=== PATIENT | female | born 1945 | race Caucasian/White ===

== ENCOUNTER 2020-10-11 08:46 | Outpatient (REF) | payer MEDICARE, SELFPAY ==
[2020-10-11 11:36] LABS: MANUAL DIFF FLAG NO
[2020-10-11 12:03] LABS: Basophils Absolute Auto 0.1 X10*3/uL (0.0-0.2); Basophils Percent Auto 1.2 % (0-2); Eosinophils Absolute Auto 0.5 X10*3/uL (0.0-0.4); Eosinophils Percent Auto 6.8 % (0-4); Hematocrit 40.4 % (37-47); Hemoglobin 13.3 g/dl (12.0-16.0); Imm Gran Abs Auto 0.02 X10*3/uL (0.00-0.03); Imm Gran Pct Auto 0.3 % (0.0-0.4); Lymphocytes Absolute Auto 1.7 X10*3/uL (1.2-4.9); Lymphocytes Percent Auto 25.4 % (20-40); Mean Corpuscular HGB Conc 32.9 g/dl (31.0-35.0); Mean Corpuscular Hemoglobin 29.4 pg (27.0-33.0); Mean Corpuscular Volume 89.2 fL (80-98); Mean Platelet Volume 10.7 fL (9.4-12.3); Monocytes Absolute Auto 0.5 X10*3/uL (0.1-1.2); Monocytes Percent Auto 7.1 % (2-11); Neutrophils Percent Auto 59.2 % (45-73); Platelet Count 256 X10*3/uL (160-400); Red Blood Count 4.53 X10*6/uL (4.20-5.50); Red Cell Distribution Width 12.5 % (11.0-16.0); White Blood Count 6.7 X10*3/uL (4.8-10.8)
[2020-10-11 12:40] LABS: Free T4 (Free Thyroxine) 0.89 ng/dL (0.71-1.85); Thyroid Stimulating Hormone 1.02 uIU/mL (0.32-4.0); Vitamin D 25-OH Total 36.8 ng/mL (>30)
[2020-10-11 12:48] LABS: Vitamin B12 482 pg/mL (200-900)
[2020-10-11 13:11] LABS: Alanine Aminotransferase 22 U/L (0-31); Alkaline Phosphatase 82 U/L (39-117); Anion Gap 11 (12-20); Aspartate Amino Transferase 21 U/L (5-31); Bilirubin Total 0.7 mg/dL (0.0-1.0); Blood Urea Nitrogen 15 mg/dL (9-16); Carbon Dioxide 27 mmol/L (22-29); Chloride 109 mmol/L (96-108); Cholesterol 206 mg/dL; Estimated Glomerular Filt Rate > 60; Glucose Random 79 mg/dL (60-115); HDL Cholesterol 65 mg/dL; LDL Cholesterol Calculated 117 mg/dl; Potassium 4.1 mmol/L (3.3-5.1); Sodium 143 mmol/L (135-145); Total Protein 6.3 g/dL (6.5-8.0); Triglycerides 124 mg/dL
== END 2020-10-11 08:47 | disposition home or self-care (01) ==
LOC: HO.HMGCLDS 08:46
PROVIDERS: PCP Internal Medicine; Visit Provider Internal Medicine
DX: E78.00 Pure hypercholesterolemia, unspecified (principal)
CPT/HCPCS: 36415; 80053; 80061; 82306; 82607; 82746; 84439; 84443; 85025

== ENCOUNTER 2020-11-29 10:47 | Outpatient (REF) | payer MEDICARE, SELFPAY ==
--- NOTE | ~2020-11-29 | MM_ITS ---
EXAMINATION: BONE DENSITOMETRY CLINICAL INDICATION: Osteopenia. COMPARISON: Previous BD dated 06/17/2018 and baseline BD dated 04/20/2008. TECHNIQUE: Using a [employer] DXA System (software version: 13.1) manufactured by [employer], dual-energy x-ray absorptiometry was performed of the lumbar spine and left hip. The images are of good technical quality. Summary results are attached. FINDINGS: AP SPINE L1-L4: Current: BMD 1.217 g/cm2, Z-score 2.3, T-score 0.3, normal, 0.7% decrease from previous, 2.6% decrease from baseline (<5% change is not significant). Prior: BMD 1.225 g/cm2. Baseline: BMD 1.249 g/cm2. LEFT FEMUR, NECK: Current: BMD 0.819 g/cm2, Z-score 0.6, T-score -1.6, osteopenia. Prior: BMD 0.808 g/cm2. Baseline: BMD 0.845 g/cm2. LEFT FEMUR, TOTAL: Current: BMD 0.878 g/cm2, Z-score 0.9, T-score -1.0, normal, 1.5% decrease from previous, 3.8% decrease from baseline (<5% change is not significant). Prior: BMD 0.891 g/cm2. Baseline: BMD 0.913 g/cm2. IDENTIFIED RISK FACTORS: Menopause, glucocorticoids (chronic). HISTORY OF FRACTURE: None listed. MEDICATIONS: Vitamin D. MM/XR DEXA axial skeleton IMPRESSION: 1. DIAGNOSIS: Osteopenia based on the lowest T-score value of -1.6 in the femoral neck applying World Health Organization criteria. 2. 10-YEAR FRACTURE RISK PREDICTION, FRAX: Major osteoporotic fracture (clinical spine, forearm, hip or shoulder) 17.5%. Hip fracture 4.5%. 3. Treatment Recommendations: NOF guidelines recommend consideration for treatment in postmenopausal women and men age 50 and older presenting with the following: -A hip or vertebral (clinical or morphometric) fracture. -T-score less than or equal to -2.5 at the femoral neck or spine after appropriate evaluation to exclude secondary causes. -Low bone mass at the hip or spine and a 10-year fracture probability by FRAX of greater than or equal to 3% for hip fracture or greater than or equal to 20% for major osteoporotic fracture based on the [place] adapted WHO algorithm. 4. Other Recommendations: All treatment decisions require clinical judgment and consideration of individual patient factors, including patient preferences, comorbidities, previous drug use, risk factors not captured in the FRAX model (e.g. frailty, falls, vitamin D deficiency, increased bone turnover, interval significant decline in bone density) and possible under or overestimation of fracture risk by FRAX. Additional medical evaluation for secondary cause of low bone mineral density may be appropriate. FUTURE SCAN RECOMMENDATION: People with diagnosed cases of osteoporosis or at high risk for fracture should have regular bone mineral density tests. For patients eligible for Medicare, routine testing is allowed once every 2 years. The testing frequency can be increased to one year for patients who have rapidly progressing disease, those who are receiving or discontinuing medical therapy to restore bone mass, or have additional risk factors.
== END 2020-11-29 10:48 | disposition home or self-care (01) ==
LOC: HO.MAMMO 10:47
PROVIDERS: PCP Internal Medicine; Visit Provider Internal Medicine
DX: Z13.820 Encounter for screening for osteoporosis (principal); M85.80 Other specified disorders of bone density and structure, unspecified site; E27.49 Other adrenocortical insufficiency; Z78.0 Asymptomatic menopausal state; Z79.899 Other long term (current) drug therapy
CPT/HCPCS: 77080

== ENCOUNTER 2021-03-01 11:18 | Outpatient (REF) | payer MEDICARE, SELFPAY ==
--- NOTE | ~2021-03-01 | MM_ITS ---
EXAMINATION: MM SCREENING DIGITAL BREAST TOMOSYNTHESIS, BILATERAL CLINICAL INFORMATION: Screening. Asymptomatic. The lifetime risk of breast cancer based on the Tyrer-Cuzick Model is 5%. COMPARISON: Mammography: 01/19/2020, 08/11/2018, 07/25/2017, 07/06/2016, 06/09/2015 TECHNIQUE: Digital breast tomosynthesis is performed in both the craniocaudal and mediolateral oblique views along with computer-aided detection (CAD). Synthesized 2D images are generated from the tomosynthesis. FINDINGS: The breasts are heterogeneously dense, which may obscure small masses (ACR BI-RADS breast composition Category c). There is a fibronodular parenchymal pattern similar to prior studies. There are shifting fibroglandular densities from year to year consistent with positioning. There is no interval mass or architectural abnormality or developing density. No abnormal calcifications. The axilla and skin contours are unremarkable. MM/MM tomosynthesis screening BI IMPRESSION: No significant changes from prior exams. ASSESSMENT: BI-RADS 2: Benign RECOMMENDATION: Routine annual mammography screening. This patient's information was entered into a reminder system with a target due date for their next mammogram.
== END 2021-03-01 11:19 | disposition home or self-care (01) ==
LOC: HO.MAMMO 11:18
PROVIDERS: Visit Provider Internal Medicine
DX: Z12.31 Encounter for screening mammogram for malignant neoplasm of breast (principal)
CPT/HCPCS: 77063; 77067

== ENCOUNTER 2021-09-09 07:35 | Outpatient (REF) | payer MEDICARE, SELFPAY ==
[2021-09-09 11:12] LABS: MANUAL DIFF FLAG NO
[2021-09-09 11:24] LABS: Basophils Absolute Auto 0.1 X10*3/uL (0.0-0.2); Eosinophils Absolute Auto 0.7 X10*3/uL (0.0-0.4); Eosinophils Percent Auto 11.3 % (0-4); Hematocrit 42.3 % (37.0-47.0); Hemoglobin 13.9 g/dl (12.0-16.0); Imm Gran Abs Auto 0.02 X10*3/uL (0.00-0.03); Imm Gran Pct Auto 0.3 % (0.0-0.4); Lymphocytes Absolute Auto 1.7 X10*3/uL (1.2-4.9); Mean Corpuscular HGB Conc 32.9 g/dl (31.0-35.0); Mean Corpuscular Hemoglobin 29.4 pg (27.0-33.0); Mean Corpuscular Volume 89.6 fL (80.0-98.0); Mean Platelet Volume 11.1 fL (9.4-12.3); Monocytes Absolute Auto 0.5 X10*3/uL (0.1-1.2); Monocytes Percent Auto 7.7 % (2-11); Neutrophils Absolute Auto 3.2 x10*3/uL (2.0-8.3); Neutrophils Percent Auto 51.7 % (45-73); Platelet Count 243 X10*3/uL (160-400); Red Blood Count 4.72 X10*6/uL (4.20-5.50); Red Cell Distribution Width 12.6 % (11.0-16.0); White Blood Count 6.1 X10*3/uL (4.8-10.8)
[2021-09-09 11:42] LABS: Alanine Aminotransferase 28 U/L (0-31); Alkaline Phosphatase 74 U/L (39-117); Anion Gap 12 (12-20); Aspartate Amino Transferase 26 U/L (5-31); Bilirubin Total 0.6 mg/dL (0.0-1.0); Blood Urea Nitrogen 15 mg/dL (9-16); Calcium 9.2 mg/dL (8.4-10.2); Carbon Dioxide 28 mmol/L (22-29); Chloride 106 mmol/L (96-108); Cholesterol 217 mg/dL; Estimated Glomerular Filt Rate > 60; Glucose Random 81 mg/dL (60-115); HDL Cholesterol 59 mg/dL; LDL Cholesterol Calculated 134 mg/dl; Potassium 3.9 mmol/L (3.3-5.1); Sodium 142 mmol/L (135-145); Total Protein 6.6 g/dL (6.5-8.0); Triglycerides 121 mg/dL
[2021-09-09 12:07] LABS: Thyroid Stimulating Hormone 1.96 uIU/mL (0.32-4.0); Vitamin D 25-OH Total 36.9 ng/mL (>30)
[2021-09-09 12:14] LABS: Folate 15.8 ng/mL (> or = 4.0); Vitamin B12 561 pg/mL (200-900)
== END 2021-09-09 07:36 | disposition home or self-care (01) ==
LOC: HO.HMGCLDS 07:35
PROVIDERS: PCP Internal Medicine; Visit Provider Internal Medicine
DX: E78.00 Pure hypercholesterolemia, unspecified (principal); M85.80 Other specified disorders of bone density and structure, unspecified site
CPT/HCPCS: 36415; 80053; 80061; 82306; 82607; 82746; 84439; 84443; 85025

== ENCOUNTER 2022-03-06 11:28 | Outpatient (REF) | payer MEDICARE, SELFPAY ==
--- NOTE | ~2022-03-06 | MM_ITS ---
EXAMINATION: MM SCREENING DIGITAL BREAST TOMOSYNTHESIS, BILATERAL CLINICAL INFORMATION: Screening. Asymptomatic. The lifetime risk of breast cancer based on the Tyrer-Cuzick Model is 5%. COMPARISON: Mammography: March 01, 2021 and studies dating back to June 09, 2015 TECHNIQUE: Digital breast tomosynthesis is performed in both the craniocaudal and mediolateral oblique views along with computer-aided detection (CAD). Synthesized 2D images are generated from the tomosynthesis. FINDINGS: The breasts are heterogeneously dense, which may obscure small masses (ACR BI-RADS breast composition Category c). There are no significant masses, abnormal calcifications, or other abnormalities. MM/MM tomosynthesis screening BI IMPRESSION: No significant changes ASSESSMENT: BI-RADS 1: Negative RECOMMENDATION: Routine annual mammography screening. This patient's information was entered into a reminder system with a target due date for their next mammogram.
== END 2022-03-06 11:29 | disposition home or self-care (01) ==
LOC: HO.MAMMO 11:28
PROVIDERS: PCP Internal Medicine; Visit Provider Internal Medicine
DX: Z12.31 Encounter for screening mammogram for malignant neoplasm of breast (principal)
CPT/HCPCS: 77063; 77067

== ENCOUNTER 2022-04-18 07:27 | Outpatient (REF) | payer MEDICARE, SELFPAY ==
[2022-04-18 14:56] LABS: Alanine Aminotransferase 20 U/L (0-31); Albumin Level 4.1 g/dL (3.5-5.0); Alkaline Phosphatase 74 U/L (39-117); Anion Gap 11 (12-20); Aspartate Amino Transferase 19 U/L (5-31); Bilirubin Total 0.6 mg/dL (0.0-1.0); Blood Urea Nitrogen 15 mg/dL (9-16); Calcium 9.3 mg/dL (8.4-10.2); Carbon Dioxide 31 mmol/L (22-29); Chloride 105 mmol/L (96-108); Cholesterol 195 mg/dL; Estimated Glomerular Filt Rate > 60; Glucose Random 81 mg/dL (60-115); HDL Cholesterol 67 mg/dL; LDL Cholesterol Calculated 104 mg/dl; Sodium 143 mmol/L (135-145); Total Protein 6.4 g/dL (6.5-8.0); Triglycerides 121 mg/dL
== END 2022-04-18 07:28 | disposition home or self-care (01) ==
LOC: HO.HMGCLDS 07:27
PROVIDERS: PCP Internal Medicine; Visit Provider Internal Medicine
DX: E78.00 Pure hypercholesterolemia, unspecified (principal)
CPT/HCPCS: 36415; 80053; 80061

== ENCOUNTER → 2022-04-20 10:49 | Outpatient (BNVA) | payer MEDICARE, SELFPAY | PROVIDERS: PCP Internal Medicine; Referring Provider Internal Medicine; Visit Provider Surgery | DX: L72.11 Pilar cyst (principal) | CPT/HCPCS: 99202 ==

== ENCOUNTER 2022-06-05 10:46 | Outpatient (REF) | payer MEDICARE, SELFPAY ==
[2022-06-05 10:55] VITALS: BMI 23.0
[2022-06-05 10:57] VITALS: BP 163/70; PULSE 85; RESP 16; TEMP 36.3; O2SAT 98
[2022-06-05 11:58] VITALS: BP 180/76; PULSE 75; RESP 16; O2SAT 97
--- NOTE | 2022-06-05 12:14 | P.OP_ITS ---
Operative Note Operative Note Date of Service: 06/05/22 Narrative: Preoperative diagnosis: Pilar cyst x5 scalp Postoperative diagnosis: Same Procedure: Excision of Pilar cyst x5 scalp Surgeon: Rajendra Arriaga MD Claims Adjudicator: None Anesthesia: Lidocaine 2% with epinephrine Indications for procedure: 76-year-old female with multiple skin lesions located in the posterior and anterior right scalp Operative findings: Pilar cyst x5 of scalp including a 2 cm Pilar cyst in the posterior right scalp, 2 1.5 cm Pilar cysts in the posterior midline, a 1.5 cm Pilar cyst in the mid right scalp and a 1 cm Pilar cyst in the anterior midline scalp. Specimen: Pilar cyst x5 of scalp Estimated blood loss: Less than 2 mL Complications: None Procedure details: Patient was brought to the minor surgery suite and placed in a supine position and then raised to a sitting position. Patient's head was turned to the left. The site of surgery confirmed by the patient with 5 Pilar cysts noted. After assuring informed consent the skin was prepped with Betadine over each cyst and draped in a sterile fashion. Local anesthesia consisting of 2% lidocaine with epinephrine was then infiltrated over each lesion. Beginning in the most posterior lesion incision was made a with scalpel and carried out through subcutaneous tissue up to the cyst wall. Blunt dissection was then used to dissect the lesion out of the subcutaneous tissue. The lesion was excised and sent to pathology for further examination. Skin was then closed using interrupted 3-0 Prolene sutures. Attention was then directed to the 2 midline lesions. Once again local was infiltrated over each lesion. Incision was then made over each lesion in the lesion bluntly dissected from the surrounding subcutaneous tissue. Both lesions were then sent to pathology for further examination. Skin was closed over the 2 incisions using interrupted 3-0 Prolene sutures. Mid scalp lesion was then S ties with the lidocaine. Incision was then made with a scalpel and carried out through subcutaneous tissue. Blunt dissection was then used to excise the lesions. The lesion was then sent to pathology for further examination. Skin was closed using interrupted 3-0 Prolene sutures. Next the most anterior lesion in the midline scalpel anesthetized and incision made with scalpel. The lesion was then bluntly dissected from the surrounding subcutaneous tissue. The lesion was excised and sent to pathology for further examination. Skin was then closed using interrupted 3-0 Prolene sutures. Wounds were checked for hemostasis. Bacitracin was applied to each incision. Patient tolerated the procedure well. She was discharged to home in stable condition.
== END 2022-06-05 10:47 | disposition home or self-care (01) ==
LOC: HO.MS 10:46
PROVIDERS: PCP Internal Medicine; Visit Provider Surgery
PROC: (CPT 11421; principal; 2022-06-05 11:00)
DX: L72.11 Pilar cyst (principal)
CPT/HCPCS: 11421; 11422 ×3; 88304

== ENCOUNTER → 2022-06-12 09:02 | Outpatient (BNVA) | payer MEDICARE, SELFPAY | PROVIDERS: PCP Internal Medicine; Visit Provider Surgery | DX: Z13.89 Encounter for screening for other disorder (principal) | CPT/HCPCS: 99212 ==

== ENCOUNTER 2022-09-11 08:31 | Emergency (ER) | payer MEDICARE, SELFPAY ==
--- NOTE | ~2022-09-11 | XR_ITS ---
EXAMINATION: XR ABDOMEN COMPLETE CLINICAL INDICATION: Diffuse abdominal pain and constipation. COMPARISON: None available. TECHNIQUE: 2 views of the abdomen. FINDINGS: There is stool throughout the colon suggestive of constipation. There are no dilated loops of bowel or air-fluid levels. No free air. No suspicious calcifications. Degenerative changes of the spine. XR/XR abdomen min 2V IMPRESSION: Constipation. No evidence of obstruction.
[2022-09-11 08:32] VITALS: BP 148/79; PULSE 111; RESP 18; TEMP 37.5; O2SAT 98; BMI 23.2
[2022-09-11 08:54] LABS: Basophils Absolute Auto 0.1 X10*3/uL (0.0-0.2); Basophils Percent Auto 0.3 % (0-2); Eosinophils Percent Auto 0.1 % (0-4); Hematocrit 34.2 % (37.0-47.0); Hemoglobin 11.4 g/dl (12.0-16.0); Imm Gran Abs Auto 0.14 X10*3/uL (0.00-0.03); Imm Gran Pct Auto 0.8 % (0.0-0.4); Lymphocytes Absolute Auto 1.2 X10*3/uL (1.2-4.9); Lymphocytes Percent Auto 7.1 % (20-40); MANUAL DIFF FLAG SCAN; Mean Corpuscular HGB Conc 33.3 g/dl (31.0-35.0); Mean Corpuscular Hemoglobin 27.6 pg (27.0-33.0); Mean Corpuscular Volume 82.8 fL (80.0-98.0); Monocytes Absolute Auto 1.6 X10*3/uL (0.1-1.2); Monocytes Percent Auto 9.5 % (2-11); Neutrophils Absolute Auto 13.9 x10*3/uL (2.0-8.3); Neutrophils Percent Auto 82.2 % (45-73); Platelet Count 432 X10*3/uL (160-400); Red Blood Count 4.13 X10*6/uL (4.20-5.50); Red Cell Distribution Width 12.8 % (11.0-16.0); SCAN SMEAR FLAG 1; White Blood Count 16.9 X10*3/uL (4.8-10.8)
--- NOTE | 2022-09-11 09:03 | ED_ITS ---
HPI - Abdominal Pain General Chief Complaint: Abdominal Pain Stated Complaint: Abd pain Time Seen by Provider: 09/11/22 08:49 Source: patient Mode of arrival: ambulatory Limitations: no limitations History of Present Illness HPI narrative: patient with low abdominal pain since yesterday could not sleep all night. Nausea no vomiting, no diarrhea, has been constipated yesterday she had a small hard BM. She feel like she had to force to urinate. No dysuria. MD elicited complaint: abdominal pain Onset (ago): day(s) Pain Consistency: constant Severity: mild Quality: cramping Related Data Previous Rx's Medication Instructions Recorded fexofenadine 180 mg tablet 180 mg PO Q24H #30 tabs 10/12/21 (Arlene Allergy) fluticasone propionate 50 1 spray intranasal DAILY 14 days 04/03/22 mcg/actuation nasal #150 mL spray,suspension (Flonase Allergy Relief) simvastatin 20 mg tablet 20 mg PO DAILY #90 tabs 04/03/22 albuterol sulfate 90 mcg/actuation 2 puff inhalation Q4-6H PRN 07/24/22 aerosol inhaler (ProAir HFA) shortness of breath or wheezing #8.5 grams budesonide 180 mcg/actuation 2 inh inhalation QAM #3 multiple 09/03/22 breath activated powder inhaler units (Pulmicort Flexhaler) cyclobenzaprine 5 mg tablet 10 mg PO TID PRN muscle spasm #60 09/03/22 tabs lactulose 20 gram/30 mL oral 30 g (45 mL) PO TID #1,500 mL 09/11/22 solution psyllium seed (sugar) oral powder 1 tsp PO DAILY #1,254 grams 09/11/22 (Metamucil (sugar) oral powder) Allergies Allergy/AdvReac Type Severity Reaction Status Date / Time egg Allergy Unknown Unknown Verified 07/24/22 15:35 Review of Systems Review of Systems Yes all other systems are reviewed and are negative Gastrointestinal: Reports abdominal pain PMFSH Past Medical History Medical History Asthma Brain aneurysm History of skin cancer Hypercholesterolemia Osteopenia Surgical History History of colonoscopy History of eye surgery History of removal of cyst History of removal of cyst (06/05/22) History of removal of ovarian cyst Pilar cyst Status post surgical removal of malignant neoplasm of skin Family History Family History Father Past heart attack Mother Asthma Sister Diabetes Paternal Aunt Breast cancer Colon cancer Maternal Aunt Breast cancer Social History Social History Housing: House Patient Tobacco Use Status: Former Tobacco user Tobacco use type: Cigarette e-Cigarette/Vaping Use: Never Used Second Hand Smoke Exposure: No Advance Directives: No Advance Directives Information Provided: Yes service: No Current occupational status: retired Cognitive needs: No Hearing needs: No Vision needs: Yes Physical Exam ED Vital Signs: Vital Signs - 24 hr 09/11/22 08:32 Temperature 99.5 F Pulse Rate 111 H Respiratory Rate 18 Blood Pressure 148/79 H Pulse Oximetry 98 Oxygen Delivery Method Room Air BMI result Body Mass Index 23.2 Const General: healthy appearing Nutritional Appearance: average body habitus Orientation/consciousness: oriented to person and patient oriented x3 Limitations: no limitations HENMT Head: Yes normal to inspection Ears: external ears normal General nose exam: Normal external nose present Mouth: Normal oral and palatal mucosa present and oropharynx normal Throat: Yes posterior oropharynx normal Eyes General: appearance normal, both eyes and all related structures Neck Neck: Yes normal visual inspection Chest Chest palpation & inspection: normal inspection of the chest Resp Auscultation: clear to auscultation bilaterally Cardio Jugular venous distension: no JVD Rate: regular rate Rhythm: regular rhythm Heart sounds: S1 normal heart sound present and S2 normal heart sound present GI Other: diffusely tender no guarding, firm Auscultation: normal bowel sounds General: Yes no CVA tenderness Back/Spine/Pelvis Back: no CVA tenderness Skin General skin exam: no rashes or lesions noted Neuro General: oriented to person and patient oriented x3 Cranial nerves: Yes CN's II-XII intact bilaterally Motor exam (neuro): 5/5 motor strength present throughout Extrem General: Yes normal to inspection Psych Appearance: grossly normal Course Reevaluation(s) Reevaluation #1: history, physical and xray all consistent with constipation, will treat with lactulose and dc home. Patient is constipated secondary to the cervical pain meds Time: 11:40 Medical Decision Making Differential Diagnosis Differential Diagnoses: The differential diagnosis associated with the presentation includes (diverticulitis, appendicitis, constipation all considered) Admission/Observation Consideration of admission/observation: Escalation of care including admission/observation considered (In a 76yo female with increasing abdominal pain, admission was considered) Lab Data MDM Lab Attestation statement: I reviewed the patient's lab results. (the WBC is elevated, patient does not have a surgical abdomen at this time) 09/11/22 08:45 09/11/22 08:45 Labs: Lab Results 09/11/22 09/11/22 09/11/22 Range/Units 08:45 08:45 08:59 WBC 16.9 H (4.8-10.8) X10*3/uL RBC 4.13 L (4.20-5.50) X10*6/uL Hgb 11.4 L (12.0-16.0) g/dl Hct 34.2 L (37.0-47.0) % MCV 82.8 (80.0-98.0) fL MCH 27.6 (27.0-33.0) pg MCHC 33.3 (31.0-35.0) g/dl RDW 12.8 (11.0-16.0) % Plt Count 432 H D (160-400) X10*3/uL MPV 9.0 L (9.4-12.3) fL Immature Gran % (Auto) 0.8 H (0.0-0.4) % Neut % (Auto) 82.2 H (45-73) % Lymph % (Auto) 7.1 L (20-40) % [place] % (Auto) 9.5 (2-11) % Eos % (Auto) 0.1 (0-4) % Baso % (Auto) 0.3 (0-2) % Lymph # (Auto) 1.2 (1.2-4.9) X10*3/uL [place] # (Auto) 1.6 H (0.1-1.2) X10*3/uL Eos # (Auto) 0.0 (0.0-0.4) X10*3/uL Baso # (Auto) 0.1 (0.0-0.2) X10*3/uL Abs Immat Gran (auto) 0.14 H (0.00-0.03) X10*3/uL Absolute Neuts (auto) 13.9 H (2.0-8.3) x10*3/uL Absolute Nucleated RBC 0.000 (0.0-0.012) X10*3/uL Nucleated RBC % (auto) 0.0 (0.0-0.2) /100WBC Smear Tech's Comments VERIFIED Sodium 132 L (135-145) mmol/L Potassium 4.3 (3.3-5.1) mmol/L Chloride 96 (96-108) mmol/L Carbon Dioxide 26 (22-29) mmol/L Anion Gap 14 (12-20) BUN 13 (9-16) mg/dL Creatinine 0.68 (0.5-1.4) mg/dL Estim Creat Clear Calc 57.3 Estimated GFR > 60 Random Glucose 136 H (60-115) mg/dL Calcium 9.1 (8.4-10.2) mg/dL Total Bilirubin 0.7 (0.0-1.0) mg/dL Direct Bilirubin 0.3 (0.0-0.5) mg/dL AST 27 (5-31) U/L ALT 62 H (0-31) U/L Total Protein 6.6 (6.5-8.0) g/dL Albumin 3.8 (3.5-5.0) g/dL Lipase 12 (8-78) U/L Urine Color Dark Yellow Urine Appearance Clear Urine pH 5.5 (5.0-9.0) Ur Specific [place] 1.025 (1.005-1.025) Urine Protein 30 (1+) H (Neg-Trace) mg/dL Urine Glucose (UA) 100 H (Negative) mg/dL Urine Ketones 15 (Negative) mg/dL Urine Blood Negative (Negative) Urine Nitrite Negative (Negative) Ur Leukocyte Esterase Trace H (Negative) Urine RBC 3-5 H (0-2) /HPF Urine WBC 0-5 (0-5) /HPF Ur Squamous Epith Cells 3-5 (0-2) /HPF Urine Bacteria None Seen (None Seen) Hyaline Casts 0-2 (0-2) /LPF Independent Interpretation I performed an independent interpretation of an: Plain X-Ray (constipation, no free air) Tests considered The following testing was considered but not selected: I considered an abdominal CT because of elevated WBC. Abdominal exam nonfocal and patient is full of stool so I did not obtain the cT Discharge Plan Discharge Clinical Impression: Constipation Patient Disposition: Home, Self-Care Instructions: Constipation (ED) Prescriptions: New lactulose 20 gram/30 mL solution 30 g PO TID Qty: 1500 0RF Rx Instructions: take until stool becomes liquid Metamucil (sugar) Powder 1 tsp PO DAILY Qty: 1254 0RF No Action simvastatin 20 mg tablet 20 mg PO DAILY Qty: 90 2RF fluticasone propionate [Flonase Allergy Relief] 50 mcg/actuation spray,suspension 1 spray intranasal DAILY 14 Days Qty: 150 0RF Rx Instructions: administer into each nostril Pulmicort Flexhaler 180 mcg/actuation aerosol powdr breath activated 2 inh inhalation QAM Qty: 3 3RF cyclobenzaprine 5 mg tablet 10 mg PO TID PRN (Reason: muscle spasm) Qty: 60 0RF fexofenadine [Arlene Allergy] 180 mg tablet 180 mg PO Q24H Qty: 30 0RF albuterol sulfate [ProAir HFA] 90 mcg/actuation HFA aerosol inhaler 2 puff inhalation Q4-6H PRN (Reason: shortness of breath or wheezing) Qty: 8.5 0RF Referrals: Po,Amos White MD [Primary Care Provider] - 1 week
[2022-09-11 09:11] LABS: Appearance Urine Clear; Color Urine Dark Yellow; Glucose Urine UA 100 mg/dL (Negative); Leukocyte Esterase Urine Trace (Negative); Nitrite Urine Negative (Negative); PH 5.5 (5.0-9.0); Specific Gravity - Urine 1.025 (1.005-1.025); UMIC TRIGGER UACC YES; Urine Blood Negative (Negative); Urine Ketones 15 mg/dL (Negative); Urine Protein 30 (1+) mg/dL (Neg-Trace)
[2022-09-11 09:14] LABS: Bacteria Urine None Seen (None Seen); Hyaline Casts Urine 0-2 /LPF (0-2); WBC Urine 0-5 /HPF (0-5)
[2022-09-11 09:18] LABS: SLIDE REVIEW VERIFIED
[2022-09-11 11:29] LABS: Alanine Aminotransferase 62 U/L (0-31); Albumin Level 3.8 g/dL (3.5-5.0); Anion Gap 14 (12-20); Aspartate Amino Transferase 27 U/L (5-31); Bilirubin Direct 0.3 mg/dL (0.0-0.5); Bilirubin Total 0.7 mg/dL (0.0-1.0); Blood Urea Nitrogen 13 mg/dL (9-16); Calcium 9.1 mg/dL (8.4-10.2); Carbon Dioxide 26 mmol/L (22-29); Chloride 96 mmol/L (96-108); Creatinine Clr Calc Pharmacy 57.3; Estimated Glomerular Filt Rate > 60; Glucose Random 136 mg/dL (60-115); Lipase 12 U/L (8-78); Potassium 4.3 mmol/L (3.3-5.1); Sodium 132 mmol/L (135-145); Total Protein 6.6 g/dL (6.5-8.0)
[2022-09-11 11:51] LABS: Alkaline Phosphatase 519 U/L (39-117)
[2022-09-11 11:58] VITALS: BP 165/70; PULSE 102; RESP 16; TEMP 37; O2SAT 97
[2022-09-11] MEDS: Lactulose 20 GM/30 ML SOLUTION PO (12:00)
== END 2022-09-11 12:10 | disposition home or self-care (01) ==
PROVIDERS: Emergency Provider Emergency Medicine; PCP Internal Medicine
DX: K59.00 Constipation, unspecified (principal); E78.00 Pure hypercholesterolemia, unspecified; Z79.02 Long term (current) use of antithrombotics/antiplatelets; Z79.899 Other long term (current) drug therapy
CPT/HCPCS: 36415; 74019; 80048; 80076; 81001; 83690; 85025; 99283; 99284

== ENCOUNTER 2022-09-12 21:38 | Inpatient (IN) | payer MEDICARE, SELFPAY ==
--- NOTE | ~2022-09-12 | CT_ITS ---
EXAMINATION: CT ABDOMEN AND PELVIS WITH CONTRAST CLINICAL INFORMATION: Exploratory laparotomy. Leukocytosis. Rule out abscess. COMPARISON: Previous CT of the abdomen and pelvis 09/12/2022 and upper GI 09/17/2022 TECHNIQUE: Multidetector volumetric images were obtained from the superior aspect of the liver through the pubic symphysis following administration 85 mL of Omnipaque 350 intravenous contrast. Sagittal and coronal reformatted images were obtained on the technologist's workstation. Oral contrast: No This CT examination was performed using dose optimization techniques as appropriate, variously including the following: *Automated exposure control *Adjustment of mA and/or kV according to patient size (this includes techniques or standardized protocols for targeted exams where dose is matched to indication/reason for exam; i.e. extremities or head) *Use of iterative reconstruction technique DLP: mGy-cm FINDINGS: LUNG BASES: Moderate bilateral pleural effusions and adjacent bilateral lower lobe compressive atelectasis. LIVER, GALLBLADDER, AND BILIARY TREE: The liver is normal in size, shape, and attenuation. No focal hepatic lesion or biliary ductal dilatation is present. The gallbladder is normal in size. No gallstones are appreciated by CT. There is a small amount of fluid surrounding the gallbladder PANCREAS: Unremarkable. SPLEEN: Unremarkable. ADRENAL GLANDS: Unremarkable. KIDNEYS AND URETERS: Bilateral renal peripelvic cysts. 4 cm cortical cyst in the lower pole of the right kidney. No imaging follow-up recommended. BLADDER: There is a small amount of air in the bladder. This may be related to recent catheterization. Clinical correlation recommended. GASTROINTESTINAL TRACT: There are dilated fluid-filled slightly thick-walled loops of proximal small bowel. There is a small bowel suture line seen in the right mid abdomen. There is abnormal extraluminal air seen adjacent to the to the medial side of the bowel/surgical staple line for example axial image 52 series 3. There is a small amount of fluid and extra luminal air seen in the root of the adjacent small bowel mesentery for example axial image 48 series 3. The small bowel distal to the surgical anastomosis is difficult to follow. There are also abnormal loops of more distal small bowel in the left lower quadrant for example axial image 63 and 64 series 3. These loops of bowel are slightly dilated fluid-filled and demonstrate mucosal enhancement. There is an area where the mucosa does not enhance. This abuts what appears to be adjacent fluid in the small bowel mesentery for example image 63 series 3 and the integrity of the wall the small bowel in this region is questionable as well. There is a small amount of fluid in the pelvis anterior and superior to the bladder and dependently in the posterior cul-de-sac. There are numerous additional smaller fluid collections are seen in the small bowel mesentery. There are small air pockets in the fluid anterior and superior to the bladder, for example axial image 68 series 3. There is mild diverticulosis of the colon. There is wall thickening of the colon, greatest involving the proximal colon, the cecum, right colon and transverse colon. There is irregular air seen in the cecum and proximal right colon questionable for pneumatosis. There is a small amount of ascites seen. There is peritoneal enhancement seen dependently in the pelvis posterior cul-de-sac. There is diffuse fat stranding of the small bowel mesentery. ABDOMINAL WALL: Postsurgical changes. No hernia or fluid collection. LYMPH NODES: Normal. VASCULAR: The SMA and SMV are patent. There is evidence of atherosclerotic disease. The celiac axis is patent. There is a mild to moderate stenosis at the origin of the celiac axis. There is plaque at the origin of the SMA. The MARCIAL is patent. The IMV is patent. PELVIC VISCERA: There is endometrial fluid or thickening seen centrally in the uterus. Endometrium by CT measures up to 1 cm. This is abnormally thickened for a postmenopausal patient and follow-up pelvic ultrasound recommended. OSSEOUS STRUCTURES: Unremarkable. CT/CT abdomen pelvis w IV con IMPRESSION: Abnormal appearing small and large bowel. Dilated fluid-filled proximal small bowel. There is question of breakdown of the small bowel anastomosis in the right side of the abdomen and abnormal fluid collection containing small amount of air in the root of the small bowel mesentery. There is an abnormal looking loop of more distal small bowel in the left pelvis with wall thickening mucosal enhancement and question discontinuity of the wall of the bowel. There is abnormal appearance to the colon with irregular wall thickening. There is question of pneumatosis of the cecum and proximal right colon. There are additional fluid collections in the small bowel mesentery. There is ascites greatest in the anterior lower abdomen which contains a small air pockets and in the posterior cul-de-sac dependently in the pelvis. There is diffuse peritoneal enhancement seen in the pelvis. There is evidence of atherosclerotic disease. Major mesenteric vessels appear patent. There is a mild stenosis at the origin of the celiac axis. Abnormally thickened endometrium. Follow-up pelvic ultrasound recommended. Small amount of air in the bladder, question related to recent catheterization. Moderate bilateral pleural effusions and adjacent lateral lower lobe compressive atelectasis. Fleischner guidelines were followed.
--- NOTE | ~2022-09-12 | CT_ITS ---
EXAMINATION: CT ABDOMEN AND PELVIS WITHOUT CONTRAST CLINICAL INFORMATION: Abdominal pain, no bowel movement, leukocytosis, vomiting COMPARISON: None available. TECHNIQUE: Multidetector volumetric imaging was performed from the superior aspect of the liver through the pubic symphysis. Sagittal and coronal reformatted images were obtained on the technologist's workstation. This CT examination was performed using dose optimization techniques as appropriate, variously including the following: *Automated exposure control *Adjustment of mA and/or kV according to patient size (this includes techniques or standardized protocols for targeted exams where dose is matched to indication/reason for exam; i.e. extremities or head) *Use of iterative reconstruction technique DLP: 419 mGy-cm FINDINGS: LUNG BASES: The visualized lung bases are unremarkable. Trace pericardial effusion. LIVER, GALLBLADDER, AND BILIARY TREE: The liver is normal in size, shape, and attenuation. No focal hepatic lesion or biliary ductal dilatation is identified. Gallbladder appears contracted and is not well evaluated. PANCREAS: Unremarkable. SPLEEN: Curvilinear peripheral calcification noted. ADRENAL GLANDS: Unremarkable. KIDNEYS AND URETERS: No hydronephrosis or obstructing calculus bilaterally. Left renal sinus cysts are noted, and there is also a right lower pole cyst; no follow-up recommended. BLADDER: Unremarkable. GASTROINTESTINAL TRACT: Small hiatal hernia. There are multiple dilated gas and fluid-filled loops of small bowel. The distalmost small bowel near the terminal ileum is relatively collapsed. There is also prominent gaseous distention of much of the colon, with gradual decrease in caliber in the sigmoid colon. Moderate stool is present in the sigmoid colon with some additional stool in the distal transverse colon. Appendix is suspected to be nondilated. Trace free fluid is present. No free air is seen. ABDOMINAL WALL: No significant hernia is appreciated. LYMPH NODES: Normal. VASCULAR: There is atherosclerotic calcification along the aorta. PELVIC VISCERA: Unremarkable. OSSEOUS STRUCTURES: There is facet arthropathy of the lower lumbar spine. Slight anterolisthesis of L4 on L5 is favored to be chronic in this setting. CT/CT abdomen pelvis wo IV con IMPRESSION: 1. Multiple dilated loops of small and large bowel. While there is some decrease in caliber of the distal small bowel, the colonic associated dilation would argue against significant small bowel obstruction. There is gradual decrease in caliber of the colon in the sigmoid colon without focal transition point. Ileus would be a consideration with this appearance. 2. Trace free fluid. 3. Small hiatal hernia. 4. Trace pericardial effusion.
--- NOTE | ~2022-09-12 | XR_ITS ---
EXAMINATION: XR CHEST CLINICAL INFORMATION: NG tube placement COMPARISON: 09/13/2022 TECHNIQUE: Frontal view of the chest was obtained. FINDINGS: Enteric tube extends into the proximal stomach with the side-port at the distal esophagus. The lungs are well expanded. There is no focal consolidation, edema, or effusion. No pneumothorax. The cardiomediastinal silhouette is within normal limits. No acute osseous abnormality. XR/XR chest 1V IMPRESSION: 1. No acute pulmonary disease. 2. Enteric tube terminates in the proximal stomach with the side-port at the distal esophagus. Placement is similar to prior. Consider advancement.
--- NOTE | ~2022-09-12 | FL_ITS ---
EXAMINATION: FL UPPER GI SERIES WITH SMALL BOWEL CLINICAL INFORMATION: Small bowel obstruction. COMPARISON: None available. TECHNIQUE: A KUB was obtained. Subsequently, a 50-50 dilution of Gastrografin/water combination, total 320 mL was inserted through the nasogastric tube and images were obtained. FINDINGS: KUB reveals a nasogastric tube with its tip in the fundus. There are multiple dilated small bowel loops. Sequential images obtained up to 3 hours reveal multiple dilated small bowel loops with Gastrografin opacifying the proximal and mid small bowel loops. KUB obtained at 3 hours patient had no progression beyond the small bowel loops. Patient had a single episode of large vomiting at which point the exam was discontinued. FLUOROSCOPY TIME: 1.2 minutes DOSE AREA PRODUCT: 12.672 uGy-m2 (microgray-meter squared) FL/FL upper GI small bowel IMPRESSION: Multiple dilated small bowel loops with Gastrografin opacifying the proximal and mid small bowel loops at 3 hours. Patient had a single episode of vomiting at which point the exam was discontinued. The referring physician/surgeon was notified of the incomplete exam.
--- NOTE | ~2022-09-12 | XR_ITS ---
EXAMINATION: XR ABDOMEN KUB CLINICAL INDICATION: Abdominal distention COMPARISON: Previous CT 09/12/2022 and abdominal x-ray 09/11/2022 TECHNIQUE: AP view of the abdomen. FINDINGS: There is a nasogastric tube in the proximal stomach. There are still dilated loops of small and large bowel. Decreased stool burden. There is no evidence of free air. No calcifications. Bony structures are normal. XR/XR abdomen 1V IMPRESSION: Nasogastric tube in the proximal stomach. Persistent dilated loops of small and large bowel. Decreased stool burden.
--- NOTE | ~2022-09-12 | XR_ITS ---
EXAMINATION: XR CHEST CLINICAL INFORMATION: NG tube placement COMPARISON: 09/13/2022 TECHNIQUE: Frontal view of the chest was obtained. FINDINGS: Enteric tube tip lies in the region of the distal esophagus. Side port lies approximately 11 cm above the gastroesophageal junction. The lungs are clear with no focal consolidation. No evidence of pneumothorax, pulmonary edema, or pleural effusions. The cardiomediastinal contour is unremarkable. No acute osseous findings are seen. Redemonstrated partially visualized dilated bowel loops in the upper abdomen. XR/XR chest 1V IMPRESSION: 1. Enteric tube tip lies in the region of the distal esophagus. Advancement by at least 11 cm is recommended. 2. No acute cardiopulmonary findings.
--- NOTE | ~2022-09-12 | XR_ITS ---
EXAMINATION: XR CHEST CLINICAL INFORMATION: Question pneumonia COMPARISON: 06/14/2010 TECHNIQUE: Frontal view of the chest was obtained. FINDINGS: The lungs are clear with no focal consolidation. No evidence of pneumothorax, pulmonary edema, or pleural effusions. The cardiomediastinal silhouette is unremarkable. No acute osseous findings. XR/XR chest 1V IMPRESSION: No acute cardiopulmonary findings.
[2022-09-12 21:49] VITALS: BP 161/77; PULSE 122; RESP 18; TEMP 36.8; O2SAT 96; BMI 22.7
[2022-09-12 22:22] LABS: Hematocrit 35.5 % (37.0-47.0); Hemoglobin 12.2 g/dl (12.0-16.0); Mean Corpuscular HGB Conc 34.4 g/dl (31.0-35.0); Mean Corpuscular Hemoglobin 27.2 pg (27.0-33.0); Mean Corpuscular Volume 79.2 fL (80.0-98.0); Mean Platelet Volume 9.3 fL (9.4-12.3); Platelet Count 530 X10*3/uL (160-400); Red Blood Count 4.48 X10*6/uL (4.20-5.50); Red Cell Distribution Width 12.8 % (11.0-16.0)
[2022-09-12 22:26] LABS: WBC ABN SCTR FOR CBC 1
[2022-09-12 22:29] LABS: Alanine Aminotransferase 85 U/L (0-31); Albumin Level 3.8 g/dL (3.5-5.0); Alkaline Phosphatase 774 U/L (39-117); Anion Gap 24 (12-20); Aspartate Amino Transferase 66 U/L (5-31); Bilirubin Total 1.6 mg/dL (0.0-1.0); Blood Urea Nitrogen 20 mg/dL (9-16); Calcium 9.7 mg/dL (8.4-10.2); Carbon Dioxide 21 mmol/L (22-29); Chloride 91 mmol/L (96-108); Creatinine Clr Calc Pharmacy 45.3; Estimated Glomerular Filt Rate > 60; Glucose Random 217 mg/dL (60-115); Lipase 14 U/L (8-78); Potassium 4.1 mmol/L (3.3-5.1); Sodium 132 mmol/L (135-145); Total Protein 6.9 g/dL (6.5-8.0)
[2022-09-12 22:46] LABS: Band Neutrophils Percent 4 % (3-5); Eosinophils Percent Manual 1 % (0-4); Lymphocytes Percent Manual 8 % (20-40); Monocytes Percent Manual 3 % (2-11); Neutrophils Percent Manual 84 % (45-73)
[2022-09-12 22:47] LABS: Platelet Estimate INCREASED (NORMAL); Platelet Morphology Comment NORMAL; RBC Morphology NORMAL
[2022-09-12 22:48] LABS: Eosinophils Absolute Manual 0.2 X10*3/uL (0.0-0.4); Large Platelet PRESENT; Lymphocytes Absolute Manual 1.8 X10*3/uL (1.2-4.9); Monocytes Absolute Manual 0.7 X10*3/uL (0.1-1.2); Neutrophils Absolute Manual 19.3 X10*3/uL (2.0-8.3); White Blood Count 21.9 X10*3/uL (4.8-10.8)
[2022-09-12 23:00] VITALS: BP 175/99; PULSE 114; RESP 17; TEMP 36.7; O2SAT 98
--- NOTE | 2022-09-12 23:07 | ED_ITS ---
HPI - Nausea/Vomiting/Diarrhea General Chief complaint: Nausea/Vomiting/Diarrhea Stated complaint: abdominal pain, vomiting Time Seen by Provider: 09/12/22 23:05 Source: patient Mode of arrival: ambulatory Limitations: no limitations History of Present Illness HPI Narrative: A 76-year-old female who is otherwise healthy presented with diffuse abdominal pain and unable to move her bowels for the past 3 days, patient was seen yesterday for similar symptoms was discharged home on lactulose and Metamucil that the patient tried at home with no bowel movement, patient reported increased burping and vomiting after she took the medicine at home. No fever, no chills. Patient declined any previous abdominal surgery in the past, no similar symptoms in the past (patient normally have bowel movement every morning). Related Data Previous Rx's Medication Instructions Recorded fexofenadine 180 mg tablet 180 mg PO Q24H #30 tabs 10/12/21 ([facility]) fluticasone propionate 50 1 spray intranasal DAILY 14 days 04/03/22 mcg/actuation nasal #150 mL spray,suspension (Flonase Allergy Relief) simvastatin 20 mg tablet 20 mg PO DAILY #90 tabs 04/03/22 albuterol sulfate 90 mcg/actuation 2 puff inhalation Q4-6H PRN 07/24/22 aerosol inhaler (ProAir HFA) shortness of breath or wheezing #8.5 grams budesonide 180 mcg/actuation 2 inh inhalation QAM #3 multiple 09/03/22 breath activated powder inhaler units (Pulmicort Flexhaler) cyclobenzaprine 5 mg tablet 10 mg PO TID PRN muscle spasm #60 09/03/22 tabs lactulose 20 gram/30 mL oral 30 g (45 mL) PO TID #1,500 mL 09/11/22 solution psyllium seed (sugar) oral powder 1 tsp PO DAILY #1,254 grams 09/11/22 (Metamucil (sugar) oral powder) Allergies Allergy/AdvReac Type Severity Reaction Status Date / Time egg Allergy Unknown Unknown Verified 09/12/22 21:49 Review of Systems Review of Systems: All other systems are reviewed and are negative Constitutional: Reports as per HPI and Reports no additional constitutional complaints Eyes: Reports as per HPI and Reports no additional eye complaints Reports system reviewed and no additional complaints, except as documented Cardiovascular: Reports as per HPI and Reports no additional cardiovascular complaints Respiratory: Reports as per HPI and Reports no additional respiratory complaints Gastrointestinal: Reports as per HPI and Reports no additional gastrointestinal complaints Genitourinary: Reports no additional female genitourinary complaints Musculoskeletal: Reports no additional musculoskeletal complaints Skin/Breast: Reports system reviewed and no additional complaints, except as docu Psychiatric: Reports no additional psychiatric complaints Endocrine: Reports no additional endocrine complaints Hematologic/Lymphatic: Reports no additional hematologic/lymphatic complaints Allergic/Immunologic: Reports no additional allergic/immunologic complaints Reports system reviewed and no additional complaints, except as documented and Reports Abnormal speech present [facility] Past Medical History Medical History Asthma Brain aneurysm History of skin cancer Hypercholesterolemia Osteopenia Surgical History History of colonoscopy History of eye surgery History of removal of cyst History of removal of cyst (06/05/22) History of removal of ovarian cyst Pilar cyst Status post surgical removal of malignant neoplasm of skin Family History Family History Father Past heart attack Mother Asthma Sister Diabetes Paternal Aunt Breast cancer Colon cancer Maternal Aunt Breast cancer Social History Social History Housing: House Patient Tobacco Use Status: Former Tobacco user Tobacco use type: Cigarette e-Cigarette/Vaping Use: Never Used Second Hand Smoke Exposure: No Advance Directives: No Advance Directives Information Provided: Yes service: No Current occupational status: retired Cognitive needs: No Hearing needs: No Vision needs: Yes Physical Exam Vital Signs: Vital Signs: Last Vital Signs Temp 98.0 F 09/12/22 23:00 Pulse 114 H 09/12/22 23:00 Resp 18 09/12/22 23:23 BP 175/99 H 09/12/22 23:00 Pulse Ox 98 09/12/22 23:00 O2 Del Method Room Air 09/12/22 23:00 BMI result Body Mass Index 22.7 Vital signs have been reviewed as appeared to be correct. Blood pressure normal. Heart rate normal. Respiration rate normal. Temperature normal. Oxygen saturation normal. Appearance: Alert. Oriented X3. No acute distress. Head: Normal external exam. Normocephalic. Atraumatic. No Koo signs noted. No raccoon eyes noted Eyes: PERRLA. EOMI. Conjunctiva and sclera normal. Eyelids normal. ENT: TM's Normal. Pharynx normal. Uvula midline. Moist mucous membranes. No trismus noted. No drooling noted. No muffled voice noted. Neck: Normal inspection. Neck supple. FROM. No adenopathy. Thyroid Normal. No meningeal signs. No neck mass noted. CVS: Normal heart rate and rhythm. Heart sound normal. No murmurs noted. Pulses normal throughout. Respiratory: No respiratory distress. Painless inspiration. Breath sounds nor mal. No wheezes/rales/rhonchi noted. Chest nontender. No accessory muscle usage noted or decreased air movement noted. Abdomen: Soft, diffuse abdominal tenderness, no guarding, no rebound tenderness. Bowel sounds normal in all 4 quadrants. No distention noted. No organomegaly noted. No visible injury noted. Rectal exam: Empty vault no hard stool. Back: No CVA tenderness. Full range of motion noted. Skin: Skin warm and dry. Normal skin color. Normal skin turgor. No rashes/lesions/lacerations noted. Extremities: No lower extremity edema. Extremities exhibit normal range of motion. Extremities nontender. Neuro: Oriented X 3. Cranial nerve exam: II-XII are grossly intact No motor deficit. No sensory deficit. Reflexes normal. Course Course Course Narrative: 76-year-old female came in with complain of constipation for past 2 days with severe abdominal pain and nausea with vomiting, workup in the emergency department revealed leukocytosis, CT is consistent with ileus versus small-bowel obstruction the case was discussed and reviewed by Dr. Arriaga who advised there is no surgical issue with the patient, the case discussed with Dr. Ontiveros who accepted the patient to the hospitalist service for admission. Medications Administered Discontinued Medications Generic Name Dose Route Start Last Admin Trade Name Freq PRN Reason Stop Dose Admin Sodium Chloride 1,000 mls @ 999 mls/hr 09/12/22 23:14 09/12/22 23:21 Ns IV 09/13/22 00:14 999 mls/hr .Q1H1M ONE Administration Morphine Sulfate 1 mg 09/12/22 23:14 09/12/22 23:23 Morphine Sulfate 2 Mg/Ml Cartridge IVPUSH 09/12/22 23:15 1 mg ONCE ONE Administration Protocol Ondansetron HCl 4 mg 09/12/22 23:14 09/12/22 23:22 Ondansetron Hcl 4 Mg/2 Ml Vial IVPUSH 09/12/22 23:15 4 mg ONCE ONE Administration Medical Decision Making Differential Diagnosis Differential Diagnoses: The differential diagnosis associated with the presentation includes (Small/large bowel obstruction, ileus, severe constipation, colitis, diverticulitis, GI MS, electrolyte abnormalities, severe anemia.) Admission/Observation Consideration of admission/observation: Escalation of care including a dmission/observation considered Consult Healthcare Provider Management of the patient was discussed with: Hospitalist (Dr. Ontiveros) Lab Data MDM Lab Attestation statement: I reviewed the patient's lab results. 09/12/22 21:56 09/12/22 21:56 Labs: Lab Results 09/12/22 09/12/22 09/12/22 Range/Units 21:56 21:56 23:50 WBC 21.9 H (4.8-10.8) X10*3/uL RBC 4.48 (4.20-5.50) X10*6/uL Hgb 12.2 (12.0-16.0) g/dl Hct 35.5 L (37.0-47.0) % MCV 79.2 L (80.0-98.0) fL MCH 27.2 (27.0-33.0) pg MCHC 34.4 (31.0-35.0) g/dl RDW 12.8 (11.0-16.0) % Plt Count 530 H (160-400) X10*3/uL MPV 9.3 L (9.4-12.3) fL Immature Gran % (Auto) Cancelled Neut % (Auto) Cancelled Lymph % (Auto) Cancelled Victoria % (Auto) Cancelled Eos % (Auto) Cancelled Baso % (Auto) Cancelled Lymph # (Auto) Cancelled Victoria # (Auto) Cancelled Eos # (Auto) Cancelled Baso # (Auto) Cancelled Abs Immat Gran (auto) Cancelled Absolute Neuts (auto) Cancelled Absolute Nucleated RBC 0.000 (0.0-0.012) X10*3/uL Nucleated RBC % (auto) 0.0 (0.0-0.2) /100WBC Neutrophils % (Manual) 84 H (45-73) % Band Neutrophils % 4 (3-5) % Lymphocytes % (Manual) 8 L (20-40) % Monocytes % (Manual) 3 (2-11) % Eosinophils % (Manual) 1 (0-4) % Abs Neuts (Manual) 19.3 H (2.0-8.3) X10*3/uL Lymphocytes # (Manual) 1.8 (1.2-4.9) X10*3/uL Monocytes # (Manual) 0.7 (0.1-1.2) X10*3/uL Eosinophils # (Manual) 0.2 (0.0-0.4) X10*3/uL Platelet Estimate INCREASED (NORMAL) Large Platelets PRESENT Plt Morphology Comment NORMAL RBC Morphology NORMAL Sodium 132 L (135-145) mmol/L Potassium 4.1 (3.3-5.1) mmol/L Chloride 91 L (96-108) mmol/L Carbon Dioxide 21 L (22-29) mmol/L Anion Gap 24 H (12-20) BUN 20 H (9-16) mg/dL Creatinine 0.86 (0.5-1.4) mg/dL Estim Creat Clear Calc 45.3 Estimated GFR > 60 Random Glucose 217 H (60-115) mg/dL Lactic Acid 2.5 H* (0.5-2.0) mmol/L Calcium 9.7 D (8.4-10.2) mg/dL Total Bilirubin 1.6 H (0.0-1.0) mg/dL AST 66 H (5-31) U/L ALT 85 H (0-31) U/L Alkaline Phosphatase 774 H (39-117) U/L Total Protein 6.9 (6.5-8.0) g/dL Albumin 3.8 (3.5-5.0) g/dL Lipase 14 (8-78) U/L Independent Interpretation I performed an independent interpretation of an: CT Scan (Abdomen and pelvis:1. Multiple dilated loops of small and large bowel. While there is some decrease in caliber of the distal small bowel, the colonic associated dilation would argue against significant small bowel obstruction. There is gradual decrease in caliber of the colon in the sigmoid colon w) Radiology Impression Discussion of test interpretation with radiology: I have reviewed the r adiologist's reading. Discharge Plan Discharge Clinical Impression: Ileus, Constipation, Leukocytosis Patient Disposition: Admitted As Inpatient
[2022-09-12] MEDS: 0.9 % Sodium Chloride 1,000 ML 999 ML IV (23:21)
[2022-09-12] MEDS: ondansetron HCL 4 MG/2 ML VIAL IVPUSH (23:22)
[2022-09-12 23:23] VITALS: RESP 18
[2022-09-12] MEDS: Morphine Sulfate 2 MG/ML CARTRIDGE 1 MG IVPUSH (23:23)
[2022-09-13] VITALS (8 sets, daily range): BP systolic 139–191; BP diastolic 63–98; PULSE 72–130; RESP 15–20; TEMP 36.8–37.5; O2SAT 93–98
--- NOTE | 2022-09-13 | ECG_ITS ---
Test Reason : tachycardia Blood Pressure : / mmHG Vent. Rate : 120 BPM Atrial Rate : 120 BPM P-R Int : 138 ms QRS Dur : 074 ms QT Int : 330 ms P-R-T Axes : 075 022 067 degrees QTc Int : 466 ms Sinus tachycardia Otherwise normal ECG No previous ECGs available Referred By: Crescencio Doe Electronically Signed By:CAMILLE SHIELDS
[2022-09-13 00:09] LABS: Lactic Acid 2.5 mmol/L (0.5-2.0)
--- NOTE | 2022-09-13 00:51 | PM.IMHP ---
History of Present Illness Date of Service: 09/13/22 Chief Complaint: Abdominal Pain This is a 76-year-old female with pertinent history of asthma not on home oxygen, mixed hyperlipidemia who presents to the emergency department for evaluation of abdominal pain, nausea and vomiting. Patient states she has been having ongoing generalized abdominal discomfort, constant, nonradiating and progressive that started 3 days prior to presentation. Last bowel movement was 3 days ago. No similar complaints in the past. No fever, chills. Patient states she is not able to maintain p.o. intake due to nausea and nonbloody emesis. Patient was seen in the ER yesterday and discharged home on lactulose but her symptoms continued and hence she presented to the ER again. She recently started muscle relaxants for her neck pain. No previous abdominal surgery. Patient denies chest discomfort, palpitations, shortness of breath, changes in urinary habits. In the emergency department, imaging with multiple dilated loops of small and large bowel seen. General surgery was consulted who recommended admission to Medicine. Review of Systems Constitutional: Constitutional: Reports no additional constitutional complaints Cardiovascular: Cardiovascular: Reports no additional cardiovascular complaints Respiratory: Respiratory: Reports no additional respiratory complaints Gastrointestinal: Gastrointestinal: Reports abdominal pain, Reports nausea and Reports vomiting Genitourinary: Genitourinary: Reports no additional female genitourinary complaints [facility] Medical History Asthma Brain aneurysm History of skin cancer Hypercholesterolemia Osteopenia Family History Father Past heart attack Mother Asthma Sister Diabetes Paternal Aunt Breast cancer Colon cancer Maternal Aunt Breast cancer Surgical History History of colonoscopy History of eye surgery History of removal of cyst History of removal of cyst (06/05/22) History of removal of ovarian cyst Pilar cyst Status post surgical removal of malignant neoplasm of skin Social History Housing: House Alcohol intake: never Patient Tobacco Use Status: Former Tobacco user Tobacco use type: Cigarette Smoked in Last 30 Days: No e-Cigarette/Vaping Use: Never Used Second Hand Smoke Exposure: No Use of substances other than those prescribed or required for medical reasons: No Advance Directives: No Advance Directives Information Provided: Yes service: No Current occupational status: retired Cognitive needs: No Hearing needs: No Vision needs: Yes Meds Allergies Allergy/AdvReac Type Severity Reaction Status Date / Time egg Allergy Unknown Unknown Verified 09/12/22 21:49 Active Medications: Current Medications Pharmacy Consult (Consult Rx Perform Med Rec) 1 each MISCELLANE ONCE PRN PRN Reason: Consult order Physical Exam Vital Signs and Narrative: Vital Signs: Last Vital Signs Temp 98.0 F 09/12/22 23:00 Pulse 114 H 09/12/22 23:00 Resp 18 09/12/22 23:23 BP 175/99 H 09/12/22 23:00 Pulse Ox 98 09/12/22 23:00 O2 Del Method Room Air 09/12/22 23:00 BMI result Body Mass Index 22.7 Elderly female lying in bed in mild distress Neck supple, no JVD Regular rate and rhythm, S1-S2 heard Regular breath sounds bilaterally, no wheezing or crackles appreciated Abdomen with diffuse tenderness, no guarding, no rigidity, no rebound tenderness, decreased bowel sounds Patient is awake, alert and oriented to self, place, time and person ; no focal motor deficit Psych: Normal mood No pedal edema Results Labs 09/12/22 21:56 09/12/22 21:56 Labs: Laboratory Results - last 24 hr 09/12/22 09/12/22 09/12/22 21:56 21:56 23:50 MCV 79.2 L MCH 27.2 MCHC 34.4 RDW 12.8 Plt Count 530 H MPV 9.3 L Immature Gran % (Auto) Cancelled Neut % (Auto) Cancelled Lymph % (Auto) Cancelled Meagher % (Auto) Cancelled Eos % (Auto) Cancelled Baso % (Auto) Cancelled Lymph # (Auto) Cancelled [place] # (Auto) Cancelled Eos # (Auto) Cancelled Baso # (Auto) Cancelled Abs Immat Gran (auto) Cancelled Absolute Neuts (auto) Cancelled Absolute Nucleated RBC 0.000 Nucleated RBC % (auto) 0.0 Neutrophils % (Manual) 84 H Band Neutrophils % 4 Lymphocytes % (Manual) 8 L Monocytes % (Manual) 3 Eosinophils % (Manual) 1 Abs Neuts (Manual) 19.3 H Lymphocytes # (Manual) 1.8 Monocytes # (Manual) 0.7 Eosinophils # (Manual) 0.2 Platelet Estimate INCREASED Large Platelets PRESENT Plt Morphology Comment NORMAL RBC Morphology NORMAL Anion Gap 24 H Estim Creat Clear Calc 45.3 Estimated GFR > 60 Random Glucose 217 H Lactic Acid 2.5 H* Calcium 9.7 D Total Bilirubin 1.6 H AST 66 H ALT 85 H Alkaline Phosphatase 774 H Total Protein 6.9 Albumin 3.8 Lipase 14 Imaging Radiologist's Impressions: Impressions Abdomen/Pelvis CT 09/12/22 23:41 IMPRESSION: 1. Multiple dilated loops of small and large bowel. While there is some decrease in caliber of the distal small bowel, the colonic associated dilation would argue against significant small bowel obstruction. There is gradual decrease in caliber of the colon in the sigmoid colon without focal transition point. Ileus would be a consideration with this appearance. 2. Trace free fluid. 3. Small hiatal hernia. 4. Trace pericardial effusion. Assessment and Plan (1) Abdominal pain: Status: Acute Plan This is a 76-year-old female with pertinent history of asthma not on home oxygen, mixed hyperlipidemia who presents to the emergency department for evaluation of abdominal pain, nausea and vomiting. #. Abdominal pain/nausea/vomiting, likely due to ileus: Will admit patient and keep her NPO for bowel rest. Initiate NG tube for bowel decompression. Hold muscle relaxants and antihistamines. Potassium okay, checking magnesium. Administering stimulant laxative. General surgery consulted from ER, appreciate assistance. Continue IV crystalloid resuscitation #. Reactive leukocytosis: Defer antibiotics. Trend #. Mixed hyperlipidemia: Resume once no longer npo #. Asthma: no exacerbation on admission. Continue home inhaler #. Hyperglycemia: Obtaining A1c Med rec pending DVT prophylaxis: Lovenox Full code NPO Time Spent With Patient Time: Total time managing care of this patient today ____ minutes. Quality Stroke Does the patient have a stroke diagnosis?: No VTE Prior VTE?: No VTE Risk Level:: Medical - moderate - high VTE Device Contraindication: Treatment Not Indicated VTE Drug Contraindication: N/A - Med Ordered
[2022-09-13] MEDS: Mineral OiL enema 133 ML ENEMA PR (00:58)
[2022-09-13] MEDS: bisacodyL 10 MG SUPP.RECT PR (00:58)
[2022-09-13] MEDS: Milk of Magnesia 30 ML ORAL.SUSP PO (00:58)
[2022-09-13 01:30] LABS: Magnesium 1.9 mg/dL (1.6-2.6)
[2022-09-13 01:54] LABS: Reflex Lactate? Lactic Acid Added
[2022-09-13 02:58] LABS: Appearance Urine Cloudy; Color Urine Dark Yellow; Glucose Urine UA >=1000 mg/dL (Negative); Leukocyte Esterase Urine Trace (Negative); Nitrite Urine Negative (Negative); Specific Gravity - Urine >= 1.030 (1.005-1.025); UMIC TRIGGER UACC YES; Urine Blood Negative (Negative); Urine Ketones 15 mg/dL (Negative); Urine Protein 100 (2+) mg/dL (Neg-Trace)
[2022-09-13 03:14] LABS: ~Lactic Acid-LAB USE ONLY 2.3 mmol/L (0.5-2.0)
--- NOTE | 2022-09-13 03:41 | PC.NURSE ---
Pt arrived from Main ED,denies any complaints. NGT patent on med suction. Dr. Weston argueta text about pt b/p
[2022-09-13 03:42] LABS: Bacteria Urine None Seen (None Seen); Squamous Epithelial Cell Urine 0-2 /HPF (0-2); WBC Urine 0-5 /HPF (0-5)
[2022-09-13 04:17] LABS: Reflex Lactate? 2 Y
[2022-09-13] MEDS: 0.9 % Sodium Chloride 1,000 ML 80 ML IVCONT ×2 (04:17→17:17)
--- NOTE | 2022-09-13 04:21 | PC.NURSE ---
2nd liter of NS infusing
[2022-09-13 05:18] LABS: Estimated Average Glucose 111 mg/dL; Hemoglobin A1c % 5.5 %
[2022-09-13 05:39] LABS: Hematocrit 34.6 % (37.0-47.0); Hemoglobin 11.8 g/dl (12.0-16.0); Mean Corpuscular HGB Conc 34.1 g/dl (31.0-35.0); Mean Corpuscular Hemoglobin 27.5 pg (27.0-33.0); Mean Corpuscular Volume 80.7 fL (80.0-98.0); Mean Platelet Volume 9.3 fL (9.4-12.3); Platelet Count 464 X10*3/uL (160-400); Red Blood Count 4.29 X10*6/uL (4.20-5.50); Red Cell Distribution Width 13.1 % (11.0-16.0)
[2022-09-13 05:40] LABS: WBC ABN SCTR FOR CBC 1; White Blood Count 7.9 X10*3/uL (4.8-10.8)
[2022-09-13 05:48] LABS: ~Lactic Acid-LAB USE ONLY 1.7 mmol/L (0.5-2.0)
[2022-09-13 05:54] LABS: Anion Gap 16 (12-20); Blood Urea Nitrogen 21 mg/dL (9-16); Calcium 8.8 mg/dL (8.4-10.2); Carbon Dioxide 28 mmol/L (22-29); Chloride 93 mmol/L (96-108); Creatinine Clr Calc Pharmacy 55.7; Estimated Glomerular Filt Rate > 60; Glucose Random 199 mg/dL (60-115); Sodium 133 mmol/L (135-145)
[2022-09-13 06:04] LABS: Atypical Lymph Absolute Manual 0.1 x10*3/uL; Atypical Lymphs Percent Manual 1 % (0-6); Band Neutrophils Percent 9 % (3-5); Eosinophils Absolute Manual 0.1 X10*3/uL (0.0-0.4); Eosinophils Percent Manual 1 % (0-4); Large Platelet PRESENT; Lymphocytes Absolute Manual 0.4 X10*3/uL (1.2-4.9); Lymphocytes Percent Manual 5 % (20-40); Monocytes Absolute Manual 0.5 X10*3/uL (0.1-1.2); Monocytes Percent Manual 6 % (2-11); Neutrophils Absolute Manual 6.9 X10*3/uL (2.0-8.3); Neutrophils Percent Manual 78 % (45-73); Platelet Estimate SLIGHTLY INCREASED (NORMAL); Platelet Morphology Comment NORMAL; RBC Morphology NORMAL; Rouleau PRESENT; Smudge Cells PRESENT; Toxic Vacuolation PRESENT
--- NOTE | 2022-09-13 06:38 | PC.NURSE ---
pt NGT advanced 10 cm per surgeon, tolerated well
--- NOTE | 2022-09-13 08:18 | PM.CNGS ---
History of Present Illness Consult details Consult date: 09/13/22 Reason for consult: abdominal pain Narrative: 76-year-old female patient presenting with complaints of diffuse abdominal pain of 3 days duration. The pain is worse in the quadrants and is described as constant 8 to 9/10 in severity. She reports some nausea and vomiting after taking a laxative yesterday. She subsequently presented to the emergency department for further evaluation. She denies a previous history of similar symptoms. She denies a history of previous abdominal surgery. Her last colonoscopy was in [address] Escalante. This was described as normal. Workup in the [place] [address] abdomen pelvis revealed diffuse dilation of small and large bowel with no convincing areas of obstruction. Stool was noted in the colon and rectum. Review of Systems Review of Systems: Yes all other systems are reviewed and are negative Constitutional: Constitutional: Denies chills, Denies fever(s), Denies headache(s), Reports poor appetite and Denies weakness ENT: Denies headache(s) Cardiovascular: Cardiovascular: Denies chest pain, Denies irregular heart rhythm, Denies palpitations and Denies dyspnea Respiratory: Respiratory: Denies cough, Denies excessive phlegm production and Denies dyspnea Gastrointestinal: Gastrointestinal: Reports abdominal pain, Reports bloating, Denies change in bowel habits, Reports constipation, Denies heartburn, Denies diarrhea, Reports nausea and Reports vomiting Genitourinary: Genitourinary: Reports urinary frequency Musculoskeletal: Musculoskeletal: Denies back pain, Denies muscle weakness and Denies numbness Integumentary/Breasts: Skin/Breast: Denies changing lesions and Denies unusual bruising Neurologic: Denies headache(s), Denies numbness, Denies paresthesias and Denies weakness Psychiatric: Psychiatric: Denies anxiety and Denies depression Endocrine: Endocrine: Denies palpitations Hematologic/Lymphatic: Hematologic/Lymphatic: Denies lymphadenopathy PMFSH Past Medical History Medical History Asthma Brain aneurysm History of skin cancer Hypercholesterolemia Osteopenia Family History Family History Father Past heart attack Mother Asthma Sister Diabetes Paternal Aunt Breast cancer Colon cancer Maternal Aunt Breast cancer Surgical History Surgical History History of colonoscopy History of eye surgery History of removal of cyst History of removal of cyst (06/05/22) History of removal of ovarian cyst Pilar cyst Status post surgical removal of malignant neoplasm of skin Social History Social History Housing: House Alcohol intake: never Patient Tobacco Use Status: Former Tobacco user Tobacco use type: Cigarette Smoked in Last 30 Days: No e-Cigarette/Vaping Use: Never Used Second Hand Smoke Exposure: No Use of substances other than those prescribed or required for medical reasons: No Advance Directives: No Advance Directives Information Provided: Yes service: No Current occupational status: retired Cognitive needs: No Hearing needs: No Vision needs: Yes Meds Allergies Allergy/AdvReac Type Severity Reaction Status Date / Time egg Allergy Unknown Unknown Verified 09/12/22 21:49 Active Medications: Current Medications Acetaminophen (Acetaminophen 325 Mg Tablet) 650 mg PO Q6H PRN PRN Reason: Pain, Mild (Pain Scale 1-3) Acetaminophen (Acetaminophen Supp 650 Mg Supp.Rect) 650 mg HI Q6H PRN PRN Reason: Pain, Mild (Pain Scale 1-3) Amlodipine Besylate (Amlodipine Besylate 2.5 Mg Tablet) 2.5 mg PO DAILY [facility]END[facility] TO [facility]; Protocol Enoxaparin Sodium (Enoxaparin Sodium 40 Mg/0.4 Ml Syringe) 40 mg SUBCUT Q24H [facility]END[facility] Sodium Chloride (Ns) 1,000 mls @ 80 mls/hr IVCONT .[id number] [facility]END[facility] Last Admin: 09/13/22 04:17 Dose: 80 mls/hr Melatonin (Melatonin 3 Mg Tablet) 6 mg PO BEDTIME PRN PRN Reason: Insomnia Ondansetron HCl (Ondansetron Hcl 4 Mg/2 Ml Vial) 4 mg IVPUSH Q8H PRN PRN Reason: Nausea and Vomiting Pharmacy Consult (Consult Rx Perform Med Rec) 1 each MISCELLANE ONCE PRN PRN Reason: Consult order Sodium Chloride (0.9 % Sodium Chloride Flush 3 Ml Syringe) 3 ml IVFLUSH QSHIFT [facility]END[facility] Home Medications Medication Instructions Recorded Confirmed Last Taken Type cholecalciferol (vitamin D3) 25 25 mcg PO DAILY 09/13/22 09/13/22 09/10/22 History mcg (1,000 unit) tablet fexofenadine 180 mg tablet 180 mg PO DAILY PRN Allergy 09/13/22 09/13/22 Unknown History (Arlene Allergy) Symptoms fluticasone propionate 50 1 spray intranasal DAILY PRN 09/13/22 09/13/22 Unknown History mcg/actuation nasal Allergy Symptoms spray,suspension omega 8-xlw-pth-fish oil 1,000 mg 1 cap PO DAILY 09/13/22 09/13/22 09/10/22 History (120 mg-180 mg) capsule (Fish Oil) Physical Exam Vital Signs: Vital Signs: Last Vital Signs Temp 99.5 F 09/13/22 08:08 Pulse 130 H 09/13/22 08:08 Resp 18 09/13/22 08:08 BP 171/79 H 09/13/22 08:08 Pulse Ox 95 09/13/22 08:08 O2 Del Method Room Air 09/13/22 08:08 BMI result Body Mass Index 22.7 Const: General: cooperative and ill appearing Nutritional Appearance: well nourished Orientation/consciousness: patient oriented x3 Limitations: no limitations HEENT: Head: Yes normocephalic and Yes atraumatic Ears: hearing grossly normal bilaterally Resp: Effort & Inspection: normal respiratory effort, no audible wheezes, no cough and no respiratory distress Cardio: Jugular venous distension: no JVD GI: Inspection: Yes normal to inspection and Yes distended Palpation (GI): Tenderness to palpation present (GI) in the LLQ and in the RLQ, no guarding and not rigid Percussion: Yes dullness to percussion Auscultation: Absent bowel sounds Rectal Exam - Female: deferred Skin: Other: Warm, dry, no rash General skin exam: no rashes or lesions noted Neuro: General: patient oriented x3 Extrem: General: Yes no clubbing, cyanosis or edema Results Labs 09/13/22 05:18 09/13/22 05:18 Labs: Abnormal lab results 09/12/22 09/12/22 09/12/22 Range/Units 21:56 21:56 23:50 WBC 21.9 H (4.8-10.8) X10*3/uL Hgb (12.0-16.0) g/dl Hct 35.5 L (37.0-47.0) % MCV 79.2 L (80.0-98.0) fL Plt Count 530 H (160-400) X10*3/uL MPV 9.3 L (9.4-12.3) fL Neutrophils % (Manual) 84 H (45-73) % Band Neutrophils % (3-5) % Lymphocytes % (Manual) 8 L (20-40) % Abs Neuts (Manual) 19.3 H (2.0-8.3) X10*3/uL Lymphocytes # (Manual) (1.2-4.9) X10*3/uL Sodium 132 L (135-145) mmol/L Chloride 91 L (96-108) mmol/L Carbon Dioxide 21 L (22-29) mmol/L Anion Gap 24 H (12-20) BUN 20 H (9-16) mg/dL Random Glucose 217 H (60-115) mg/dL Lactic Acid 2.5 H* (0.5-2.0) mmol/L Lactic Acid F/U @ 2Hr (0.5-2.0) mmol/L Total Bilirubin 1.6 H (0.0-1.0) mg/dL AST 66 H (5-31) U/L ALT 85 H (0-31) U/L Alkaline Phosphatase 774 H (39-117) U/L Ur Specific [place] (1.005-1.025) Urine Protein (Neg-Trace) mg/dL Urine Glucose (UA) (Negative) mg/dL Ur Leukocyte Esterase (Negative) Urine RBC (0-2) /HPF 09/13/22 09/13/22 09/13/22 Range/Units 02:14 02:50 05:18 WBC (4.8-10.8) X10*3/uL Hgb 11.8 L (12.0-16.0) g/dl Hct 34.6 L (37.0-47.0) % MCV (80.0-98.0) fL Plt Count 464 H (160-400) X10*3/uL MPV 9.3 L (9.4-12.3) fL Neutrophils % (Manual) 78 H (45-73) % Band Neutrophils % 9 H (3-5) % Lymphocytes % (Manual) 5 L (20-40) % Abs Neuts (Manual) (2.0-8.3) X10*3/uL Lymphocytes # (Manual) 0.4 L (1.2-4.9) X10*3/uL Sodium (135-145) mmol/L Chloride (96-108) mmol/L Carbon Dioxide (22-29) mmol/L Anion Gap (12-20) BUN (9-16) mg/dL Random Glucose (60-115) mg/dL Lactic Acid (0.5-2.0) mmol/L Lactic Acid F/U @ 2Hr 2.3 H* (0.5-2.0) mmol/L Total Bilirubin (0.0-1.0) mg/dL AST (5-31) U/L ALT (0-31) U/L Alkaline Phosphatase (39-117) U/L Ur Specific [place] >= 1.030 H (1.005-1.025) Urine Protein 100 (2+) H (Neg-Trace) mg/dL Urine Glucose (UA) >=1000 H (Negative) mg/dL Ur Leukocyte Esterase Trace H (Negative) Urine RBC 3-5 H (0-2) /HPF 09/13/22 Range/Units 05:18 WBC (4.8-10.8) X10*3/uL Hgb (12.0-16.0) g/dl Hct (37.0-47.0) % MCV (80.0-98.0) fL Plt Count (160-400) X10*3/uL MPV (9.4-12.3) fL Neutrophils % (Manual) (45-73) % Band Neutrophils % (3-5) % Lymphocytes % (Manual) (20-40) % Abs Neuts (Manual) (2.0-8.3) X10*3/uL Lymphocytes # (Manual) (1.2-4.9) X10*3/uL Sodium 133 L (135-145) mmol/L Chloride 93 L (96-108) mmol/L Carbon Dioxide (22-29) mmol/L Anion Gap (12-20) BUN 21 H (9-16) mg/dL Random Glucose 199 H (60-115) mg/dL Lactic Acid (0.5-2.0) mmol/L Lactic Acid F/U @ 2Hr (0.5-2.0) mmol/L Total Bilirubin (0.0-1.0) mg/dL AST (5-31) U/L ALT (0-31) U/L Alkaline Phosphatase (39-117) U/L Ur Specific [place] (1.005-1.025) Urine Protein (Neg-Trace) mg/dL Urine Glucose (UA) (Negative) mg/dL Ur Leukocyte Esterase (Negative) Urine RBC (0-2) /HPF Short CBC 09/12/22 09/13/22 Range/Units 21:56 05:18 WBC 21.9 H 7.9 (4.8-10.8) X10*3/uL Hgb 12.2 11.8 L (12.0-16.0) g/dl Hct 35.5 L 34.6 L (37.0-47.0) % Plt Count 530 H 464 H (160-400) X10*3/uL BMP 09/12/22 09/13/22 21:56 05:18 Sodium 132 L 133 L Potassium 4.1 4.0 Chloride 91 L 93 L Carbon Dioxide 21 L 28 BUN 20 H 21 H Creatinine 0.86 0.70 Calcium 9.7 D 8.8 D Liver Function 09/12/22 Range/Units 21:56 Total Bilirubin 1.6 H (0.0-1.0) mg/dL AST 66 H (5-31) U/L ALT 85 H (0-31) U/L Alkaline Phosphatase 774 H (39-117) U/L Albumin 3.8 (3.5-5.0) g/dL Urine 09/13/22 Range/Units 02:50 Urine Color Dark Yellow Urine Appearance Cloudy Urine pH 5.0 (5.0-9.0) Ur Specific [place] >= 1.030 H (1.005-1.025) Urine Protein 100 (2+) H (Neg-Trace) mg/dL Urine Glucose (UA) >=1000 H (Negative) mg/dL All other labs normal. Assessment and Plan (1) Abdominal pain: Status: Acute (2) Constipation: Status: Acute Plan 76-year-old female patient presenting with abdominal distension, nausea vomiting and constipation found on CT to have diffusely dilated small and large bowel suggestive of an ileus. No convincing evidence of a bowel obstruction is identified by CT. [place] WBC was [address] but this morning's laboratories revealed a normal WBC. Patient admitted to the hospitalist service and placed on bowel rest. Agree with NG tube decompression, enemas. GI consultation if no improvement. Surgical options are limited due to lack of obstruction but may in worse case scenario include a diverting loop colostomy. Will continue to monitor patient's progress during this admission. Time Spent With Patient Time: Total time managing care of this patient today ____ minutes. Procedures Date of Service Date of Service: 09/13/22
[2022-09-13] MEDS: Enoxaparin Sodium 40 MG/0.4 ML SYRINGE SUBCUT (08:24)
[2022-09-13] MEDS: amLODIPine Besylate 2.5 MG TABLET PO (08:25)
--- NOTE | 2022-09-13 08:28 | PHA.MEDREC ---
Pharmacy Consult ? Medication Reconciliation Pharmacy has completed the medication reconciliation. Patient reported all medications. Britney Talavera, MalorieD
--- NOTE | 2022-09-13 10:28 | MHC.CM.ED ---
Pt admitted with abdominal pain/ileus. Pt came from home, was independent/self-care, no services/DME. D/C plan to return home self-care once medically cleared. Pt has her own car, but her neighbor or daughter will transport her home from hospital. No HCP on file, but pt will consider it. PCP: Amos Cervantes vax: x 4 pfizer
--- NOTE | 2022-09-13 11:36 | PC.NURSE ---
patient a&ox3, ng tube to left nare hooked back up to continuous wall suction, ivf running per order, pt has hypo bowel sounds-abd firm/tender upon palpation- pt states pain is currently 7/10, upon taking report from the previous nurse she had stated that dr. alonso is aware and will not be giving medication. pt seen by surgery this morning and will have conservative treatments no surgical interventions at this time, call burris within reach, will continue to monitor.
--- NOTE | 2022-09-13 15:07 | PC.NURSE ---
pt was transported to floor by tech, was unable to take patient off ed tracker for some reason- charge and creative resource manager were notified.
--- NOTE | 2022-09-13 16:29 | PM.EVENT ---
Event Note Date of Service: 09/13/22 Event Note: Pt seen and examined, labs, med vital reviewed.? BP is high and started on norvasc, HR is up, ECG. [facility] A/P per h and p from this morning Time Spent With Patient Time: Total time managing care of this patient today ____ minutes.
--- NOTE | 2022-09-13 20:14 | PC.NURSE ---
Addendum entered by Gema Adams RN 09/13/22 22:21: NG tube advanced 10 cm,drained brown drainage 50 ml Addendum entered by Gema Adams RN 09/13/22 21:45: X-ray was obtained to verify placement Original Note: Elevated HR 121,EKG done ,no output from NG tube Dr. Ontiveros notified
[2022-09-14] MEDS: 0.9 % Sodium Chloride 1,000 ML 80 ML IVCONT ×2 (02:45→14:15)
[2022-09-14 03:44] VITALS: BP 131/59; PULSE 118; RESP 16; TEMP 36.2; O2SAT 93
[2022-09-14] MEDS: Enoxaparin Sodium 40 MG/0.4 ML SYRINGE SUBCUT (07:10)
[2022-09-14] MEDS: amLODIPine Besylate 2.5 MG TABLET PO (07:11)
[2022-09-14] MEDS: Cholecalciferol (Vitamin D3) 25 MCG TABLET PO (07:11)
[2022-09-14 07:39] VITALS: BP 129/58; PULSE 117; RESP 17; TEMP 36.4; O2SAT 92
--- NOTE | 2022-09-14 07:43 | P.PNIM_ITS ---
Subjective Subjective Date of Service: 09/14/22 Interval History: f/u abdominal pain, ileus interval history: Abdomen remained distended and some discomfort. No bowel movement, no flatus NG tube still draining bilious material. Physical Exam Vital Signs: Vital Signs: Last Vital Signs Temp 97.5 F 09/14/22 07:39 Pulse 117 H 09/14/22 07:39 Resp 17 09/14/22 07:39 BP 129/58 L 09/14/22 07:39 Pulse Ox 92 09/14/22 07:39 O2 Del Method Room Air 09/14/22 07:39 BMI result Body Mass Index 22.7 Const: Other: General: AO X 3, no acute distress Resp: CTA bilateral CVS: S1,S2,RRR GI: distended, mild tenderness, no BS, Skin: No rash Neuro: motor grossly intact Psych: appropriate affect Objective Data Active Medications Acetaminophen (Acetaminophen 325 Mg Tablet) 650 mg PO Q6H PRN PRN Reason: Pain, Mild (Pain Scale 1-3) Acetaminophen (Acetaminophen Supp 650 Mg Supp.Rect) 650 mg MI Q6H PRN PRN Reason: Pain, Mild (Pain Scale 1-3) Amlodipine Besylate (Amlodipine Besylate 2.5 Mg Tablet) 2.5 mg PO DAILY [facility]; Protocol Last Admin: 09/14/22 07:11 Dose: 2.5 mg Documented By: MURALI Atorvastatin Calcium (Atorvastatin Calcium 10 Mg Tablet) 10 mg PO DAILY [facility] Budesonide (Budesonide 180 Mcg Aer.Pow.Ba) 2 puff INHALE DAILY [facility] Enoxaparin Sodium (Enoxaparin Sodium 40 Mg/0.4 Ml Syringe) 40 mg SUBCUT Q24H [facility] Last Admin: 09/14/22 07:10 Dose: 40 mg Documented By: MURALI Fluticasone Propionate (Fluticasone Propionate Nasal 16 Gm [place]) 1 spray NOSTRIL-B DAILY PRN PRN Reason: Allergy Symptoms Sodium Chloride (Ns) 1,000 mls @ 80 mls/hr IVCONT .[id number] [facility] Last Admin: 09/14/22 02:45 Dose: 80 mls/hr Documented By: MAC Levalbuterol HCl (Levalbuterol Hcl 1.25 Mg/3 Ml Vial.Neb) 1.25 mg INHALE RQ4H WHILE AWAKE PRN PRN Reason: Shortness of Breath/Wheezing Loratadine (Loratadine 10 Mg Tablet) 10 mg PO DAILY PRN PRN Reason: Allergy Symptoms Melatonin (Melatonin 3 Mg Tablet) 6 mg PO BEDTIME PRN PRN Reason: Insomnia Ondansetron HCl (Ondansetron Hcl 4 Mg/2 Ml Vial) 4 mg IVPUSH Q8H PRN PRN Reason: Nausea and Vomiting Pharmacy Consult (Consult Rx Perform Med Rec) 1 each MISCELLANE ONCE PRN PRN Reason: Consult order Sodium Chloride (0.9 % Sodium Chloride Flush 3 Ml Syringe) 3 ml IVFLUSH QSHIFT [facility] Last Admin: 09/14/22 07:05 Dose: Not Given Documented By: MURALI Non-Admin Reason: IV Running Vitamin D (Cholecalciferol (Vitamin D3) 25 Mcg Tablet) 25 mcg PO DAILY [facility] Last Admin: 09/14/22 07:11 Dose: 25 mcg Documented By: MURALI Labs 09/13/22 05:18 09/13/22 05:18 Microbiology Microbiology Results: Microbiology 09/13/22 00:00 Blood Culture - Preliminary Blood - Venous No growth after 24 hours. 09/12/22 23:50 Blood Culture - Preliminary Blood - Venous No growth after 24 hours. Assessment and Plan (1) Abdominal pain: Status: Acute (2) Ileus: Status: Acute (3) Constipation: Status: Acute Plan 76-year-old female with pertinent history of asthma not on home oxygen, mixed hyperlipidemia who presents to the emergency department for evaluation of abdominal pain, nausea and vomiting. #.? Abdominal pain/nausea/vomiting, likely due to ileus vs obstrction. -NPO, NGT, Seen by surgery no indication for procedure, GI consult today -continue IVF #.? Reactive leukocytosis:? REsolved #.? Mixed hyperlipidemia: Resume once no longer npo #. Asthma: no exacerbation on admission. Continue home inhaler #.? Hyperglycemia likely reactive, A1C = 5.5 # DVT prophylaxis:? Lovenox Full code NPO Need for inpatinet: Abd pain, ? ileus vs obstruction, NPO, NGR Time Spent With Patient Time: Total time managing care of this patient today ____ minutes. Quality Stroke Does the patient have a stroke diagnosis?: No VTE Prior VTE?: No VTE Risk Level:: Medical - moderate - high VTE Device Contraindication: Treatment Not Indicated VTE Drug Contraindication: N/A - Med Ordered
--- NOTE | 2022-09-14 07:45 | PM.PNGS ---
Subjective Subjective Date of Service: 09/14/22 Interval history: Patient feels improved this morning with no abdominal pain. She denies passing flatus or having a bowel movement. NG tube in place with fecal appearing material Physical Exam Vital Signs: Vital Signs: Last Vital Signs Temp 97.5 F 09/14/22 07:39 Pulse 117 H 09/14/22 07:39 Resp 17 09/14/22 07:39 BP 129/58 L 09/14/22 07:39 Pulse Ox 92 09/14/22 07:39 O2 Del Method Room Air 09/14/22 07:39 BMI result Body Mass Index 22.7 Const: General: no acute distress and alert Nutritional Appearance: well nourished Orientation/consciousness: patient oriented x3 Resp: Effort & Inspection: normal respiratory effort GI: Inspection: Yes normal to inspection Palpation (GI): Soft to palpation, nontender, no guarding and not rigid Percussion: Yes tympanic to percussion Auscultation: Absent bowel sounds Skin: General skin exam: no rashes or lesions noted Neuro: General: patient oriented x3 Objective Data Active Medications Acetaminophen (Acetaminophen 325 Mg Tablet) 650 mg PO Q6H PRN PRN Reason: Pain, Mild (Pain Scale 1-3) Acetaminophen (Acetaminophen Supp 650 Mg Supp.Rect) [address] Q6H PRN PRN Reason: Pain, Mild (Pain Scale 1-3) Amlodipine Besylate (Amlodipine Besylate 2.5 Mg Tablet) 2.5 mg PO DAILY [facility]; Protocol Last Admin: 09/14/22 07:11 Dose: 2.5 mg Documented By: MURALI Atorvastatin Calcium (Atorvastatin Calcium 10 Mg Tablet) 10 mg PO DAILY [facility] Budesonide (Budesonide 180 Mcg Aer.Pow.Ba) 2 puff INHALE DAILY [facility] Enoxaparin Sodium (Enoxaparin Sodium 40 Mg/0.4 Ml Syringe) 40 mg SUBCUT Q24H [facility] Last Admin: 09/14/22 07:10 Dose: 40 mg Documented By: MURALI Fluticasone Propionate (Fluticasone Propionate Nasal 16 Gm [place]) 1 spray NOSTRIL-B DAILY PRN PRN Reason: Allergy Symptoms Sodium Chloride (Ns) 1,000 mls @ 80 mls/hr IVCONT .[id number] [facility] Last Admin: 09/14/22 02:45 Dose: 80 mls/hr Documented By: MAC Levalbuterol HCl (Levalbuterol Hcl 1.25 Mg/3 Ml Vial.Neb) 1.25 mg INHALE RQ4H WHILE AWAKE PRN PRN Reason: Shortness of Breath/Wheezing Loratadine (Loratadine 10 Mg Tablet) 10 mg PO DAILY PRN PRN Reason: Allergy Symptoms Melatonin (Melatonin 3 Mg Tablet) 6 mg PO BEDTIME PRN PRN Reason: Insomnia Ondansetron HCl (Ondansetron Hcl 4 Mg/2 Ml Vial) 4 mg IVPUSH Q8H PRN PRN Reason: Nausea and Vomiting Pharmacy Consult (Consult Rx Perform Med Rec) 1 each MISCELLANE ONCE PRN PRN Reason: Consult order Sodium Chloride (0.9 % Sodium Chloride Flush 3 Ml Syringe) 3 ml IVFLUSH QSHIFT [facility] Last Admin: 09/14/22 07:05 Dose: Not Given Documented By: MURALI Non-Admin Reason: IV Running Vitamin D (Cholecalciferol (Vitamin D3) 25 Mcg Tablet) 25 mcg PO DAILY [facility] Last Admin: 09/14/22 07:11 Dose: 25 mcg Documented By: MURALI Labs 09/13/22 05:18 09/13/22 05:18 Microbiology Microbiology Results: Microbiology 09/13/22 00:00 Blood Culture - Preliminary Blood - Venous No growth after 24 hours. 09/12/22 23:50 Blood Culture - Preliminary Blood - Venous No growth after 24 hours. Procedures Date of Service Date of Service: 09/14/22 Progress Note: A&P Assessment and plan (1) Ileus: Status: Acute (2) Constipation: Status: Acute Plan 76-year-old female with abdominal pain, distension found to have diffuse dilatation of small bowel and large bowel without evidence of obstruction. Findings suggestive of an ileus. Patient is improved with nasogastric tube decompression however no flatus or BM in past 24 hours. She remains tympanitic but nontender. Will order Fleet enema. If no results may need SSE. Time Spent With Patient Time: Total time managing care of this patient today ____ minutes. Quality Stroke Does the patient have a stroke diagnosis?: No VTE Prior VTE?: No VTE Risk Level:: Medical - moderate - high VTE Device Contraindication: Treatment Not Indicated VTE Drug Contraindication: N/A - Med Ordered
[2022-09-14] MEDS: Mineral OiL enema 133 ML ENEMA PR (09:43)
[2022-09-14] MEDS: Budesonide 180 MCG AER.POW.BA 2 PUFF INHALE (11:14)
[2022-09-14 15:33] VITALS: BP 143/65; PULSE 118; RESP 18; TEMP 37.2; O2SAT 91
--- NOTE | 2022-09-14 15:43 | PC.NURSE ---
AP HR 120bpm, notified, pt is asymptomatic at this time.
[2022-09-14 19:09] VITALS: BP 147/71; PULSE 116; RESP 18; TEMP 37.2; O2SAT 92
[2022-09-15] MEDS: 0.9 % Sodium Chloride 1,000 ML 80 ML IVCONT (03:12)
[2022-09-15 04:00] VITALS: BP 133/70; PULSE 76; RESP 17; TEMP 36; O2SAT 95
[2022-09-15 07:44] VITALS: BP 154/70; PULSE 113; RESP 17; TEMP 37.2; O2SAT 93
--- NOTE | 2022-09-15 07:53 | P.PNIM_ITS ---
Subjective Subjective Date of Service: 09/15/22 Interval History: f/u abdominal pain, ileus interval history: no clinical changes, persistent abdominal distention, ngt in, no bm no flatus Physical Exam Vital Signs: Vital Signs: Last Vital Signs Temp 98.9 F 09/15/22 07:44 Pulse 113 H 09/15/22 07:44 Resp 17 09/15/22 07:44 BP 154/70 H 09/15/22 07:44 Pulse Ox 93 09/15/22 07:44 O2 Del Method Room Air 09/15/22 07:44 BMI result Body Mass Index 22.7 Const: Other: General: AO X 3, no acute distress Resp: CTA bilateral CVS: S1,S2,RRR GI: distended, mild tenderness, no BS to me, Skin: No rash Neuro: motor grossly intact Psych: appropriate affect Objective Data Active Medications Acetaminophen (Acetaminophen 325 Mg Tablet) 650 mg PO Q6H PRN PRN Reason: Pain, Mild (Pain Scale 1-3) Acetaminophen (Acetaminophen Supp 650 Mg Supp.Rect) 650 mg [place] Q6H PRN PRN Reason: Pain, Mild (Pain Scale 1-3) Amlodipine Besylate (Amlodipine Besylate 2.5 Mg Tablet) 2.5 mg PO DAILY [facility]; Protocol Last Admin: 09/14/22 07:11 Dose: 2.5 mg Documented By: MURALI Atorvastatin Calcium (Atorvastatin Calcium 10 Mg Tablet) 10 mg PO DAILY [facility] Last Admin: 09/14/22 09:43 Dose: Not Given Documented By: MURALI Non-Admin Reason: vomited med Budesonide (Budesonide 180 Mcg Aer.Pow.Ba) 2 puff INHALE DAILY [facility] Last Admin: 09/14/22 11:14 Dose: 2 puff Documented By: MURALI Enoxaparin Sodium (Enoxaparin Sodium 40 Mg/0.4 Ml Syringe) 40 mg SUBCUT Q24H [facility] Last Admin: 09/14/22 07:10 Dose: 40 mg Documented By: MURALI Fluticasone Propionate (Fluticasone Propionate Nasal 16 Gm [place]) 1 spray NOSTRIL-B DAILY PRN PRN Reason: Allergy Symptoms Levalbuterol HCl (Levalbuterol Hcl 1.25 Mg/3 Ml Vial.Neb) 1.25 mg INHALE RQ4H WHILE AWAKE PRN PRN Reason: Shortness of Breath/Wheezing Loratadine (Loratadine 10 Mg Tablet) 10 mg PO DAILY PRN PRN Reason: Allergy Symptoms Melatonin (Melatonin 3 Mg Tablet) 6 mg PO BEDTIME PRN PRN Reason: Insomnia Ondansetron HCl (Ondansetron Hcl 4 Mg/2 Ml Vial) 4 mg IVPUSH Q8H PRN PRN Reason: Nausea and Vomiting Pharmacy Consult (Consult Rx Perform Med Rec) 1 each MISCELLANE ONCE PRN PRN Reason: Consult order Sodium Chloride (0.9 % Sodium Chloride Flush 3 Ml Syringe) 3 ml IVFLUSH QSHIFT [facility] Last Admin: 09/14/22 20:05 Dose: Not Given Documented By: EM Non-Admin Reason: IV Running Vitamin D (Cholecalciferol (Vitamin D3) 25 Mcg Tablet) 25 mcg PO DAILY [facility] Last Admin: 09/14/22 07:11 Dose: 25 mcg Documented By: MURALI Labs 09/13/22 05:18 09/13/22 05:18 Microbiology Microbiology Results: Microbiology 09/13/22 00:00 Blood Culture - Preliminary Blood - Venous No growth after 48 hours. 09/12/22 23:50 Blood Culture - Preliminary Blood - Venous No growth after 48 hours. Assessment and Plan (1) Abdominal pain: Status: Acute (2) Ileus: Status: Acute (3) Constipation: Status: Acute Plan 76-year-old female with pertinent history of asthma not on home oxygen, mixed hyperlipidemia who presents to the emergency department for evaluation of ab dominal pain, nausea and vomiting. #.? Abdominal pain/nausea/vomiting, likely due to ileus vs obstrction. abdomen remains distendended -NPO, NGT, Seen by surgery no indication for procedure, GI consult today, repeat abdominal xray, Enema -continue IVF #.? Reactive leukocytosis:? REsolved #.? Mixed hyperlipidemia: Resume once no longer npo #. Asthma: no exacerbation on admission. Continue home inhaler #.? Hyperglycemia likely reactive, A1C = 5.5 # DVT prophylaxis:? Lovenox Full code NPO Need for inpatinet: Abd pain, ? ileus vs obstruction, NPO, NGR Time Spent With Patient Time: Total time managing care of this patient today ____ minutes. Quality Stroke Does the patient have a stroke diagnosis?: No VTE Prior VTE?: No VTE Risk Level:: Medical - moderate - high VTE Device Contraindication: Treatment Not Indicated VTE Drug Contraindication: N/A - Med Ordered
[2022-09-15 08:34] LABS: Hemoglobin 11.5 g/dl (12.0-16.0); Mean Corpuscular HGB Conc 31.9 g/dl (31.0-35.0); Mean Corpuscular Hemoglobin 27.3 pg (27.0-33.0); Mean Corpuscular Volume 85.3 fL (80.0-98.0); Platelet Count 455 X10*3/uL (160-400); Red Blood Count 4.22 X10*6/uL (4.20-5.50); Red Cell Distribution Width 13.8 % (11.0-16.0); White Blood Count 11.9 X10*3/uL (4.8-10.8)
[2022-09-15 08:50] LABS: Anion Gap 16 (12-20); Blood Urea Nitrogen 28 mg/dL (9-16); Calcium 8.1 mg/dL (8.4-10.2); Carbon Dioxide 30 mmol/L (22-29); Chloride 101 mmol/L (96-108); Estimated Glomerular Filt Rate > 60; Glucose Random 102 mg/dL (60-115); Potassium 3.8 mmol/L (3.3-5.1); Sodium 143 mmol/L (135-145)
[2022-09-15] MEDS: amLODIPine Besylate 2.5 MG TABLET PO (09:54)
[2022-09-15] MEDS: Cholecalciferol (Vitamin D3) 25 MCG TABLET PO (09:54)
[2022-09-15] MEDS: Enoxaparin Sodium 40 MG/0.4 ML SYRINGE SUBCUT (09:54)
[2022-09-15] MEDS: Atorvastatin Calcium 10 MG TABLET PO (09:54)
[2022-09-15] MEDS: 0.9 % Sodium Chloride Flush 3 ML SYRINGE IVFLUSH ×2 (09:55→16:42)
--- NOTE | 2022-09-15 10:23 | P.PNGS_ITS ---
Subjective Subjective Date of Service: 09/15/22 Patient reports: no new complaints, no flatus and no bowel movement Interval history: Patient is seen in coverage She denies abdominal pain and reports that she is having some pressure which is the same as since she was admitted. She denies any emesis around the NG tube in further denies any chest pain, difficulty breathing or shortness of breath. Physical Exam 2 Vital Signs: Vital Signs: Last Vital Signs Temp 98.9 F 09/15/22 07:44 Pulse 113 H 09/15/22 07:44 Resp 17 09/15/22 07:44 BP 154/70 H 09/15/22 07:44 Pulse Ox 93 09/15/22 07:44 O2 Del Method Room Air 09/15/22 07:44 BMI result Body Mass Index 22.7 On exam she is nontoxic Sclera anicteric She is in no acute respiratory distress Her abdomen is vague diffuse discomfort with no rigidity or localizing peritoneal sign. Her abdomen is soft Objective Data Active Medications Acetaminophen (Acetaminophen 325 Mg Tablet) 650 mg PO Q6H PRN PRN Reason: Pain, Mild (Pain Scale 1-3) Acetaminophen (Acetaminophen Supp 650 Mg Supp.Rect) 650 mg [place] Q6H PRN PRN Reason: Pain, Mild (Pain Scale 1-3) Amlodipine Besylate (Amlodipine Besylate 2.5 Mg Tablet) 2.5 mg PO DAILY [facility]; Protocol Last Admin: 09/15/22 09:54 Dose: 2.5 mg Documented By: BEBA Atorvastatin Calcium (Atorvastatin Calcium 10 Mg Tablet) 10 mg PO DAILY [facility] Last Admin: 09/15/22 09:54 Dose: 10 mg Documented By: BEBA Budesonide (Budesonide 180 Mcg Aer.Pow.Ba) 2 puff INHALE DAILY [facility] Last Admin: 09/14/22 11:14 Dose: 2 puff Documented By: MURALI Enoxaparin Sodium (Enoxaparin Sodium 40 Mg/0.4 Ml Syringe) 40 mg SUBCUT Q24H [facility] Last Admin: 09/15/22 09:54 Dose: 40 mg Documented By: BEBA Fluticasone Propionate (Fluticasone Propionate Nasal 16 Gm [place]) 1 spray NOSTRIL-B DAILY PRN PRN Reason: Allergy Symptoms Levalbuterol HCl (Levalbuterol Hcl 1.25 Mg/3 Ml Vial.Neb) 1.25 mg INHALE RQ4H WHILE AWAKE PRN PRN Reason: Shortness of Breath/Wheezing Loratadine (Loratadine 10 Mg Tablet) 10 mg PO DAILY PRN PRN Reason: Allergy Symptoms Melatonin (Melatonin 3 Mg Tablet) 6 mg PO BEDTIME PRN PRN Reason: Insomnia Ondansetron HCl (Ondansetron Hcl 4 Mg/2 Ml Vial) 4 mg IVPUSH Q8H PRN PRN Reason: Nausea and Vomiting Pharmacy Consult (Consult Rx Perform Med Rec) 1 each MISCELLANE ONCE PRN PRN Reason: Consult order Sodium Biphosphate/Sodium Phosphate (Sodium Phosphate,[place]-Dibasic 133 Ml Enema) 133 ml [place] ONCE JULI Sodium Chloride (0.9 % Sodium Chloride Flush 3 Ml Syringe) 3 ml IVFLUSH QSHIFT [facility] Last Admin: 09/15/22 09:55 Dose: 3 ml Documented By: BEBA Vitamin D (Cholecalciferol (Vitamin D3) 25 Mcg Tablet) 25 mcg PO DAILY [facility] Last Admin: 09/15/22 09:54 Dose: 25 mcg Documented By: BEBA Labs 09/15/22 07:33 09/15/22 07:33 Labs: Laboratory Results - last 24 hr 09/15/22 09/15/22 07:33 07:33 MCV 85.3 MCH 27.3 MCHC 31.9 RDW 13.8 Plt Count 455 H MPV 10.0 Absolute Nucleated RBC 0.000 Nucleated RBC % (auto) 0.0 Anion Gap 16 Estim Creat Clear Calc 59.0 Estimated GFR > 60 Random Glucose 102 Calcium 8.1 L D Imaging Abdominal x-ray: My impression: Dilated small bowel and colon with decreased stool burden. No evidence of free air Radiologist's impression: Impressions Abdomen X-Ray 09/15/22 08:49 IMPRESSION: Nasogastric tube in the proximal stomach. Persistent dilated loops of small and large bowel. Decreased stool burden. Microbiology Microbiology Results: Microbiology 09/13/22 00:00 Blood Culture - Preliminary Blood - Venous No growth after 48 hours. 09/12/22 23:50 Blood Culture - Preliminary Blood - Venous No growth after 48 hours. Procedures Date of Service Date of Service: 09/15/22 Progress Note: A&P Assessment and plan (1) Ileus: Status: Acute (2) Constipation: Status: Acute (3) Leukocytosis: Status: Acute (4) Hypercholesterolemia: Status: Acute (5) Asthma: Status: Acute Plan Continue nasogastric tube until bowel function resumes Continue bowel regime Time Spent With Patient Time: Total time managing care of this patient today ____ minutes. Quality Stroke Does the patient have a stroke diagnosis?: No VTE Prior VTE?: No VTE Risk Level:: Medical - moderate - high VTE Device Contraindication: Treatment Not Indicated VTE Drug Contraindication: N/A - Med Ordered
[2022-09-15 15:22] VITALS: BP 167/73; PULSE 108; RESP 18; TEMP 37.3; O2SAT 91
[2022-09-15] MEDS: Acetaminophen 325 MG TABLET 650 MG PO (16:37)
[2022-09-15 19:47] VITALS: BP 160/71; PULSE 104; RESP 17; TEMP 36.1; O2SAT 93
[2022-09-15] MEDS: Lactated Ringers 1,000 ML 100 ML IVCONT (21:49)
[2022-09-15] MEDS: Mineral OiL enema 133 ML ENEMA PR (22:47)
[2022-09-16 03:18] VITALS: BP 147/71; PULSE 100; RESP 16; TEMP 36.7; O2SAT 96
--- NOTE | 2022-09-16 06:31 | PC.NURSE ---
pt had mineral enema, 4 hours later, yellow watery stool came out. pt states that feels much better, and passing the gases.
[2022-09-16 07:48] VITALS: BP 167/70; PULSE 101; RESP 16; TEMP 36.8; O2SAT 93
[2022-09-16] MEDS: Enoxaparin Sodium 40 MG/0.4 ML SYRINGE SUBCUT (08:12)
[2022-09-16] MEDS: Dextrose 5 % 1,000 ML 125 ML IVCONT (08:12)
--- NOTE | 2022-09-16 08:12 | HO.PM.IMPN ---
Subjective Subjective Date of Service: 09/16/22 Interval History: f/u abdominal pain, ileus interval history: No BM, +flatus, NG still draining Physical Exam Vital Signs: Vital Signs: Last Vital Signs Temp 98.3 F 09/16/22 07:48 Pulse 101 H 09/16/22 07:48 Resp 16 09/16/22 07:48 BP 167/70 H 09/16/22 07:48 Pulse Ox 93 09/16/22 07:48 O2 Del Method Room Air 09/16/22 07:48 BMI result Body Mass Index 22.7 Const: Other: General: AO X 3, no acute distress Resp: CTA bilateral CVS: S1,S2,RRR GI: mild distention, mild tenderness, no BS to me, Skin: No rash Neuro: motor grossly intact Psych: appropriate affect Objective Data Active Medications Acetaminophen (Acetaminophen 325 Mg Tablet) 650 mg PO Q6H PRN PRN Reason: Pain, Mild (Pain Scale 1-3) Last Admin: 09/15/22 16:37 Dose: 650 mg Documented By: BEBA Acetaminophen (Acetaminophen Supp 650 Mg Supp.Rect) 650 mg [place] Q6H PRN PRN Reason: Pain, Mild (Pain Scale 1-3) Amlodipine Besylate (Amlodipine Besylate 2.5 Mg Tablet) 2.5 mg PO DAILY [facility]; Protocol Last Admin: 09/15/22 09:54 Dose: 2.5 mg Documented By: BEBA Atorvastatin Calcium (Atorvastatin Calcium 10 Mg Tablet) 10 mg PO DAILY [facility] Last Admin: 09/15/22 09:54 Dose: 10 mg Documented By: BEBA Budesonide (Budesonide 180 Mcg Aer.Pow.Ba) 2 puff INHALE RDAILY [facility] Enoxaparin Sodium (Enoxaparin Sodium 40 Mg/0.4 Ml Syringe) 40 mg SUBCUT Q24H [facility] Last Admin: 09/15/22 09:54 Dose: 40 mg Documented By: BEBA Fluticasone Propionate (Fluticasone Propionate Nasal 16 Gm [place]) 1 spray NOSTRIL-B DAILY PRN PRN Reason: Allergy Symptoms Lactated Ringer's (Lr) 1,000 mls @ 100 mls/hr IVCONT .Q10H [facility] Last Infusion: 09/16/22 07:56 Dose: 0 mls/hr Documented By: KATE Dextrose (D5w) 1,000 mls @ 125 mls/hr IVCONT .Q8H [facility] Levalbuterol HCl (Levalbuterol Hcl 1.25 Mg/3 Ml Vial.Neb) 1.25 mg INHALE RQ4H WHILE AWAKE PRN PRN Reason: Shortness of Breath/Wheezing Loratadine (Loratadine 10 Mg Tablet) 10 mg PO DAILY PRN PRN Reason: Allergy Symptoms Melatonin (Melatonin 3 Mg Tablet) 6 mg PO BEDTIME PRN PRN Reason: Insomnia Ondansetron HCl (Ondansetron Hcl 4 Mg/2 Ml Vial) 4 mg IVPUSH Q8H PRN PRN Reason: Nausea and Vomiting Pharmacy Consult (Consult Rx Perform Med Rec) 1 each MISCELLANE ONCE PRN PRN Reason: Consult order Sodium Biphosphate/Sodium Phosphate (Sodium Phosphate,[place]-Dibasic 133 Ml Enema) 133 ml [place] ONCE [facility] Sodium Chloride (0.9 % Sodium Chloride Flush 3 Ml Syringe) 3 ml IVFLUSH QSHIFT [facility] Last Admin: 09/15/22 23:42 Dose: Not Given Documented By: EM Non-Admin Reason: IV Running Vitamin D (Cholecalciferol (Vitamin D3) 25 Mcg Tablet) 25 mcg PO DAILY [facility] Last Admin: 09/15/22 09:54 Dose: 25 mcg Documented By: BEBA Labs 09/15/22 07:33 09/15/22 07:33 Labs: Laboratory Results - last 24 hr 09/15/22 09/15/22 07:33 07:33 MCV 85.3 MCH 27.3 MCHC 31.9 RDW 13.8 Plt Count 455 H MPV 10.0 Absolute Nucleated RBC 0.000 Nucleated RBC % (auto) 0.0 Anion Gap 16 Estim Creat Clear Calc 59.0 Estimated GFR > 60 Random Glucose 102 Calcium 8.1 L D Assessment and Plan (1) Abdominal pain: Status: Acute (2) Ileus: Status: Acute (3) Constipation: Status: Acute Plan 76-year-old female with pertinent history of asthma not on home oxygen, mixed hyperlipidemia who presents to the emergency department for evaluation of abdominal pain, nausea and vomiting. #.? Abdominal pain/nausea/vomiting, likely due to ileus vs obstrction. abdomen remains distendended, now with flatus -NPO, NGT, Seen by surgery no indication for procedure, GI consult today, repeat abdominal xray, Enema -continue IVF #.? Reactive leukocytosis:?better #.? Mixed hyperlipidemia: Resume once no longer npo #. Asthma: no exacerbation on admission. Continue home inhaler #.? Hyperglycemia likely reactive, A1C = 5.5 # DVT prophylaxis:? Lovenox Full code NPO Need for inpatinet: Abd pain, ? ileus vs obstruction, NPO, NGR Time Spent With Patient Time: Total time managing care of this patient today ____ minutes. Quality Stroke Does the patient have a stroke diagnosis?: No VTE Prior VTE?: No VTE Risk Level:: Medical - moderate - high VTE Device Contraindication: Treatment Not Indicated VTE Drug Contraindication: N/A - Med Ordered
[2022-09-16] MEDS: Cholecalciferol (Vitamin D3) 25 MCG TABLET PO (08:13)
[2022-09-16] MEDS: Atorvastatin Calcium 10 MG TABLET PO (08:13)
[2022-09-16] MEDS: amLODIPine Besylate 2.5 MG TABLET PO (08:13)
[2022-09-16] MEDS: 0.9 % Sodium Chloride Flush 3 ML SYRINGE IVFLUSH (08:14)
--- NOTE | 2022-09-16 08:27 | PM.PNGS ---
Subjective Subjective Date of Service: 09/16/22 Patient reports: no new complaints Interval history: The patient is seen in coverage She reports that she is the same to perhaps a little better. She notes that her abdominal tightness is improved. Per nursing notes, she is put out 800cc via NG tube; BMx 2 per RN notes after an enema. She denies any chest pain, difficulty breathing or shortness of breath but notes that her mouth is extremely dry and question whether not she could have ice chips. This is okay from my perspective. Patient is encouraged to use them for comfort only. Physical Exam Vital Signs: Vital Signs: Last Vital Signs Temp 98.3 F 09/16/22 07:48 Pulse 101 H 09/16/22 07:48 Resp 16 09/16/22 07:48 BP 167/70 H 09/16/22 07:48 Pulse Ox 93 09/16/22 07:48 O2 Del Method Room Air 09/16/22 07:48 BMI result Body Mass Index 22.7 On exam she is nontoxic She is anicteric She is in no acute respiratory distress Abdomen is a little less distended with a little less firmness, diffuse mild discomfort and no rebound, rigidity, guarding or peritoneal sign to percussion. No obvious hernias are appreciated. Objective Data Active Medications Acetaminophen (Acetaminophen 325 Mg Tablet) 650 mg PO Q6H PRN PRN Reason: Pain, Mild (Pain Scale 1-3) Last Admin: 09/15/22 16:37 Dose: 650 mg Documented By: BEBA Acetaminophen (Acetaminophen Supp 650 Mg Supp.Rect) 650 mg [place] Q6H PRN PRN Reason: Pain, Mild (Pain Scale 1-3) Amlodipine Besylate (Amlodipine Besylate 2.5 Mg Tablet) 2.5 mg PO DAILY [facility]; Protocol Last Admin: 09/16/22 08:13 Dose: 2.5 mg Documented By: KATE Atorvastatin Calcium (Atorvastatin Calcium 10 Mg Tablet) 10 mg PO DAILY [facility] Last Admin: 09/16/22 08:13 Dose: 10 mg Documented By: KATE Budesonide (Budesonide 180 Mcg Aer.Pow.Ba) 2 puff INHALE RDAILY [facility] Enoxaparin Sodium (Enoxaparin Sodium 40 Mg/0.4 Ml Syringe) 40 mg SUBCUT Q24H [facility] Last Admin: 09/16/22 08:12 Dose: 40 mg Documented By: KATE Fluticasone Propionate (Fluticasone Propionate Nasal 16 Gm [place]) 1 spray NOSTRIL-B DAILY PRN PRN Reason: Allergy Symptoms Lactated Ringer's (Lr) 1,000 mls @ 100 mls/hr IVCONT .Q10H [facility] Last Infusion: 09/16/22 07:56 Dose: 0 mls/hr Documented By: KATE Levalbuterol HCl (Levalbuterol Hcl 1.25 Mg/3 Ml Vial.Neb) 1.25 mg INHALE RQ4H WHILE AWAKE PRN PRN Reason: Shortness of Breath/Wheezing Loratadine (Loratadine 10 Mg Tablet) 10 mg PO DAILY PRN PRN Reason: Allergy Symptoms Melatonin (Melatonin 3 Mg Tablet) 6 mg PO BEDTIME PRN PRN Reason: Insomnia Ondansetron HCl (Ondansetron Hcl 4 Mg/2 Ml Vial) 4 mg IVPUSH Q8H PRN PRN Reason: Nausea and Vomiting Pharmacy Consult (Consult Rx Perform Med Rec) 1 each MISCELLANE ONCE PRN PRN Reason: Consult order Sodium Biphosphate/Sodium Phosphate (Sodium Phosphate,[place]-Dibasic 133 Ml Enema) 133 ml [place] ONCE [facility] Sodium Chloride (0.9 % Sodium Chloride Flush 3 Ml Syringe) 3 ml IVFLUSH QSHIFT [facility] Last Admin: 09/16/22 08:14 Dose: 3 ml Documented By: KATE Vitamin D (Cholecalciferol (Vitamin D3) 25 Mcg Tablet) 25 mcg PO DAILY [facility] Last Admin: 09/16/22 08:13 Dose: 25 mcg Documented By: KATE Labs 09/15/22 07:33 09/15/22 07:33 Labs: Laboratory Results - last 24 hr 09/15/22 09/15/22 07:33 07:33 MCV 85.3 MCH 27.3 MCHC 31.9 RDW 13.8 Plt Count 455 H MPV 10.0 Absolute Nucleated RBC 0.000 Nucleated RBC % (auto) 0.0 Anion Gap 16 Estim Creat Clear Calc 59.0 Estimated GFR > 60 Random Glucose 102 Calcium 8.1 L D Procedures Date of Service Date of Service: 09/16/22 Progress Note: A&P Assessment and plan (1) Ileus: Status: Acute (2) Constipation: Status: Acute (3) Leukocytosis: Status: Acute Plan Continue present management Await bowel function Patient was provided with ice chips; okay from my perspective. Dr. Arriaga to resume care 09/17/2022. Please call me today if there are any questions. Time Spent With Patient Time: Total time managing care of this patient today ____ minutes. Quality Stroke Does the patient have a stroke diagnosis?: No VTE Prior VTE?: No VTE Risk Level:: Medical - moderate - high VTE Device Contraindication: Treatment Not Indicated VTE Drug Contraindication: N/A - Med Ordered
[2022-09-16] MEDS: Budesonide 180 MCG AER.POW.BA 2 PUFF INHALE (08:34)
[2022-09-16 08:37] VITALS: PULSE 102; RESP 20; O2SAT 93
[2022-09-16] MEDS: Lactated Ringers 1,000 ML 100 ML IVCONT ×2 (10:21→17:03)
[2022-09-16 15:40] VITALS: BP 179/77; PULSE 105; RESP 18; TEMP 36.8; O2SAT 92
[2022-09-16 20:00] VITALS: BP 113/91; PULSE 100; RESP 17; TEMP 36.3; O2SAT 93
[2022-09-17] MEDS: Lactated Ringers 1,000 ML 100 ML IVCONT (02:58)
[2022-09-17 03:48] VITALS: BP 170/76; PULSE 86; RESP 18; TEMP 36.2; O2SAT 95
[2022-09-17 06:28] LABS: Hematocrit 37.2 % (37.0-47.0); Hemoglobin 11.8 g/dl (12.0-16.0); Mean Corpuscular HGB Conc 31.7 g/dl (31.0-35.0); Mean Corpuscular Hemoglobin 26.8 pg (27.0-33.0); Mean Corpuscular Volume 84.4 fL (80.0-98.0); Mean Platelet Volume 9.7 fL (9.4-12.3); Platelet Count 445 X10*3/uL (160-400); Red Blood Count 4.41 X10*6/uL (4.20-5.50); Red Cell Distribution Width 14.1 % (11.0-16.0); White Blood Count 11.3 X10*3/uL (4.8-10.8)
[2022-09-17 06:47] LABS: Anion Gap 18 (12-20); Blood Urea Nitrogen 20 mg/dL (9-16); Calcium 8.3 mg/dL (8.4-10.2); Carbon Dioxide 32 mmol/L (22-29); Chloride 102 mmol/L (96-108); Creatinine Clr Calc Pharmacy 69.5; Estimated Glomerular Filt Rate > 60; Glucose Random 97 mg/dL (60-115); Potassium 3.9 mmol/L (3.3-5.1); Sodium 148 mmol/L (135-145)
[2022-09-17 06:54] VITALS: BP 180/75; PULSE 99; RESP 18; TEMP 36.1
--- NOTE | 2022-09-17 07:25 | P.PNIM_ITS ---
Subjective Subjective Date of Service: 09/17/22 Interval History: f/u on abd pain n/v, dilated loops of bowel and concern for ileus vs bowel obstruction interval history: Persistent abd istention, flatus yesterday, Physical Exam Vital Signs: Vital Signs: Last Vital Signs Temp 97 F 09/17/22 06:54 Pulse 99 09/17/22 06:54 Resp 18 09/17/22 06:54 BP 180/75 H 09/17/22 06:54 Pulse Ox 95 09/17/22 03:48 O2 Del Method Room Air 09/17/22 03:48 BMI result Body Mass Index 22.7 Const: Other: General: AO X 3, no acute distress Resp: CTA bilateral CVS: S1,S2,RRR GI: +BS, NT, no distention Skin: No rash Neuro: motor grossly intact Psych: appropriate affect Objective Data Active Medications Acetaminophen (Acetaminophen 325 Mg Tablet) 650 mg PO Q6H PRN PRN Reason: Pain, Mild (Pain Scale 1-3) Last Admin: 09/15/22 16:37 Dose: 650 mg Documented By: BEBA Acetaminophen (Acetaminophen Supp 650 Mg Supp.Rect) 650 mg [place] Q6H PRN PRN Reason: Pain, Mild (Pain Scale 1-3) Amlodipine Besylate (Amlodipine Besylate 2.5 Mg Tablet) 2.5 mg PO DAILY [facility]; Protocol Last Admin: 09/16/22 08:13 Dose: 2.5 mg Documented By: KATE Atorvastatin Calcium (Atorvastatin Calcium 10 Mg Tablet) 10 mg PO DAILY [facility] Last Admin: 09/16/22 08:13 Dose: 10 mg Documented By: KATE Budesonide (Budesonide 180 Mcg Aer.Pow.Ba) 2 puff INHALE RDAILY [facility] Last Admin: 09/16/22 08:34 Dose: 2 puff Documented By: CATHY Enoxaparin Sodium (Enoxaparin Sodium 40 Mg/0.4 Ml Syringe) 40 mg SUBCUT Q24H [facility] Last Admin: 09/16/22 08:12 Dose: 40 mg Documented By: KATE Fluticasone Propionate (Fluticasone Propionate Nasal 16 Gm [place]) 1 spray NOSTRIL-B DAILY PRN PRN Reason: Allergy Symptoms Dextrose (D5w) 1,000 mls @ 125 mls/hr IVCONT .Q8H [facility] Levalbuterol HCl (Levalbuterol Hcl 1.25 Mg/3 Ml Vial.Neb) 1.25 mg INHALE RQ4H WHILE AWAKE PRN PRN Reason: Shortness of Breath/Wheezing Loratadine (Loratadine 10 Mg Tablet) 10 mg PO DAILY PRN PRN Reason: Allergy Symptoms Melatonin (Melatonin 3 Mg Tablet) 6 mg PO BEDTIME PRN PRN Reason: Insomnia Ondansetron HCl (Ondansetron Hcl 4 Mg/2 Ml Vial) 4 mg IVPUSH Q8H PRN PRN Reason: Nausea and Vomiting Pharmacy Consult (Consult Rx Perform Med Rec) 1 each MISCELLANE ONCE PRN PRN Reason: Consult order Sodium Biphosphate/Sodium Phosphate (Sodium Phosphate,[place]-Dibasic 133 Ml Enema) 133 ml ME ONCE [facility] Sodium Chloride (0.9 % Sodium Chloride Flush 3 Ml Syringe) 3 ml IVFLUSH QSHIFT [facility] Last Admin: 09/17/22 07:18 Dose: Not Given Documented By: ABY Non-Admin Reason: IV Running Vitamin D (Cholecalciferol (Vitamin D3) 25 Mcg Tablet) 25 mcg PO DAILY [facility] Last Admin: 09/16/22 08:13 Dose: 25 mcg Documented By: KATE Labs 09/17/22 06:01 09/17/22 06:01 Labs: Laboratory Results - last 24 hr 09/17/22 09/17/22 06:01 06:01 MCV 84.4 MCH 26.8 L MCHC 31.7 RDW 14.1 Plt Count 445 H MPV 9.7 Absolute Nucleated RBC 0.000 Nucleated RBC % (auto) 0.0 Anion Gap 18 Estim Creat Clear Calc 69.5 Estimated GFR > 60 Random Glucose 97 Calcium 8.3 L Assessment and Plan (1) Abdominal pain: Status: Acute (2) Ileus: Status: Acute (3) Constipation: Status: Acute Plan 76-year-old female with pertinent history of asthma not on home oxygen, mixed hyperlipidemia who presents to the emergency department for evaluation of abdominal pain, nausea and vomiting. #.? Abdominal pain/nausea/vomiting, dilated small and large bowels likely due to ileus vs obstrction. abdomen remains distendended, now with flatus and some reported waterly stool -NPO, NGT, Seen by surgery no indication for procedure, GI consult today, repeat abdominal xray 09/15 persistent dilated small and large bowels. Surgery is recommending upper GI with small bowel FT #.? Reactive leukocytosis:?better #.? Mixed hyperlipidemia: Resume once no longer npo #. Asthma: no exacerbation on admission. Continue home inhaler # Hyperglycemia likely reactive, A1C = 5.5 # HyErnatremia--d/t NPO status. Change IVF to 5% dextrose, and monitor labs #Elevated BP, no prior diagnosis of HTN, treat PRN with IV Labetalol DVT prophylaxis:? Lovenox Full code NPO Need for inpatinet: Abd pain, ? ileus vs obstruction, NPO, NGR Time Spent With Patient Time: Total time managing care of this patient today ____ minutes. Quality Stroke Does the patient have a stroke diagnosis?: No VTE Prior VTE?: No VTE Risk Level:: Medical - moderate - high VTE Device Contraindication: Treatment Not Indicated VTE Drug Contraindication: N/A - Med Ordered
[2022-09-17] MEDS: Budesonide 180 MCG AER.POW.BA 2 PUFF INHALE (07:30)
[2022-09-17 07:31] VITALS: RESP 18; O2SAT 94
[2022-09-17] MEDS: Dextrose 5 % 1,000 ML 125 ML IVCONT ×3 (07:33→23:22)
[2022-09-17] MEDS: amLODIPine Besylate 2.5 MG TABLET PO (07:34)
[2022-09-17] MEDS: Enoxaparin Sodium 40 MG/0.4 ML SYRINGE SUBCUT (07:34)
[2022-09-17] MEDS: Cholecalciferol (Vitamin D3) 25 MCG TABLET PO (07:34)
[2022-09-17] MEDS: Atorvastatin Calcium 10 MG TABLET PO (07:34)
--- NOTE | 2022-09-17 14:07 | MHC.CM.PN ---
Per discussion w/MD at rounds: pt is not medically stable for d/c d/t unresolved ileus, continued stooling and not tolerating regular diet: D/C plan is for a return to home without services and family support and transportation. CM to follow.
--- NOTE | 2022-09-17 14:12 | PM.PNGS ---
Subjective Subjective Date of Service: 09/17/22 Interval history: Patient frustrated with her lack of improvement. She had bowel movement after enema. Passing a small amount of flatus. No abdominal pain at this time. Physical Exam Vital Signs: Vital Signs: Last Vital Signs Temp 97 F 09/17/22 06:54 Pulse 99 09/17/22 06:54 Resp 18 09/17/22 07:31 BP 180/75 H 09/17/22 06:54 Pulse Ox 95 09/17/22 03:48 O2 Del Method Room Air 09/17/22 03:48 BMI result Body Mass Index 22.7 HEENT: Head: Yes normocephalic Resp: Effort & Inspection: normal respiratory effort, no audible wheezes, no cough and no respiratory distress GI: Inspection: Yes normal to inspection Palpation (GI): Soft to palpation, nontender, no guarding and not rigid Percussion: Yes tympanic to percussion Extrem: General: Yes normal to inspection Objective Data Active Medications Acetaminophen (Acetaminophen 325 Mg Tablet) 650 mg PO Q6H PRN PRN Reason: Pain, Mild (Pain Scale 1-3) Last Admin: 09/15/22 16:37 Dose: 650 mg Documented By: BEBA Acetaminophen (Acetaminophen Supp 650 Mg Supp.Rect) 650 mg [place] Q6H PRN PRN Reason: Pain, Mild (Pain Scale 1-3) Amlodipine Besylate (Amlodipine Besylate 2.5 Mg Tablet) 2.5 mg PO DAILY [facility]; Protocol Last Admin: 09/17/22 07:34 Dose: 2.5 mg Documented By: ABY Atorvastatin Calcium (Atorvastatin Calcium 10 Mg Tablet) 10 mg PO DAILY [facility] Last Admin: 09/17/22 07:34 Dose: 10 mg Documented By: ABY Budesonide (Budesonide 180 Mcg Aer.Pow.Ba) 2 puff INHALE RDAILY [facility] Last Admin: 09/17/22 07:30 Dose: 2 puff Documented By: RACHAEL Enoxaparin Sodium (Enoxaparin Sodium 40 Mg/0.4 Ml Syringe) 40 mg SUBCUT Q24H [facility] Last Admin: 09/17/22 07:34 Dose: 40 mg Documented By: ABY Fluticasone Propionate (Fluticasone Propionate Nasal 16 Gm [place]) 1 spray NOSTRIL-B DAILY PRN PRN Reason: Allergy Symptoms Dextrose (D5w) 1,000 mls @ 125 mls/hr IVCONT .Q8H [facility] Last Admin: 09/17/22 07:33 Dose: 125 mls/hr Documented By: ABY Levalbuterol HCl (Levalbuterol Hcl 1.25 Mg/3 Ml Vial.Neb) 1.25 mg INHALE RQ4H WHILE AWAKE PRN PRN Reason: Shortness of Breath/Wheezing Loratadine (Loratadine 10 Mg Tablet) 10 mg PO DAILY PRN PRN Reason: Allergy Symptoms Melatonin (Melatonin 3 Mg Tablet) 6 mg PO BEDTIME PRN PRN Reason: Insomnia Ondansetron HCl (Ondansetron Hcl 4 Mg/2 Ml Vial) 4 mg IVPUSH Q8H PRN PRN Reason: Nausea and Vomiting Pharmacy Consult (Consult Rx Perform Med Rec) 1 each MISCELLANE ONCE PRN PRN Reason: Consult order Sodium Biphosphate/Sodium Phosphate (Sodium Phosphate,[place]-Dibasic 133 Ml Enema) 133 ml [place] ONCE [facility] Sodium Chloride (0.9 % Sodium Chloride Flush 3 Ml Syringe) 3 ml IVFLUSH QSHIFT [facility] Last Admin: 09/17/22 07:18 Dose: Not Given Documented By: ABY Non-Admin Reason: IV Running Vitamin D (Cholecalciferol (Vitamin D3) 25 Mcg Tablet) 25 mcg PO DAILY [facility] Last Admin: 09/17/22 07:34 Dose: 25 mcg Documented By: ABY Labs 09/17/22 06:01 09/17/22 06:01 Labs: Laboratory Results - last 24 hr 09/17/22 09/17/22 06:01 06:01 MCV 84.4 MCH 26.8 L MCHC 31.7 RDW 14.1 Plt Count 445 H MPV 9.7 Absolute Nucleated RBC 0.000 Nucleated RBC % (auto) 0.0 Anion Gap 18 Estim Creat Clear Calc 69.5 Estimated GFR > 60 Random Glucose 97 Calcium 8.3 L Procedures Date of Service Date of Service: 09/17/22 Progress Note: A&P Assessment and plan (1) Ileus: Status: Acute Plan Patient without any significant improvement in her symptoms, continues with abdominal bloating, constipation, minimal flatus. Discussed with Dr. Mlapah. Recommend small bowel series to evaluate for obstruction. Discussed with patient and she agrees with the plan. Time Spent With Patient Time: Total time managing care of this patient today ____ minutes. Quality Stroke Does the patient have a stroke diagnosis?: No VTE Prior VTE?: No VTE Risk Level:: Medical - moderate - high VTE Device Contraindication: Treatment Not Indicated VTE Drug Contraindication: N/A - Med Ordered
[2022-09-17] MEDS: ondansetron HCL 4 MG/2 ML VIAL IVPUSH (14:23)
--- NOTE | 2022-09-17 14:24 | PC.NURSE ---
Pt unable to tolerate NG tube being clamped post UGI placed back on sution as per Md Doe given elijah see MAR
[2022-09-17] MEDS: Diatrizoate Meglumine, Sodium 120 ML SOLUTION 210 ML PO (14:39)
[2022-09-17 15:26] VITALS: BP 179/75; PULSE 99; RESP 17; TEMP 36.6; O2SAT 92
[2022-09-17 19:24] VITALS: BP 148/67; PULSE 95; RESP 16; TEMP 37.5; O2SAT 92
[2022-09-18 03:33] VITALS: BP 152/69; PULSE 90; RESP 16; TEMP 36.2; O2SAT 93
--- NOTE | 2022-09-18 06:22 | PC.NURSE ---
pt used bedside commode a few times, still discomfort in her abd. developed sputum in the throat. spit it out little bit. provide moisturize ice chip. new IV inserted in RAC 22G. will monitor s/s.
[2022-09-18 06:53] VITALS: BP 178/79; PULSE 98; RESP 18; TEMP 36.6; O2SAT 95
[2022-09-18] MEDS: Dextrose 5 % 1,000 ML 125 ML IVCONT (07:05)
--- NOTE | 2022-09-18 07:31 | P.PNGS_ITS ---
Subjective Subjective Date of Service: 09/18/22 Interval history: Patient reports 2 episodes of emesis yesterday after the onset of small-bowel follow-through. She is anxious to have the results of the study to determine her next steps. She denies any new abdominal symptoms. Physical Exam Vital Signs: Vital Signs: Last Vital Signs Temp 97.9 F 09/18/22 06:53 Pulse 98 09/18/22 06:53 Resp 18 09/18/22 06:53 BP 178/79 H 09/18/22 06:53 Pulse Ox 95 09/18/22 06:53 O2 Del Method Room Air 09/18/22 06:53 BMI result Body Mass Index 22.7 HEENT: Head: Yes normocephalic Resp: Effort & Inspection: normal respiratory effort, no audible wheezes, no cough and no respiratory distress GI: Inspection: Yes normal to inspection Palpation (GI): Soft to palpation, nontender, no guarding and not rigid Percussion: Yes tympanic to percussion Extrem: General: Yes normal to inspection Objective Data Active Medications Acetaminophen (Acetaminophen 325 Mg Tablet) 650 mg PO Q6H PRN PRN Reason: Pain, Mild (Pain Scale 1-3) Last Admin: 09/15/22 16:37 Dose: 650 mg Documented By: BEBA Acetaminophen (Acetaminophen Supp 650 Mg Supp.Rect) 650 mg [place] Q6H PRN PRN Reason: Pain, Mild (Pain Scale 1-3) Amlodipine Besylate (Amlodipine Besylate 2.5 Mg Tablet) 2.5 mg PO DAILY [facility]; Protocol Last Admin: 09/17/22 07:34 Dose: 2.5 mg Documented By: ABY Atorvastatin Calcium (Atorvastatin Calcium 10 Mg Tablet) 10 mg PO DAILY [facility] Last Admin: 09/17/22 07:34 Dose: 10 mg Documented By: ABY Budesonide (Budesonide 180 Mcg Aer.Pow.Ba) 2 puff INHALE RDAILY [facility] Last Admin: 09/17/22 07:30 Dose: 2 puff Documented By: RACHAEL Enoxaparin Sodium (Enoxaparin Sodium 40 Mg/0.4 Ml Syringe) 40 mg SUBCUT Q24H [facility] Last Admin: 09/17/22 07:34 Dose: 40 mg Documented By: ABY Fluticasone Propionate (Fluticasone Propionate Nasal 16 Gm [place]) 1 spray NOSTRIL-B DAILY PRN PRN Reason: Allergy Symptoms Dextrose (D5w) 1,000 mls @ 125 mls/hr IVCONT .Q8H [facility] Last Admin: 09/18/22 07:05 Dose: 125 mls/hr Documented By: ABY Levalbuterol HCl (Levalbuterol Hcl 1.25 Mg/3 Ml Vial.Neb) 1.25 mg INHALE RQ4H WHILE AWAKE PRN PRN Reason: Shortness of Breath/Wheezing Loratadine (Loratadine 10 Mg Tablet) 10 mg PO DAILY PRN PRN Reason: Allergy Symptoms Melatonin (Melatonin 3 Mg Tablet) 6 mg PO BEDTIME PRN PRN Reason: Insomnia Ondansetron HCl (Ondansetron Hcl 4 Mg/2 Ml Vial) 4 mg IVPUSH Q8H PRN PRN Reason: Nausea and Vomiting Last Admin: 09/17/22 14:23 Dose: 4 mg Documented By: ABY Pharmacy Consult (Consult Rx Perform Med Rec) 1 each MISCELLANE ONCE PRN PRN Reason: Consult order Sodium Biphosphate/Sodium Phosphate (Sodium Phosphate,[place]-Dibasic 133 Ml Enema) 133 ml [place] ONCE JULI Sodium Chloride (0.9 % Sodium Chloride Flush 3 Ml Syringe) 3 ml IVFLUSH QSHIFT [facility] Last Admin: 09/18/22 07:06 Dose: Not Given Documented By: ABY Non-Admin Reason: IV Running Vitamin D (Cholecalciferol (Vitamin D3) 25 Mcg Tablet) 25 mcg PO DAILY [facility] Last Admin: 09/17/22 07:34 Dose: 25 mcg Documented By: ABY Labs 09/17/22 06:01 09/17/22 06:01 Microbiology Microbiology Results: Microbiology 09/13/22 00:00 Blood Culture - Final Blood - Venous No growth after 5 days. 09/12/22 23:50 Blood Culture - Final Blood - Venous No growth after 5 days. Procedures Date of Service Date of Service: 09/18/22 Progress Note: A&P Assessment and plan (1) Ileus: Status: Acute Plan Patient without any significant improvement in her symptoms, continues with abdominal bloating, constipation, minimal flatus. Small-bowel series is currently underway; will await final results and discuss with patient. Patient expressed understanding and agrees with the plan. Time Spent With Patient Time: Total time managing care of this patient today ____ minutes. Quality Stroke Does the patient have a stroke diagnosis?: No VTE Prior VTE?: No VTE Risk Level:: Medical - moderate - high VTE Device Contraindication: Treatment Not Indicated VTE Drug Contraindication: N/A - Med Ordered
[2022-09-18] MEDS: Budesonide 180 MCG AER.POW.BA 2 PUFF INHALE (07:48)
[2022-09-18 07:52] VITALS: PULSE 98; RESP 18
[2022-09-18 08:36] LABS: Blood Urea Nitrogen 15 mg/dL (9-16); Calcium 7.8 mg/dL (8.4-10.2); Creatinine Clr Calc Pharmacy 69.5; Estimated Glomerular Filt Rate > 60; Glucose Random 180 mg/dL (60-115)
[2022-09-18 08:49] LABS: Anion Gap 13 (12-20); Carbon Dioxide 33 mmol/L (22-29); Chloride 93 mmol/L (96-108); Potassium 2.9 mmol/L (3.3-5.1); Sodium 136 mmol/L (135-145)
[2022-09-18] MEDS: amLODIPine Besylate 2.5 MG TABLET PO (09:47)
[2022-09-18] MEDS: Cholecalciferol (Vitamin D3) 25 MCG TABLET PO (09:47)
[2022-09-18] MEDS: Enoxaparin Sodium 40 MG/0.4 ML SYRINGE SUBCUT (09:47)
[2022-09-18] MEDS: Potassium Chloride/H20 10 MEQ/100 ML PIGGYBACK 100 MEQ IV ×4 (12:28→15:40)
--- NOTE | 2022-09-18 12:39 | P.PNIM_ITS ---
Subjective Subjective Date of Service: 09/20/22 Interval History: f/u on abd pain? Review of Systems Patient says has ngt section: Draining significant amount of fluid Failure nauseated, no vomiting Still has abdominal pain, no fever or chills Physical Exam Vital Signs: Vital Signs: Last Vital Signs Temp 97.9 F 09/18/22 06:53 Pulse 98 09/18/22 07:52 Resp 18 09/18/22 07:52 BP 178/79 H 09/18/22 06:53 Pulse Ox 95 09/18/22 06:53 O2 Del Method Room Air 09/18/22 06:53 BMI result Body Mass Index 22.7 General: AO X 3, no acute distress Resp:? CTA bilateral CVS: S1,S2,RRR GI: +BS, NT, no distention Skin: No rash Neuro:? motor grossly intact Psych: appropriate affect Objective Data Active Medications Acetaminophen (Acetaminophen 325 Mg Tablet) 650 mg PO Q6H PRN PRN Reason: Pain, Mild (Pain Scale 1-3) Last Admin: 09/15/22 16:37 Dose: 650 mg Documented By: BEBA Acetaminophen (Acetaminophen Supp 650 Mg Supp.Rect) 650 mg [place] Q6H PRN PRN Reason: Pain, Mild (Pain Scale 1-3) Amlodipine Besylate (Amlodipine Besylate 2.5 Mg Tablet) 2.5 mg PO DAILY [facility]; Protocol Last Admin: 09/18/22 09:47 Dose: 2.5 mg Documented By: ABY Budesonide (Budesonide 180 Mcg Aer.Pow.Ba) 2 puff INHALE RDAILY [facility] Last Admin: 09/18/22 07:48 Dose: 2 puff Documented By: ILDEFONSO Enoxaparin Sodium (Enoxaparin Sodium 40 Mg/0.4 Ml Syringe) 40 mg SUBCUT Q24H [facility] Last Admin: 09/18/22 09:47 Dose: 40 mg Documented By: ABY Fluticasone Propionate (Fluticasone Propionate Nasal 16 Gm [place]) 1 spray NOSTRIL-B DAILY PRN PRN Reason: Allergy Symptoms Dextrose (D5w) 1,000 mls @ 125 mls/hr IVCONT .Q8H [facility] Last Admin: 09/18/22 07:05 Dose: 125 mls/hr Documented By: ABY Potassium Chloride (Potassium Chloride/H20) 10 meq in 100 mls @ 100 mls/hr IV Q1H [facility] Stop: 09/18/22 16:29 Last Admin: 09/18/22 12:28 Dose: 100 mls/hr Documented By: ABY Levalbuterol HCl (Levalbuterol Hcl 1.25 Mg/3 Ml Vial.Neb) 1.25 mg INHALE RQ4H WHILE AWAKE PRN PRN Reason: Shortness of Breath/Wheezing Loratadine (Loratadine 10 Mg Tablet) 10 mg PO DAILY PRN PRN Reason: Allergy Symptoms Melatonin (Melatonin 3 Mg Tablet) 6 mg PO BEDTIME PRN PRN Reason: Insomnia Ondansetron HCl (Ondansetron Hcl 4 Mg/2 Ml Vial) 4 mg IVPUSH Q8H PRN PRN Reason: Nausea and Vomiting Last Admin: 09/17/22 14:23 Dose: 4 mg Documented By: ABY Pharmacy Consult (Consult Rx Perform Med Rec) 1 each MISCELLANE ONCE PRN PRN Reason: Consult order Sodium Biphosphate/Sodium Phosphate (Sodium Phosphate,[place]-Dibasic 133 Ml Enema) 133 ml [place] ONCE JULI Sodium Chloride (0.9 % Sodium Chloride Flush 3 Ml Syringe) 3 ml IVFLUSH QSHIFT [facility] Last Admin: 09/18/22 07:06 Dose: Not Given Documented By: ABY Non-Admin Reason: IV Running Vitamin D (Cholecalciferol (Vitamin D3) 25 Mcg Tablet) 25 mcg PO DAILY [facility] Last Admin: 09/18/22 09:47 Dose: 25 mcg Documented By: ABY Labs 09/17/22 06:01 09/18/22 08:14 Labs: Laboratory Results - last 24 hr 09/18/22 08:14 Anion Gap 13 Estim Creat Clear Calc 69.5 Estimated GFR > 60 Random Glucose 180 H Calcium 7.8 L D Microbiology Microbiology Results: Microbiology 09/13/22 00:00 Blood Culture - Final Blood - Venous No growth after 5 days. 09/12/22 23:50 Blood Culture - Final Blood - Venous No growth after 5 days. Assessment and Plan (1) Abdominal pain: Status: Acute (2) Ileus: Status: Acute (3) Constipation: Status: Acute (4) Hypokalemia: Status: Acute Plan 76-year-old female with pertinent history of asthma not on home oxygen, mixed hyperlipidemia who presents to the emergency department for evaluation of abdominal pain, nausea and vomiting. Abdominal pain/nausea/vomiting, dilated small and large bowels likely due to ileus vs obstrction. abdomen remains distendended, now with flatus and some reported waterly stool -NPO, NGT, Seen by surgery no indication for procedure, GI consult today, repeat abdominal xray 09/15 persistent dilated small and large bowels. Surgery is recommending upper GI with small bowel series -reviewed ,patient still symptomatic may need surgery in the morning Reactive leukocytosis:?better Mixed hyperlipidemia: Resume once no longer npo Asthma: no exacerbation on admission. Continue home inhaler Hyperglycemia likely reactive, A1C = 5.5 HyErnatremia--d/t NPO status. Change IVF to 5% dextrose, and monitor labs Elevated BP, no prior diagnosis of HTN, treat PRN with IV Labetalol DVT prophylaxis:? Lovenox Need for inpatinet: Abd pain, ? ileus vs obstruction-may need surgery in am Time Spent With Patient Time: Total time managing care of this patient today ____ minutes. Quality Stroke Does the patient have a stroke diagnosis?: No VTE Prior VTE?: No VTE Risk Level:: Medical - moderate - high VTE Device Contraindication: Treatment Not Indicated VTE Drug Contraindication: N/A - Med Ordered
[2022-09-18 12:57] LABS: Magnesium 1.7 mg/dL (1.6-2.6)
[2022-09-18] MEDS: Dextrose 5 % and 0.9 % NaCl 1,000 ML 80 ML IVCONT (13:25)
[2022-09-18] MEDS: Morphine Sulfate 2 MG/ML CARTRIDGE IVPUSH ×2 (14:40→23:33)
[2022-09-18 15:10] VITALS: BP 188/81; PULSE 103; RESP 20; TEMP 36.9; O2SAT 95
[2022-09-18 19:11] VITALS: BP 164/72; PULSE 107; RESP 20; TEMP 37.3; O2SAT 93
[2022-09-19] VITALS (17 sets, daily range): BP systolic 127–191; BP diastolic 42–79; PULSE 98–121; RESP 16–20; TEMP 36.1–37.4; O2SAT 94–99; BMI 22.7
[2022-09-19] MEDS: Dextrose 5 % and 0.9 % NaCl 1,000 ML 80 ML IVCONT ×2 (01:54→21:19)
[2022-09-19] MEDS: Morphine Sulfate 2 MG/ML CARTRIDGE IVPUSH ×3 (02:13→18:10)
--- NOTE | 2022-09-19 07:34 | PM.PNGS ---
Subjective Subjective Date of Service: 09/19/22 Interval history: Patient did have a bowel movement yesterday but still has abdominal pain and bloating. Not feeling much improved. Wishes to proceed with surgery today. Physical Exam Vital Signs: Vital Signs: Last Vital Signs Temp 98 F 09/19/22 06:53 Pulse 104 H 09/19/22 06:53 Resp 16 09/19/22 06:53 BP 170/72 H 09/19/22 06:53 Pulse Ox 95 09/19/22 06:53 O2 Del Method Room Air 09/19/22 06:53 BMI result Body Mass Index 22.7 Const: General: ill appearing Nutritional Appearance: average body habitus Orientation/consciousness: patient oriented x3 Limitations: no limitations HEENT: Other: NG tube in place feculent material Resp: Other: breathing comfortably on room air GI: Other: softer but distended, tympanic to percussion. Tender to deep palpation. Absent bowel sounds Skin: Other: warm, dry, no rash Neuro: General: patient oriented x3 Extrem: Other: no pedal edema Objective Data Active Medications Acetaminophen (Acetaminophen Supp 650 Mg Supp.Rect) 650 mg [place] Q6H PRN PRN Reason: Pain, Mild (Pain Scale 1-3) Amlodipine Besylate (Amlodipine Besylate 2.5 Mg Tablet) 2.5 mg PO DAILY [facility]; Protocol Last Admin: 09/18/22 09:47 Dose: 2.5 mg Documented By: ABY Budesonide (Budesonide 180 Mcg Aer.Pow.Ba) 2 puff INHALE RDAILY [facility] Last Admin: 09/18/22 07:48 Dose: 2 puff Documented By: ILDEFONSO Enoxaparin Sodium (Enoxaparin Sodium 40 Mg/0.4 Ml Syringe) 40 mg SUBCUT Q24H [facility] Last Admin: 09/18/22 09:47 Dose: 40 mg Documented By: ABY Fluticasone Propionate (Fluticasone Propionate Nasal 16 Gm [place]) 1 spray NOSTRIL-B DAILY PRN PRN Reason: Allergy Symptoms Hydralazine HCl (Hydralazine Hcl 20 Mg/Ml Vial) 5 mg IVPUSH ONCE ONE; Protocol Stop: 09/19/22 07:29 Dextrose/Sodium Chloride (D5ns) 1,000 mls @ 80 mls/hr IVCONT .[id number] [facility] Last Admin: 09/19/22 01:54 Dose: 80 mls/hr Documented By: EFREN Labetalol HCl (Labetalol Hcl 100 Mg/20 Ml Vial) 10 mg IVPUSH Q6H PRN PRN Reason: htn Levalbuterol HCl (Levalbuterol Hcl 1.25 Mg/3 Ml Vial.Neb) 1.25 mg INHALE RQ4H WHILE AWAKE PRN PRN Reason: Shortness of Breath/Wheezing Loratadine (Loratadine 10 Mg Tablet) 10 mg PO DAILY PRN PRN Reason: Allergy Symptoms Melatonin (Melatonin 3 Mg Tablet) 6 mg PO BEDTIME PRN PRN Reason: Insomnia Morphine Sulfate (Morphine Sulfate 2 Mg/Ml [place]) 2 mg IVPUSH Q3H PRN; Protocol PRN Reason: Pain, Mild (Pain Scale 1-3) Last Admin: 09/19/22 02:13 Dose: 2 mg Documented By: EFREN Ondansetron HCl (Ondansetron Hcl 4 Mg/2 Ml Vial) 4 mg IVPUSH Q8H PRN PRN Reason: Nausea and Vomiting Last Admin: 09/17/22 14:23 Dose: 4 mg Documented By: ABY Pharmacy Consult (Consult Rx Perform Med Rec) 1 each MISCELLANE ONCE PRN PRN Reason: Consult order Sodium Biphosphate/Sodium Phosphate (Sodium Phosphate,[place]-Dibasic 133 Ml Enema) 133 ml [place] ONCE [facility] Sodium Chloride (0.9 % Sodium Chloride Flush 3 Ml Syringe) 3 ml IVFLUSH QSHIFT [facility] Last Admin: 09/19/22 00:08 Dose: Not Given Documented By: EFREN Non-Admin Reason: IV Running Vitamin D (Cholecalciferol (Vitamin D3) 25 Mcg Tablet) 25 mcg PO DAILY [facility] Last Admin: 09/18/22 09:47 Dose: 25 mcg Documented By: ABY Labs 09/17/22 06:01 09/18/22 08:14 Labs: Laboratory Results - last 24 hr 09/18/22 08:14 Anion Gap 13 Estim Creat Clear Calc 69.5 Estimated GFR > 60 Random Glucose 180 H Calcium 7.8 L D Magnesium 1.7 Procedures Date of Service Date of Service: 09/19/22 Progress Note: A&P Assessment and plan (1) Abdominal pain: Status: Acute (2) Ileus: Status: Acute Plan patient with persistent abdominal distension, high NG tube output, few small bowel movements. GI study stopped after patient vomited. Findings are suggestive of small-bowel obstruction. Patient is scheduled for a exploratory laparotomy and possible lysis of adhesions, possible bowel resection. After discussion of the procedure, risks, and alternatives, she consents to the surgery. Time Spent With Patient Time: Total time managing care of this patient today ____ minutes. Quality Stroke Does the patient have a stroke diagnosis?: No VTE Prior VTE?: No VTE Risk Level:: Medical - moderate - high VTE Device Contraindication: Treatment Not Indicated VTE Drug Contraindication: N/A - Med Ordered
[2022-09-19] MEDS: hydrALAZINE HCl 20 MG/ML VIAL 5 MG IVPUSH (08:01)
[2022-09-19] MEDS: 0.9 % Sodium Chloride Flush 3 ML SYRINGE IVFLUSH (08:01)
[2022-09-19] MEDS: Budesonide 180 MCG AER.POW.BA 2 PUFF INHALE (08:24)
[2022-09-19 08:40] LABS: Anion Gap 10 (12-20); Blood Urea Nitrogen 9 mg/dL (9-16); Calcium 7.6 mg/dL (8.4-10.2); Carbon Dioxide 31 mmol/L (22-29); Chloride 99 mmol/L (96-108); Creatinine Clr Calc Pharmacy 81.2; Estimated Glomerular Filt Rate > 60; Glucose Random 157 mg/dL (60-115); Potassium 3.2 mmol/L (3.3-5.1); Sodium 137 mmol/L (135-145)
--- NOTE | 2022-09-19 09:29 | HO.ANESPROP2 ---
[facility] Active Problems Active Problems: All Active Problems (Updated 09/18/22 @ 12:43 by Darshana Huitron MD) Hypokalemia (Acute) Abdominal pain (Acute) Ileus (Acute) Constipation (Acute) Leukocytosis (Acute) Pilar cyst of scalp (Acute) Adult general medical exam (Acute) Allergic rhinitis (Acute) Osteopenia (Acute) Hypercholesterolemia (Acute) Asthma (Acute) Past Medical History Medical History Asthma Brain aneurysm History of skin cancer Hypercholesterolemia Osteopenia Family History Family History Father Past heart attack Mother Asthma Sister Diabetes Paternal Aunt Breast cancer Colon cancer Maternal Aunt Breast cancer Surgical History Surgical History History of colonoscopy History of eye surgery History of removal of cyst History of removal of cyst (06/05/22) History of removal of ovarian cyst Pilar cyst Status post surgical removal of malignant neoplasm of skin History of Problems with Anesthesia: No Social History Social History Household Members: None Housing: Other Do you presently have visiting nurse or other home services: No Alcohol intake: never Patient Tobacco Use Status: Former Tobacco user Quit Date: 49 yrs ago Tobacco use type: Cigarette Smoked in Last 30 Days: No e-Cigarette/Vaping Use: Never Used Second Hand Smoke Exposure: No Use of substances other than those prescribed or required for medical reasons: No Currently Displaying Signs/Symptoms of Drug Intoxication Withdrawal: No Have you been hit, kicked, punched, or otherwise hurt by someone within the past year? If so, by whom?: No Do you feel safe in your current relationship?: No Current Relationship Is there a partner from a previous relationship who is making you feel unsafe now?: No Are you made to feel afraid or neglected: No Tenriism Healthcare Practices: caodaism Are you DNR?: No Advance Directives: No Advance Directives Information Provided: Yes Do you have thoughts of harming others: None Do you have a plan to hurt others: No Plan Recently lost weight without trying: No Nutrition Risks: No Nutritional Risk Patient : No : No Poor oral hygiene: No service: No Current occupational status: retired Cognitive needs: No Hearing needs: No Vision needs: Yes Meds Allergies Allergy/AdvReac Type Severity Reaction Status Date / Time egg Allergy Unknown Unknown Verified 09/12/22 21:49 Active Medications: Current Medications Acetaminophen (Acetaminophen Supp 650 Mg Supp.Rect) 650 mg IA Q6H PRN PRN Reason: Pain, Mild (Pain Scale 1-3) Amlodipine Besylate (Amlodipine Besylate 2.5 Mg Tablet) 2.5 mg PO DAILY [facility]; Protocol Last Admin: 09/18/22 09:47 Dose: 2.5 mg Budesonide (Budesonide 180 Mcg Aer.Pow.Ba) 2 puff INHALE RDAILY [facility] Last Admin: 09/19/22 08:24 Dose: 2 puff Enoxaparin Sodium (Enoxaparin Sodium 40 Mg/0.4 Ml Syringe) 40 mg SUBCUT Q24H [facility] Last Admin: 09/19/22 08:01 Dose: Not Given Fluticasone Propionate (Fluticasone Propionate Nasal 16 Gm [place]) 1 spray NOSTRIL-B DAILY PRN PRN Reason: Allergy Symptoms Dextrose/Sodium Chloride (D5ns) 1,000 mls @ 80 mls/hr IVCONT .[id number] [facility] Last Admin: 09/19/22 01:54 Dose: 80 mls/hr Potassium Chloride (Potassium Chloride/H20) 10 meq in 100 mls @ 100 mls/hr IV Q1H [facility] Stop: 09/19/22 11:29 Labetalol HCl (Labetalol Hcl 100 Mg/20 Ml Vial) 10 mg IVPUSH Q6H PRN PRN Reason: htn Levalbuterol HCl (Levalbuterol Hcl 1.25 Mg/3 Ml Vial.Neb) 1.25 mg INHALE RQ4H WHILE AWAKE PRN PRN Reason: Shortness of Breath/Wheezing Loratadine (Loratadine 10 Mg Tablet) 10 mg PO DAILY PRN PRN Reason: Allergy Symptoms Melatonin (Melatonin 3 Mg Tablet) 6 mg PO BEDTIME PRN PRN Reason: Insomnia Morphine Sulfate (Morphine Sulfate 2 Mg/Ml Cartridge) 2 mg IVPUSH Q3H PRN; Protocol PRN Reason: Pain, Mild (Pain Scale 1-3) Last Admin: 09/19/22 08:00 Dose: 2 mg Ondansetron HCl (Ondansetron Hcl 4 Mg/2 Ml Vial) 4 mg IVPUSH Q8H PRN PRN Reason: Nausea and Vomiting Last Admin: 09/17/22 14:23 Dose: 4 mg Pharmacy Consult (Consult Rx Perform Med Rec) 1 each MISCELLANE ONCE PRN PRN Reason: Consult order Sodium Biphosphate/Sodium Phosphate (Sodium Phosphate,[place]-Dibasic 133 Ml Enema) 133 ml IA ONCE JULI Sodium Chloride (0.9 % Sodium Chloride Flush 3 Ml Syringe) 3 ml IVFLUSH QSHIFT [facility] Last Admin: 09/19/22 08:01 Dose: 3 ml Vitamin D (Cholecalciferol (Vitamin D3) 25 Mcg Tablet) 25 mcg PO DAILY [facility] Last Admin: 09/19/22 08:01 Dose: Not Given Home Medications Medication Instructions Recorded Confirmed Last Taken Type cholecalciferol (vitamin D3) 25 25 mcg PO DAILY 09/13/22 09/13/22 09/10/22 History mcg (1,000 unit) tablet fexofenadine 180 mg tablet 180 mg PO DAILY PRN Allergy 09/13/22 09/13/22 Unknown History (Arlene Allergy) Symptoms fluticasone propionate 50 1 spray intranasal DAILY PRN 09/13/22 09/13/22 Unknown History mcg/actuation nasal Allergy Symptoms spray,suspension omega [id number]-[id number]-fish oil 1,000 mg 1 cap PO DAILY 09/13/22 09/13/22 09/10/22 History (120 mg-180 mg) capsule (Fish Oil) Exam Exam Date and Time: September 19, 2022 0929 Height,Weight and Vital Signs: Height 5 ft 3 in Weight 58.06 kg Last Vital Signs Temp 98 F 09/19/22 06:53 Pulse 101 H 09/19/22 08:24 Resp 18 09/19/22 08:24 BP 158/68 H 09/19/22 08:09 Pulse Ox 95 09/19/22 06:53 O2 Del Method Room Air 09/19/22 06:53 Pertinent Lab Results Pertinent Lab Results: Laboratory Tests 09/12/22 09/12/22 09/12/22 21:56 21:56 21:56 WBC 21.9 H RBC 4.48 Hgb 12.2 Hct 35.5 L MCV 79.2 L MCH 27.2 MCHC 34.4 RDW 12.8 Plt Count 530 H MPV 9.3 L Immature Gran % (Auto) Cancelled Neut % (Auto) Cancelled Lymph % (Auto) Cancelled [place] % (Auto) Cancelled Eos % (Auto) Cancelled Baso % (Auto) Cancelled Lymph # (Auto) Cancelled [place] # (Auto) Cancelled Eos # (Auto) Cancelled Baso # (Auto) Cancelled Abs Immat Gran (auto) Cancelled Absolute Neuts (auto) Cancelled Absolute Nucleated RBC 0.000 Nucleated RBC % (auto) 0.0 Neutrophils % (Manual) 84 H Band Neutrophils % 4 Lymphocytes % (Manual) 8 L Atypical Lymphs % (Man) Monocytes % (Manual) 3 Eosinophils % (Manual) 1 Abs Neuts (Manual) 19.3 H Lymphocytes # (Manual) 1.8 Atyp Lymphs # (Manual) Monocytes # (Manual) 0.7 Eosinophils # (Manual) 0.2 Smudge Cells Toxic Vacuolation Platelet Estimate INCREASED Large Platelets PRESENT Plt Morphology Comment NORMAL RBC Morphology NORMAL Rouleaux Sodium 132 L Potassium 4.1 Chloride 91 L Carbon Dioxide 21 L Anion Gap 24 H BUN 20 H Creatinine 0.86 Estim Creat Clear Calc 45.3 Estimated GFR > 60 Random Glucose 217 H Estimat Average Glucose 111 Hemoglobin A1c % 5.5 Lactic Acid Lactic Acid F/U @ 2Hr Lactic Acid F/U @ 4Hr Calcium 9.7 D Magnesium 1.9 Total Bilirubin 1.6 H AST 66 H ALT 85 H Alkaline Phosphatase 774 H Total Protein 6.9 Albumin 3.8 Lipase 14 Urine Color Urine Appearance Urine pH Ur Specific [place] Urine Protein Urine Glucose (UA) Urine Ketones Urine Blood Urine Nitrite Ur Leukocyte Esterase Urine RBC Urine WBC Ur Squamous Epith Cells Urine Bacteria Hyaline Casts Blood Type Antibody Screen 09/12/22 09/13/22 09/13/22 23:50 02:14 02:50 WBC RBC Hgb Hct MCV MCH MCHC RDW Plt Count MPV Immature Gran % (Auto) Neut % (Auto) Lymph % (Auto) [place] % (Auto) Eos % (Auto) Baso % (Auto) Lymph # (Auto) [place] # (Auto) Eos # (Auto) Baso # (Auto) Abs Immat Gran (auto) Absolute Neuts (auto) Absolute Nucleated RBC Nucleated RBC % (auto) Neutrophils % (Manual) Band Neutrophils % Lymphocytes % (Manual) Atypical Lymphs % (Man) Monocytes % (Manual) Eosinophils % (Manual) Abs Neuts (Manual) Lymphocytes # (Manual) Atyp Lymphs # (Manual) Monocytes # (Manual) Eosinophils # (Manual) Smudge Cells Toxic Vacuolation Platelet Estimate Large Platelets Plt Morphology Comment RBC Morphology Rouleaux Sodium Potassium Chloride Carbon Dioxide Anion Gap BUN Creatinine Estim Creat Clear Calc Estimated GFR Random Glucose Estimat Average Glucose Hemoglobin A1c % Lactic Acid 2.5 H* Lactic Acid F/U @ 2Hr 2.3 H* Lactic Acid F/U @ 4Hr Calcium Magnesium Total Bilirubin AST ALT Alkaline Phosphatase Total Protein Albumin Lipase Urine Color Dark Yellow Urine Appearance Cloudy Urine pH 5.0 Ur Specific [place] >= 1.030 H Urine Protein 100 (2+) H Urine Glucose (UA) >=1000 H Urine Ketones 15 Urine Blood Negative Urine Nitrite Negative Ur Leukocyte Esterase Trace H Urine RBC 3-5 H Urine WBC 0-5 Ur Squamous Epith Cells 0-2 Urine Bacteria None Seen Hyaline Casts 3-5 Blood Type Antibody Screen 09/13/22 09/13/22 09/13/22 05:18 05:18 05:18 WBC 7.9 RBC 4.29 Hgb 11.8 L Hct 34.6 L MCV 80.7 MCH 27.5 MCHC 34.1 RDW 13.1 Plt Count 464 H MPV 9.3 L Immature Gran % (Auto) Cancelled Neut % (Auto) Cancelled Lymph % (Auto) Cancelled [place] % (Auto) Cancelled Eos % (Auto) Cancelled Baso % (Auto) Cancelled Lymph # (Auto) Cancelled [place] # (Auto) Cancelled Eos # (Auto) Cancelled Baso # (Auto) Cancelled Abs Immat Gran (auto) Cancelled Absolute Neuts (auto) Cancelled Absolute Nucleated RBC 0.000 Nucleated RBC % (auto) 0.0 Neutrophils % (Manual) 78 H Band Neutrophils % 9 H Lymphocytes % (Manual) 5 L Atypical Lymphs % (Man) 1 Monocytes % (Manual) 6 Eosinophils % (Manual) 1 Abs Neuts (Manual) 6.9 Lymphocytes # (Manual) 0.4 L Atyp Lymphs # (Manual) 0.1 Monocytes # (Manual) 0.5 Eosinophils # (Manual) 0.1 Smudge Cells PRESENT Toxic Vacuolation PRESENT Platelet Estimate SLIGHTLY INCREASED Large Platelets PRESENT Plt Morphology Comment NORMAL RBC Morphology NORMAL Rouleaux PRESENT Sodium 133 L Potassium 4.0 Chloride 93 L Carbon Dioxide 28 Anion Gap 16 BUN 21 H Creatinine 0.70 Estim Creat Clear Calc 55.7 Estimated GFR > 60 Random Glucose 199 H Estimat Average Glucose Hemoglobin A1c % Lactic Acid Lactic Acid F/U @ 2Hr Lactic Acid F/U @ 4Hr 1.7 Calcium 8.8 D Magnesium Total Bilirubin AST ALT Alkaline Phosphatase Total Protein Albumin Lipase Urine Color Urine Appearance Urine pH Ur Specific [place] Urine Protein Urine Glucose (UA) Urine Ketones Urine Blood Urine Nitrite Ur Leukocyte Esterase Urine RBC Urine WBC Ur Squamous Epith Cells Urine Bacteria Hyaline Casts Blood Type Antibody Screen 09/15/22 09/15/22 09/17/22 07:33 07:33 06:01 WBC 11.9 H 11.3 H RBC 4.22 4.41 Hgb 11.5 L 11.8 L Hct 36.0 L 37.2 MCV 85.3 84.4 MCH 27.3 26.8 L MCHC 31.9 31.7 RDW 13.8 14.1 Plt Count 455 H 445 H MPV 10.0 9.7 Immature Gran % (Auto) Neut % (Auto) Lymph % (Auto) [place] % (Auto) Eos % (Auto) Baso % (Auto) Lymph # (Auto) [place] # (Auto) Eos # (Auto) Baso # (Auto) Abs Immat Gran (auto) Absolute Neuts (auto) Absolute Nucleated RBC 0.000 0.000 Nucleated RBC % (auto) 0.0 0.0 Neutrophils % (Manual) Band Neutrophils % Lymphocytes % (Manual) Atypical Lymphs % (Man) Monocytes % (Manual) Eosinophils % (Manual) Abs Neuts (Manual) Lymphocytes # (Manual) Atyp Lymphs # (Manual) Monocytes # (Manual) Eosinophils # (Manual) Smudge Cells Toxic Vacuolation Platelet Estimate Large Platelets Plt Morphology Comment RBC Morphology Rouleaux Sodium 143 Potassium 3.8 Chloride 101 Carbon Dioxide 30 H Anion Gap 16 BUN 28 H Creatinine 0.66 Estim Creat Clear Calc 59.0 Estimated GFR > 60 Random Glucose 102 Estimat Average Glucose Hemoglobin A1c % Lactic Acid Lactic Acid F/U @ 2Hr Lactic Acid F/U @ 4Hr Calcium 8.1 L D Magnesium Total Bilirubin AST ALT Alkaline Phosphatase Total Protein Albumin Lipase Urine Color Urine Appearance Urine pH Ur Specific [place] Urine Protein Urine Glucose (UA) Urine Ketones Urine Blood Urine Nitrite Ur Leukocyte Esterase Urine RBC Urine WBC Ur Squamous Epith Cells Urine Bacteria Hyaline Casts Blood Type Antibody Screen 0509/18/22 09/19/22 06:01 08:14 08:19 WBC RBC Hgb Hct MCV MCH MCHC RDW Plt Count MPV Immature Gran % (Auto) Neut % (Auto) Lymph % (Auto) [place] % (Auto) Eos % (Auto) Baso % (Auto) Lymph # (Auto) [place] # (Auto) Eos # (Auto) Baso # (Auto) Abs Immat Gran (auto) Absolute Neuts (auto) Absolute Nucleated RBC Nucleated RBC % (auto) Neutrophils % (Manual) Band Neutrophils % Lymphocytes % (Manual) Atypical Lymphs % (Man) Monocytes % (Manual) Eosinophils % (Manual) Abs Neuts (Manual) Lymphocytes # (Manual) Atyp Lymphs # (Manual) Monocytes # (Manual) Eosinophils # (Manual) Smudge Cells Toxic Vacuolation Platelet Estimate Large Platelets Plt Morphology Comment RBC Morphology Rouleaux Sodium 148 H 136 137 Potassium 3.9 2.9 L D 3.2 L Chloride 102 93 L 99 Carbon Dioxide 32 H 33 H 31 H Anion Gap 18 13 10 L BUN 20 H 15 9 Creatinine 0.56 0.56 0.48 L Estim Creat Clear Calc 69.5 69.5 81.2 Estimated GFR > 60 > 60 > 60 Random Glucose 97 180 H 157 H Estimat Average Glucose Hemoglobin A1c % Lactic Acid Lactic Acid F/U @ 2Hr Lactic Acid F/U @ 4Hr Calcium 8.3 L 7.8 L D 7.6 L Magnesium 1.7 Total Bilirubin AST ALT Alkaline Phosphatase Total Protein Albumin Lipase Urine Color Urine Appearance Urine pH Ur Specific [place] Urine Protein Urine Glucose (UA) Urine Ketones Urine Blood Urine Nitrite Ur Leukocyte Esterase Urine RBC Urine WBC Ur Squamous Epith Cells Urine Bacteria Hyaline Casts Blood Type Antibody Screen 09/19/22 08:19 WBC RBC Hgb Hct MCV MCH MCHC RDW Plt Count MPV Immature Gran % (Auto) Neut % (Auto) Lymph % (Auto) [place] % (Auto) Eos % (Auto) Baso % (Auto) Lymph # (Auto) [place] # (Auto) Eos # (Auto) Baso # (Auto) Abs Immat Gran (auto) Absolute Neuts (auto) Absolute Nucleated RBC Nucleated RBC % (auto) Neutrophils % (Manual) Band Neutrophils % Lymphocytes % (Manual) Atypical Lymphs % (Man) Monocytes % (Manual) Eosinophils % (Manual) Abs Neuts (Manual) Lymphocytes # (Manual) Atyp Lymphs # (Manual) Monocytes # (Manual) Eosinophils # (Manual) Smudge Cells Toxic Vacuolation Platelet Estimate Large Platelets Plt Morphology Comment RBC Morphology Rouleaux Sodium Potassium Chloride Carbon Dioxide Anion Gap BUN Creatinine Estim Creat Clear Calc Estimated GFR Random Glucose Estimat Average Glucose Hemoglobin A1c % Lactic Acid Lactic Acid F/U @ 2Hr Lactic Acid F/U @ 4Hr Calcium Magnesium Total Bilirubin AST ALT Alkaline Phosphatase Total Protein Albumin Lipase Urine Color Urine Appearance Urine pH Ur Specific [place] Urine Protein Urine Glucose (UA) Urine Ketones Urine Blood Urine Nitrite Ur Leukocyte Esterase Urine RBC Urine WBC Ur Squamous Epith Cells Urine Bacteria Hyaline Casts Blood Type A Positive Antibody Screen NEGATIVE Airway Mallampati Class: III (permanent dentures) TM Dist: >3cm Neck ROM: Full Loose/Missing/Broken Teeth: No Heart: RRR Lungs: CTA Assessment and Plan Assessment Anesthesia Assessment: Anesthesia Plan Discussed and Chart Reviewed Final Anesthetic Review History of Problems with Anesthesia: No NPO: Yes ASA Class: III Final Preanesthetic Review: Meds/Allgs Chart Reviewed, Consent Obtained/Reviewed and Anes Risks/Benef Reviewed Patient Risk: Intermediate Procedure Risk: Intermediate Anesthetic Plan Anesthetic Plan: GA Disposition: Standard PACU
[2022-09-19] MEDS: Potassium Chloride/H20 10 MEQ/100 ML PIGGYBACK 100 MEQ IV ×2 (09:42→10:59)
[2022-09-19] MEDS: Lactated Ringers 1,000 ML 50 ML IVCONT (10:51)
--- NOTE | 2022-09-19 12:08 | MHC.CM.PN ---
per rounds pt is in or today for a sbo
--- NOTE | 2022-09-19 12:20 | MHC.CLN ---
NUTRITION CONSULT FOR PPN. DAY 7 NPO DUE TO ILEUS. CONSULT FOR PPN. RECOMMEND PPN: DAY 1 D10AA4.25 AT 30 ML PER HOUR. PROVIDES 367 KCALS, 31 G PROTEIN. REPLETE LYTES NEEDED. CHECK TRIGLYCERIDES. DAY 2 D10AA4.25 AT MAX GOAL RATE 60 ML PER HOUR. ADD 17 ML PER HOUR OF 20% LIPIDS. PROVIDES 1550 KCALS (27.7 KCALS/KG), 61 G PROTEIN (1.05 G/KG). REPLETE LYTES NEEDED. FOLLOW FOR DIET ADVANCEMENT, PPN TOLERANCE, LABS.
[2022-09-19 12:36] LABS: Magnesium 1.6 mg/dL (1.6-2.6); Phosphorus 2.6 mg/dL (2.7-4.5)
--- NOTE | 2022-09-19 13:19 | P.OP_ITS ---
Operative Note Operative Note Date of Service: 09/19/22 Narrative: Preoperative diagnosis: Abdominal distension, small-bowel obstruction versus ileus Postoperative diagnosis: small-bowel obstruction, necrotic small bowel with feculent abscess Procedure: exploratory laparotomy, lysis of adhesions, small-bowel resection, drainage of intra-abdominal abscess Surgeon: Rajendra Arriaga MD [employer] Lead Teacher: Christina Chirinos PA-C Anesthesia: general endotracheal Indications for procedure: 76-year-old female patient presenting with abdominal distension, nausea, vomiting, constipation found on CT to have dilated loops of large and small bowel with no apparent area of narrowing. Patient was treated non operatively with NG tube decompression and enemas without significant improvement. She presents now for exploratory laparotomy. Operative findings: Omental adhesions to small-bowel noted with loop of small bowel adherent and probably obstructed. Area of necrotic bowel with abscess formation containing feculent material with surrounding phlegmon. Specimen: Small-bowel, 75 cm, proximal ileum; abdominal abscess collection culture Estimated blood loss: 25 mL Complications: none Procedure details: patient was brought to the OR placed in a supine position. After administering general anesthesia patient's abdomen was prepped with ChloraPrep and draped in a sterile fashion. A Calderon catheter was inserted. A time-out was called the consent confirmed. Patient received preoperative antibiotics and Venodyne boots were in place. Local anesthesia consisting of 0.5% Sensorcaine with epinephrine was infiltrated in the midline. A small midline incision was then created around the umbilicus. This was carried out through subcutaneous tissue through linea alba into the peritoneum. The above findings were noted. Abscess was noted in the pelvis. The incision was ext ended further inferiorly in the midline. Small bowel was then run from ligament of Treitz to terminal ileum. Several areas of necrotic bowel were identified in the junction of the jejunum and ileum. An area of perforation or abscess formation was identified with a large collection of feculent material. A specimen was sent for culture. No other areas of doses could be identified. Adhesions were taken down using electrocautery and Metzenbaum scissors. An area above the necrotic bowel was identified as a proximal resection point. Hemostat was used to divide the mesentery below the bowel wall. A DARIEN 60 was then used to divide the bowel at this location. Approximately 75 cm beyond this distally a 2nd area of resection was identified and again divided using a DARIEN stapler. The mesentery was then divided using LigaSure. Was passed off the table and sent to pathology for further examination. Hemostasis was assured using fissure of 2 0 Polysorb suture. A functional end-to-end anastomosis was then created. The 2 loops of bowel were then reapproximated using 3-0 Surgilon sutures. Enterotomies were made at the staple line and a DARIEN stapler used to create anastomosis between the proximal and distal segment. The enterotomy was then closed using a TA 60 stapler. The TA staple line was then reinforced using interrupted 3-0 Surgilon sutures in a Lembert fashion. The small-bowel was then once again run from ligament [place] to terminal ileum and no other areas of obstruction identified. Right colon, transverse colon and descending colon were also examined and found to be intact. Several hard stool balls were noted in the sigmoid colon. Wounds were then thoroughly irrigated with Iricept followed by saline solution. Fascia was then closed using a running looped PDS suture. Subcutaneous tissue and dermis reapproximated using interrupted 3-0 Polysorb sutures. Skin was closed using skin fifi. Sterile dressings were then applied. The patient tolerated the procedure well. Sponge, instrument, and needle counts reported as correct. The patient was transferred to PACU in stable condition. Abscess/necrotic small bowel:
--- NOTE | 2022-09-19 13:20 | P.CDIM_ITS ---
PROVIDER RESPONSE TEXT: To clarify, the appropriate diagnosis supported by the clinical indicators: Other (explain): please see progress note QUERY TEXT: PHYSICIAN'S DOCUMENTATION REQUEST Date of Query: 09/19/2022 09:00 AM EDT Patient Name: Deborah Ortiz Admit Date: 09/13/2022 Dear Darshana Huitron, A review of the medical record indicates additional documentation may be needed. Please review below and update the documentation accordingly. Clinical Indicators: LAB FINDINGS: calcium 7.8 L 7.6 L Based on the above, is there a diagnosis that correlates with the lab findings above: Hypocalcemia or other etiology of lab findings Labs indicate a diagnosis of (please specify) Unable to determine Other (explain) Clinically unable to determine (explain) Thank you, More Bailey, CCS, CDIS Use of terms such as suspected, likely, concern for, or probable (associated with a specific diagnosi s that is being evaluated, monitored, or treated as if it exists) are acceptable and can be coded in the inpatient se tting, when documented at the time of discharge. Please use your independent medical judgment in providing your response. THIS QUERY IS PART OF THE PERMANENT MEDICAL RECORD
[2022-09-19] MEDS: fentaNYL citrate/PF 100 MCG/2 ML VIAL 25 MCG IVPUSH ×3 (13:55→14:17)
[2022-09-19] MEDS: Acetaminophen 1,000 MG/100 ML PIGGYBACK 400 MG IV ×2 (14:51→21:20)
--- NOTE | 2022-09-19 15:56 | PC.NURSE ---
Patient returned from PACU @ [id number]. Reports pain 02/12. HR 110's. IV Ofirmev administered per order. Repositioned and ice packs given. NG tube placement verified and attached back to suction. Patient states pain with some improvement. Report given to next shift.
[2022-09-20] MEDS: 0.9 % Sodium Chloride Flush 3 ML SYRINGE IVFLUSH ×2 (01:22→08:11)
[2022-09-20] MEDS: Morphine Sulfate 2 MG/ML CARTRIDGE IVPUSH (01:23)
[2022-09-20] MEDS: Acetaminophen 1,000 MG/100 ML PIGGYBACK 400 MG IV ×4 (02:21→20:56)
[2022-09-20 03:48] VITALS: BP 146/68; PULSE 108; RESP 16; TEMP 36.1; O2SAT 93
[2022-09-20] MEDS: ondansetron HCL 4 MG/2 ML VIAL IVPUSH (05:08)
[2022-09-20 07:27] LABS: Anion Gap 14 (12-20); Blood Urea Nitrogen 12 mg/dL (9-16); Calcium 7.6 mg/dL (8.4-10.2); Carbon Dioxide 27 mmol/L (22-29); Chloride 100 mmol/L (96-108); Creatinine Clr Calc Pharmacy 69.5; Estimated Glomerular Filt Rate > 60; Glucose Fasting 194 mg/dL (60-99); Magnesium 1.7 mg/dL (1.6-2.6); Phosphorus 2.6 mg/dL (2.7-4.5); Potassium 3.4 mmol/L (3.3-5.1); Sodium 138 mmol/L (135-145); Triglycerides 70 mg/dL
--- NOTE | 2022-09-20 07:45 | PM.PNGS ---
Subjective Subjective Date of Service: 09/20/22 Interval history: Feeling overall a bit better. C/o nausea this morning. Pain is actually well controlled. Still feels bloated. Denies flatus. Has not been OOB. Physical Exam Vital Signs: Vital Signs: Last Vital Signs Temp 97.0 F 09/20/22 03:48 Pulse 108 H 09/20/22 03:48 Resp 16 09/20/22 03:48 BP 146/68 H 09/20/22 03:48 Pulse Ox 93 09/20/22 03:48 O2 Del Method Room Air 09/20/22 03:48 O2 Flow Rate 4 09/19/22 13:38 BMI result Body Mass Index 22.7 Const: General: comfortable, no acute distress and alert Orientation/consciousness: patient oriented x3 HEENT: Other: NGT in place, dark drainage Resp: Effort & Inspection: normal respiratory effort GI: Inspection: Yes distended and Yes incision (dressing c/d/i) Palpation (GI): Soft to palpation, Tenderness to palpation present (GI) (incisional), no guarding and not rigid Percussion: Yes tympanic to percussion Skin: General skin exam: no rashes or lesions noted Neuro: General: patient oriented x3 and moves all extremities Objective Data Active Medications Albuterol Sulfate (Albuterol Sulfate (0.083%) 2.5 Mg/3 Ml Vial.Neb) 2.5 mg INHALE ONCE PRN PRN Reason: Wheezing Amlodipine Besylate (Amlodipine Besylate 2.5 Mg Tablet) 2.5 mg PO DAILY REPLACED BY [facility]; Protocol Last Admin: 09/18/22 09:47 Dose: 2.5 mg Documented By: ABY Budesonide (Budesonide 180 Mcg Aer.Pow.Ba) 2 puff INHALE RDAILY REPLACED BY [facility] Last Admin: 09/19/22 08:24 Dose: 2 puff Documented By: RACHAEL Enoxaparin Sodium (Enoxaparin Sodium 40 Mg/0.4 Ml Syringe) 40 mg SUBCUT Q24H REPLACED BY [facility] Last Admin: 09/19/22 08:01 Dose: Not Given Documented By: CHRIS Non-Admin Reason: pre op Fentanyl (Fentanyl Citrate/Pf 100 Mcg/2 Ml Vial) 25 mcg IVPUSH Q5M PRN; Protocol PRN Reason: Pain, Moderate(Pain Scale 4-6) Last Admin: 09/19/22 14:17 Dose: 25 mcg Documented By: CAREN Fluticasone Propionate (Fluticasone Propionate Nasal 16 Gm [place]) 1 spray NOSTRIL-B DAILY PRN PRN Reason: Allergy Symptoms Hydromorphone HCl (Hydromorphone Hcl 0.5 Mg/0.5 Ml Syringe) 0.25 mg IVPUSH Q5M PRN; Protocol PRN Reason: Pain, Severe (Pain Scale 7-10) Hydromorphone HCl (Hydromorphone Hcl 0.5 Mg/0.5 Ml Syringe) 0.25 mg IVPUSH Q5M PRN; Protocol PRN Reason: Pain, Severe (Pain Scale 7-10) Dextrose/Sodium Chloride (D5ns) 1,000 mls @ 80 mls/hr IVCONT .[id number] REPLACED BY [facility] Last Admin: 09/19/22 21:19 Dose: 80 mls/hr Documented By: VINCENT Multivitamins 10 ml/ Trace Metals 1 ml/ Amino Acids/Electrolytes/Dextrose 720 mls @ 30 mls/hr IV DAILY@1800 REPLACED BY [facility] Stop: 09/20/22 17:59 Last Admin: 09/19/22 17:58 Dose: 30 mls/hr Documented By: VINCENT Acetaminophen (Ofirmev) 1,000 mg in 100 mls @ 400 mls/hr IV Q6H REPLACED BY [facility] Last Infusion: 09/20/22 02:47 Dose: 0 mls/hr Documented By: TRANG Labetalol HCl (Labetalol Hcl 100 Mg/20 Ml Vial) 10 mg IVPUSH Q6H PRN PRN Reason: htn Levalbuterol HCl (Levalbuterol Hcl 1.25 Mg/3 Ml Vial.Neb) 1.25 mg INHALE RQ4H WHILE AWAKE PRN PRN Reason: Shortness of Breath/Wheezing Loratadine (Loratadine 10 Mg Tablet) 10 mg PO DAILY PRN PRN Reason: Allergy Symptoms Melatonin (Melatonin 3 Mg Tablet) 6 mg PO BEDTIME PRN PRN Reason: Insomnia Morphine Sulfate (Morphine Sulfate 2 Mg/Ml Cartridge) 2 mg IVPUSH Q3H PRN; Protocol PRN Reason: Pain, Mild (Pain Scale 1-3) Last Admin: 09/20/22 01:23 Dose: 2 mg Documented By: TRNAG Ondansetron HCl (Ondansetron Hcl 4 Mg/2 Ml Vial) 4 mg IVPUSH Q8H PRN PRN Reason: Nausea and Vomiting Last Admin: 09/20/22 05:08 Dose: 4 mg Documented By: TRANG Ondansetron HCl (Ondansetron Hcl 4 Mg/2 Ml Vial) 4 mg IVPUSH ONCE PRN PRN Reason: Nausea and Vomiting Oxycodone HCl (Oxycodone Hcl Immed Release 5 Mg Tablet) 5 mg PO ONCE PRN PRN Reason: Pain, Severe (Pain Scale 7-10) Pharmacy Consult (Consult Rx Perform Med Rec) 1 each MISCELLANE ONCE PRN PRN Reason: Consult order Sodium Biphosphate/Sodium Phosphate (Sodium Phosphate,[place]-Dibasic 133 Ml Enema) 133 ml [place] ONCE JULI Sodium Chloride (0.9 % Sodium Chloride Flush 3 Ml Syringe) 3 ml IVFLUSH QSHIFT REPLACED BY [facility] Last Admin: 09/20/22 01:22 Dose: 3 ml Documented By: TRANG Vitamin D (Cholecalciferol (Vitamin D3) 25 Mcg Tablet) 25 mcg PO DAILY REPLACED BY [facility] Last Admin: 09/19/22 08:01 Dose: Not Given Documented By: CHRIS Non-Admin Reason: NPO Labs 09/17/22 06:01 09/20/22 06:22 Labs: Laboratory Results - last 24 hr 09/19/22 09/19/22 09/20/22 08:19 08:19 06:22 Anion Gap 10 L 14 Estim Creat Clear Calc 81.2 69.5 Estimated GFR > 60 > 60 Random Glucose 157 H Fasting Glucose 194 H Calcium 7.6 L 7.6 L Phosphorus 2.6 L 2.6 L Magnesium 1.6 1.7 Triglycerides 70 Blood Type A Positive Antibody Screen NEGATIVE Microbiology Microbiology Results: Microbiology 09/19/22 Unknown Gram Stain - Final Abscess Intra-abdominal Routine Culture - Preliminary Culture in progress. Procedures Date of Service Date of Service: 09/20/22 Progress Note: A&P Assessment and plan (1) Small bowel obstruction: Status: Acute Plan 76-year-old female patient presenting with abdominal distension, nausea, vomiting, constipation found on CT to have dilated loops of large and small bowel with no apparent area of narrowing.? Patient was treated non operatively with NG tube decompression and enemas without significant improvement.? POD #1 s/p exploratory laparotomy, lysis of adhesions, small-bowel resection, drainage of intra-abdominal abscess, appendectomy. Found to have omental adhesions to small-bowel noted with loop of small bowel adherent and probably obstructed.? Area of necrotic bowel with abscess formation containing feculent?material with surrounding phlegmon. She feels improved this morning however c/o nausea and remains distended without evidence of return of GI function. Will therefore continue NGT. Can have ice chips for comfort. Cont PPN. Encouraged OOB/ambulation and IS use. 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 Will add zosyn. Await GI function. Patient comfortable with plan. Time Spent With Patient Time: Total time managing care of this patient today ____ minutes. Quality Stroke Does the patient have a stroke diagnosis?: No VTE Prior VTE?: No VTE Risk Level:: Medical - moderate - high VTE Device Contraindication: Treatment Not Indicated VTE Drug Contraindication: N/A - Med Ordered
[2022-09-20 07:47] VITALS: BP 152/67; PULSE 100; RESP 18; TEMP 36.3; O2SAT 95
[2022-09-20] MEDS: Budesonide 180 MCG AER.POW.BA 2 PUFF INHALE (07:49)
[2022-09-20 07:54] VITALS: PULSE 100; RESP 16; O2SAT 99
[2022-09-20] MEDS: Enoxaparin Sodium 40 MG/0.4 ML SYRINGE SUBCUT (08:21)
[2022-09-20] MEDS: Piperacillin Sodium/Tazobactam 3.375 GM in 0.9 % Sodium Chloride 50 ML IV ×3 (08:33→20:16)
[2022-09-20] MEDS: Potassium Phosphate/NS 15 MMOL/250 ML PLAST..BAG 62.5 MMOL IV (09:56)
[2022-09-20] MEDS: Dextrose 5 % and 0.9 % NaCl 1,000 ML 80 ML IVCONT (10:37)
--- NOTE | 2022-09-20 10:57 | MHC.CLN ---
F/U REVIEWED LABS DISCUSSED WITH PHARMACY RECOMMEND INCREASING FORMULA D10AA4.25 TO MAX GOAL RATE OF 60 ML PER HOUR WITH 17 ML OF 20% LIPIDS TO PROVIDE 1550 KCALS (27.7 KCALS/KG), 61 G PROTEIN (1.05 G/KG) REPLETE LYTES NEEDED
--- NOTE | 2022-09-20 13:37 | MHC.CM.PN ---
EMR REVIEWED AND PER MD ROUNDS, PT IS NOT MEDICALLY CLEARED FOR DC (AWAITING RETURN OF BOWEL FUNCTION, NGT, NAUSEA AND CONTINUED PPN) CM WILLCONTINUE TO FOLLOW FOR DC NEEDS/PLAN
--- NOTE | 2022-09-20 15:28 | HO.PM.IMPN ---
Subjective Subjective Date of Service: 09/20/22 Interval History: f/u on abd pain? Review of Systems Patient says has ngt section:? Draining significant amount of fluid has nauseated, no vomiting Still has abdominal pain, no fever or chills Physical Exam Vital Signs: Vital Signs: Last Vital Signs Temp 97.4 F 09/20/22 07:47 Pulse 100 09/20/22 07:54 Resp 16 09/20/22 07:54 BP 152/67 H 09/20/22 07:47 Pulse Ox 95 09/20/22 07:47 O2 Del Method Room Air 09/20/22 07:47 O2 Flow Rate 4 09/19/22 13:38 BMI result Body Mass Index 22.7 General: AO X 3, no acute distress Resp:? CTA bilateral CVS: S1,S2,RRR GI: +BS, NT, no distention Skin: No rash Neuro:? motor grossly intact Psych: appropriate affect Objective Data Active Medications Albuterol Sulfate (Albuterol Sulfate (0.083%) 2.5 Mg/3 Ml Vial.Neb) 2.5 mg INHALE ONCE PRN PRN Reason: Wheezing Amlodipine Besylate (Amlodipine Besylate 2.5 Mg Tablet) 2.5 mg PO DAILY [facility]; Protocol Last Admin: 09/18/22 09:47 Dose: 2.5 mg Documented By: ABY Budesonide (Budesonide 180 Mcg Aer.Pow.Ba) 2 puff INHALE RDAILY [facility] Last Admin: 09/20/22 07:49 Dose: 2 puff Documented By: BENY Enoxaparin Sodium (Enoxaparin Sodium 40 Mg/0.4 Ml Syringe) 40 mg SUBCUT Q24H [facility] Last Admin: 09/20/22 08:21 Dose: 40 mg Documented By: SERGEI Fentanyl (Fentanyl Citrate/Pf 100 Mcg/2 Ml Vial) 25 mcg IVPUSH Q5M PRN; Protocol PRN Reason: Pain, Moderate(Pain Scale 4-6) Last Admin: 09/19/22 14:17 Dose: 25 mcg Documented By: CAREN Fluticasone Propionate (Fluticasone Propionate Nasal 16 Gm [place]) 1 spray NOSTRIL-B DAILY PRN PRN Reason: Allergy Symptoms Hydromorphone HCl (Hydromorphone Hcl 0.5 Mg/0.5 Ml Syringe) 0.25 mg IVPUSH Q5M PRN; Protocol PRN Reason: Pain, Severe (Pain Scale 7-10) Hydromorphone HCl (Hydromorphone Hcl 0.5 Mg/0.5 Ml Syringe) 0.25 mg IVPUSH Q5M PRN; Protocol PRN Reason: Pain, Severe (Pain Scale 7-10) Multivitamins 10 ml/ Trace Metals 1 ml/ Amino Acids/Electrolytes/Dextrose 720 mls @ 30 mls/hr IV DAILY@1800 [facility] Stop: 09/20/22 17:59 Last Admin: 09/19/22 17:58 Dose: 30 mls/hr Documented By: VINCENT Acetaminophen (Ofirmev) 1,000 mg in 100 mls @ 400 mls/hr IV Q6H [facility] Last Infusion: 09/20/22 08:38 Dose: 0 mls/hr Documented By: SERGEI Piperacillin Sod/Tazobactam (Sod 3.375 gm/ Sodium Chloride) 50 mls @ 100 mls/hr IV Q6H [facility] Last Infusion: 09/20/22 14:38 Dose: 0 mls/hr Documented By: SERGEI Amino Acids/Electrolytes/Dextrose (Clinimix E 4.25%-10%) 1,440 mls @ 60 mls/hr IV DAILY@1800 [facility] Stop: 09/21/22 17:59 Fat Emulsion Intravenous (Intralipid) 204 mls @ 17 mls/hr IVCONT BID@0600,1800 [facility] Stop: 09/21/22 17:59 Labetalol HCl (Labetalol Hcl 100 Mg/20 Ml Vial) 10 mg IVPUSH Q6H PRN PRN Reason: htn Levalbuterol HCl (Levalbuterol Hcl 1.25 Mg/3 Ml Vial.Neb) 1.25 mg INHALE RQ4H WHILE AWAKE PRN PRN Reason: Shortness of Breath/Wheezing Loratadine (Loratadine 10 Mg Tablet) 10 mg PO DAILY PRN PRN Reason: Allergy Symptoms Melatonin (Melatonin 3 Mg Tablet) 6 mg PO BEDTIME PRN PRN Reason: Insomnia Morphine Sulfate (Morphine Sulfate 2 Mg/Ml Cartridge) 2 mg IVPUSH Q3H PRN; Protocol PRN Reason: Pain, Mild (Pain Scale 1-3) Last Admin: 09/20/22 01:23 Dose: 2 mg Documented By: TRANG Ondansetron HCl (Ondansetron Hcl 4 Mg/2 Ml Vial) 4 mg IVPUSH Q8H PRN PRN Reason: Nausea and Vomiting Last Admin: 09/20/22 05:08 Dose: 4 mg Documented By: TRANG Ondansetron HCl (Ondansetron Hcl 4 Mg/2 Ml Vial) 4 mg IVPUSH ONCE PRN PRN Reason: Nausea and Vomiting Oxycodone HCl (Oxycodone Hcl Immed Release 5 Mg Tablet) 5 mg PO ONCE PRN PRN Reason: Pain, Severe (Pain Scale 7-10) Pharmacy Consult (Consult Rx Perform Med Rec) 1 each MISCELLANE ONCE PRN PRN Reason: Consult order Sodium Biphosphate/Sodium Phosphate (Sodium Phosphate,[place]-Dibasic 133 Ml Enema) 133 ml [place] ONCE JULI Sodium Chloride (0.9 % Sodium Chloride Flush 3 Ml Syringe) 3 ml IVFLUSH QSHIFT [facility] Last Admin: 09/20/22 08:11 Dose: 3 ml Documented By: SERGEI Vitamin D (Cholecalciferol (Vitamin D3) 25 Mcg Tablet) 25 mcg PO DAILY [facility] Last Admin: 09/20/22 08:11 Dose: Not Given Documented By: SERGEI Non-Admin Reason: NPO Labs 09/17/22 06:01 09/20/22 06:22 Labs: Laboratory Results - last 24 hr 09/20/22 06:22 Anion Gap 14 Estim Creat Clear Calc 69.5 Estimated GFR > 60 Fasting Glucose 194 H Calcium 7.6 L Phosphorus 2.6 L Magnesium 1.7 Triglycerides 70 Microbiology Microbiology Results: Microbiology 09/19/22 Unknown Gram Stain - Final Abscess Intra-abdominal Routine Culture - Preliminary Culture in progress. Assessment and Plan (1) Abdominal pain: Status: Acute (2) Ileus: Status: Acute (3) Constipation: Status: Acute (4) Hypokalemia: Status: Acute Plan 76-year-old female with pertinent history of asthma not on home oxygen, mixed hyperlipidemia who presents to the emergency department for evaluation of abdominal pain, nausea and vomiting. Abdominal pain/nausea/vomiting, dilated small and large bowels likely due to ileus vs obstrction. abdomen remains distendended, now with flatus and some reported waterly stool -NPO, NGT, Seen by surgery no indication for procedure, GI consult today, repeat abdominal xray 09/15 persistent dilated small and large bowels. Surgery is recommending upper GI with small bowel series -reviewed ,patient still symptomatic may need surgery today added ppn Reactive leukocytosis:?better Mixed hyperlipidemia: Resume once no longer npo Asthma: no exacerbation on admission. Continue home inhaler Hyperglycemia likely reactive, A1C = 5.5 HyErnatremia--d/t NPO status-improved with fluids Hypocalcemia and hypophosphatemia: Probably related to decreased p.o. intake, patient is on PPN. Elevated BP, no prior diagnosis of HTN, treat PRN with IV Labetalol DVT prophylaxis:? Lovenox Need for inpatinet: Abd pain, ? ileus vs obstruction-may need surgery. Time Spent With Patient Time: Total time managing care of this patient today ____ minutes. Quality Stroke Does the patient have a stroke diagnosis?: No VTE Prior VTE?: No VTE Risk Level:: Medical - moderate - high VTE Device Contraindication: Treatment Not Indicated VTE Drug Contraindication: N/A - Med Ordered
--- NOTE | 2022-09-20 15:29 | HO.POSTANES ---
Post Anesthesia Evaluation Post Anesthesia Evaluation Vital Signs: Vital Signs Temp Pulse Resp BP Pulse Ox O2 Del Method 09/20/22 07:54 100 16 09/20/22 07:47 97.4 F 100 18 152/67 H 95 Room Air 09/20/22 03:48 97.0 F 108 H 16 146/68 H 93 Room Air Anesthesia: General Endotracheal-GETA Mental Status: Sedated (Sleepy but easily arousable) Pain Control: Satisfactory Nausea/Vomiting: None (NGT in place) Hydration: Adequate Anesthesia-Related Issues: No Anes. Related Issues
--- NOTE | 2022-09-20 15:31 | P.PNIM_ITS ---
Subjective Subjective Date of Service: 09/21/22 Interval History: ? sbo/abd abcess Review of Systems Patient had surgery , still draining 400 ml No fevers, she says abdominal pain seems to be better not passing bowels Physical Exam Vital Signs: Vital Signs: Last Vital Signs BMI result Body Mass Index 22.7 vitals and labs reviewed from09/21/22. Appearance: Alert.? Oriented X3.?seems generalsied weak. cvs: rrr, [id number] . res: clear to auscultation ,no rhonchii or wheezing abd: no rebound or guarding ,some soarness in abd pain incision area, bs present. ext pulses present , no cyanosis. neuro: axo3 , nonfocal. Objective Data Active Medications Albuterol Sulfate (Albuterol Sulfate (0.083%) 2.5 Mg/3 Ml Vial.Neb) 2.5 mg INHALE ONCE PRN PRN Reason: Wheezing Amlodipine Besylate (Amlodipine Besylate 2.5 Mg Tablet) 2.5 mg PO DAILY [facility]; Protocol Last Admin: 09/18/22 09:47 Dose: 2.5 mg Documented By: ABY Budesonide (Budesonide 180 Mcg Aer.Pow.Ba) 2 puff INHALE RDAILY [facility] Last Admin: 09/20/22 07:49 Dose: 2 puff Documented By: BENY Enoxaparin Sodium (Enoxaparin Sodium 40 Mg/0.4 Ml Syringe) 40 mg SUBCUT Q24H [facility] Last Admin: 09/20/22 08:21 Dose: 40 mg Documented By: SERGEI Fentanyl (Fentanyl Citrate/Pf 100 Mcg/2 Ml Vial) 25 mcg IVPUSH Q5M PRN; Protocol PRN Reason: Pain, Moderate(Pain Scale 4-6) Last Admin: 09/19/22 14:17 Dose: 25 mcg Documented By: CAREN Fluticasone Propionate (Fluticasone Propionate Nasal 16 Gm [place]) 1 spray NOSTRIL-B DAILY PRN PRN Reason: Allergy Symptoms Hydromorphone HCl (Hydromorphone Hcl 0.5 Mg/0.5 Ml Syringe) 0.25 mg IVPUSH Q5M PRN; Protocol PRN Reason: Pain, Severe (Pain Scale 7-10) Hydromorphone HCl (Hydromorphone Hcl 0.5 Mg/0.5 Ml Syringe) 0.25 mg IVPUSH Q5M PRN; Protocol PRN Reason: Pain, Severe (Pain Scale 7-10) Multivitamins 10 ml/ Trace Metals 1 ml/ Amino Acids/Electrolytes/Dextrose 720 mls @ 30 mls/hr IV DAILY@1800 [facility] Stop: 09/20/22 17:59 Last Admin: 09/19/22 17:58 Dose: 30 mls/hr Documented By: VINCENT Acetaminophen (Ofirmev) 1,000 mg in 100 mls @ 400 mls/hr IV Q6H [facility] Last Infusion: 09/20/22 08:38 Dose: 0 mls/hr Documented By: SERGEI Piperacillin Sod/Tazobactam (Sod 3.375 gm/ Sodium Chloride) 50 mls @ 100 mls/hr IV Q6H [facility] Last Infusion: 09/20/22 14:38 Dose: 0 mls/hr Documented By: SERGEI Amino Acids/Electrolytes/Dextrose (Clinimix E 4.25%-10%) 1,440 mls @ 60 mls/hr IV DAILY@1800 [facility] Stop: 09/21/22 17:59 Fat Emulsion Intravenous (Intralipid) 204 mls @ 17 mls/hr IVCONT BID@0600,1800 [facility] Stop: 09/21/22 17:59 Labetalol HCl (Labetalol Hcl 100 Mg/20 Ml Vial) 10 mg IVPUSH Q6H PRN PRN Reason: htn Levalbuterol HCl (Levalbuterol Hcl 1.25 Mg/3 Ml Vial.Neb) 1.25 mg INHALE RQ4H WHILE AWAKE PRN PRN Reason: Shortness of Breath/Wheezing Loratadine (Loratadine 10 Mg Tablet) 10 mg PO DAILY PRN PRN Reason: Allergy Symptoms Melatonin (Melatonin 3 Mg Tablet) 6 mg PO BEDTIME PRN PRN Reason: Insomnia Morphine Sulfate (Morphine Sulfate 2 Mg/Ml Cartridge) 2 mg IVPUSH Q3H PRN; Protocol PRN Reason: Pain, Mild (Pain Scale 1-3) Last Admin: 09/20/22 01:23 Dose: 2 mg Documented By: TRANG Ondansetron HCl (Ondansetron Hcl 4 Mg/2 Ml Vial) 4 mg IVPUSH Q8H PRN PRN Reason: Nausea and Vomiting Last Admin: 09/20/22 05:08 Dose: 4 mg Documented By: TRANG Ondansetron HCl (Ondansetron Hcl 4 Mg/2 Ml Vial) 4 mg IVPUSH ONCE PRN PRN Reason: Nausea and Vomiting Oxycodone HCl (Oxycodone Hcl Immed Release 5 Mg Tablet) 5 mg PO ONCE PRN PRN Reason: Pain, Severe (Pain Scale 7-10) Pharmacy Consult (Consult Rx Perform Med Rec) 1 each MISCELLANE ONCE PRN PRN Reason: Consult order Sodium Biphosphate/Sodium Phosphate (Sodium Phosphate,[place]-Dibasic 133 Ml Enema) 133 ml [place] ONCE JULI Sodium Chloride (0.9 % Sodium Chloride Flush 3 Ml Syringe) 3 ml IVFLUSH QSHIFT [facility] Last Admin: 09/20/22 08:11 Dose: 3 ml Documented By: SERGEI Vitamin D (Cholecalciferol (Vitamin D3) 25 Mcg Tablet) 25 mcg PO DAILY [facility] Last Admin: 09/20/22 08:11 Dose: Not Given Documented By: SERGEI Non-Admin Reason: NPO Labs 09/17/22 06:01 09/20/22 06:22 Labs: Laboratory Results - last 24 hr 09/20/22 06:22 Anion Gap 14 Estim Creat Clear Calc 69.5 Estimated GFR > 60 Fasting Glucose 194 H Calcium 7.6 L Phosphorus 2.6 L Magnesium 1.7 Triglycerides 70 Microbiology Microbiology Results: Microbiology 09/19/22 Unknown Gram Stain - Final Abscess Intra-abdominal Routine Culture - Preliminary Culture in progress. Assessment and Plan (1) Abdominal pain: Status: Acute (2) Ileus: Status: Deleted (3) Constipation: Status: Acute (4) Hypokalemia: Status: Acute Plan 76-year-old female with pertinent history of asthma not on home oxygen, mixed hyperlipidemia who presents to the emergency department for evaluation of abdominal pain, nausea and vomiting. Abdominal pain/nausea/vomiting, dilated small and large bowels likely due to ileus vs obstrction. abdomen remains distendended, now with flatus and some reported waterly stool -NPO, NGT, repeat abdominal xray 09/15 persistent dilated small and large bowels. Surgery is recommending upper GI with small bowel series -reviewed ,patient still symptomatic-s/p exp lap-small bowel /abscess resection. Continue hydration, PPN, IV Zosyn. NG t drain overnight 400 ml , plan to clump. gael VALDIVIA,Note passing bowel yet. abd culture -gram neg ian continue zosyn Mixed hyperlipidemia: Resume once no longer npo Asthma: no exacerbation on admission. Continue home inhaler Hyperglycemia likely reactive, A1C = 5.5 HyErnatremia--d/t NPO status-improved with fluids Hypocalcemia and hypophosphatemia: Probably related to decreased p.o. intake, patient is on PPN. Elevated BP, no prior diagnosis of HTN, treat PRN with IV Labetalol DVT prophylaxis:? Lovenox Need for inpatinet: Small-bowel obstruction, abscess: Status post sepsis since bowel resection-need IV antibiotics, PPN until bowel function returns also ngtsection Time Spent With Patient Time: Total time managing care of this patient today ____ minutes. Quality Stroke Does the patient have a stroke diagnosis?: No VTE Prior VTE?: No VTE Risk Level:: Medical - moderate - high VTE Device Contraindication: Treatment Not Indicated VTE Drug Contraindication: N/A - Med Ordered
[2022-09-20 15:33] VITALS: BP 144/73; PULSE 111; RESP 20; TEMP 36.5; O2SAT 96
[2022-09-20] MEDS: Fat Emulsions 20% 250 ML 17 ML IVCONT (18:00)
[2022-09-20 20:17] VITALS: BP 140/63; PULSE 111; RESP 20; TEMP 36.6; O2SAT 96
[2022-09-21] MEDS: Piperacillin Sodium/Tazobactam 3.375 GM in 0.9 % Sodium Chloride 50 ML IV ×4 (01:44→19:48)
[2022-09-21] MEDS: Acetaminophen 1,000 MG/100 ML PIGGYBACK 400 MG IV ×3 (03:02→15:58)
[2022-09-21] MEDS: Fat Emulsions 20% 250 ML 17 ML IVCONT ×2 (05:50→17:38)
[2022-09-21 07:16] VITALS: BP 146/65; PULSE 100; RESP 20; TEMP 36.2; O2SAT 95
[2022-09-21 08:07] LABS: Anion Gap 10 (12-20); Blood Urea Nitrogen 16 mg/dL (9-16); Calcium 7.6 mg/dL (8.4-10.2); Carbon Dioxide 33 mmol/L (22-29); Chloride 99 mmol/L (96-108); Creatinine Clr Calc Pharmacy 74.9; Estimated Glomerular Filt Rate > 60; Glucose Random 156 mg/dL (60-115); Magnesium 1.9 mg/dL (1.6-2.6); Phosphorus 2.4 mg/dL (2.7-4.5); Potassium 3.2 mmol/L (3.3-5.1); Sodium 139 mmol/L (135-145); Triglycerides 237 mg/dL
--- NOTE | 2022-09-21 08:15 | PM.PNGS ---
Subjective Subjective Date of Service: 09/21/22 <Christina Chirinos PA-C - Last Filed: 09/21/22 08:20> 09/21/22 <Rajendra Arriaga MD - Last Filed: 09/21/22 11:14> Interval history: Feels horrible. C/o dry mouth and lips. Feels bloated. Denies any flatus. Has been OOB minimally per patient. <Christina Chirinos PA-C - Last Filed: 09/21/22 08:20> Physical Exam Vital Signs: Vital Signs: Last Vital Signs Temp 97.2 F 09/21/22 07:16 Pulse 100 09/21/22 07:16 Resp 20 09/21/22 07:16 BP 146/65 H 09/21/22 07:16 Pulse Ox 95 09/21/22 07:16 O2 Del Method Room Air 09/21/22 07:16 O2 Flow Rate 4 09/19/22 13:38 BMI result Body Mass Index 22.7 <Christina Chirinos PA-C - Last Filed: 09/21/22 08:20> Const: General: no acute distress, alert and other (uncomfortable appearing ) <Christina Chirinos PA-C - Last Filed: 09/21/22 08:20> Orientation/consciousness: patient oriented x3 <Christina Chirinos PA-C - Last Filed: 09/21/22 08:20> HEENT: Other: NGT in place with dark output <Christina Chirinos PA-C - Last Filed: 09/21/22 08:20> Resp: Effort & Inspection: normal respiratory effort <Christina Chirinos PA-C - Last Filed: 09/21/22 08:20> GI: Inspection: Yes distended and Yes incision (clean) <MISTY Shane Last Filed: 09/21/22 08:20> Palpation (GI): Soft to palpation, Tenderness to palpation present (GI) (incisional, mild diffuse), no guarding and not rigid <MISTY Shane Last Filed: 09/21/22 08:20> Percussion: Yes tympanic to percussion <Christina Chirinos PA-C - Last Filed: 09/21/22 08:20> Skin: General skin exam: no rashes or lesions noted <Christina Chirinos PA-C - Last Filed: 09/21/22 08:20> Neuro: General: patient oriented x3 and moves all extremities <Christina Chirinos PA-C - Last Filed: 09/21/22 08:20> Objective Data Active Medications Albuterol Sulfate (Albuterol Sulfate (0.083%) 2.5 Mg/3 Ml Vial.Neb) 2.5 mg INHALE ONCE PRN PRN Reason: Wheezing Amlodipine Besylate (Amlodipine Besylate 2.5 Mg Tablet) 2.5 mg PO DAILY [facility]; Protocol Last Admin: 09/18/22 09:47 Dose: 2.5 mg Documented By: ABY Budesonide (Budesonide 180 Mcg Aer.Pow.Ba) 2 puff INHALE RDAILY [facility] Last Admin: 09/20/22 07:49 Dose: 2 puff Documented By: BENY Enoxaparin Sodium (Enoxaparin Sodium 40 Mg/0.4 Ml Syringe) 40 mg SUBCUT Q24H [facility] Last Admin: 09/20/22 08:21 Dose: 40 mg Documented By: SERGEI Fentanyl (Fentanyl Citrate/Pf 100 Mcg/2 Ml Vial) 25 mcg IVPUSH Q5M PRN; Protocol PRN Reason: Pain, Moderate(Pain Scale 4-6) Last Admin: 09/19/22 14:17 Dose: 25 mcg Documented By: CAREN Fluticasone Propionate (Fluticasone Propionate Nasal 16 Gm [place]) 1 spray NOSTRIL-B DAILY PRN PRN Reason: Allergy Symptoms Hydromorphone HCl (Hydromorphone Hcl 0.5 Mg/0.5 Ml Syringe) 0.25 mg IVPUSH Q5M PRN; Protocol PRN Reason: Pain, Severe (Pain Scale 7-10) Hydromorphone HCl (Hydromorphone Hcl 0.5 Mg/0.5 Ml Syringe) 0.25 mg IVPUSH Q5M PRN; Protocol PRN Reason: Pain, Severe (Pain Scale 7-10) Acetaminophen (Ofirmev) 1,000 mg in 100 mls @ 400 mls/hr IV Q6H [facility] Last Infusion: 09/21/22 03:29 Dose: 0 mls/hr Documented By: YASEMIN Piperacillin Sod/Tazobactam (Sod 3.375 gm/ Sodium Chloride) 50 mls @ 100 mls/hr IV Q6H [facility] Last Infusion: 09/21/22 02:25 Dose: 0 mls/hr Documented By: YASEMIN Amino Acids/Electrolytes/Dextrose (Clinimix E 4.25%-10%) 1,440 mls @ 60 mls/hr IV DAILY@1800 [facility] Stop: 09/21/22 17:59 Last Admin: 09/20/22 18:01 Dose: 60 mls/hr Documented By: SERGEI Fat Emulsion Intravenous (Intralipid) 204 mls @ 17 mls/hr IVCONT BID@0600,1800 [facility] Stop: 09/21/22 17:59 Last Admin: 09/21/22 05:50 Dose: 17 mls/hr Documented By: YASEMIN Labetalol HCl (Labetalol Hcl 100 Mg/20 Ml Vial) 10 mg IVPUSH Q6H PRN PRN Reason: htn Loratadine (Loratadine 10 Mg Tablet) 10 mg PO DAILY PRN PRN Reason: Allergy Symptoms Melatonin (Melatonin 3 Mg Tablet) 6 mg PO BEDTIME PRN PRN Reason: Insomnia Morphine Sulfate (Morphine Sulfate 2 Mg/Ml Cartridge) 2 mg IVPUSH Q3H PRN; Protocol PRN Reason: Pain, Mild (Pain Scale 1-3) Last Admin: 09/20/22 01:23 Dose: 2 mg Documented By: TRANG Ondansetron HCl (Ondansetron Hcl 4 Mg/2 Ml Vial) 4 mg IVPUSH Q8H PRN PRN Reason: Nausea and Vomiting Last Admin: 09/20/22 05:08 Dose: 4 mg Documented By: TRANG Ondansetron HCl (Ondansetron Hcl 4 Mg/2 Ml Vial) 4 mg IVPUSH ONCE PRN PRN Reason: Nausea and Vomiting Oxycodone HCl (Oxycodone Hcl Immed Release 5 Mg Tablet) 5 mg PO ONCE PRN PRN Reason: Pain, Severe (Pain Scale 7-10) Pharmacy Consult (Consult Rx Perform Med Rec) 1 each MISCELLANE ONCE PRN PRN Reason: Consult order Sodium Biphosphate/Sodium Phosphate (Sodium Phosphate,[place]-Dibasic 133 Ml Enema) 133 ml [place] ONCE [facility] Sodium Chloride (0.9 % Sodium Chloride Flush 3 Ml Syringe) 3 ml IVFLUSH QSHIFT [facility] Last Admin: 09/21/22 01:20 Dose: Not Given Documented By: YASEMIN Non-Admin Reason: IV Running Vitamin D (Cholecalciferol (Vitamin D3) 25 Mcg Tablet) 25 mcg PO DAILY [facility] Last Admin: 09/20/22 08:11 Dose: Not Given Documented By: SERGEI Non-Admin Reason: NPO <Christina Chirinos PA-C - Last Filed: 09/21/22 08:20> Labs CBC & Chem 7: 09/17/22 06:01 09/21/22 07:20 <Christina Chirinos PA-C - Last Filed: 09/21/22 08:20> Labs: Laboratory Results - last 24 hr 09/21/22 07:20 Anion Gap 10 L Estim Creat Clear Calc 74.9 Estimated GFR > 60 Random Glucose 156 H Calcium 7.6 L Phosphorus 2.4 L Magnesium 1.9 Albumin 2.0 L Triglycerides 237 <Christina Chirinos PA-C - Last Filed: 09/21/22 08:20> Microbiology Microbiology Results: Microbiology 09/19/22 Unknown Gram Stain - Final Abscess Intra-abdominal Routine Culture - Preliminary Culture in progress. <Christina Chirinos PA-C - Last Filed: 09/21/22 08:20> Procedures Date of Service Date of Service: 09/21/22 <Christina Chirinos PA-C - Last Filed: 09/21/22 08:20> 09/21/22 <Rajendra Arriaga MD - Last Filed: 09/21/22 11:14> Progress Note: A&P Assessment and plan (1) Small bowel obstruction: Status: Acute <Christina Chirinos PA-C - Last Filed: 09/21/22 08:20> (2) Postoperative ileus: Status: Acute <MISTY Shane Last Filed: 09/21/22 08:20> Assessment and Plan: 76-year-old female patient presenting with abdominal distension, nausea, vomiting, constipation found on CT to have dilated loops of large and small bowel with no apparent area of narrowing. Patient was treated non operatively with NG tube decompression and enemas without significant improvement. Now POD #2 s/p exploratory laparotomy, lysis of adhesions, small-bowel resection, drainage of intra-abdominal abscess, appendectomy. Found to have omental adhesions to small-bowel noted with loop of small bowel adherent and probably obstructed. Area of necrotic bowel with abscess formation containing feculent material with surrounding phlegmon. NGT output remains high without any evidence of GI function and abd distended, likely with ileus. Cont NGT decompression, NPO status (can have ice chips), PPN for nutrition. Strongly encouraged OOB/ambulation of halls to promote GI function. Cont IV zosyn for intraabdominal abscess. Await evidence of return of GI function. gael cartwright. Patient comfortable with plan. <Christina Chirinos PA-C - Last Filed: 09/21/22 08:20> 76-year-old female patient presenting with abdominal distension, nausea, vomiting, constipation found on CT to have dilated loops of large and small bowel with no apparent area of narrowing. Patient was treated non operatively with NG tube decompression and enemas without significant improvement. Now POD #2 s/p exploratory laparotomy, lysis of adhesions, small-bowel resection, drainage of intra-abdominal abscess, appendectomy. Found to have omental adhesions to small-bowel noted with loop of small bowel adherent and probably obstructed. Area of necrotic bowel with abscess formation containing feculent material with surrounding phlegmon. NGT output remains high without any evidence of GI function and abd distended, likely with ileus. Cont NGT decompression, NPO status (can have ice chips), PPN for nutrition. Strongly encouraged OOB/ambulation of halls to promote GI function. Cont IV zosyn for intraabdominal abscess. Await evidence of return of GI function. gael cartwright. Patient comfortable with plan. Agree with the above assessment and plan. Patient still as high output from the NG tube. Will attempt a clamping trial. Agree with continued peripheral nutrition. Recheck CBC. Encouraged incentive spirometry and ambulation. <Rajendra Arriaga MD - Last Filed: 09/21/22 11:14> Time Spent With Patient Time: Total time managing care of this patient today ____ minutes. <Christina Chirinos PA-C - Last Filed: 09/21/22 08:20> Quality Stroke Does the patient have a stroke diagnosis?: No <Christina Chirinos PA-C - Last Filed: 09/21/22 08:20> VTE Prior VTE?: No <Christina Chirnios PA-C - Last Filed: 09/21/22 08:20> VTE Risk Level:: Medical - moderate - high <Christina Chirinos PA-C - Last Filed: 09/21/22 08:20> VTE Device Contraindication: Treatment Not Indicated <Christina Chirinos PA-C - Last Filed: 09/21/22 08:20> VTE Drug Contraindication: N/A - Med Ordered <Christina Chirinos PA-C - Last Filed: 09/21/22 08:20>
[2022-09-21] MEDS: Budesonide 180 MCG AER.POW.BA 2 PUFF INHALE (08:21)
[2022-09-21 08:22] VITALS: PULSE 100; RESP 18; O2SAT 95
[2022-09-21] MEDS: 0.9 % Sodium Chloride Flush 3 ML SYRINGE IVFLUSH ×3 (10:01→22:12)
[2022-09-21] MEDS: Enoxaparin Sodium 40 MG/0.4 ML SYRINGE SUBCUT (10:04)
--- NOTE | 2022-09-21 11:00 | MHC.CLN ---
F/U REVIEWED LABS. DISCUSSED WITH PHARMACY. RECOMMEND CONTINUING WITH PPN D10AA4.25 AT MAX GOAL RATE OF 60 ML PER HOUR WITH 17 ML PER HOUR OF 20% LIPIDS. PROVIDES 1550 KCALS (27.7 KCALS/KG), 61 G PROTEIN (1.05 G/KG). REPLETE LYTES NEEDED. NPO WITH NG TUBE FOR DECOMPRESSION. FOLLOW FOR GI STATUS, PPN TOLERANCE, LABS.
[2022-09-21 15:19] VITALS: BP 153/67; PULSE 100; RESP 20; TEMP 36.1; O2SAT 97
[2022-09-21 19:36] VITALS: BP 141/63; PULSE 100; RESP 16; TEMP 36.3; O2SAT 94
[2022-09-22] VITALS (7 sets, daily range): BP systolic 136–180; BP diastolic 65–73; PULSE 92–104; RESP 16–18; TEMP 36.4–37; O2SAT 92–98
[2022-09-22] MEDS: Piperacillin Sodium/Tazobactam 3.375 GM in 0.9 % Sodium Chloride 50 ML IV ×4 (02:40→20:38)
[2022-09-22] MEDS: Acetaminophen 1,000 MG/100 ML PIGGYBACK 400 MG IV ×2 (02:42→08:49)
[2022-09-22] MEDS: Fat Emulsions 20% 250 ML 17 ML IVCONT ×2 (05:04→18:05)
[2022-09-22] MEDS: Enoxaparin Sodium 40 MG/0.4 ML SYRINGE SUBCUT (08:48)
[2022-09-22] MEDS: 0.9 % Sodium Chloride Flush 3 ML SYRINGE IVFLUSH (08:50)
[2022-09-22 09:08] LABS: Anion Gap 11 (12-20); Blood Urea Nitrogen 18 mg/dL (9-16); Calcium 7.7 mg/dL (8.4-10.2); Carbon Dioxide 32 mmol/L (22-29); Chloride 99 mmol/L (96-108); Creatinine Clr Calc Pharmacy 72.2; Estimated Glomerular Filt Rate > 60; Glucose Random 164 mg/dL (60-115); Potassium 3.2 mmol/L (3.3-5.1); Sodium 139 mmol/L (135-145)
[2022-09-22] MEDS: Magnesium Sulfate/D5W 1 GM/100 ML PIGGYBACK IV (10:35)
--- NOTE | 2022-09-22 11:03 | P.PNGS_ITS ---
Subjective Subjective Date of Service: 09/22/22 Interval history: Has had watery stools unable to say whether she has been passing flatus NG tube output appears to be still overnight Physical Exam Vital Signs: Vital Signs: Last Vital Signs Temp 98.6 F 09/22/22 07:52 Pulse 102 H 09/22/22 07:52 Resp 16 09/22/22 07:52 BP 170/73 H 09/22/22 07:52 Pulse Ox 92 09/22/22 07:52 O2 Del Method Room Air 09/22/22 07:52 O2 Flow Rate 4 09/19/22 13:38 BMI result Body Mass Index 22.7 Const: General: no acute distress Orientation/consciousness: patient oriented x3 Resp: Effort & Inspection: normal respiratory effort Cardio: Rhythm: regular rhythm GI: Other: incision clean and dry tenderness along incision, appropriate to postop Palpation (GI): Soft to palpation, not firm and no guarding Neuro: General: patient oriented x3 Objective Data Active Medications Albuterol Sulfate (Albuterol Sulfate (0.083%) 2.5 Mg/3 Ml Vial.Neb) 2.5 mg INHALE ONCE PRN PRN Reason: Wheezing Amlodipine Besylate (Amlodipine Besylate 2.5 Mg Tablet) 2.5 mg PO DAILY [facility]; Protocol Last Admin: 09/18/22 09:47 Dose: 2.5 mg Documented By: ABY Budesonide (Budesonide 180 Mcg Aer.Pow.Ba) 2 puff INHALE RDAILY [facility] Last Admin: 09/22/22 08:41 Dose: Not Given Documented By: BENY Non-Admin Reason: Patient Refused Enoxaparin Sodium (Enoxaparin Sodium 40 Mg/0.4 Ml Syringe) 40 mg SUBCUT Q24H [facility] Last Admin: 09/22/22 08:48 Dose: 40 mg Documented By: CHRIS Fentanyl (Fentanyl Citrate/Pf 100 Mcg/2 Ml Vial) 25 mcg IVPUSH Q5M PRN; Protocol PRN Reason: Pain, Moderate(Pain Scale 4-6) Last Admin: 09/19/22 14:17 Dose: 25 mcg Documented By: CAREN Fluticasone Propionate (Fluticasone Propionate Nasal 16 Gm [place]) 1 spray NOSTRIL-B DAILY PRN PRN Reason: Allergy Symptoms Hydromorphone HCl (Hydromorphone Hcl 0.5 Mg/0.5 Ml Syringe) 0.25 mg IVPUSH Q5M PRN; Protocol PRN Reason: Pain, Severe (Pain Scale 7-10) Hydromorphone HCl (Hydromorphone Hcl 0.5 Mg/0.5 Ml Syringe) 0.25 mg IVPUSH Q5M PRN; Protocol PRN Reason: Pain, Severe (Pain Scale 7-10) Acetaminophen (Ofirmev) 1,000 mg in 100 mls @ 400 mls/hr IV Q6H [facility] Last Infusion: 09/22/22 09:50 Dose: 0 mls/hr Documented By: CHRIS Piperacillin Sod/Tazobactam (Sod 3.375 gm/ Sodium Chloride) 50 mls @ 100 mls/hr IV Q6H [facility] Last Infusion: 09/22/22 10:35 Dose: 0 mls/hr Documented By: CHRIS Potassium Chloride 60 meq/Sodium Chloride 70 meq/Magnesium Sulfate 10 meq/Potassium Phosphate 50 mmol/Calcium Gluconate 9.3 meq/Multivitamins 10 ml/ Trace Metals 1 ml/ Amino Acids/Electrolytes/Dextrose 1,440 mls @ 60 mls/hr IVCONT DAILY@1800 [facility] Stop: 09/22/22 17:59 Last Admin: 09/21/22 17:40 Dose: 60 mls/hr Documented By: KATE Fat Emulsion Intravenous (Intralipid) 204 mls @ 17 mls/hr IVCONT BID@0600,1800 [facility] Stop: 09/22/22 17:59 Last Admin: 09/22/22 05:04 Dose: 17 mls/hr Documented By: SUSAN Potassium Chloride 60 meq/Sodium Chloride 70 meq/Magnesium Sulfate 10 meq/Potassium Phosphate 50 mmol/Calcium Gluconate 9.3 meq/Amino Acids/Electrolytes/Dextrose 1,440 mls @ 60 mls/hr IVCONT DAILY@1800 [facility] Stop: 09/23/22 17:59 Fat Emulsion Intravenous (Intralipid) 204 mls @ 17 mls/hr IVCONT BID@0600,1800 [facility] Stop: 09/23/22 17:59 Labetalol HCl (Labetalol Hcl 100 Mg/20 Ml Vial) 10 mg IVPUSH Q6H PRN PRN Reason: htn Loratadine (Loratadine 10 Mg Tablet) 10 mg PO DAILY PRN PRN Reason: Allergy Symptoms Melatonin (Melatonin 3 Mg Tablet) 6 mg PO BEDTIME PRN PRN Reason: Insomnia Morphine Sulfate (Morphine Sulfate 2 Mg/Ml Cartridge) 2 mg IVPUSH Q3H PRN; Protocol PRN Reason: Pain, Mild (Pain Scale 1-3) Last Admin: 09/20/22 01:23 Dose: 2 mg Documented By: TRANG Ondansetron HCl (Ondansetron Hcl 4 Mg/2 Ml Vial) 4 mg IVPUSH Q8H PRN PRN Reason: Nausea and Vomiting Last Admin: 09/20/22 05:08 Dose: 4 mg Documented By: TRANG Ondansetron HCl (Ondansetron Hcl 4 Mg/2 Ml Vial) 4 mg IVPUSH ONCE PRN PRN Reason: Nausea and Vomiting Oxycodone HCl (Oxycodone Hcl Immed Release 5 Mg Tablet) 5 mg PO ONCE PRN PRN Reason: Pain, Severe (Pain Scale 7-10) Pharmacy Consult (Consult Rx Perform Med Rec) 1 each MISCELLANE ONCE PRN PRN Reason: Consult order Sodium Biphosphate/Sodium Phosphate (Sodium Phosphate,[place]-Dibasic 133 Ml Enema) 133 ml [place] ONCE [facility] Sodium Chloride (0.9 % Sodium Chloride Flush 3 Ml Syringe) 3 ml IVFLUSH QSHIFT [facility] Last Admin: 09/22/22 08:50 Dose: 3 ml Documented By: CHRIS Vitamin D (Cholecalciferol (Vitamin D3) 25 Mcg Tablet) 25 mcg PO DAILY [facility] Last Admin: 09/22/22 08:49 Dose: Not Given Documented By: CHRSI Non-Admin Reason: Patient Refused Labs 09/17/22 06:01 09/22/22 08:48 Labs: Laboratory Results - last 24 hr 09/22/22 08:48 Anion Gap 11 L Estim Creat Clear Calc 72.2 Estimated GFR > 60 Random Glucose 164 H Calcium 7.7 L Microbiology Microbiology Results: Microbiology 09/19/22 Unknown Gram Stain - Final Abscess Intra-abdominal Routine Culture - Final Klebsiella pneumoniae Klebsiella oxytoca Procedures Date of Service Date of Service: 09/22/22 Progress Note: A&P Assessment and plan (1) Status post exploratory laparotomy: Status: Acute Assessment and Plan: with small-bowel obstruction NG tube output recorded as high overnight but patient has watery stools will clamp NG tube and re-evaluate after about 4 hours as she is passing BMs abdomen soft out of bed to chair she has had no good IV access - I was able to place a good IV on the EJ on the left IV fluids replace potassium Time Spent With Patient Time: Total time managing care of this patient today ____ minutes. Quality Stroke Does the patient have a stroke diagnosis?: No VTE Prior VTE?: No VTE Risk Level:: Medical - moderate - high VTE Device Contraindication: Treatment Not Indicated VTE Drug Contraindication: N/A - Med Ordered
--- NOTE | 2022-09-22 11:40 | HO.PM.IMPN ---
Subjective Subjective Date of Service: 09/22/22 Interval History: sbo/abcess abd Review of Systems still has some nausea 400 ml ngt suction she says passed bm this morning no much abd pain ,some soaremss in opertion area Physical Exam Vital Signs: Vital Signs: Last Vital Signs Temp 98.6 F 09/22/22 07:52 Pulse 102 H 09/22/22 07:52 Resp 16 09/22/22 07:52 BP 170/73 H 09/22/22 07:52 Pulse Ox 92 09/22/22 07:52 O2 Del Method Room Air 09/22/22 07:52 O2 Flow Rate 4 09/19/22 13:38 BMI result Body Mass Index 22.7 Appearance: Alert.? Oriented X3.? not in distress.? cvs: rrr, [id number] , no murmur res: clear to auscultation ,no rhonchii or wheezing abd: no rebound or guarding ,some abd soarness incison area , bs present. ext pulses present , no cyanosis . neuro: axo3 , nonfocal. Objective Data Active Medications Albuterol Sulfate (Albuterol Sulfate (0.083%) 2.5 Mg/3 Ml Vial.Neb) 2.5 mg INHALE ONCE PRN PRN Reason: Wheezing Amlodipine Besylate (Amlodipine Besylate 2.5 Mg Tablet) 2.5 mg PO DAILY [facility]; Protocol Last Admin: 09/18/22 09:47 Dose: 2.5 mg Documented By: ABY Budesonide (Budesonide 180 Mcg Aer.Pow.Ba) 2 puff INHALE RDAILY [facility] Last Admin: 09/22/22 08:41 Dose: Not Given Documented By: BENY Non-Admin Reason: Patient Refused Enoxaparin Sodium (Enoxaparin Sodium 40 Mg/0.4 Ml Syringe) 40 mg SUBCUT Q24H [facility] Last Admin: 09/22/22 08:48 Dose: 40 mg Documented By: CHRIS Fentanyl (Fentanyl Citrate/Pf 100 Mcg/2 Ml Vial) 25 mcg IVPUSH Q5M PRN; Protocol PRN Reason: Pain, Moderate(Pain Scale 4-6) Last Admin: 09/19/22 14:17 Dose: 25 mcg Documented By: CAREN Fluticasone Propionate (Fluticasone Propionate Nasal 16 Gm [place]) 1 spray NOSTRIL-B DAILY PRN PRN Reason: Allergy Symptoms Hydromorphone HCl (Hydromorphone Hcl 0.5 Mg/0.5 Ml Syringe) 0.25 mg IVPUSH Q5M PRN; Protocol PRN Reason: Pain, Severe (Pain Scale 7-10) Hydromorphone HCl (Hydromorphone Hcl 0.5 Mg/0.5 Ml Syringe) 0.25 mg IVPUSH Q5M PRN; Protocol PRN Reason: Pain, Severe (Pain Scale 7-10) Acetaminophen (Ofirmev) 1,000 mg in 100 mls @ 400 mls/hr IV Q6H [facility] Last Infusion: 09/22/22 09:50 Dose: 0 mls/hr Documented By: CHRIS Piperacillin Sod/Tazobactam (Sod 3.375 gm/ Sodium Chloride) 50 mls @ 100 mls/hr IV Q6H [facility] Last Infusion: 09/22/22 10:35 Dose: 0 mls/hr Documented By: CHRIS Potassium Chloride 60 meq/Sodium Chloride 70 meq/Magnesium Sulfate 10 meq/Potassium Phosphate 50 mmol/Calcium Gluconate 9.3 meq/Multivitamins 10 ml/ Trace Metals 1 ml/ Amino Acids/Electrolytes/Dextrose 1,440 mls @ 60 mls/hr IVCONT DAILY@1800 [facility] Stop: 09/22/22 17:59 Last Admin: 09/21/22 17:40 Dose: 60 mls/hr Documented By: KATE Fat Emulsion Intravenous (Intralipid) 204 mls @ 17 mls/hr IVCONT BID@0600,1800 [facility] Stop: 09/22/22 17:59 Last Admin: 09/22/22 05:04 Dose: 17 mls/hr Documented By: SUSAN Potassium Chloride 60 meq/Sodium Chloride 70 meq/Magnesium Sulfate 10 meq/Potassium Phosphate 50 mmol/Calcium Gluconate 9.3 meq/Amino Acids/Electrolytes/Dextrose 1,440 mls @ 60 mls/hr IVCONT DAILY@1800 [facility] Stop: 09/23/22 17:59 Fat Emulsion Intravenous (Intralipid) 204 mls @ 17 mls/hr IVCONT BID@0600,1800 [facility] Stop: 09/23/22 17:59 Labetalol HCl (Labetalol Hcl 100 Mg/20 Ml Vial) 10 mg IVPUSH Q6H PRN PRN Reason: htn Loratadine (Loratadine 10 Mg Tablet) 10 mg PO DAILY PRN PRN Reason: Allergy Symptoms Melatonin (Melatonin 3 Mg Tablet) 6 mg PO BEDTIME PRN PRN Reason: Insomnia Morphine Sulfate (Morphine Sulfate 2 Mg/Ml Cartridge) 2 mg IVPUSH Q3H PRN; Protocol PRN Reason: Pain, Mild (Pain Scale 1-3) Last Admin: 09/20/22 01:23 Dose: 2 mg Documented By: TRANG Ondansetron HCl (Ondansetron Hcl 4 Mg/2 Ml Vial) 4 mg IVPUSH Q8H PRN PRN Reason: Nausea and Vomiting Last Admin: 09/20/22 05:08 Dose: 4 mg Documented By: TRANG Ondansetron HCl (Ondansetron Hcl 4 Mg/2 Ml Vial) 4 mg IVPUSH ONCE PRN PRN Reason: Nausea and Vomiting Oxycodone HCl (Oxycodone Hcl Immed Release 5 Mg Tablet) 5 mg PO ONCE PRN PRN Reason: Pain, Severe (Pain Scale 7-10) Pharmacy Consult (Consult Rx Perform Med Rec) 1 each MISCELLANE ONCE PRN PRN Reason: Consult order Sodium Biphosphate/Sodium Phosphate (Sodium Phosphate,[place]-Dibasic 133 Ml [place]) 133 ml [place] ONCE [facility] Sodium Chloride (0.9 % Sodium Chloride Flush 3 Ml Syringe) 3 ml IVFLUSH QSHIFT [facility] Last Admin: 09/22/22 08:50 Dose: 3 ml Documented By: CHRIS Vitamin D (Cholecalciferol (Vitamin D3) 25 Mcg Tablet) 25 mcg PO DAILY [facility] Last Admin: 09/22/22 08:49 Dose: Not Given Documented By: CHRIS Non-Admin Reason: Patient Refused Labs 09/17/22 06:01 09/22/22 08:48 Labs: Laboratory Results - last 24 hr 09/22/22 08:48 Anion Gap 11 L Estim Creat Clear Calc 72.2 Estimated GFR > 60 Random Glucose 164 H Calcium 7.7 L Microbiology Microbiology Results: Microbiology 09/19/22 Unknown Gram Stain - Final Abscess Intra-abdominal Routine Culture - Final Klebsiella pneumoniae Klebsiella oxytoca Assessment and Plan (1) Abdominal pain: Status: Acute (2) Ileus: Status: Deleted (3) Constipation: Status: Acute (4) Hypokalemia: Status: Acute Plan 76-year-old female with pertinent history of asthma not on home oxygen, mixed hyperlipidemia who presents to the emergency department for evaluation of abdominal pain, nausea and vomiting. Abdominal pain/nausea/vomiting, dilated small and large bowels likely due to ileus vs obstrction. abdomen remains distendended, now with flatus and some reported waterly stool abdominal xray 09/15 persistent dilated small and large bowels. Surgery is recommending upper GI with small bowel series -reviewed ,patient still symptomatic-s/p exp lap-small bowel /abscess resection, abd abcess cultures sent abd culture -gram neg ian-klesella pneumonia /kleb oxycota Continue ppn, PPN, IV Zosyn. NG t drain overnight 400 ml , plan to clump. OOB,dc cartwright,passed bm this mornin id eval added . Mixed hyperlipidemia: Resume once no longer npo Asthma: no exacerbation on admission. Continue home inhaler Hyperglycemia likely reactive, A1C = 5.5 HyErnatremia--d/t NPO status-improved with fluids Hypocalcemia and hypophosphatemia: Probably related to decreased p.o. intake, patient is on PPN. Elevated BP, no prior diagnosis of HTN, treat PRN with IV Labetalol DVT prophylaxis:? Lovenox Need for inpatinet: Small-bowel obstruction, abscess: Status post sepsis since bowel resection-need IV antibiotics, PPN until bowel function returns also ngtsection Time Spent With Patient Time: Total time managing care of this patient today ____ minutes. Quality Stroke Does the patient have a stroke diagnosis?: No VTE Prior VTE?: No VTE Risk Level:: Medical - moderate - high VTE Device Contraindication: Treatment Not Indicated VTE Drug Contraindication: N/A - Med Ordered
[2022-09-22] MEDS: Potassium Chloride/H20 10 MEQ/100 ML PIGGYBACK 100 MEQ IV ×2 (12:38→14:15)
[2022-09-22] MEDS: Morphine Sulfate 2 MG/ML CARTRIDGE IVPUSH ×2 (18:05→21:20)
--- NOTE | 2022-09-22 21:04 | PC.NURSE ---
Addendum entered by Betty Fowler RN 09/22/22 23:59: 2145: Bp rechecked and was 136/65, HR 92. Pt resting comfortably in bed. Original Note: Pt manual BP 176/70, HR 104, 95% ra, she has a prn labetalol order for >160, MD Agosto notified that IV labetalol will be given.
[2022-09-22] MEDS: Labetalol HCL 100 MG/20 ML VIAL 10 MG IVPUSH (21:20)
--- NOTE | 2022-09-22 22:50 | W.PM.IDCN ---
History of Present Illness Data of Consult Service Date: 09/22/22 Primary Care Provider: Amos Aguilar MD [facility] Reason for consult: SBO,abdominal abscess She presented to ER on 09/12 with nausea and vomiting. She had no fever or chills. She has resolving leukocytosis She was found to have SBO and had surgery Dr Juárez on 09/19 and found some necrotic SB and purulent abscess with appendix removed with adhesions. Review of Systems Review of Systems: Yes all other systems are reviewed and are negative [facility] Past Medical History Medical History (Updated 09/22/22 @ 22:55 by Pina Marcelo MD) Abdominal visceral abscess Asthma Brain aneurysm History of skin cancer Hypercholesterolemia Osteopenia Family History Family History Father Past heart attack Mother Asthma Sister Diabetes Paternal Aunt Breast cancer Colon cancer Maternal Aunt Breast cancer Family history: reviewed and not pertinent Surgical History Surgical History History of colonoscopy History of eye surgery History of removal of cyst History of removal of cyst (06/05/22) History of removal of ovarian cyst Pilar cyst Status post exploratory laparotomy Status post surgical removal of malignant neoplasm of skin Social History Social History Household Members: None Housing: Other Do you presently have visiting nurse or other home services: No Alcohol intake: never Patient Tobacco Use Status: Former Tobacco user Quit Date: 49 yrs ago Tobacco use type: Cigarette Smoked in Last 30 Days: No e-Cigarette/Vaping Use: Never Used Second Hand Smoke Exposure: No Use of substances other than those prescribed or required for medical reasons: No Currently Displaying Signs/Symptoms of Drug Intoxication Withdrawal: No Have you been hit, kicked, punched, or otherwise hurt by someone within the past year? If so, by whom?: No Do you feel safe in your current relationship?: No Current Relationship Is there a partner from a previous relationship who is making you feel unsafe now?: No Are you made to feel afraid or neglected: No Yazdanism Healthcare Practices: gnosticism Are you DNR?: No Advance Directives: No Advance Directives Information Provided: Yes Do you have thoughts of harming others: None Do you have a plan to hurt others: No Plan Recently lost weight without trying: No Nutrition Risks: No Nutritional Risk Patient : No : No Poor oral hygiene: No service: No Current occupational status: retired Cognitive needs: No Hearing needs: No Vision needs: Yes Meds Allergies Allergy/AdvReac Type Severity Reaction Status Date / Time egg Allergy Unknown Unknown Verified 09/12/22 21:49 Active Medications: Current Medications Albuterol Sulfate (Albuterol Sulfate (0.083%) 2.5 Mg/3 Ml Vial.Neb) 2.5 mg INHALE ONCE PRN PRN Reason: Wheezing Amlodipine Besylate (Amlodipine Besylate 2.5 Mg Tablet) 2.5 mg PO DAILY [facility]; Protocol Last Admin: 09/18/22 09:47 Dose: 2.5 mg Budesonide (Budesonide 180 Mcg Aer.Pow.Ba) 2 puff INHALE RDAILY [facility] Last Admin: 09/22/22 08:41 Dose: Not Given Enoxaparin Sodium (Enoxaparin Sodium 40 Mg/0.4 Ml Syringe) 40 mg SUBCUT Q24H [facility] Last Admin: 09/22/22 08:48 Dose: 40 mg Fentanyl (Fentanyl Citrate/Pf 100 Mcg/2 Ml Vial) 25 mcg IVPUSH Q5M PRN; Protocol PRN Reason: Pain, Moderate(Pain Scale 4-6) Last Admin: 09/19/22 14:17 Dose: 25 mcg Fluticasone Propionate (Fluticasone Propionate Nasal 16 Gm Joaquin) 1 spray NOSTRIL-B DAILY PRN PRN Reason: Allergy Symptoms Hydromorphone HCl (Hydromorphone Hcl 0.5 Mg/0.5 Ml Syringe) 0.25 mg IVPUSH Q5M PRN; Protocol PRN Reason: Pain, Severe (Pain Scale 7-10) Hydromorphone HCl (Hydromorphone Hcl 0.5 Mg/0.5 Ml Syringe) 0.25 mg IVPUSH Q5M PRN; Protocol PRN Reason: Pain, Severe (Pain Scale 7-10) Piperacillin Sod/Tazobactam (Sod 3.375 gm/ Sodium Chloride) 50 mls @ 100 mls/hr IV Q6H [facility] Last Infusion: 09/22/22 21:26 Dose: Infused Potassium Chloride 60 meq/Sodium Chloride 70 meq/Magnesium Sulfate 10 meq/Potassium Phosphate 50 mmol/Calcium Gluconate 9.3 meq/Amino Acids/Electrolytes/Dextrose 1,440 mls @ 60 mls/hr IVCONT DAILY@1800 [facility] Stop: 09/23/22 17:59 Last Admin: 09/22/22 18:04 Dose: 60 mls/hr Fat Emulsion Intravenous (Intralipid) 204 mls @ 17 mls/hr IVCONT BID@0600,1800 [facility] Stop: 09/23/22 17:59 Last Admin: 09/22/22 18:05 Dose: 17 mls/hr Labetalol HCl (Labetalol Hcl 100 Mg/20 Ml Vial) 10 mg IVPUSH Q6H PRN PRN Reason: htn Last Admin: 09/22/22 21:20 Dose: 10 mg Loratadine (Loratadine 10 Mg Tablet) 10 mg PO DAILY PRN PRN Reason: Allergy Symptoms Melatonin (Melatonin 3 Mg Tablet) 6 mg PO BEDTIME PRN PRN Reason: Insomnia Morphine Sulfate (Morphine Sulfate 2 Mg/Ml Cartridge) 2 mg IVPUSH Q3H PRN; Protocol PRN Reason: Pain, Mild (Pain Scale 1-3) Last Admin: 09/22/22 21:20 Dose: 2 mg Ondansetron HCl (Ondansetron Hcl 4 Mg/2 Ml Vial) 4 mg IVPUSH Q8H PRN PRN Reason: Nausea and Vomiting Last Admin: 09/20/22 05:08 Dose: 4 mg Ondansetron HCl (Ondansetron Hcl 4 Mg/2 Ml Vial) 4 mg IVPUSH ONCE PRN PRN Reason: Nausea and Vomiting Oxycodone HCl (Oxycodone Hcl Immed Release 5 Mg Tablet) 5 mg PO ONCE PRN PRN Reason: Pain, Severe (Pain Scale 7-10) Pharmacy Consult (Consult Rx Perform Med Rec) 1 each MISCELLANE ONCE PRN PRN Reason: Consult order Sodium Biphosphate/Sodium Phosphate (Sodium Phosphate,[place]-Dibasic 133 Ml Enema) 133 ml [place] ONCE [facility] Sodium Chloride (0.9 % Sodium Chloride Flush 3 Ml Syringe) 3 ml IVFLUSH QSHIFT [facility] Last Admin: 09/22/22 16:10 Dose: Not Given Vitamin D (Cholecalciferol (Vitamin D3) 25 Mcg Tablet) 25 mcg PO DAILY [facility] Last Admin: 09/22/22 08:49 Dose: Not Given Home Medications Medication Instructions Recorded Confirmed Last Taken Type cholecalciferol (vitamin D3) 25 25 mcg PO DAILY 09/13/22 09/13/22 09/10/22 History mcg (1,000 unit) tablet fexofenadine 180 mg tablet 180 mg PO DAILY PRN Allergy 09/13/22 09/13/22 Unknown History (Arlene Allergy) Symptoms fluticasone propionate 50 1 spray intranasal DAILY PRN 09/13/22 09/13/22 Unknown History mcg/actuation nasal Allergy Symptoms spray,suspension omega [id number]-fish oil 1,000 mg 1 cap PO DAILY 09/13/22 09/13/22 09/10/22 History (120 mg-180 mg) capsule (Fish Oil) Physical Exam Vital Signs: Vital Signs: Last Vital Signs Temp 97.6 F 09/22/22 19:39 Pulse 92 09/22/22 21:45 Resp 16 09/22/22 21:45 BP 136/65 09/22/22 21:45 Pulse Ox 95 09/22/22 21:45 O2 Del Method Room Air 09/22/22 21:45 O2 Flow Rate 4 09/19/22 13:38 BMI result Body Mass Index 22.7 Const: Other: NGT dark material GI: Other: abdomen distended,surgical site clean vertical midabdominal incision Results Labs 09/17/22 06:01 09/22/22 08:48 Labs: BMP 09/22/22 08:48 Sodium 139 Potassium 3.2 L Chloride 99 Carbon Dioxide 32 H BUN 18 H Creatinine 0.54 Calcium 7.7 L Microbiology Microbiology Results: Microbiology 09/19/22 Unknown Abscess Intra-abdominal Gram Stain - Final 09/19/22 Unknown Abscess Intra-abdominal Routine Culture - Final Klebsiella pneumoniae Klebsiella oxytoca 09/13/22 00:00 Blood - Venous Blood Culture - Final No growth after 5 days. 09/12/22 23:50 Blood - Venous Blood Culture - Final No growth after 5 days. Assessment and Plan (1) Status post exploratory laparotomy: Status: Acute (2) Postoperative ileus: Status: Acute (3) Small bowel obstruction: Status: Acute (4) Leukocytosis: Status: Acute (5) Abdominal visceral abscess: Status: Acute She has Klebsiella abscess Pathology is pending. She is on broad spectrum coverage Plan Try Ceftriaxone and metronidazole tomorrow if nothing else is growing. She is day 5 IV antibiotics and can finish 14 day course with po Ceftin and flagyl when NGT comes out. Await pathology Time Spent With Patient Time: Total time managing care of this patient today ____ minutes.
[2022-09-23] MEDS: 0.9 % Sodium Chloride Flush 3 ML SYRINGE IVFLUSH ×3 (03:05→20:18)
[2022-09-23] MEDS: Piperacillin Sodium/Tazobactam 3.375 GM in 0.9 % Sodium Chloride 50 ML IV (03:05)
[2022-09-23] MEDS: Fat Emulsions 20% 250 ML 17 ML IVCONT ×2 (06:15→18:21)
[2022-09-23] MEDS: Budesonide 180 MCG AER.POW.BA 2 PUFF INHALE (07:49)
[2022-09-23 07:51] VITALS: PULSE 92; RESP 16; O2SAT 95
[2022-09-23 08:00] LABS: Albumin Level 2.2 g/dL (3.5-5.0); Anion Gap 12 (12-20); Blood Urea Nitrogen 14 mg/dL (9-16); Calcium 7.5 mg/dL (8.4-10.2); Carbon Dioxide 28 mmol/L (22-29); Chloride 101 mmol/L (96-108); Creatinine Clr Calc Pharmacy 79.5; Estimated Glomerular Filt Rate > 60; Glucose Random 146 mg/dL (60-115); Magnesium 1.9 mg/dL (1.6-2.6); Phosphorus 3.3 mg/dL (2.7-4.5); Potassium 3.6 mmol/L (3.3-5.1); Sodium 137 mmol/L (135-145); Triglycerides 276 mg/dL
[2022-09-23] MEDS: cefTRIAXone sodium 2 GM in 0.9 % Sodium Chloride 50 ML IV (08:05)
[2022-09-23] MEDS: Enoxaparin Sodium 40 MG/0.4 ML SYRINGE SUBCUT (08:06)
[2022-09-23] MEDS: Morphine Sulfate 2 MG/ML CARTRIDGE IVPUSH ×2 (08:22→20:13)
[2022-09-23 08:27] VITALS: BP 146/65; PULSE 99; RESP 18; TEMP 36.6; O2SAT 95
[2022-09-23] MEDS: metroNIDAZOLE/NS 500 MG/100 ML PIGGYBACK 100 MG IV ×2 (08:48→17:25)
--- NOTE | 2022-09-23 09:55 | PM.PNGS ---
Subjective Subjective Date of Service: 09/26/22 Interval history: Feels better today passing flatus sore on incision no events reported NG tube was clamped for 5 hours yesterday and did not have significant output after unclamping - she however did not want this removed yesterday Physical Exam Vital Signs: Vital Signs: Last Vital Signs Temp 97.8 F 09/23/22 08:27 Pulse 99 09/23/22 08:27 Resp 18 09/23/22 08:27 BP 146/65 H 09/23/22 08:27 Pulse Ox 95 09/23/22 08:27 O2 Del Method Room Air 09/23/22 08:27 O2 Flow Rate 4 09/19/22 13:38 BMI result Body Mass Index 22.7 Const: General: comfortable and no acute distress Resp: Effort & Inspection: normal respiratory effort GI: Other: incision clean and dry, her along incision Palpation (GI): Soft to palpation, not firm and no guarding Objective Data Active Medications Albuterol Sulfate (Albuterol Sulfate (0.083%) 2.5 Mg/3 Ml Vial.Neb) 2.5 mg INHALE ONCE PRN PRN Reason: Wheezing Amlodipine Besylate (Amlodipine Besylate 2.5 Mg Tablet) 2.5 mg PO DAILY [facility]; Protocol Last Admin: 09/18/22 09:47 Dose: 2.5 mg Documented By: ABY Budesonide (Budesonide 180 Mcg Aer.Pow.Ba) 2 puff INHALE RDAILY [facility] Last Admin: 09/23/22 07:49 Dose: 2 puff Documented By: BENY Enoxaparin Sodium (Enoxaparin Sodium 40 Mg/0.4 Ml Syringe) 40 mg SUBCUT Q24H [facility] Last Admin: 09/23/22 08:06 Dose: 40 mg Documented By: CHRIS Fentanyl (Fentanyl Citrate/Pf 100 Mcg/2 Ml Vial) 25 mcg IVPUSH Q5M PRN; Protocol PRN Reason: Pain, Moderate(Pain Scale 4-6) Last Admin: 09/19/22 14:17 Dose: 25 mcg Documented By: CAREN Fluticasone Propionate (Fluticasone Propionate Nasal 16 Gm [place]) 1 spray NOSTRIL-B DAILY PRN PRN Reason: Allergy Symptoms Hydromorphone HCl (Hydromorphone Hcl 0.5 Mg/0.5 Ml Syringe) 0.25 mg IVPUSH Q5M PRN; Protocol PRN Reason: Pain, Severe (Pain Scale 7-10) Hydromorphone HCl (Hydromorphone Hcl 0.5 Mg/0.5 Ml Syringe) 0.25 mg IVPUSH Q5M PRN; Protocol PRN Reason: Pain, Severe (Pain Scale 7-10) Potassium Chloride 60 meq/Sodium Chloride 70 meq/Magnesium Sulfate 10 meq/Potassium Phosphate 50 mmol/Calcium Gluconate 9.3 meq/Amino Acids/Electrolytes/Dextrose 1,440 mls @ 60 mls/hr IVCONT DAILY@1800 [facility] Stop: 09/23/22 17:59 Last Admin: 09/22/22 18:04 Dose: 60 mls/hr Documented By: BASIL Fat Emulsion Intravenous (Intralipid) 204 mls @ 17 mls/hr IVCONT BID@0600,1800 [facility] Stop: 09/23/22 17:59 Last Admin: 09/23/22 06:15 Dose: 17 mls/hr Documented By: ANDRÉS Ceftriaxone Sodium 2 gm/ (Sodium Chloride) 50 mls @ 100 mls/hr IV Q24H [facility] Last Infusion: 09/23/22 08:51 Dose: 0 mls/hr Documented By: CHRIS Metronidazole (Flagyl) 500 mg in 100 mls @ 100 mls/hr IV Q8H [facility] Last Infusion: 09/23/22 09:49 Dose: 0 mls/hr Documented By: CHRIS Potassium Chloride 60 meq/Sodium Chloride 70 meq/Magnesium Sulfate 10 meq/Potassium Phosphate 50 mmol/Calcium Gluconate 9.3 meq/Amino Acids/Electrolytes/Dextrose 1,440 mls @ 60 mls/hr IVCONT DAILY@1800 [facility] Stop: 09/24/22 17:59 Fat Emulsion Intravenous (Intralipid) 204 mls @ 17 mls/hr IVCONT BID@0600,1800 [facility] Stop: 09/24/22 17:59 Labetalol HCl (Labetalol Hcl 100 Mg/20 Ml Vial) 10 mg IVPUSH Q6H PRN PRN Reason: htn Last Admin: 09/22/22 21:20 Dose: 10 mg Documented By: ANDRÉS Loratadine (Loratadine 10 Mg Tablet) 10 mg PO DAILY PRN PRN Reason: Allergy Symptoms Melatonin (Melatonin 3 Mg Tablet) 6 mg PO BEDTIME PRN PRN Reason: Insomnia Morphine Sulfate (Morphine Sulfate 2 Mg/Ml Cartridge) 2 mg IVPUSH Q3H PRN; Protocol PRN Reason: Pain, Mild (Pain Scale 1-3) Last Admin: 09/23/22 08:22 Dose: 2 mg Documented By: CHRIS Ondansetron HCl (Ondansetron Hcl 4 Mg/2 Ml Vial) 4 mg IVPUSH Q8H PRN PRN Reason: Nausea and Vomiting Last Admin: 09/20/22 05:08 Dose: 4 mg Documented By: TRANG Ondansetron HCl (Ondansetron Hcl 4 Mg/2 Ml Vial) 4 mg IVPUSH ONCE PRN PRN Reason: Nausea and Vomiting Oxycodone HCl (Oxycodone Hcl Immed Release 5 Mg Tablet) 5 mg PO ONCE PRN PRN Reason: Pain, Severe (Pain Scale 7-10) Pharmacy Consult (Consult Rx Perform Med Rec) 1 each MISCELLANE ONCE PRN PRN Reason: Consult order Sodium Biphosphate/Sodium Phosphate (Sodium Phosphate,[place]-Dibasic 133 Ml Enema) 133 ml [place] ONCE [facility] Sodium Chloride (0.9 % Sodium Chloride Flush 3 Ml Syringe) 3 ml IVFLUSH QSHIFT [facility] Last Admin: 09/23/22 08:06 Dose: 3 ml Documented By: CHRIS Vitamin D (Cholecalciferol (Vitamin D3) 25 Mcg Tablet) 25 mcg PO DAILY [facility] Last Admin: 09/23/22 08:06 Dose: Not Given Documented By: CHRIS Non-Admin Reason: NPO Labs 09/17/22 06:01 09/23/22 07:16 Labs: Laboratory Results - last 24 hr 09/23/22 07:16 Anion Gap 12 Estim Creat Clear Calc 79.5 Estimated GFR > 60 Random Glucose 146 H Calcium 7.5 L Phosphorus 3.3 Magnesium 1.9 Albumin 2.2 L Triglycerides 276 Microbiology Microbiology Results: Microbiology 09/19/22 Unknown Gram Stain - Final Abscess Intra-abdominal Routine Culture - Final Klebsiella pneumoniae Klebsiella oxytoca Procedures Date of Service Date of Service: 09/26/22 Progress Note: A&P Assessment and plan (1) Status post exploratory laparotomy: Status: Acute Assessment and Plan: passing good amounts of flatus consistently looks well abdomen soft Will DC NG tube today okay to have clear liquids encouraged to ambulate and get out of bed abdomen exam benign Time Spent With Patient Time: Total time managing care of this patient today ____ minutes. Quality Stroke Does the patient have a stroke diagnosis?: No VTE Prior VTE?: No VTE Risk Level:: Medical - moderate - high VTE Device Contraindication: Treatment Not Indicated VTE Drug Contraindication: N/A - Med Ordered
--- NOTE | 2022-09-23 11:16 | HO.PM.IMPN ---
Subjective Subjective Date of Service: 09/23/22 Interval History: sbo/abcess abd Review of Systems still has significant output through ngt suction Physical Exam Vital Signs: Vital Signs: Last Vital Signs Temp 97.8 F 09/23/22 08:27 Pulse 99 09/23/22 08:27 Resp 18 09/23/22 08:27 BP 146/65 H 09/23/22 08:27 Pulse Ox 95 09/23/22 08:27 O2 Del Method Room Air 09/23/22 08:27 O2 Flow Rate 4 09/19/22 13:38 BMI result Body Mass Index 22.7 Appearance: Alert.? Oriented X3.? not in distress.? cvs: rrr, [id number] , no murmur res: clear to auscultation ,no rhonchii or wheezing abd: no rebound or guarding ,some abd soarness incison area , bs present.ngt suction-?as per staff 900 ml ext pulses present , no cyanosis . neuro: axo3 , nonfocal Objective Data Active Medications Albuterol Sulfate (Albuterol Sulfate (0.083%) 2.5 Mg/3 Ml Vial.Neb) 2.5 mg INHALE ONCE PRN PRN Reason: Wheezing Amlodipine Besylate (Amlodipine Besylate 2.5 Mg Tablet) 2.5 mg PO DAILY [facility]; Protocol Last Admin: 09/18/22 09:47 Dose: 2.5 mg Documented By: ABY Budesonide (Budesonide 180 Mcg Aer.Pow.Ba) 2 puff INHALE RDAILY [facility] Last Admin: 09/23/22 07:49 Dose: 2 puff Documented By: BENY Enoxaparin Sodium (Enoxaparin Sodium 40 Mg/0.4 Ml Syringe) 40 mg SUBCUT Q24H [facility] Last Admin: 09/23/22 08:06 Dose: 40 mg Documented By: CHRIS Fentanyl (Fentanyl Citrate/Pf 100 Mcg/2 Ml Vial) 25 mcg IVPUSH Q5M PRN; Protocol PRN Reason: Pain, Moderate(Pain Scale 4-6) Last Admin: 09/19/22 14:17 Dose: 25 mcg Documented By: CAREN Fluticasone Propionate (Fluticasone Propionate Nasal 16 Gm Coleman) 1 spray NOSTRIL-B DAILY PRN PRN Reason: Allergy Symptoms Hydromorphone HCl (Hydromorphone Hcl 0.5 Mg/0.5 Ml Syringe) 0.25 mg IVPUSH Q5M PRN; Protocol PRN Reason: Pain, Severe (Pain Scale 7-10) Hydromorphone HCl (Hydromorphone Hcl 0.5 Mg/0.5 Ml Syringe) 0.25 mg IVPUSH Q5M PRN; Protocol PRN Reason: Pain, Severe (Pain Scale 7-10) Potassium Chloride 60 meq/Sodium Chloride 70 meq/Magnesium Sulfate 10 meq/Potassium Phosphate 50 mmol/Calcium Gluconate 9.3 meq/Amino Acids/Electrolytes/Dextrose 1,440 mls @ 60 mls/hr IVCONT DAILY@1800 [facility] Stop: 09/23/22 17:59 Last Admin: 09/22/22 18:04 Dose: 60 mls/hr Documented By: BASIL Fat Emulsion Intravenous (Intralipid) 204 mls @ 17 mls/hr IVCONT BID@0600,1800 [facility] Stop: 09/23/22 17:59 Last Admin: 09/23/22 06:15 Dose: 17 mls/hr Documented By: ANDRÉS Ceftriaxone Sodium 2 gm/ (Sodium Chloride) 50 mls @ 100 mls/hr IV Q24H [facility] Last Infusion: 09/23/22 08:51 Dose: 0 mls/hr Documented By: CHIRS Metronidazole (Flagyl) 500 mg in 100 mls @ 100 mls/hr IV Q8H [facility] Last Infusion: 09/23/22 09:49 Dose: 0 mls/hr Documented By: CHRIS Potassium Chloride 60 meq/Sodium Chloride 70 meq/Magnesium Sulfate 10 meq/Potassium Phosphate 50 mmol/Calcium Gluconate 9.3 meq/Amino Acids/Electrolytes/Dextrose 1,440 mls @ 60 mls/hr IVCONT DAILY@1800 [facility] Stop: 09/24/22 17:59 Fat Emulsion Intravenous (Intralipid) 204 mls @ 17 mls/hr IVCONT BID@0600,1800 [facility] Stop: 09/24/22 17:59 Labetalol HCl (Labetalol Hcl 100 Mg/20 Ml Vial) 10 mg IVPUSH Q6H PRN PRN Reason: htn Last Admin: 09/22/22 21:20 Dose: 10 mg Documented By: ANDRÉS Loratadine (Loratadine 10 Mg Tablet) 10 mg PO DAILY PRN PRN Reason: Allergy Symptoms Melatonin (Melatonin 3 Mg Tablet) 6 mg PO BEDTIME PRN PRN Reason: Insomnia Morphine Sulfate (Morphine Sulfate 2 Mg/Ml Cartridge) 2 mg IVPUSH Q3H PRN; Protocol PRN Reason: Pain, Mild (Pain Scale 1-3) Last Admin: 09/23/22 08:22 Dose: 2 mg Documented By: CHRIS Ondansetron HCl (Ondansetron Hcl 4 Mg/2 Ml Vial) 4 mg IVPUSH Q8H PRN PRN Reason: Nausea and Vomiting Last Admin: 09/20/22 05:08 Dose: 4 mg Documented By: TRANG Ondansetron HCl (Ondansetron Hcl 4 Mg/2 Ml Vial) 4 mg IVPUSH ONCE PRN PRN Reason: Nausea and Vomiting Oxycodone HCl (Oxycodone Hcl Immed Release 5 Mg Tablet) 5 mg PO ONCE PRN PRN Reason: Pain, Severe (Pain Scale 7-10) Pharmacy Consult (Consult Rx Perform Med Rec) 1 each MISCELLANE ONCE PRN PRN Reason: Consult order Sodium Biphosphate/Sodium Phosphate (Sodium Phosphate,[place]-Dibasic 133 Ml Enema) 133 ml [place] ONCE [facility] Sodium Chloride (0.9 % Sodium Chloride Flush 3 Ml Syringe) 3 ml IVFLUSH QSHIFT [facility] Last Admin: 09/23/22 08:06 Dose: 3 ml Documented By: CHRIS Vitamin D (Cholecalciferol (Vitamin D3) 25 Mcg Tablet) 25 mcg PO DAILY [facility] Last Admin: 09/23/22 08:06 Dose: Not Given Documented By: CHRIS Non-Admin Reason: NPO Labs 09/17/22 06:01 09/23/22 07:16 Labs: Laboratory Results - last 24 hr 09/23/22 07:16 Anion Gap 12 Estim Creat Clear Calc 79.5 Estimated GFR > 60 Random Glucose 146 H Calcium 7.5 L Phosphorus 3.3 Magnesium 1.9 Albumin 2.2 L Triglycerides 276 Microbiology Microbiology Results: Microbiology 09/19/22 Unknown Gram Stain - Final Abscess Intra-abdominal Routine Culture - Final Klebsiella pneumoniae Klebsiella oxytoca Assessment and Plan (1) Abdominal pain: Status: Acute (2) Ileus: Status: Deleted (3) Constipation: Status: Acute (4) Hypokalemia: Status: Acute Plan 76-year-old female with pertinent history of asthma not on home oxygen, mixed hyperlipidemia who presents to the emergency department for evaluation of abdominal pain, nausea and vomiting. Abdominal pain/nausea/vomiting, dilated small and large bowels likely due to ileus vs obstrction. abdomen remains distendended, now with flatus and some reported waterly stool abdominal xray 09/15 persistent dilated small and large bowels. Surgery is recommending upper GI with small bowel series -reviewed ,patient still symptomatic-s/p exp lap-small bowel /abscess resection, abd abcess cultures sent abd culture -gram neg ian-klesella pneumonia /kleb oxycota Continue ppn, PPN, IV ceftrixone /flagyl . 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 Mixed hyperlipidemia: Resume once no longer npo Asthma: no exacerbation on admission. Continue home inhaler Hyperglycemia likely reactive, A1C = 5.5 HyErnatremia--d/t NPO status-improved with fluids hypokalemia,Hypocalcemia and hypophosphatemia: Probably related to decreased p.o. intake, patient is on PPN. Elevated BP, no prior diagnosis of HTN, treat PRN with IV Labetalol DVT prophylaxis:? Lovenox Need for inpatinet: Small-bowel obstruction, abscess: Status post sepsis since bowel resection-need IV antibiotics, PPN until bowel function returns also ngtsection Time Spent With Patient Time: Total time managing care of this patient today ____ minutes. Quality Stroke Does the patient have a stroke diagnosis?: No VTE Prior VTE?: No VTE Risk Level:: Medical - moderate - high VTE Device Contraindication: Treatment Not Indicated VTE Drug Contraindication: N/A - Med Ordered
[2022-09-23] MEDS: Potassium Chloride/H20 10 MEQ/100 ML PIGGYBACK 100 MEQ IV ×2 (11:17→12:29)
--- NOTE | 2022-09-23 15:06 | PM.EVENT ---
Event Note Date of Service: 09/23/22 Event Note: NGT removed this AM tolerating clears passing flatus abd remains soft looks well - on recliner hopefully, able to advance diet tomorrow Time Spent With Patient Time: Total time managing care of this patient today ____ minutes.
[2022-09-23 15:13] VITALS: BP 143/65; PULSE 107; RESP 18; TEMP 36.8; O2SAT 96
--- NOTE | 2022-09-23 15:38 | PC.NURSE ---
NG tube removed at 1100. Tolerated well. Started on clear liquids.
[2022-09-24] VITALS (12 sets, daily range): BP systolic 150–175; BP diastolic 57–74; PULSE 99–111; RESP 16–20; TEMP 36–36.9; O2SAT 96–99
[2022-09-24] MEDS: metroNIDAZOLE/NS 500 MG/100 ML PIGGYBACK 100 MG IV ×2 (00:56→09:27)
[2022-09-24] MEDS: Fat Emulsions 20% 250 ML 17 ML IVCONT ×2 (06:39→22:50)
[2022-09-24 07:07] LABS: Albumin Level 2.2 g/dL (3.5-5.0); Anion Gap 12 (12-20); Blood Urea Nitrogen 13 mg/dL (9-16); Calcium 7.5 mg/dL (8.4-10.2); Carbon Dioxide 24 mmol/L (22-29); Chloride 101 mmol/L (96-108); Creatinine Clr Calc Pharmacy 81.2; Estimated Glomerular Filt Rate > 60; Glucose Random 124 mg/dL (60-115); Magnesium 1.9 mg/dL (1.6-2.6); Phosphorus 2.8 mg/dL (2.7-4.5); Potassium 3.9 mmol/L (3.3-5.1); Sodium 133 mmol/L (135-145); Triglycerides 204 mg/dL
[2022-09-24] MEDS: 0.9 % Sodium Chloride Flush 3 ML SYRINGE IVFLUSH (07:50)
[2022-09-24] MEDS: cefTRIAXone sodium 2 GM in 0.9 % Sodium Chloride 50 ML IV (07:50)
[2022-09-24] MEDS: Enoxaparin Sodium 40 MG/0.4 ML SYRINGE SUBCUT (07:51)
[2022-09-24] MEDS: Budesonide 180 MCG AER.POW.BA 2 PUFF INHALE (08:04)
[2022-09-24 08:11] LABS: Hemoglobin 9.6 g/dl (12.0-16.0); Mean Corpuscular Hemoglobin 26.4 pg (27.0-33.0); Mean Corpuscular Volume 82.6 fL (80.0-98.0); Mean Platelet Volume 9.8 fL (9.4-12.3); Platelet Count 454 X10*3/uL (160-400); Red Blood Count 3.63 X10*6/uL (4.20-5.50); Red Cell Distribution Width 14.3 % (11.0-16.0); White Blood Count 19.1 X10*3/uL (4.8-10.8)
[2022-09-24 08:36] LABS: Band Neutrophils Percent 12 % (3-5); Lymphocytes Percent Manual 5 % (20-40); Metamyelocytes Absolute 0.6 X10*3/uL; Metamyelocytes Percent 3 %; Monocytes Absolute Manual 0.4 X10*3/uL (0.1-1.2); Monocytes Percent Manual 2 % (2-11); Neutrophils Absolute Manual 17.2 X10*3/uL (2.0-8.3); Neutrophils Percent Manual 78 % (45-73)
[2022-09-24 08:37] LABS: Hypochromasia 1+ (5-14) /OIF; Microcytosis 1+ (5-14) /OIF; Platelet Estimate INCREASED (NORMAL); Platelet Morphology Comment NORMAL; RBC Morphology NOTED
--- NOTE | 2022-09-24 08:51 | PM.PNGS ---
Subjective Subjective Date of Service: 09/24/22 Interval history: Feels improved. NGT removed yesterday morning. Tolerating liquids. Has been OOB and ambulating halls. Passing flatus and having liquid BMs. Physical Exam Vital Signs: Vital Signs: Last Vital Signs Temp 97.4 F 09/24/22 08:11 Pulse 99 09/24/22 08:11 Resp 17 09/24/22 08:11 BP 164/70 H 09/24/22 08:11 Pulse Ox 96 09/24/22 08:11 O2 Del Method Room Air 09/24/22 08:11 O2 Flow Rate 4 09/19/22 13:38 BMI result Body Mass Index 22.7 Const: General: comfortable, no acute distress and alert Resp: Effort & Inspection: normal respiratory effort GI: Inspection: Yes distended (mild) and Yes incision (clean) Palpation (GI): Soft to palpation, Tenderness to palpation present (GI), no guarding and not rigid Percussion: Yes tympanic to percussion Skin: General skin exam: no rashes or lesions noted Neuro: General: moves all extremities Objective Data Active Medications Albuterol Sulfate (Albuterol Sulfate (0.083%) 2.5 Mg/3 Ml Vial.Neb) 2.5 mg INHALE ONCE PRN PRN Reason: Wheezing Amlodipine Besylate (Amlodipine Besylate 2.5 Mg Tablet) 2.5 mg PO DAILY [facility]; Protocol Last Admin: 09/18/22 09:47 Dose: 2.5 mg Documented By: ABY Budesonide (Budesonide 180 Mcg Aer.Pow.Ba) 2 puff INHALE RDAILY [facility] Last Admin: 09/24/22 08:04 Dose: 2 puff Documented By: CATHY Enoxaparin Sodium (Enoxaparin Sodium 40 Mg/0.4 Ml Syringe) 40 mg SUBCUT Q24H [facility] Last Admin: 09/24/22 07:51 Dose: 40 mg Documented By: GISELA Fentanyl (Fentanyl Citrate/Pf 100 Mcg/2 Ml Vial) 25 mcg IVPUSH Q5M PRN; Protocol PRN Reason: Pain, Moderate(Pain Scale 4-6) Last Admin: 09/19/22 14:17 Dose: 25 mcg Documented By: CAREN Fluticasone Propionate (Fluticasone Propionate Nasal 16 Gm [place]) 1 spray NOSTRIL-B DAILY PRN PRN Reason: Allergy Symptoms Hydromorphone HCl (Hydromorphone Hcl 0.5 Mg/0.5 Ml Syringe) 0.25 mg IVPUSH Q5M PRN; Protocol PRN Reason: Pain, Severe (Pain Scale 7-10) Hydromorphone HCl (Hydromorphone Hcl 0.5 Mg/0.5 Ml Syringe) 0.25 mg IVPUSH Q5M PRN; Protocol PRN Reason: Pain, Severe (Pain Scale 7-10) Ceftriaxone Sodium 2 gm/ (Sodium Chloride) 50 mls @ 100 mls/hr IV Q24H [facility] Last Infusion: 09/24/22 08:38 Dose: 0 mls/hr Documented By: GISELA Metronidazole (Flagyl) 500 mg in 100 mls @ 100 mls/hr IV Q8H [facility] Last Infusion: 09/24/22 01:56 Dose: 0 mls/hr Documented By: MAC Potassium Chloride 60 meq/Sodium Chloride 70 meq/Magnesium Sulfate 10 meq/Potassium Phosphate 50 mmol/Calcium Gluconate 9.3 meq/Amino Acids/Electrolytes/Dextrose 1,440 mls @ 60 mls/hr IVCONT DAILY@1800 [facility] Stop: 09/24/22 17:59 Last Admin: 09/23/22 18:38 Dose: 60 mls/hr Documented By: BASIL Fat Emulsion Intravenous (Intralipid) 204 mls @ 17 mls/hr IVCONT BID@0600,1800 [facility] Stop: 09/24/22 17:59 Last Admin: 09/24/22 06:39 Dose: 17 mls/hr Documented By: MAC Labetalol HCl (Labetalol Hcl 100 Mg/20 Ml Vial) 10 mg IVPUSH Q6H PRN PRN Reason: htn Last Admin: 09/22/22 21:20 Dose: 10 mg Documented By: ANDRÉS Loratadine (Loratadine 10 Mg Tablet) 10 mg PO DAILY PRN PRN Reason: Allergy Symptoms Melatonin (Melatonin 3 Mg Tablet) 6 mg PO BEDTIME PRN PRN Reason: Insomnia Morphine Sulfate (Morphine Sulfate 2 Mg/Ml Cartridge) 2 mg IVPUSH Q3H PRN; Protocol PRN Reason: Pain, Severe (Pain Scale 7-10) Last Admin: 09/23/22 20:13 Dose: 2 mg Documented By: NOMAN Ondansetron HCl (Ondansetron Hcl 4 Mg/2 Ml Vial) 4 mg IVPUSH Q8H PRN PRN Reason: Nausea and Vomiting Last Admin: 09/20/22 05:08 Dose: 4 mg Documented By: TRANG Ondansetron HCl (Ondansetron Hcl 4 Mg/2 Ml Vial) 4 mg IVPUSH ONCE PRN PRN Reason: Nausea and Vomiting Oxycodone HCl (Oxycodone Hcl Immed Release 5 Mg Tablet) 5 mg PO ONCE PRN PRN Reason: Pain, Severe (Pain Scale 7-10) Oxycodone HCl (Oxycodone Hcl Immed Release 5 Mg Tablet) 10 mg PO Q4H PRN PRN Reason: Pain, Moderate(Pain Scale 4-6) Pharmacy Consult (Consult Rx Perform Med Rec) 1 each MISCELLANE ONCE PRN PRN Reason: Consult order Sodium Biphosphate/Sodium Phosphate (Sodium Phosphate,[place]-Dibasic 133 Ml Enema) 133 ml [place] ONCE [facility] Sodium Chloride (0.9 % Sodium Chloride Flush 3 Ml Syringe) 3 ml IVFLUSH QSHIFT [facility] Last Admin: 09/24/22 07:50 Dose: 3 ml Documented By: GISELA Vitamin D (Cholecalciferol (Vitamin D3) 25 Mcg Tablet) 25 mcg PO DAILY [facility] Last Admin: 09/24/22 08:00 Dose: Not Given Documented By: GISELA Non-Admin Reason: Patient Refused Labs 09/24/22 07:07 09/24/22 05:49 Labs: Laboratory Results - last 24 hr 09/24/22 09/24/22 05:49 07:07 MCV 82.6 MCH 26.4 L MCHC 32.0 RDW 14.3 Plt Count 454 H MPV 9.8 Immature Gran % (Auto) Cancelled Neut % (Auto) Cancelled Lymph % (Auto) Cancelled [place] % (Auto) Cancelled Eos % (Auto) Cancelled Baso % (Auto) Cancelled Lymph # (Auto) Cancelled [place] # (Auto) Cancelled Eos # (Auto) Cancelled Baso # (Auto) Cancelled Abs Immat Gran (auto) Cancelled Absolute Neuts (auto) Cancelled Absolute Nucleated RBC 0.000 Nucleated RBC % (auto) 0.0 Neutrophils % (Manual) 78 H Band Neutrophils % 12 H Lymphocytes % (Manual) 5 L Monocytes % (Manual) 2 Metamyelocytes % 3 Abs Neuts (Manual) 17.2 H Lymphocytes # (Manual) 1.0 L Monocytes # (Manual) 0.4 Metamyelocytes # 0.6 Platelet Estimate INCREASED Plt Morphology Comment NORMAL RBC Morphology NOTED Hypochromasia 1+ (5-14) Microcytosis 1+ (5-14) Anion Gap 12 Estim Creat Clear Calc 81.2 Estimated GFR > 60 Random Glucose 124 H Calcium 7.5 L Phosphorus 2.8 Magnesium 1.9 Albumin 2.2 L Triglycerides 204 Procedures Date of Service Date of Service: 09/24/22 Progress Note: A&P Assessment and plan (1) Status post exploratory laparotomy: Status: Acute (2) Postoperative ileus: Status: Acute (3) Abdominal visceral abscess: Status: Acute (4) Small bowel obstruction: Status: Acute Plan 76-year-old female patient presenting with abdominal distension, nausea, vomiting, constipation found on CT to have dilated loops of large and small bowel with no apparent area of narrowing. Patient was treated non operatively with NG tube decompression and enemas without significant improvement. Now POD #5 s/p exploratory laparotomy, lysis of adhesions, small-bowel resection, drainage of intra-abdominal abscess, appendectomy. Found to have omental adhesions to small-bowel noted with loop of small bowel adherent and probably obstructed. Area of necrotic bowel with abscess formation containing feculent material with surrounding phlegmon. NGT removed yesterday, tolerating clears. Abd remains with clean incision, mildly distended. Will advance to solid diet. Can d/c PPN once tolerating solid food. Encouraged OOB and ambulation of halls. On flagyl/rocephin for intraabdominal abscess. Has been persistently tachy- repeat CBC ordered today which is elevated. Will obtain c diff, repeat CT scan. Time Spent With Patient Time: Total time managing care of this patient today ____ minutes. Quality Stroke Does the patient have a stroke diagnosis?: No VTE Prior VTE?: No VTE Risk Level:: Medical - moderate - high VTE Device Contraindication: Treatment Not Indicated VTE Drug Contraindication: N/A - Med Ordered
--- NOTE | 2022-09-24 10:14 | MHC.CLN ---
F/U REVIEWED LABS. COMMUNICATED WITH PHARMACY. RECOMMEND CONTINUING WITH PPN D10AA4.25 AT MAX GOAL RATE OF 60 ML PER HOUR WITH 17 ML PER HOUR OF 20% LIPIDS. PROVIDES 1550 KCALS (27.7 KCALS/KG), 61 G PROTEIN (1.05 G/KG). REPLETE LYTES NEEDED. NG TUBE OUT 09/23 AND CLEAR LIQUIDS STARTED. FOLLOW FOR DIET TOLERANCE/ADVANCEMENT, PPN, LABS.
[2022-09-24] MEDS: iohexoL 350 MG/ML 100 ML INFUS..BTL 85 ML IV (10:53)
--- NOTE | 2022-09-24 12:37 | P.PNIM_ITS ---
Subjective Subjective Date of Service: 09/24/22 Interval History: sbo/abcess abd,possible vasculitis seems ct abd shows -''?anastamosis break'' Review of Systems Abdominal pain seems to be improved significantly he has mild soreness in the incision area, NGT came out yesterday, now on clear liquid diet, Has some diarrhea overnight Physical Exam Vital Signs: Vital Signs: Last Vital Signs Temp 97.4 F 09/24/22 08:11 Pulse 99 09/24/22 08:11 Resp 17 09/24/22 08:11 BP 164/70 H 09/24/22 08:11 Pulse Ox 96 09/24/22 08:11 O2 Del Method Room Air 09/24/22 08:11 O2 Flow Rate 4 09/19/22 13:38 BMI result Body Mass Index 22.7 Appearance: Alert.? Oriented X3.? not in distress.? cvs: rrr, [id number] res: clear to auscultation ,no rhonchii or wheezing abd: no rebound or guarding ,some abd soarness incison area , bs present ext pulses present , no cyanosis . neuro: axo3 , nonfocal Objective Data Active Medications Amlodipine Besylate (Amlodipine Besylate 2.5 Mg Tablet) 2.5 mg PO DAILY [facility]; Protocol Last Admin: 09/18/22 09:47 Dose: 2.5 mg Documented By: ABY Budesonide (Budesonide 180 Mcg Aer.Pow.Ba) 2 puff INHALE RDAILY [facility] Last Admin: 09/24/22 08:04 Dose: 2 puff Documented By: CATHY Enoxaparin Sodium (Enoxaparin Sodium 40 Mg/0.4 Ml Syringe) 40 mg SUBCUT Q24H [facility] Last Admin: 09/24/22 07:51 Dose: 40 mg Documented By: GISELA Fluticasone Propionate (Fluticasone Propionate Nasal 16 Gm [place]) 1 spray NOSTRIL-B DAILY PRN PRN Reason: Allergy Symptoms Hydromorphone HCl (Hydromorphone Hcl 0.5 Mg/0.5 Ml Syringe) 0.25 mg IVPUSH Q5M PRN; Protocol PRN Reason: Pain, Severe (Pain Scale 7-10) Hydromorphone HCl (Hydromorphone Hcl 0.5 Mg/0.5 Ml Syringe) 0.25 mg IVPUSH Q5M PRN; Protocol PRN Reason: Pain, Severe (Pain Scale 7-10) Ceftriaxone Sodium 2 gm/ (Sodium Chloride) 50 mls @ 100 mls/hr IV Q24H [facility] Last Infusion: 09/24/22 08:38 Dose: 0 mls/hr Documented By: GISELA Metronidazole (Flagyl) 500 mg in 100 mls @ 100 mls/hr IV Q8H [facility] Last Infusion: 09/24/22 12:23 Dose: 0 mls/hr Documented By: GISELA Potassium Chloride 60 meq/Sodium Chloride 70 meq/Magnesium Sulfate 10 meq/Potassium Phosphate 50 mmol/Calcium Gluconate 9.3 meq/Amino Acids/Electrolytes/Dextrose 1,440 mls @ 60 mls/hr IVCONT DAILY@1800 [facility] Stop: 09/24/22 17:59 Last Infusion: 09/24/22 12:08 Dose: 60 mls/hr Documented By: GISELA Fat Emulsion Intravenous (Intralipid) 204 mls @ 17 mls/hr IVCONT BID@0600,1800 [facility] Stop: 09/24/22 17:59 Last Infusion: 09/24/22 12:08 Dose: 17 mls/hr Documented By: GISELA Potassium Chloride 60 meq/Sodium Chloride 90 meq/Magnesium Sulfate 10 meq/Potassium Phosphate 50 mmol/Calcium Gluconate 9.3 meq/Multivitamins 10 ml/ Trace Metals 1 ml/ Amino Acids/Electrolytes/Dextrose 1,440 mls @ 60 mls/hr IVCONT DAILY@1800 [facility] Stop: 09/25/22 17:59 Fat Emulsion Intravenous (Intralipid) 204 mls @ 17 mls/hr IVCONT BID@0600,1800 [facility] Stop: 09/25/22 17:59 Labetalol HCl (Labetalol Hcl 100 Mg/20 Ml Vial) 10 mg IVPUSH Q6H PRN PRN Reason: htn Last Admin: 09/22/22 21:20 Dose: 10 mg Documented By: ANDRÉS Loratadine (Loratadine 10 Mg Tablet) 10 mg PO DAILY PRN PRN Reason: Allergy Symptoms Melatonin (Melatonin 3 Mg Tablet) 6 mg PO BEDTIME PRN PRN Reason: Insomnia Morphine Sulfate (Morphine Sulfate 2 Mg/Ml Cartridge) 2 mg IVPUSH Q3H PRN; Protocol PRN Reason: Pain, Severe (Pain Scale 7-10) Last Admin: 09/23/22 20:13 Dose: 2 mg Documented By: NOMAN Ondansetron HCl (Ondansetron Hcl 4 Mg/2 Ml Vial) 4 mg IVPUSH Q8H PRN PRN Reason: Nausea and Vomiting Last Admin: 09/20/22 05:08 Dose: 4 mg Documented By: TRANG Oxycodone HCl (Oxycodone Hcl Immed Release 5 Mg Tablet) 10 mg PO Q4H PRN PRN Reason: Pain, Moderate(Pain Scale 4-6) Pharmacy Consult (Consult Rx Perform Med Rec) 1 each MISCELLANE ONCE PRN PRN Reason: Consult order Sodium Biphosphate/Sodium Phosphate (Sodium Phosphate,[place]-Dibasic 133 Ml Enema) 133 ml [place] ONCE [facility] Sodium Chloride (0.9 % Sodium Chloride Flush 3 Ml Syringe) 3 ml IVFLUSH QSHIFT [facility] Last Admin: 09/24/22 07:50 Dose: 3 ml Documented By: GISELA Vitamin D (Cholecalciferol (Vitamin D3) 25 Mcg Tablet) 25 mcg PO DAILY [facility] Last Admin: 09/24/22 08:00 Dose: Not Given Documented By: GISELA Non-Admin Reason: Patient Refused Labs 09/24/22 07:07 09/24/22 05:49 Labs: Laboratory Results - last 24 hr 09/24/22 09/24/22 05:49 07:07 MCV 82.6 MCH 26.4 L MCHC 32.0 RDW 14.3 Plt Count 454 H MPV 9.8 Immature Gran % (Auto) Cancelled Neut % (Auto) Cancelled Lymph % (Auto) Cancelled [place] % (Auto) Cancelled Eos % (Auto) Cancelled Baso % (Auto) Cancelled Lymph # (Auto) Cancelled [place] # (Auto) Cancelled Eos # (Auto) Cancelled Baso # (Auto) Cancelled Abs Immat Gran (auto) Cancelled Absolute Neuts (auto) Cancelled Absolute Nucleated RBC 0.000 Nucleated RBC % (auto) 0.0 Neutrophils % (Manual) 78 H Band Neutrophils % 12 H Lymphocytes % (Manual) 5 L Monocytes % (Manual) 2 Metamyelocytes % 3 Abs Neuts (Manual) 17.2 H Lymphocytes # (Manual) 1.0 L Monocytes # (Manual) 0.4 Metamyelocytes # 0.6 Platelet Estimate INCREASED Plt Morphology Comment NORMAL RBC Morphology NOTED Hypochromasia 1+ (5-14) Microcytosis 1+ (5-14) Anion Gap 12 Estim Creat Clear Calc 81.2 Estimated GFR > 60 Random Glucose 124 H Calcium 7.5 L Phosphorus 2.8 Magnesium 1.9 Albumin 2.2 L Triglycerides 204 Assessment and Plan (1) Abdominal visceral abscess: Status: Acute (2) Status post exploratory laparotomy: Status: Acute (3) Postoperative ileus: Status: Acute (4) Small bowel obstruction: Status: Acute (5) Vasculitis: Status: Acute Plan Hospital day: 12 76-year-old female with pertinent history of asthma not on home oxygen, mixed hyperlipidemia who presents to the emergency department for evaluation of abdom inal pain, nausea and vomiting. Abdominal pain/nausea/vomiting, dilated small and large bowels likely due to ileus vs obstrction. abdomen remains distendended, now with flatus and some reported waterly stool abdominal xray 09/15 persistent dilated small and large bowels after that - Surgery is recommending upper GI with small bowel series -reviewed ,patient still symptomatic-s/p exp lap-small bowel /abscess resection, abd abcess cultures sent . abd culture -gram neg ian-klesella pneumonia /kleb oxycota wbc trending up has diarrhae last night , no fevers added gip panel,cdiff ,ct abd /pelvis. pathology: ischemic bowel: there is small to medium vasculitis with focal granulomas, needs investigation for systemic vasculitis ct abd :Abnormal appearing small and large bowel. Dilated fluid-filled proximal small bowel. There is question of breakdown of the small bowel anastomosis in the right side of the abdomen and abnormal fluid collection containing small amount of air in the root of the small bowel mesentery.? There is an abnormal looking loop of more distal small bowel in the left pelvis with wall thickening mucosal enhancement and question discontinuity of the wall of the bowel. There is abnormal appearance to the colon with irregular wall thickening. There is question of pneumatosis of the cecum and proximal right colon. There are additional fluid collections in the small bowel mesentery. There is ascites greatest in the anterior lower abdomen which contains a small air pockets and in the posterior cul-de-sac dependently in the pelvis. There is diffuse peritoneal enhancement seen in the pelvis. There is evidence of atherosclerotic disease. Major mesenteric vessels appear patent. There is a mild stenosis at the origin of the celiac axis. [place] [facility]po, type and screen,IV zosyn( d/w Id changed antibiotics to zosyn),PPN surgery will reeval need for further surgerical intervention Discussed with the rheumatology Dr Vega -recommended to she care placement for possible vasculitis(please see pathology report-small bile/appendix):: there is small to medium vasculitis with focal granulomas, needs investigation for systemic vasculitis Spoke to Dr. Vega Recommended: Ct angiogram of abdomen and pelvis ANCA vasculitides CARMEN DSdna C3 C4 Sjogrens antibodies (ssa/ssb) Extractable nuclear antibodies Urinalysis Spot protein/creatinine ratio Rheumatoid factor CCP Serum protein electrophoresis Immunofixation Hepatitis panel, T spot. also repeat Liver function tests,esr,crp q2-3 days. Please call Rheumatology tomorrow-patient may need systemic steroids, patient was about transferred to [facility] but patient need repeat surgical intervention for above mentioned bowel anastomosis malfunction? Asthma: no exacerbation on admission. Continue home inhaler Hyperglycemia likely reactive, A1C = 5.5 mild hyponatremia -due to decreased po intake moniter closely bmp. hypokalemia,Hypocalcemia and hypophosphatemia: Probably related to decreased p.o. intake, patient is on PPN. Elevated BP, no prior diagnosis of HTN, treat PRN with IV Labetalol DVT prophylaxis:? Lovenox Need for inpatinet: Bowel anastomosis malfunction/may need breaking urgent surgical intervention d/w icu-if needed patient might need to go to icu after surgery Time Spent With Patient Time: Total time managing care of this patient today ____ minutes. Quality Stroke Does the patient have a stroke diagnosis?: No VTE Prior VTE?: No VTE Risk Level:: Medical - moderate - high VTE Device Contraindication: Treatment Not Indicated VTE Drug Contraindication: N/A - Med Ordered
[2022-09-24 12:41] LABS: Alanine Aminotransferase 22 U/L (0-31); Alkaline Phosphatase 503 U/L (39-117); Aspartate Amino Transferase 29 U/L (5-31); Bilirubin Direct 0.5 mg/dL (0.0-0.5); Bilirubin Total 0.9 mg/dL (0.0-1.0); C Reactive Protein 15.88 mg/dL (< or = 0.50); Total Protein 4.7 g/dL (6.5-8.0)
[2022-09-24 13:09] LABS: Erythrocyte Sedimentation Rate 104 MM/HR (0-20)
--- NOTE | 2022-09-24 13:48 | MHC.CM.PN ---
per rounds pt not dc ready dc plans remains home
--- NOTE | 2022-09-24 14:39 | PM.DS ---
DS: Providers Provider Date of admission: 09/13/22 09:01 Primary care physician: Amos Aguilar MD Consults: 09/13/22 01:20 Consult to General Surgery Stat Consulting Provider: [facility] [place] General Surgeons Reason for consultation: sbo?? abd pain, leukocytosis. Has provider been notified: Yes 09/22/22 11:49 Consult to Infectious Diseases Routine Consulting Provider: [facility] [place] Infectious Disease Reason for consultation: sbo/abd abcess s/p surgery and resection-klebsella related abcess Has provider been notified: No DS: Diagnosis Discharge Diagnosis (1) Abdominal visceral abscess: Status: Acute (2) Status post exploratory laparotomy: Status: Acute (3) Postoperative ileus: Status: Acute (4) Small bowel obstruction: Status: Acute (5) Vasculitis: Status: Acute DS: Summary Hospital Course Hospital Course: 76-year-old female with pertinent history of asthma not on home oxygen, mixed hyperlipidemia who presents to the emergency department for evaluation of abdominal pain, nausea and vomiting.? Patient states she has been having ongoing generalized abdominal discomfort, constant, nonradiating and progressive that started 3 days prior to presentation.? Last bowel movement was 3 days ago.? No similar complaints in the past.? No fever, chills.? Patient states she is not able to maintain p.o. intake due to nausea and nonbloody emesis.? Patient was seen in the ER yesterday and discharged home on lactulose but her symptoms continued and hence she presented to the ER again.? She recently started muscle relaxants for her neck pain.? No previous abdominal surgery.? Patient denies chest discomfort, palpitations, shortness of breath, changes in urinary habits. In the emergency department, imaging with multiple dilated loops of small and large bowel seen.? General surgery was consulted who recommended admission to Medicine. discharge summary: 76-year-old female presented to the hospital because of abdominal distention, nausea vomiting, constipation: CT of the abdomen was done-found to have dilated loops of large and small bowel-patient was subsequently seen by surgery and started on bowel rest, NG section, hydration: Patient abdominal discomfort as well as distension did not improve with supportive care-subsequently required exploratory laparotomy (on 09/20),?lysis of adhesions, small-bowel resection, drainage of intra-abdominal abscess, appendectomy.?Found to have omental adhesions to small-bowel noted with loop of small bowel adherent and probably obstructed.? Area of necrotic bowel with abscess formation containing feculent material with surrounding phlegmon. on 09/20 Patient was started on Zosyn, intra-abdominal cultures and pathology was sent. Subsequently patient was still on NGT section, and PPN-until return of bowel function-patient is passing bowels, so NG tube was removed, started on clear liquid yesterday, yesterday night had few episode of diarrhea also. Her abdominal culture came back: Klebsiella pneumonia/Klebsiella oxytoca: Sensitive to ceftriaxone/cefazolin(please see detailed report in the discharge summary section.) Seen by infectious disease recommended to switch Zosyn to ceftriaxone/Flagyl( patient is on ceftriaxone/Flagyl since 09/22)-can be switched to p.o. antibiotics total course will be 14 days, consider ID evaluation in [facility] if needed. Meanwhile patient leukocytosis trending up today WBC count is 19.1, ESR 104, CRP is 15.8. CT abdomen with IV contrast was ordered which is pending at the time of transfer. In addition her pathology report came: In addition to finding of abscess/serositis ,Appearances raise the possibility of a systemic vasculitis (polyarteritis nodosa, granulomatosis with polyangiitis, eosinophilic granulomatosis with polyangiitis, etc) and clinical and serologic correlation is necessary. Discussed with the rheumatology and surgery: Patient may benefit from the [facility] care placement and rheumatology evaluation and inpatient follow-up with Rheumatology for further use of systemic steroids, and further workup which includes:Ct angiogram of abdomen and pelvis ANCA vasculitides CARMEN DSdna C3 C4 Sjogrens antibodies (ssa/ssb) Extractable nuclear antibodies Urinalysis Spot protein/creatinine ratio Rheumatoid factor CCP Serum protein electrophoresis Immunofixation Hepatitis panel, T spot. also repeat Liver function tests,esr,crp q2-3 days( this workup can be done in [facility] since patient is being transferred) Consider general surgery evaluation in [facility]. Above management discussed with the patient in detail length, assessment and plan coordination time spent 50 minute. In addition patient sister also notified over the phone. Time Spent with Patient Time attestation: Total time managing care of this patient today ____ minutes. Discharge coordination time: Greater than 30 minutes Quality: Safe Use of Opioids Does Pt have an Active Cancer Diagnosis on the Problem List?: No Quality: Stroke Does the patient have a stroke diagnosis?: No Physical Exam Vital Signs: Vital Signs: Last Vital Signs Temp 97.4 F 09/24/22 08:11 Pulse 99 09/24/22 08:11 Resp 17 09/24/22 08:11 BP 164/70 H 09/24/22 08:11 Pulse Ox 96 09/24/22 08:11 O2 Del Method Room Air 09/24/22 08:11 O2 Flow Rate 4 09/19/22 13:38 BMI result Body Mass Index 22.7 Appearance: Alert.? Oriented X3.? not in distress.? cvs: rrr, [id number] . res: clear to auscultation ,no rhonchii or wheezing abd: no rebound or guarding ,some abd soarness incison area , bs present. ext pulses present , no cyanosis . neuro: axo3 , nonfocal DS: Data Data Completed and Pending Completed studies during hospitalization [Text1]: Pending at discharge 09/19/22 12:55 Surgical [PTH] Routine Labs on day of discharge: Laboratory Results - last 24 hr 09/24/22 09/24/22 09/24/22 05:49 05:49 07:07 WBC 19.1 H RBC 3.63 L Hgb 9.6 L Hct 30.0 L MCV 82.6 MCH 26.4 L MCHC 32.0 RDW 14.3 Plt Count 454 H MPV 9.8 Immature Gran % (Auto) Cancelled Neut % (Auto) Cancelled Lymph % (Auto) Cancelled [place] % (Auto) Cancelled Eos % (Auto) Cancelled Baso % (Auto) Cancelled Lymph # (Auto) Cancelled [place] # (Auto) Cancelled Eos # (Auto) Cancelled Baso # (Auto) Cancelled Abs Immat Gran (auto) Cancelled Absolute Neuts (auto) Cancelled Absolute Nucleated RBC 0.000 Nucleated RBC % (auto) 0.0 Neutrophils % (Manual) 78 H Band Neutrophils % 12 H Lymphocytes % (Manual) 5 L Monocytes % (Manual) 2 Metamyelocytes % 3 Abs Neuts (Manual) 17.2 H Lymphocytes # (Manual) 1.0 L Monocytes # (Manual) 0.4 Metamyelocytes # 0.6 Platelet Estimate INCREASED Plt Morphology Comment NORMAL RBC Morphology NOTED Hypochromasia 1+ (5-14) Microcytosis 1+ (5-14) ESR 104 H Sodium 133 L Potassium 3.9 Chloride 101 Carbon Dioxide 24 Anion Gap 12 BUN 13 Creatinine 0.48 L Estim Creat Clear Calc 81.2 Estimated GFR > 60 Random Glucose 124 H Calcium 7.5 L Phosphorus 2.8 Magnesium 1.9 Total Bilirubin 0.9 Direct Bilirubin 0.5 AST 29 ALT 22 Alkaline Phosphatase 503 H C-Reactive Protein 15.88 H Total Protein 4.7 L Albumin 2.2 L Triglycerides 204 Imaging Chest x-ray: Radiologist's impression: ITS Impressions Abdomen/Pelvis CT 09/12/22 23:41 IMPRESSION: 1. Multiple dilated loops of small and large bowel. While there is some decrease in caliber of the distal small bowel, the colonic associated dilation would argue against significant small bowel obstruction. There is gradual decrease in caliber of the colon in the sigmoid colon without focal transition point. Ileus would be a consideration with this appearance. 2. Trace free fluid. 3. Small hiatal hernia. 4. Trace pericardial effusion. Chest X-Ray 09/13/22 01:50 IMPRESSION: No acute cardiopulmonary findings. Chest X-Ray 09/13/22 02:25 IMPRESSION: 1. Enteric tube tip lies in the region of the distal esophagus. Advancement by at least 11 cm is recommended. 2. No acute cardiopulmonary findings. Chest X-Ray 09/13/22 20:46 IMPRESSION: 1. No acute pulmonary disease. 2. Enteric tube terminates in the proximal stomach with the side-port at the distal esophagus. Placement is similar to prior. Consider advancement. Abdomen X-Ray 09/15/22 08:49 IMPRESSION: Nasogastric tube in the proximal stomach. Persistent dilated loops of small and large bowel. Decreased stool burden. Upper GI and Small Bowel X-Ray 09/17/22 16:20 IMPRESSION: Multiple dilated small bowel loops with Gastrografin opacifying the proximal and mid small bowel loops at 3 hours. Patient had a single episode of vomiting at which point the exam was discontinued. The referring physician/surgeon was notified of the incomplete exam. CT abdomen and pelvis with IV contrast-results from today is still pending Additional Comments Additional comments: Procedure Result Verified Site Blood Culture (Second) Final 09/18/22-0203 No growth after 5 days. abdominal cultures: Ordered: Routine Cult GS Procedure Result Verified Site Gram stain Final 09/19/22-1519 Gram stain results: No polys 2+ red blood cells 3+ Gram-negative rods 1+ Gram-positive cocci Routine Culture Final 09/22/22-0724 Organism 1 Klebsiella pneumoniae Quantity 2+ Organism 2 Klebsiella oxytoca Quantity 2+ Kleb pneum Kleb oxyto M.I.C. RX M.I.C. RX --------- --- --------- --- Ampicillin >=32 R >=32 R Cefazolin <=4 S 16 S Ceftriaxone <=0.25 S <=0.25 S Gentamicin <=1 S <=1 S Levofloxacin <=0.12 S <=0.12 S Trimethoprim/Sulfamethoxazole <=20 S <=20 S small bowel/appendix pathology report: Diagnosis A.? Small bowel, segmental resection:? -Ischemic enteritis with transmural necrosis, near perforation, and acute serositis. 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 -Ischemic enteritis is present at one of the margins and viability is uncertain. -Two benign lymph nodes. B.? Appendix, appendectomy:? -Ischemic appendicitis with perforation into mesentery, with abscess and serositis. -Mesenteric vasculitis with granuloma (see comment). -Sessile serrated lesion/polyp without dysplasia at proximal margin (see comment) Comment:? Appearances raise the possibility of a systemic vasculitis (polyarteritis nodosa, granulomatosis with polyangiitis, eosinophilic granulomatosis with polyangiitis, etc) and clinical and serologic correlation is necessary. Hyperplastic/serrated lesions of the appendix can be associated with other colonic neoplasms and a colonoscopy is recommended. Discharge Plan Discharge Anticipated Discharge Date/Time: 09/24/22 14:13 Patient Disposition: Xfer Acute Care Hospital Discharge Diagnosis: sbo/abcess abd,possible vasculitis Referrals: Rajendra Arriaga MD [Physician] - 2 Weeks Po,Amos White MD [Primary Care Provider] - 1 Week Discharge Medications: New ceftriaxone 2 gram Recon Soln 2 g IV Q24H Qty: 1 0RF metronidazole in NaCl (iso-os) 500 mg/100 mL Piggyback 500 mg IV Q8H Qty: 1 0RF amlodipine 2.5 mg Tablet 2.5 mg PO DAILY Qty: 1 0RF Protocol: Hold for SBP< HOLD for SBP < : 90 hydromorphone 0.5 mg/0.5 mL Syringe 0.25 mg IVPUSH Q5M PRN (Reason: Pain, Severe (Pain Scale 7-10)) Qty: 5 0RF Protocol: Hold for RR < HOLD and contact provider for RR < (bpm): 12 Rx Instructions: Partial Fill upon patient request. oxycodone 5 mg Tablet 10 mg PO Q4H PRN (Reason: Pain, Moderate(Pain Scale 4-6)) Qty: 1 0RF Rx Instructions: Partial Fill upon patient request. ondansetron HCl (PF) 4 mg/2 mL Solution 4 mg IVPUSH Q8H PRN (Reason: Nausea And Vomiting) Qty: 1 0RF Continued Pulmicort Flexhaler 180 mcg/actuation aerosol powdr breath activated 2 inh inhalation QAM Qty: 3 3RF cholecalciferol (vitamin D3) 25 mcg (1,000 unit) Tablet 25 mcg PO DAILY omega 3-ccf-esh-fish oil [Fish Oil] 1,000 mg (120 mg-180 mg) Capsule 1 cap PO DAILY fexofenadine [Arlene Allergy] 180 mg tablet 180 mg PO DAILY PRN (Reason: Allergy Symptoms) fluticasone propionate 50 mcg/actuation spray,suspension 1 spray intranasal DAILY PRN (Reason: Allergy Symptoms) albuterol sulfate [ProAir HFA] 90 mcg/actuation HFA aerosol inhaler 2 puff inhalation Q4-6H PRN (Reason: shortness of breath or wheezing) Qty: 8.5 0RF Held simvastatin 20 mg tablet 20 mg PO DAILY Qty: 90 2RF Hold Instructions: Resume on 10/10/22. Diet: Advance to usual diet Activity on Discharge: As tolerated Stand Alone Forms: Patient Portal Discharge page Activity Restrictions/Additional Instructions: No lifting > 10 pounds for one month follow up in office in two weeks after discharge Health Concerns: 76-year-old female presented to the hospital because of abdominal distention, nausea vomiting, constipation: CT of the abdomen was done-found to have dilated loops of large and small bowel-patient was subsequently seen by surgery and started on bowel rest, NG section, hydration: Patient abdominal discomfort as well as distension did not improve with supportive care-subsequently required exploratory laparotomy (on 09/20),?lysis of adhesions, small-bowel resection, drainage of intra-abdominal abscess, appendectomy.?Found to have omental adhesions to small-bowel noted with loop of small bowel adherent and probably obstructed.? Area of necrotic bowel with abscess formation containing feculent material with surrounding phlegmon. on 09/20 Patient was started on Zosyn, intra-abdominal cultures and pathology was sent. Subsequently patient was still on NGT section, and PPN-until return of bowel function-patient is passing bowels, so NG tube was removed, started on clear liquid yesterday, yesterday night had few episode of diarrhea also. Her abdominal culture came back: Klebsiella pneumonia/Klebsiella oxytoca: Sensitive to ceftriaxone/cefazolin(please see detailed report in the discharge summary section.) Seen by infectious disease recommended to switch Zosyn to ceftriaxone/Flagyl( patient is on ceftriaxone/Flagyl since 09/22)-can be switched to p.o. antibiotics total course will be 14 days, consider ID evaluation in [facility] if needed. Meanwhile patient leukocytosis trending up today WBC count is 19.1, ESR 104, CRP is 15.8. CT abdomen with IV contrast was ordered which is pending at the time of transfer. In addition her pathology report came: In addition to finding of abscess/serositis ,Appearances raise the possibility of a systemic vasculitis (polyarteritis nodosa, granulomatosis with polyangiitis, eosinophilic granulomatosis with polyangiitis, etc) and clinical and serologic correlation is necessary. Discussed with the rheumatology and surgery: Patient may benefit from the [facility] placement and rheumatology evaluation and inpatient follow-up with Rheumatology for further use of systemic steroids, and further workup which includes:Ct angiogram of abdomen and pelvis ANCA vasculitides CARMEN DSdna C3 C4 Sjogrens antibodies (ssa/ssb) Extractable nuclear antibodies Urinalysis Spot protein/creatinine ratio Rheumatoid factor CCP Serum protein electrophoresis Immunofixation Hepatitis panel, T spot. also repeat Liver function tests,esr,crp q2-3 days. Above management discussed with the patient in detail length, assessment and plan coordination time spent 50 minute. In addition patient sister also notified over the phone. Plan of Treatment: As above. Assessment: As above. Patient Instructions: Bowel Resection (DC)
--- NOTE | 2022-09-24 17:00 | P.EN_ITS ---
Event Note Date of Service: 09/24/22 Event Note: CT abdomen and pelvis reviewed as well as the pathology results. Pathology indicates multifocal vasculitis which may possibly indicate systemic vasculitis. CT abdomen and pelvis performed for elevated WBC and tachycardia seems indicate possible disruption of the small-bowel anastomosis. There is also fluid collection extending into the pelvis possibly an abscess. The above findings were discussed in detail with the patient and recommendation made for explor atory laparotomy possible small-bowel resection possible ostomy. After discussion of the procedure, risks, and alternatives, she consents to the surgery. She has been added onto the operative schedule for today. Time Spent With Patient Time: Total time managing care of this patient today ____ minutes.
--- NOTE | 2022-09-24 21:38 | W.PM.OPN ---
Operative Note Operative Note Date of Service: 09/24/22 Narrative: Preoperative diagnosis: Small bowel vasculitis with bowel necrosis, abscess Postoperative diagnosis: same Procedure: Exploratory laparotomy, small bowel resection, double barrel ileostomy Surgeon: Rajendra Arriaga MD Bilingual Spanish Inbound Sales: none Anesthesia: general ET Indications for procedure: Previous exploratory laparotomy last week identified multiple areas of small bowel necrosis. Pathology findings today revealed a diffuse vasculitis. CT today revealed fluid collection around anastomosis suggestive of an anastomotic leak. Operative findings:Gangrene of anastomosis and other segments of small bowel suggestive of additional areas of vasculitis. Specimen: Small bowel anastomosis Estimated blood loss: 25 mls Complications: none Procedure details: the patient was brought to the OR and placed in a supine position. After administering general anesthesia patient's abdomen was prepped with Betadine and draped in a sterile fashion. The previous midline incision was then reopened down into the peritoneum. The above findings were noted. The small bowel was then run from terminal ileum to ligament of Treitz. Several areas of necrotic bowel involving full-thickness necrosis were identified. Findings were suggestive of additional areas of vasculitis with bowel necrosis. The necrosis involve the previous anastomosis as well with evidence of leakage at that site. Non bilious purulent fluid was evacuated from the abdomen surrounding the anastomosis and into the pelvis. Cultures were obtained of the fluid. An area measuring approximately 30 cm was identified as requiring further resection. A DARIEN was used to divide the bowel at the proximal and distal margins to include the previous anastomosis. LigaSure was then used to divide the mesentery and to staple lines. The bowel specimen was then removed and passed off the table to be evaluated by pathology. The abdomen was then thoroughly irrigated with saline solution, 2 L. any additional loculations were broken up. A circular skin incision was then made in the right lower quadrant for an ileostomy. Incision was carried down to the anterior rectus sheath. A cruciate incision was then made at that location. A Bettina clamp was then inserted through the rectus muscle into the peritoneum. This was then dilated to allow passage of 3 fingers. A double-lumen ileostomy was then performed with both the distal and proximal small bowel brought up through the ostomy. Fascia was then closed in the midline using a running Looped 0 PDS suture. skin was closed using skin fifi. The ostomy was then matured using 3-0 Polysorb sutures to create a [place] between the proximal and distal loops of bowel. Sterile dressings and an ostomy appliance were applied. The patient tolerated the procedure well and was transferred to PACU in stable condition.
[2022-09-24] MEDS: Acetaminophen 1,000 MG/100 ML PIGGYBACK 400 MG IV (21:48)
[2022-09-24] MEDS: fentaNYL citrate/PF 100 MCG/2 ML VIAL 50 MCG IVPUSH (21:58)
[2022-09-25] VITALS (9 sets, daily range): BP systolic 136–161; BP diastolic 60–70; PULSE 102–121; RESP 14–20; TEMP 36.6–36.9; O2SAT 96–98; BMI 22.7
[2022-09-25] MEDS: 0.9 % Sodium Chloride Flush 3 ML SYRINGE IVFLUSH ×4 (00:10→20:35)
[2022-09-25] MEDS: Lactated Ringers 1,000 ML 100 ML IVCONT ×3 (00:11→20:26)
[2022-09-25] MEDS: Morphine Sulfate 2 MG/ML CARTRIDGE IVPUSH ×6 (00:12→20:38)
[2022-09-25] MEDS: Piperacillin Sodium/Tazobactam 3.375 GM in 0.9 % Sodium Chloride 50 ML IV ×4 (02:40→20:28)
--- NOTE | 2022-09-25 02:49 | PC.NURSE ---
09/24 at 2230, patient transferred to Room 459 from PACU. s/p exploratomy laparotomy, small bowel resection, double barrel ileostomy. Patient alert, drowsy; medicated for pain in pacu. Dressing to mid abdomen clean/dry/intact with new ileostomy. Medications administered per jul.
[2022-09-25] MEDS: Fat Emulsions 20% 250 ML 17 ML IVCONT ×2 (06:07→18:17)
[2022-09-25 07:03] LABS: Hematocrit 30.3 % (37.0-47.0); Hemoglobin 9.7 g/dl (12.0-16.0); Mean Corpuscular Hemoglobin 26.3 pg (27.0-33.0); Mean Corpuscular Volume 82.1 fL (80.0-98.0); Platelet Count 334 X10*3/uL (160-400); Red Blood Count 3.69 X10*6/uL (4.20-5.50); Red Cell Distribution Width 14.4 % (11.0-16.0); White Blood Count 24.8 X10*3/uL (4.8-10.8)
[2022-09-25 07:24] LABS: Anion Gap 15 (12-20); Blood Urea Nitrogen 11 mg/dL (9-16); Calcium 7.4 mg/dL (8.4-10.2); Carbon Dioxide 21 mmol/L (22-29); Chloride 103 mmol/L (96-108); Creatinine Clr Calc Pharmacy 76.4; Estimated Glomerular Filt Rate > 60; Glucose Random 162 mg/dL (60-115); Potassium 4.6 mmol/L (3.3-5.1); Rheumatoid Factor < 13.0 IU/mL (<15.0); Sodium 134 mmol/L (135-145)
--- NOTE | 2022-09-25 07:38 | PM.PNGS ---
Subjective Subjective Date of Service: 09/25/22 <Christina Chirinos PA-C - Last Filed: 09/25/22 07:47> 09/25/22 <Rajendra Arriaga MD - Last Filed: 09/25/22 08:00> Interval history: Feels ok this morning, tired. Pain is controlled. Denies nausea. <Christina Chirinos PA-C - Last Filed: 09/25/22 07:47> Physical Exam Vital Signs: Vital Signs: Last Vital Signs Temp 98.4 F 09/25/22 07:35 Pulse 104 H 09/25/22 07:35 Resp 18 09/25/22 07:35 BP 150/67 H 09/25/22 07:35 Pulse Ox 97 09/25/22 07:35 O2 Del Method Nasal Cannula 09/25/22 07:35 O2 Flow Rate 2 09/25/22 07:35 BMI result Body Mass Index 22.7 <Christina Chirinos PA-C - Last Filed: 09/25/22 07:47> Const: General: no acute distress and alert <Christina Chirinos PA-C - Last Filed: 09/25/22 07:47> Orientation/consciousness: patient oriented x3 <MISTY Shane Last Filed: 09/25/22 07:47> Resp: Effort & Inspection: normal respiratory effort <Christina Chirinos PA-C - Last Filed: 09/25/22 07:47> GI: Other: double barrel ileostomy slightly dusky appearing, no gas or output in appliance <Christina Chirinos PA-C - Last Filed: 09/25/22 07:47> Inspection: Yes distended (mild) and Yes incision (dressing c/d/i) <MISTY Shane Last Filed: 09/25/22 07:47> Palpation (GI): Soft to palpation, Tenderness to palpation present (GI) (incisional), no guarding and not rigid <MISTY Shane Last Filed: 09/25/22 07:47> Skin: General skin exam: no rashes or lesions noted <Christina Chirinos PA-C - Last Filed: 09/25/22 07:47> Neuro: General: patient oriented x3 and moves all extremities <Christina Chirinos PA-C - Last Filed: 09/25/22 07:47> Objective Data Active Medications Amlodipine Besylate (Amlodipine Besylate 2.5 Mg Tablet) 2.5 mg PO DAILY [facility]; Protocol Last Admin: 09/18/22 09:47 Dose: 2.5 mg Documented By: ABY Budesonide (Budesonide 180 Mcg Aer.Pow.Ba) 2 puff INHALE RDAILY [facility] Last Admin: 09/24/22 08:04 Dose: 2 puff Documented By: BRENNANSLINDA Fluticasone Propionate (Fluticasone Propionate Nasal 16 Gm [place]) 1 spray NOSTRIL-B DAILY PRN PRN Reason: Allergy Symptoms Potassium Chloride 60 meq/Sodium Chloride 90 meq/Magnesium Sulfate 10 meq/Potassium Phosphate 50 mmol/Calcium Gluconate 9.3 meq/Multivitamins 10 ml/ Trace Metals 1 ml/ Amino Acids/Electrolytes/Dextrose 1,440 mls @ 60 mls/hr IVCONT DAILY@1800 [facility] Stop: 09/25/22 17:59 Last Admin: 09/24/22 22:49 Dose: 60 mls/hr Documented By: JOCE Comments: late d/t pt just up from pacu, spoke with pharmacy Fat Emulsion Intravenous (Intralipid) 204 mls @ 17 mls/hr IVCONT BID@0600,1800 [facility] Stop: 09/25/22 17:59 Last Admin: 09/25/22 06:07 Dose: 17 mls/hr Documented By: TIFFANIE Lactated Ringer's (Lr) 1,000 mls @ 100 mls/hr IVCONT .Q10H [facility] Last Admin: 09/25/22 00:11 Dose: 100 mls/hr Documented By: JOCE Comments: late d/t no second iv access earlier Piperacillin Sod/Tazobactam (Sod 3.375 gm/ Sodium Chloride) 50 mls @ 100 mls/hr IV Q6H [facility] Last Infusion: 09/25/22 03:36 Dose: 0 mls/hr Documented By: TIFFANIE Labetalol HCl (Labetalol Hcl 100 Mg/20 Ml Vial) 10 mg IVPUSH Q6H PRN PRN Reason: htn Last Admin: 09/22/22 21:20 Dose: 10 mg Documented By: ANDRÉS Loratadine (Loratadine 10 Mg Tablet) 10 mg PO DAILY PRN PRN Reason: Allergy Symptoms Melatonin (Melatonin 3 Mg Tablet) 6 mg PO BEDTIME PRN PRN Reason: Insomnia Morphine Sulfate (Morphine Sulfate 2 Mg/Ml Cartridge) 2 mg IVPUSH Q3H PRN; Protocol PRN Reason: Pain, Severe (Pain Scale 7-10) Last Admin: 09/25/22 04:22 Dose: 2 mg Documented By: TIFFANIE Ondansetron HCl (Ondansetron Hcl 4 Mg/2 Ml Vial) 4 mg IVPUSH Q8H PRN PRN Reason: Nausea and Vomiting Last Admin: 09/20/22 05:08 Dose: 4 mg Documented By: TRANG Oxycodone HCl (Oxycodone Hcl Immed Release 5 Mg Tablet) 10 mg PO Q4H PRN PRN Reason: Pain, Moderate(Pain Scale 4-6) Pharmacy Consult (Consult Rx Perform Med Rec) 1 each MISCELLANE ONCE PRN PRN Reason: Consult order Sodium Chloride (0.9 % Sodium Chloride Flush 3 Ml Syringe) 3 ml IVFLUSH [facility] Last Admin: 09/25/22 00:10 Dose: 3 ml Documented By: JOCE <Christina Chirinos PA-C - Last Filed: 09/25/22 07:47> Labs CBC & Chem 7: 09/25/22 06:29 09/25/22 06:29 <Christina Chirinos PA-C - Last Filed: 09/25/22 07:47> Labs: Laboratory Results - last 24 hr 09/24/22 09/24/22 09/24/22 05:49 05:49 07:07 MCV 82.6 MCH 26.4 L MCHC 32.0 RDW 14.3 Plt Count 454 H MPV 9.8 Immature Gran % (Auto) Cancelled Neut % (Auto) Cancelled Lymph % (Auto) Cancelled Ocean % (Auto) Cancelled Eos % (Auto) Cancelled Baso % (Auto) Cancelled Lymph # (Auto) Cancelled Ocean # (Auto) Cancelled Eos # (Auto) Cancelled Baso # (Auto) Cancelled Abs Immat Gran (auto) Cancelled Absolute Neuts (auto) Cancelled Absolute Nucleated RBC 0.000 Nucleated RBC % (auto) 0.0 Neutrophils % (Manual) 78 H Band Neutrophils % 12 H Lymphocytes % (Manual) 5 L Monocytes % (Manual) 2 Metamyelocytes % 3 Abs Neuts (Manual) 17.2 H Lymphocytes # (Manual) 1.0 L Monocytes # (Manual) 0.4 Metamyelocytes # 0.6 Platelet Estimate INCREASED Plt Morphology Comment NORMAL RBC Morphology NOTED Hypochromasia 1+ (5-14) Microcytosis 1+ (5-14) ESR 104 H Anion Gap Estim Creat Clear Calc Estimated GFR Random Glucose Calcium Total Bilirubin 0.9 Direct Bilirubin 0.5 AST 29 ALT 22 Alkaline Phosphatase 503 H C-Reactive Protein 15.88 H Total Protein 4.7 L Albumin 2.2 L Rheumatoid Factor Blood Type Antibody Screen 09/24/22 09/25/22 09/25/22 16:56 06:29 06:29 MCV 82.1 MCH 26.3 L MCHC 32.0 RDW 14.4 Plt Count 334 D MPV 11.0 Immature Gran % (Auto) Neut % (Auto) Lymph % (Auto) Ocean % (Auto) Eos % (Auto) Baso % (Auto) Lymph # (Auto) Ocean # (Auto) Eos # (Auto) Baso # (Auto) Abs Immat Gran (auto) Absolute Neuts (auto) Absolute Nucleated RBC 0.000 Nucleated RBC % (auto) 0.0 Neutrophils % (Manual) Band Neutrophils % Lymphocytes % (Manual) Monocytes % (Manual) Metamyelocytes % Abs Neuts (Manual) Lymphocytes # (Manual) Monocytes # (Manual) Metamyelocytes # Platelet Estimate Plt Morphology Comment RBC Morphology Hypochromasia Microcytosis ESR Anion Gap 15 Estim Creat Clear Calc 76.4 Estimated GFR > 60 Random Glucose 162 H Calcium 7.4 L Total Bilirubin Direct Bilirubin AST ALT Alkaline Phosphatase C-Reactive Protein Total Protein Albumin Rheumatoid Factor < 13.0 Blood Type A Positive Antibody Screen NEGATIVE <Christina Chirinos PA-C - Last Filed: 09/25/22 07:47> Procedures Date of Service Date of Service: 09/25/22 <Christina Chirinos PA-C - Last Filed: 09/25/22 07:47> 09/25/22 <Rajendra Arriaga MD - Last Filed: 09/25/22 08:00> Progress Note: A&P Assessment and plan (1) Vasculitis: Status: Acute <Christina Chirinos PA-C - Last Filed: 09/25/22 07:47> (2) Status post exploratory laparotomy: Status: Acute <Christina Chirinos PA-C - Last Filed: 09/25/22 07:47> (3) S/P ileostomy: Status: Acute <Chritsina Chirinos PA-C - Last Filed: 09/25/22 07:47> Assessment and Plan: 76-year-old female patient who initially was found on CT to have dilated loops of large and small bowel and ultimately required exploratory laparotomy, lysis of adhesions, small-bowel resection, drainage of intra-abdominal abscess, appendectomy. She was doing fairly well post op and improving however has been persistently tachycardic and therefore repeat CBC ordered, showed leukocytosis. CT scan obtained indicating possible disruption of the small-bowel anastomosis. SB pathology indicates multifocal vasculitis which may possibly indicate systemic vasculitis. She is now POD #1 s/p exploratory laparotomy, small bowel resection, double barrel ileostomy. Doing fairly well post op. Pain controlled. VS- remains tachycardic. Ileostomy dusky appearing, await output. Abd remains slightly distended, appropriate post op tenderness. Will keep NPO for now, cont PPN. OOB today at least to recliner. Will need evaluation for vasculitis. ?Transfer to being discussed as no inpatient rheum available here. <Christina Chirinos PA-C - Last Filed: 09/25/22 07:47> Time Spent With Patient Time: Total time managing care of this patient today ____ minutes. <Christina Chirinos PA-C - Last Filed: 09/25/22 07:47> Quality Stroke Does the patient have a stroke diagnosis?: No <MISTY Shane Last Filed: 09/25/22 07:47> VTE Prior VTE?: No <MISTY Shane Last Filed: 09/25/22 07:47> VTE Risk Level:: Medical - moderate - high <MISTY Shane Last Filed: 09/25/22 07:47> VTE Device Contraindication: Treatment Not Indicated <MISTY Shane Last Filed: 09/25/22 07:47> VTE Drug Contraindication: N/A - Med Ordered <Christina Chirinos PA-C - Last Filed: 09/25/22 07:47>
[2022-09-25] MEDS: Budesonide 180 MCG AER.POW.BA 2 PUFF INHALE (07:42)
[2022-09-25 07:47] LABS: Magnesium 1.9 mg/dL (1.6-2.6); Phosphorus 3.7 mg/dL (2.7-4.5)
[2022-09-25 08:03] LABS: Creatinine Urine 28.45 mg/dL; Protein/Creatinine Ratio, Ur 0.53 (<0.2); Total Protein Urine Random 15 mg/dL (<12)
[2022-09-25] MEDS: ondansetron HCL 4 MG/2 ML VIAL IVPUSH ×2 (08:53→16:44)
--- NOTE | 2022-09-25 11:18 | P.PNIM_ITS ---
Subjective Subjective Date of Service: 09/25/22 Interval History: f/u on bowel obstruction s/p srugery x 2, vasculitis of bowel Physical Exam Vital Signs: Vital Signs: Last Vital Signs Temp 98.4 F 09/25/22 07:35 Pulse 104 H 09/25/22 07:44 Resp 18 09/25/22 07:44 BP 150/67 H 09/25/22 07:35 Pulse Ox 97 09/25/22 07:35 O2 Del Method Nasal Cannula 09/25/22 07:35 O2 Flow Rate 2 09/25/22 07:35 BMI result Body Mass Index 22.7 Const: Other: General: AO X 3, no acute distress Resp: CTA bilateral CVS: S1,S2,RRR GI: , NT, colostomy bag inpalce, dec bowel, mild distention Skin: No rash Neuro: motor grossly intact Psych: appropriate affect Objective Data Active Medications Amlodipine Besylate (Amlodipine Besylate 2.5 Mg Tablet) 2.5 mg PO DAILY [facility]; Protocol Last Admin: 09/18/22 09:47 Dose: 2.5 mg Documented By: ABY Budesonide (Budesonide 180 Mcg Aer.Pow.Ba) 2 puff INHALE RDAILY [facility] Last Admin: 09/25/22 07:42 Dose: 2 puff Documented By: MARKIE Fluticasone Propionate (Fluticasone Propionate Nasal 16 Gm [place]) 1 spray NOSTRIL-B DAILY PRN PRN Reason: Allergy Symptoms Potassium Chloride 60 meq/Sodium Chloride 90 meq/Magnesium Sulfate 10 meq/Potassium Phosphate 50 mmol/Calcium Gluconate 9.3 meq/Multivitamins 10 ml/ Trace Metals 1 ml/ Amino Acids/Electrolytes/Dextrose 1,440 mls @ 60 mls/hr IVCONT DAILY@1800 [facility] Stop: 09/25/22 17:59 Last Admin: 09/24/22 22:49 Dose: 60 mls/hr Documented By: JOCE Comments: late d/t pt just up from pacu, spoke with pharmacy Fat Emulsion Intravenous (Intralipid) 204 mls @ 17 mls/hr IVCONT BID@0600,1800 [facility] Stop: 09/25/22 17:59 Last Admin: 09/25/22 06:07 Dose: 17 mls/hr Documented By: TIFFANIE Lactated Ringer's (Lr) 1,000 mls @ 100 mls/hr IVCONT .Q10H [facility] Last Admin: 09/25/22 09:54 Dose: 100 mls/hr Documented By: BEBA Piperacillin Sod/Tazobactam (Sod 3.375 gm/ Sodium Chloride) 50 mls @ 100 mls/hr IV Q6H [facility] Last Infusion: 09/25/22 09:30 Dose: 0 mls/hr Documented By: BEBA Potassium Chloride 60 meq/Sodium Chloride 100 meq/Magnesium Sulfate 10 meq/Potassium Phosphate 50 mmol/Calcium Gluconate 9.3 meq/Amino Acids/Electrolytes/Dextrose 1,680 mls @ 70 mls/hr IVCONT DAILY@1800 [facility] Stop: 09/26/22 17:59 Fat Emulsion Intravenous (Intralipid) 204 mls @ 17 mls/hr IVCONT BID@0600,1800 [facility] Stop: 09/26/22 17:59 Labetalol HCl (Labetalol Hcl 100 Mg/20 Ml Vial) 10 mg IVPUSH Q6H PRN PRN Reason: htn Last Admin: 09/22/22 21:20 Dose: 10 mg Documented By: ANDRÉS Loratadine (Loratadine 10 Mg Tablet) 10 mg PO DAILY PRN PRN Reason: Allergy Symptoms Melatonin (Melatonin 3 Mg Tablet) 6 mg PO BEDTIME PRN PRN Reason: Insomnia Morphine Sulfate (Morphine Sulfate 2 Mg/Ml Cartridge) 2 mg IVPUSH Q3H PRN; Protocol PRN Reason: Pain, Severe (Pain Scale 7-10) Last Admin: 09/25/22 08:46 Dose: 2 mg Documented By: BEBA Ondansetron HCl (Ondansetron Hcl 4 Mg/2 Ml Vial) 4 mg IVPUSH Q8H PRN PRN Reason: Nausea and Vomiting Last Admin: 09/25/22 08:53 Dose: 4 mg Documented By: BEBA Oxycodone HCl (Oxycodone Hcl Immed Release 5 Mg Tablet) 10 mg PO Q4H PRN PRN Reason: Pain, Moderate(Pain Scale 4-6) Pharmacy Consult (Consult Rx Perform Med Rec) 1 each MISCELLANE ONCE PRN PRN Reason: Consult order Sodium Chloride (0.9 % Sodium Chloride Flush 3 Ml Syringe) 3 ml IVFLUSH QSHIFT [facility] Last Admin: 09/25/22 09:58 Dose: 3 ml Documented By: PHANLYM Labs 09/25/22 06:29 09/25/22 06:29 Labs: Laboratory Results - last 24 hr 09/24/22 09/24/22 09/24/22 05:49 05:49 16:56 MCV MCH MCHC RDW Plt Count MPV Absolute Nucleated RBC Nucleated RBC % (auto) ESR 104 H Anion Gap Estim Creat Clear Calc Estimated GFR Random Glucose Calcium Phosphorus Magnesium Total Bilirubin 0.9 Direct Bilirubin 0.5 AST 29 ALT 22 Alkaline Phosphatase 503 H C-Reactive Protein 15.88 H Total Protein 4.7 L Albumin 2.2 L U Random Total Protein Urine Creatinine Protein/Creatinin Ratio Rheumatoid Factor Blood Type A Positive Antibody Screen NEGATIVE 09/25/22 09/25/22 09/25/22 06:29 06:29 06:30 MCV 82.1 MCH 26.3 L MCHC 32.0 RDW 14.4 Plt Count 334 D MPV 11.0 Absolute Nucleated RBC 0.000 Nucleated RBC % (auto) 0.0 ESR Anion Gap 15 Estim Creat Clear Calc 76.4 Estimated GFR > 60 Random Glucose 162 H Calcium 7.4 L Phosphorus 3.7 Magnesium 1.9 Total Bilirubin Direct Bilirubin AST ALT Alkaline Phosphatase C-Reactive Protein Total Protein Albumin U Random Total Protein 15 H Urine Creatinine 28.45 Protein/Creatinin Ratio 0.53 H Rheumatoid Factor < 13.0 Blood Type Antibody Screen Microbiology Microbiology Results: Microbiology 09/24/22 Unknown Gram Stain - Final Abscess Intra-abdominal Routine Culture - Preliminary Culture in progress. Assessment and Plan (1) Abdominal visceral abscess: Status: Acute (2) Status post exploratory laparotomy: Status: Acute (3) Postoperative ileus: Status: Acute (4) Small bowel obstruction: Status: Acute (5) Vasculitis: Status: Acute Plan ? 76-year-old female patient presented with abdominal pain and found to have dilated loops of large and small bowel? that fail conservative management with NGT, and ultimately required exploratory laparotomy, lysis of adhesions, small- bowel resection, drainage of intra-abdominal abscess, appendectomy on 09/[address] Arriaga. Post op did well, but then had persistent tachycardia and rising WBC and repeat CT showed possible disruption of the small-bowel anastomosis. SB pathology indicates multifocal vasculitis which may possibly indicate systemic vasculitis. She underwent a second exploratory laparotomy, small bowel resection, double barrel ileostomy on 09/24. Doing fairly well post op. She remains tachycy and WBC is higer -On empiric Ceftriaxone and Flagyl -? need for systemic steroid for possible vasculitis, serology pending -Will discuss with Rheum over the phone Asthma: no exacerbation on admission. Continue home inhaler Hyperglycemia likely reactive, A1C = 5.5 mild hyponatremia -due to decreased po intake moniter closely bmp. hypokalemia,Hypocalcemia and hypophosphatemia: resolved Elevated BP, no prior diagnosis of HTN, treat PRN with IV Labetalol Nutrition: PPN at this point Need for inpatient: post op care following ex lap, NPO and PPN awaiting return of bowel function Time Spent With Patient Time: Total time managing care of this patient today ____ minutes. Quality Stroke Does the patient have a stroke diagnosis?: No VTE Prior VTE?: No VTE Risk Level:: Medical - moderate - high VTE Device Contraindication: Treatment Not Indicated VTE Drug Contraindication: N/A - Med Ordered
--- NOTE | 2022-09-25 11:19 | MHC.CLN ---
F/U PT CONTINUES TO RECEIVES PPN S/P SX REVIEWED LABS DISCUSSED WITH PHARMACY RECOMMEND INCREASE D10AA4.25 AT 70ML/HR WITH 17ML OF 20% LIPIDS TO PROVIDE 1673 TOTAL KCALS (29KCALS/KG), 71G PROTEIN (1.2G/KG) REPLETE LYTES NEEDED
[2022-09-25 12:51] LABS: CDiff Gene PCR NEGATIVE (Negative)
[2022-09-25 13:35] LABS: Campylobacter Not Detected (Not Detect.); E. coli EAEC Not Detected (Not Detect.); E. coli EPEC Not Detected (Not Detect.); E. coli ETEC Not Detected (Not Detect.); E. coli STEC Not Detected (Not Detect.); Plesiomonas shigelloides Not Detected (Not Detect.); Salmonella Not Detected (Not Detect.); Vibrio Not Detected (Not Detect.); Vibrio Cholerae Not Detected (Not Detect.); Yersinia enterocolitica Not Detected (Not Detect.)
[2022-09-25 13:36] LABS: Adenovirus F 40/41 Not Detected (Not Detect.); Astrovirus Not Detected (Not Detect.); Cryptosporidium Not Detected (Not Detect.); Cyclospora cayetanensis Not Detected (Not Detect.); Entamoeba histolytica Not Detected (Not Detect.); Giardia lamblia Not Detected (Not Detect.); Norovirus GI/GII Not Detected (Not Detect.); Rotavirus A Not Detected (Not Detect.); Sapovirus Not Detected (Not Detect.); Shigella sp./EIEC Not Detected (Not Detect.)
--- NOTE | 2022-09-25 16:37 | HO.POSTANES ---
Post Anesthesia Evaluation Post Anesthesia Evaluation Date of Service: 09/25/22 Vital Signs: Vital Signs Temp Pulse Resp BP Pulse Ox O2 Del Method O2 Flow Rate 09/25/22 15:19 98.0 F 107 H 18 151/66 H 96 Nasal Cannula 09/25/22 11:33 97.9 F 113 H 20 161/70 H 98 Nasal Cannula 2 09/25/22 07:44 104 H 18 09/25/22 07:35 98.4 F 104 H 18 150/67 H 97 Nasal Cannula 2 Anesthesia: General Endotracheal-GETA Mental Status: Awake Pain Control: Satisfactory Nausea/Vomiting: None Hydration: Adequate Anesthesia-Related Issues: No Anes. Related Issues
[2022-09-26] VITALS (7 sets, daily range): BP systolic 148–162; BP diastolic 67–72; PULSE 99–102; RESP 16–20; TEMP 36.1–37.1; O2SAT 93–99
[2022-09-26] MEDS: Piperacillin Sodium/Tazobactam 3.375 GM in 0.9 % Sodium Chloride 50 ML IV ×4 (03:23→17:02)
[2022-09-26 04:40] LABS: HBS Num1 0.21 mIU/mL (0-7.99); HBc Num1 0.15 S/CO (0.00-0.79); HBsAGNum1 0.31 S/CO (0.00-0.99); Hepatitis A Antibody IgM 0.16 Index (0-0.79); Hepatitis B Core Antibody Nonreactive (Nonreactive); Hepatitis B Surface Antigen Negative (Negative); ~HepC Num1 0.09 S/CO (0.00-0.79); ~Hepatitis A Antibody IgM Nonreactive (Nonreactive); ~Hepatitis B Surface Antibody NONREACTIVE (Nonreactive); ~Hepatitis C Antibody Nonreactive (Nonreactive)
[2022-09-26] MEDS: Morphine Sulfate 2 MG/ML CARTRIDGE IVPUSH ×3 (05:45→22:12)
[2022-09-26] MEDS: ondansetron HCL 4 MG/2 ML VIAL IVPUSH (05:45)
[2022-09-26] MEDS: Lactated Ringers 1,000 ML 100 ML IVCONT ×2 (05:46→17:02)
[2022-09-26] MEDS: Fat Emulsions 20% 250 ML 17 ML IVCONT (06:02)
[2022-09-26 06:36] LABS: Hematocrit 28.7 % (37.0-47.0); Hemoglobin 9.3 g/dl (12.0-16.0); Mean Corpuscular HGB Conc 32.4 g/dl (31.0-35.0); Mean Corpuscular Hemoglobin 26.8 pg (27.0-33.0); Mean Corpuscular Volume 82.7 fL (80.0-98.0); Mean Platelet Volume 9.7 fL (9.4-12.3); Platelet Count 579 X10*3/uL (160-400); Red Blood Count 3.47 X10*6/uL (4.20-5.50); Red Cell Distribution Width 14.2 % (11.0-16.0); White Blood Count 23.8 X10*3/uL (4.8-10.8)
[2022-09-26 06:57] LABS: Anion Gap 15 (12-20); Blood Urea Nitrogen 13 mg/dL (9-16); Calcium 7.6 mg/dL (8.4-10.2); Carbon Dioxide 24 mmol/L (22-29); Chloride 101 mmol/L (96-108); Creatinine Clr Calc Pharmacy 76.4; Estimated Glomerular Filt Rate > 60; Glucose Random 160 mg/dL (60-115); Potassium 4.7 mmol/L (3.3-5.1); Sodium 135 mmol/L (135-145)
[2022-09-26 07:36] LABS: Magnesium 1.9 mg/dL (1.6-2.6); Phosphorus 3.2 mg/dL (2.7-4.5); Triglycerides 178 mg/dL
[2022-09-26] MEDS: Budesonide 180 MCG AER.POW.BA 2 PUFF INHALE (07:48)
[2022-09-26 08:10] LABS: Atypical Lymph Absolute Manual 0.2 x10*3/uL; Atypical Lymphs Percent Manual 1 % (0-6); Band Neutrophils Percent 8 % (3-5); Basophils Abs Manual 0.2 X10*3/uL (0.0-0.2); Basophils Percent Manual 1 % (0-2); Lymphocytes Absolute Manual 1.2 X10*3/uL (1.2-4.9); Lymphocytes Percent Manual 5 % (20-40); Metamyelocytes Absolute 0.5 X10*3/uL; Metamyelocytes Percent 2 %; Monocytes Absolute Manual 1.4 X10*3/uL (0.1-1.2); Monocytes Percent Manual 6 % (2-11); Neutrophils Absolute Manual 20.2 X10*3/uL (2.0-8.3); Neutrophils Percent Manual 77 % (45-73)
[2022-09-26 08:13] LABS: Hypochromasia 1+ (5-14) /OIF; Microcytosis 1+ (5-14) /OIF; Platelet Estimate INCREASED (NORMAL); Platelet Morphology Comment NORMAL; RBC Morphology NOTED
--- NOTE | 2022-09-26 09:05 | P.PNGS_ITS ---
Patient reports some nausea but no further vomiting. Ostomy is now producing thin bilious fluid. Incision is otherwise clean and intact. Diffuse vasculitis with bowel necrosis. Patient at risk for short bowel syndrome due to extent of resection. Will probably need transfer to tertiary care center for workup of vasculitis. Discussed with Dr. Doe. Subjective Subjective Date of Service: 09/26/22 Interval history: Feels crummy this morning. C/o nausea. Had a large episode of emesis earlier. Zofran given but not helping. Ileostomy does have output. Has not been OOB since surgery. Physical Exam Vital Signs: Vital Signs: Last Vital Signs Temp 97.8 F 09/26/22 07:33 Pulse 102 H 09/26/22 07:48 Resp 16 09/26/22 07:48 BP 158/68 H 09/26/22 03:22 Pulse Ox 93 09/26/22 07:33 O2 Del Method Nasal Cannula 09/26/22 07:33 O2 Flow Rate 3 09/26/22 07:33 BMI result Body Mass Index 22.7 Const: General: no acute distress and alert Orientation/consciousness: patient oriented x3 Resp: Effort & Inspection: normal respiratory effort Cardio: Rate: tachycardic GI: Other: ileostomies more pink today, large amount of bilious output Inspection: Yes distended (softly, mild) and Yes incision (clean) Palpation (GI): Soft to palpation, Tenderness to palpation present (GI) (incisional), no guarding and not rigid Skin: General skin exam: no rashes or lesions noted Neuro: General: patient oriented x3 Objective Data Active Medications Amlodipine Besylate (Amlodipine Besylate 2.5 Mg Tablet) 2.5 mg PO DAILY [facility]; Protocol Last Admin: 09/18/22 09:47 Dose: 2.5 mg Documented By: ABY Budesonide (Budesonide 180 Mcg Aer.Pow.Ba) 2 puff INHALE RDAILY [facility] Last Admin: 09/26/22 07:48 Dose: 2 puff Documented By: MARKIE Fluticasone Propionate (Fluticasone Propionate Nasal 16 Gm [place]) 1 spray NOSTRIL-B DAILY PRN PRN Reason: Allergy Symptoms Lactated Ringer's (Lr) 1,000 mls @ 100 mls/hr IVCONT .Q10H [facility] Last Admin: 09/26/22 05:46 Dose: 100 mls/hr Documented By: ALAINA Piperacillin Sod/Tazobactam (Sod 3.375 gm/ Sodium Chloride) 50 mls @ 100 mls/hr IV Q6H [facility] Last Infusion: 09/26/22 08:59 Dose: 100 mls/hr Documented By: AMISH Potassium Chloride 60 meq/Sodium Chloride 100 meq/Magnesium Sulfate 10 meq/Potassium Phosphate 50 mmol/Calcium Gluconate 9.3 meq/Amino Acids/Electrolytes/Dextrose 1,680 mls @ 70 mls/hr IVCONT DAILY@1800 [facility] Stop: 09/26/22 17:59 Last Admin: 09/25/22 18:15 Dose: 70 mls/hr Documented By: BEBA Fat Emulsion Intravenous (Intralipid) 204 mls @ 17 mls/hr IVCONT BID@0600,1800 [facility] Stop: 09/26/22 17:59 Last Admin: 09/26/22 06:02 Dose: 17 mls/hr Documented By: ALAINA Labetalol HCl (Labetalol Hcl 100 Mg/20 Ml Vial) 10 mg IVPUSH Q6H PRN PRN Reason: htn Last Admin: 09/22/22 21:20 Dose: 10 mg Documented By: AYALA-YAZMIN Loratadine (Loratadine 10 Mg Tablet) 10 mg PO DAILY PRN PRN Reason: Allergy Symptoms Melatonin (Melatonin 3 Mg Tablet) 6 mg PO BEDTIME PRN PRN Reason: Insomnia Morphine Sulfate (Morphine Sulfate 2 Mg/Ml Cartridge) 2 mg IVPUSH Q3H PRN; Protocol PRN Reason: Pain, Severe (Pain Scale 7-10) Last Admin: 09/26/22 05:45 Dose: 2 mg Documented By: ALAINA Ondansetron HCl (Ondansetron Hcl 4 Mg/2 Ml Vial) 4 mg IVPUSH Q8H PRN PRN Reason: Nausea and Vomiting Last Admin: 09/26/22 05:45 Dose: 4 mg Documented By: ANTOIC Oxycodone HCl (Oxycodone Hcl Immed Release 5 Mg Tablet) 10 mg PO Q4H PRN PRN Reason: Pain, Moderate(Pain Scale 4-6) Pharmacy Consult (Consult Rx Perform Med Rec) 1 each MISCELLANE ONCE PRN PRN Reason: Consult order Sodium Chloride (0.9 % Sodium Chloride Flush 3 Ml Syringe) 3 ml IVFLUSH QSHIFT JULI Last Admin: 09/26/22 08:16 Dose: Not Given Documented By: AMISH Non-Admin Reason: IV Running Labs 09/26/22 05:55 09/26/22 05:55 Labs: Laboratory Results - last 24 hr 09/25/22 09/25/22 09/25/22 06:29 10:42 Unknown MCV MCH MCHC RDW Plt Count MPV Immature Gran % (Auto) Neut % (Auto) Lymph % (Auto) [place] % (Auto) Eos % (Auto) Baso % (Auto) Lymph # (Auto) [place] # (Auto) Eos # (Auto) Baso # (Auto) Abs Immat Gran (auto) Absolute Neuts (auto) Absolute Nucleated RBC Nucleated RBC % (auto) Neutrophils % (Manual) Band Neutrophils % Lymphocytes % (Manual) Atypical Lymphs % (Man) Monocytes % (Manual) Basophils % (Manual) Metamyelocytes % Abs Neuts (Manual) Lymphocytes # (Manual) Atyp Lymphs # (Manual) Monocytes # (Manual) Basophils # (Manual) Metamyelocytes # Platelet Estimate Plt Morphology Comment RBC Morphology Hypochromasia Microcytosis Anion Gap Estim Creat Clear Calc Estimated GFR Random Glucose Calcium Phosphorus Magnesium Albumin Triglycerides Stl C. cayetanensis PCR Not Detected Stool Rotavirus A PCR Not Detected Stl Adenov F 40/41 PCR Not Detected Stool Astrovirus (PCR) Not Detected Stool Campylobacter PCR Not Detected Stool Cryptosporidium PCR Not Detected Stl Sh Tox Pr E STEC PCR Not Detected Stool E coli O157 PCR Not applicable Stl Enterotoxigenic E PCR Not Detected Stool EPEC (PCR) Not Detected Stool EAEC (PCR) Not Detected Stl E. histolytica PCR Not Detected Stool Giardia Lamblia PCR Not Detected Stl P. shigelloides PCR Not Detected Stool Salmonella PCR Not Detected Stool Sapovirus (PCR) Not Detected Stl Shigella/EIEC PCR Not Detected St Y.enterocolitica PCR Not Detected Stool Vibrio (PCR) Not Detected Stl Vibrio cholerae PCR Not Detected Stl Norovirus GI/GII PCR Not Detected C. difficile Tox B Gene NEGATIVE Hepatitis A IgM Ab Nonreactive Hep Bs Antigen Negative Hep Bs Antibody NONREACTIVE Hep B Core Total Ab Nonreactive Hepatitis C Ab (EIA) Nonreactive 09/26/22 09/26/22 05:55 05:55 MCV 82.7 MCH 26.8 L MCHC 32.4 RDW 14.2 Plt Count 579 H D MPV 9.7 Immature Gran % (Auto) Cancelled Neut % (Auto) Cancelled Lymph % (Auto) Cancelled [place] % (Auto) Cancelled Eos % (Auto) Cancelled Baso % (Auto) Cancelled Lymph # (Auto) Cancelled [place]corn # (Auto) Cancelled Eos # (Auto) Cancelled Baso # (Auto) Cancelled Abs Immat Gran (auto) Cancelled Absolute Neuts (auto) Cancelled Absolute Nucleated RBC 0.000 Nucleated RBC % (auto) 0.0 Neutrophils % (Manual) 77 H Band Neutrophils % 8 H Lymphocytes % (Manual) 5 L Atypical Lymphs % (Man) 1 Monocytes % (Manual) 6 Basophils % (Manual) 1 Metamyelocytes % 2 Abs Neuts (Manual) 20.2 H Lymphocytes # (Manual) 1.2 Atyp Lymphs # (Manual) 0.2 Monocytes # (Manual) 1.4 H Basophils # (Manual) 0.2 Metamyelocytes # 0.5 Platelet Estimate INCREASED Plt Morphology Comment NORMAL RBC Morphology NOTED Hypochromasia 1+ (5-14) Microcytosis 1+ (5-14) Anion Gap 15 Estim Creat Clear Calc 76.4 Estimated GFR > 60 Random Glucose 160 H Calcium 7.6 L Phosphorus 3.2 Magnesium 1.9 Albumin 2.0 L Triglycerides 178 Stl C. cayetanensis PCR Stool Rotavirus A PCR Stl Adenov F 40/41 PCR Stool Astrovirus (PCR) Stool Campylobacter PCR Stool Cryptosporidium PCR Stl Sh Tox Pr E STEC PCR Stool E coli O157 PCR Stl Enterotoxigenic E PCR Stool EPEC (PCR) Stool EAEC (PCR) Stl E. histolytica PCR Stool Giardia Lamblia PCR Stl P. shigelloides PCR Stool Salmonella PCR Stool Sapovirus (PCR) Stl Shigella/EIEC PCR St Y.enterocolitica PCR Stool Vibrio (PCR) Stl Vibrio cholerae PCR Stl Norovirus GI/GII PCR C. difficile Tox B Gene Hepatitis A IgM Ab Hep Bs Antigen Hep Bs Antibody Hep B Core Total Ab Hepatitis C Ab (EIA) Microbiology Microbiology Results: Microbiology 09/24/22 Unknown Gram Stain - Final Abscess Intra-abdominal Routine Culture - Preliminary Gram negative ian Procedures Date of Service Date of Service: 09/26/22 Progress Note: A&P Assessment and plan (1) S/P ileostomy: Status: Acute (2) Vasculitis: Status: Acute (3) Status post exploratory laparotomy: Status: Acute (4) Abdominal visceral abscess: Status: Acute Plan 76-year-old female patient who initially was found on CT to have dilated loops of large and small bowel and ultimately required exploratory laparotomy, lysis of adhesions, small-bowel resection, drainage of intra-abdominal abscess, jennie endectomy. She was doing fairly well post op and improving however has been persistently tachycardic and therefore repeat CBC ordered, showed leukocytosis. CT scan obtained indicating possible disruption of the small-bowel anastomosis. SB pathology indicates multifocal vasculitis which may possibly indicate systemic vasculitis. She is now POD #2 s/p exploratory laparotomy, small bowel resection, double barrel ileostomy. C/o nausea this morning. Abd remains unchanged- slightly distended but soft, incision clean. Ileostomy has large amt of bilious output. Will add phenergan. If nausea/vomiting persists will do AXR to eval for stomach distention and need for NGT. Encouraged OOB to recliner this am, discussed with RN. ?Transfer to for treatment of vasculitis. Time Spent With Patient Time: Total time managing care of this patient today ____ minutes. Quality Stroke Does the patient have a stroke diagnosis?: No VTE Prior VTE?: No VTE Risk Level:: Medical - moderate - high VTE Device Contraindication: Treatment Not Indicated VTE Drug Contraindication: N/A - Med Ordered
--- NOTE | 2022-09-26 10:38 | PM.DS ---
DS: Providers Provider Date of Service: 09/26/22 Date of admission: 09/13/22 09:01 Primary care physician: Amos Aguilar MD Consults: 09/13/22 01:20 Consult to General Surgery Stat Consulting Provider: [facility] General Surgeons Reason for consultation: sbo?? abd pain, leukocytosis. Has provider been notified: Yes 09/22/22 11:49 Consult to Infectious Diseases Routine Consulting Provider: [facility] Infectious Disease Reason for consultation: sbo/abd abcess s/p surgery and resection-klebsella related abcess Has provider been notified: No DS: Diagnosis Discharge Diagnosis (1) Status post exploratory laparotomy: Status: Acute DS: Summary Hospital Course Hospital Course: Admission HPI 09/12 76-year-old female with pertinent history of asthma not on home oxygen, mixed hyperlipidemia who presents to the emergency department for evaluation of abdominal pain, nausea and vomiting.? Patient states she has been having ongoing generalized abdominal discomfort, constant, nonradiating and progressive that started 3 days prior to presentation.? Last bowel movement was 3 days ago.? No similar complaints in the past.? No fever, chills.? Patient states she is not able to maintain p.o. intake due to nausea and nonbloody emesis.? Patient was seen in the ER yesterday and discharged home on lactulose but her symptoms continued and hence she presented to the ER again.? She recently started muscle relaxants for her neck pain.? No previous abdominal surgery.? Patient denies chest discomfort, palpitations, shortness of breath, changes in urinary habits. In the emergency department, imaging with multiple dilated loops of small and large bowel seen.? General surgery was consulted who recommended admission to Medicine. Hospital course: Patient presented on 09/12 because of abdominal distention, nausea vomiting, constipation: CT of the abdomen and pelvis showed dilated loops of large and small bowel. Patient was subsequently seen by surgery (Dr. Rajendra Arriaga) with recommendation for bowel rest, NG tube, hydration. Her symptoms persisted and Upper GI serie on 09/17 which showed Multiple dilated small bowel loops with Gastrografin opacifying the proximal and mid small bowel loops at 3 hour . She underwent exploratory laparotomy on 09/19 ,?lysis of adhesions, small-bowel resection, drainage of intra-abdominal abscess, appendectomy.?Additionally noted to have have omental adhesions to small-bowel with loop of small bowel adherent and probably obstructed and area of necrotic bowel with abscess formation containing feculent material with surrounding phlegmon. on 09/20 Patient was started on Zosyn, and intra-abdominal cultures and pathology was sent. Subsequently patient was still on NGT section, and PPN started and remains on PPN today. Intra abdominal culture came back positive for Klebsiella pneumonia/Klebsiella oxytoca: Sensitive to ceftriaxone/cefazolin. WBC has since surgery has been trending up from 11 on 09/17 to 19 on 09/24 and 24 on 09/25 and she has become tachycardic. The Pathology from Bowel resection on 09/19 came back with the following Diagnosis A.? Small bowel, segmental resection:? -Ischemic enteritis with transmural necrosis, near perforation, and acute serositis. 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 -Ischemic enteritis is present at one of the margins and viability is uncertain. -Two benign lymph nodes. B.? Appendix, appendectomy:? -Ischemic appendicitis with perforation into mesentery, with abscess and serositis. -Mesenteric vasculitis with granuloma (see comment). -Sessile serrated lesion/polyp without dysplasia at proximal margin (see comment) Comment:? Appearances raise the possibility of a systemic vasculitis (polyarteritis nodosa, granulomatosis with polyangiitis, eosinophilic granulomatosis with polyangiitis, etc) and clinical and serologic correlation is necessary. Hyperplastic/serrated lesions of the appendix can be associated with other colonic neoplasms and a colonoscopy is recommended. She is giving a dose of IV Solumedrol 125 mg x 1 09/26/ on 09/24, she underwent a second exploratory laparotomy with small bowel resection, double barrel ileostomy. Pathology finding discussed with outpatient rheumatology with recommendation for Ct angiogram of abdomen and pelvis ANCA vasculitides CARMEN DSdna C3 C4 Sjogrens antibodies (ssa/ssb) Extractable nuclear antibodies Urinalysis Spot protein/creatinine ratio Rheumatoid factor CCP Serum protein electrophoresis Immunofixation Hepatitis panel, T spot. also repeat Liver function tests,esr,crp q2-3 day and transfer for inpatient evaluation by rheumatology. Today She rermains stable, WBC essentially unchanged at 23.8 BP 152/72, Pulse 99, RR 20, Temp 98.7, O2 Sat 99 on 3 liter, C/o nausea this morning. Abd remains unchanged- slightly distended but soft, incision clean. Ileostomy has large amt of bilious output. Culture result from last surgery is growing gram negative ian and should be covered with Zosyn, no sensitivity yet but presumed to be Klebsiela again Case discussed with [facility] and is to be transfered to DR. Germán Huitron Time Spent with Patient Time attestation: Total time managing care of this patient today ____ minutes. Discharge coordination time: Greater than 30 minutes Quality: Safe Use of Opioids Does Pt have an Active Cancer Diagnosis on the Problem List?: No Quality: Stroke Does the patient have a stroke diagnosis?: No Physical Exam Vital Signs: Vital Signs: Last Vital Signs Temp 97.8 F 09/26/22 07:33 Pulse 102 H 09/26/22 07:48 Resp 16 09/26/22 07:48 BP 158/68 H 09/26/22 03:22 Pulse Ox 93 09/26/22 07:33 O2 Del Method Nasal Cannula 09/26/22 07:33 O2 Flow Rate 3 09/26/22 07:33 BMI result Body Mass Index 22.7 DS: Data Data Completed and Pending Completed studies during hospitalization [Text1]: Pending at discharge 09/19/22 12:55 Surgical [PTH] Routine Pending studies at discharge: Pending at discharge 09/24/22 20:52 Surgical [PTH] Routine Labs on day of discharge: Laboratory Results - last 24 hr 09/25/22 09/25/22 09/25/22 06:29 10:42 Unknown WBC RBC Hgb Hct MCV MCH MCHC RDW Plt Count MPV Immature Gran % (Auto) Neut % (Auto) Lymph % (Auto) [place] % (Auto) Eos % (Auto) Baso % (Auto) Lymph # (Auto) [place] # (Auto) Eos # (Auto) Baso # (Auto) Abs Immat Gran (auto) Absolute Neuts (auto) Absolute Nucleated RBC Nucleated RBC % (auto) Neutrophils % (Manual) Band Neutrophils % Lymphocytes % (Manual) Atypical Lymphs % (Man) Monocytes % (Manual) Basophils % (Manual) Metamyelocytes % Abs Neuts (Manual) Lymphocytes # (Manual) Atyp Lymphs # (Manual) Monocytes # (Manual) Basophils # (Manual) Metamyelocytes # Platelet Estimate Plt Morphology Comment RBC Morphology Hypochromasia Microcytosis Sodium Potassium Chloride Carbon Dioxide Anion Gap BUN Creatinine Estim Creat Clear Calc Estimated GFR Random Glucose Calcium Phosphorus Magnesium Albumin Triglycerides Stl C. cayetanensis PCR Not Detected Stool Rotavirus A PCR Not Detected Stl Adenov F 40/41 PCR Not Detected Stool Astrovirus (PCR) Not Detected Stool Campylobacter PCR Not Detected Stool Cryptosporidium PCR Not Detected Stl Sh Tox Pr E STEC PCR Not Detected Stool E coli O157 PCR Not applicable Stl Enterotoxigenic E PCR Not Detected Stool EPEC (PCR) Not Detected Stool EAEC (PCR) Not Detected Stl E. histolytica PCR Not Detected Stool Giardia Lamblia PCR Not Detected Stl P. shigelloides PCR Not Detected Stool Salmonella PCR Not Detected Stool Sapovirus (PCR) Not Detected Stl Shigella/EIEC PCR Not Detected St Y.enterocolitica PCR Not Detected Stool Vibrio (PCR) Not Detected Stl Vibrio cholerae PCR Not Detected Stl Norovirus GI/GII PCR Not Detected C. difficile Tox B Gene NEGATIVE Hepatitis A IgM Ab Nonreactive Hep Bs Antigen Negative Hep Bs Antibody NONREACTIVE Hep B Core Total Ab Nonreactive Hepatitis C Ab (EIA) Nonreactive 09/26/22 09/26/22 05:55 05:55 WBC 23.8 H RBC 3.47 L Hgb 9.3 L Hct 28.7 L MCV 82.7 MCH 26.8 L MCHC 32.4 RDW 14.2 Plt Count 579 H D MPV 9.7 Immature Gran % (Auto) Cancelled Neut % (Auto) Cancelled Lymph % (Auto) Cancelled Steele % (Auto) Cancelled Eos % (Auto) Cancelled Baso % (Auto) Cancelled Lymph # (Auto) Cancelled Steele # (Auto) Cancelled Eos # (Auto) Cancelled Baso # (Auto) Cancelled Abs Immat Gran (auto) Cancelled Absolute Neuts (auto) Cancelled Absolute Nucleated RBC 0.000 Nucleated RBC % (auto) 0.0 Neutrophils % (Manual) 77 H Band Neutrophils % 8 H Lymphocytes % (Manual) 5 L Atypical Lymphs % (Man) 1 Monocytes % (Manual) 6 Basophils % (Manual) 1 Metamyelocytes % 2 Abs Neuts (Manual) 20.2 H Lymphocytes # (Manual) 1.2 Atyp Lymphs # (Manual) 0.2 Monocytes # (Manual) 1.4 H Basophils # (Manual) 0.2 Metamyelocytes # 0.5 Platelet Estimate INCREASED Plt Morphology Comment NORMAL RBC Morphology NOTED Hypochromasia 1+ (5-14) Microcytosis 1+ (5-14) Sodium 135 Potassium 4.7 Chloride 101 Carbon Dioxide 24 Anion Gap 15 BUN 13 Creatinine 0.51 Estim Creat Clear Calc 76.4 Estimated GFR > 60 Random Glucose 160 H Calcium 7.6 L Phosphorus 3.2 Magnesium 1.9 Albumin 2.0 L Triglycerides 178 Stl C. cayetanensis PCR Stool Rotavirus A PCR Stl Adenov F 40/41 PCR Stool Astrovirus (PCR) Stool Campylobacter PCR Stool Cryptosporidium PCR Stl Sh Tox Pr E STEC PCR Stool E coli O157 PCR Stl Enterotoxigenic E PCR Stool EPEC (PCR) Stool EAEC (PCR) Stl E. histolytica PCR Stool Giardia Lamblia PCR Stl P. shigelloides PCR Stool Salmonella PCR Stool Sapovirus (PCR) Stl Shigella/EIEC PCR St Y.enterocolitica PCR Stool Vibrio (PCR) Stl Vibrio cholerae PCR Stl Norovirus GI/GII PCR C. difficile Tox B Gene Hepatitis A IgM Ab Hep Bs Antigen Hep Bs Antibody Hep B Core Total Ab Hepatitis C Ab (EIA) Preliminary micro results at discharge 09/24/22 Unknown Routine Culture - Preliminary Abscess Intra-abdominal Gram negative ian Discharge Plan Discharge Anticipated Discharge Date/Time: 09/26/22 12:55 Patient Disposition: [facility] Discharge Diagnosis: sbo/abcess abd,possible vasculitis Referrals: [facility] [Outside] - 1 Week Rajendra Arriaga MD [Physician] - 2 Weeks Po,Amos White MD [Primary Care Provider] - 1 Week Discharge Medications: New metronidazole in NaCl (iso-os) 500 mg/100 mL Piggyback 500 mg IV Q8H Qty: 1 0RF amlodipine 2.5 mg Tablet 2.5 mg PO DAILY Qty: 1 0RF Protocol: Hold for SBP< HOLD for SBP < : 90 hydromorphone 0.5 mg/0.5 mL Syringe 0.25 mg IVPUSH Q5M PRN (Reason: Pain, Severe (Pain Scale 7-10)) Qty: 5 0RF Protocol: Hold for RR < HOLD and contact provider for RR < (bpm): 12 Rx Instructions: Partial Fill upon patient request. oxycodone 5 mg Tablet 10 mg PO Q4H PRN (Reason: Pain, Moderate(Pain Scale 4-6)) Qty: 1 0RF Rx Instructions: Partial Fill upon patient request. ondansetron HCl (PF) 4 mg/2 mL Solution 4 mg IVPUSH Q8H PRN (Reason: Nausea And Vomiting) Qty: 1 0RF Zosyn in dextrose (iso-osm) 3.375 gram/50 mL piggyback 3.375 g IV Q6H 5 Days Qty: 1125 0RF Continued Pulmicort Flexhaler 180 mcg/actuation aerosol powdr breath activated 2 inh inhalation QAM Qty: 3 3RF cholecalciferol (vitamin D3) 25 mcg (1,000 unit) Tablet 25 mcg PO DAILY omega [id number] oil [Fish Oil] 1,000 mg (120 mg-180 mg) Capsule 1 cap PO DAILY fexofenadine [Arlene Allergy] 180 mg tablet 180 mg PO DAILY PRN (Reason: Allergy Symptoms) fluticasone propionate 50 mcg/actuation spray,suspension 1 spray intranasal DAILY PRN (Reason: Allergy Symptoms) albuterol sulfate [ProAir HFA] 90 mcg/actuation HFA aerosol inhaler 2 puff inhalation Q4-6H PRN (Reason: shortness of breath or wheezing) Qty: 8.5 0RF Held simvastatin 20 mg tablet 20 mg PO DAILY Qty: 90 2RF Hold Instructions: Resume on 10/10/22. Discharge Orders: Discharge Order (Routine); Ordered 09/26/22 Ordered By: Crescencio Starr Diet: Advance to usual diet Activity on Discharge: As tolerated Stand Alone Forms: Patient Portal Discharge page Activity Restrictions/Additional Instructions: No lifting > 10 pounds for one month follow up in office in two weeks after discharge Health Concerns: Small vesel vasculitis affecting small intestin Plan of Treatment: Transfer to [facility] and to be evaluated by Rheumatology For Surgery questions Please contact Dr. Rajendra Arriaga [phone] Assessment: As above. Patient Instructions: Bowel Resection (DC)
--- NOTE | 2022-09-26 10:47 | MHC.CM.PN ---
Per ROUNDS discussion, Patient will be dc/transferred to [facility] today.
--- NOTE | 2022-09-26 11:47 | MHC.CLN ---
F/U NOTED PT TO BE TRANSFERRED TO [facility] TODAY PER CM REVIEWED LABS DISCUSSED WITH PHARMACY-AWARE OF POTENTIAL TRANSFER RECOMMEND CONTINUE D10AA4.25 AT 70ML/HR WITH 17ML OF 20% LIPIDS PROVIDES 1673 TOTAL KCALS (29KCALS/KG), 71G PROTEIN (1.2G/KG) REPLETE LYTES NEEDED
[2022-09-26] MEDS: methylPREDNISolone Sod Succ 125 MG/2 ML VIAL IVPUSH (16:50)
--- NOTE | 2022-09-26 18:09 | PC.NURSE ---
dr alonso authorized basic transport w/o iv running or heart monitor
[2022-09-26 18:44] LABS: Complement C3 131 mg/dL (83-193)
[2022-09-27 13:48] LABS: Cyclic Citrullinated Peptide <16 UNITS
[2022-09-27 16:03] LABS: Anti DNA DS Antibody <1 IU/mL; Antibody to SS-A Antigen >8.0 POS AI (<1.0 NEG); Antibody to SS-B Antigen <1.0 NEG AI (<1.0 NEG); Myeloperoxidase Antibody <1.0 AI; Proteinase 3 PR3 Antibodies <1.0 AI
[2022-09-27 22:43] LABS: TS Negative Control Passed; TS Panel A 0; TS Panel B 0; TS Positive Control Passed; TSpotTB Negative (Negative)
[2022-09-27 23:24] LABS: Prot Elec - Albumin 1.6 g/dL (3.8-4.8); Prot Elec - Alpha1 0.6 g/dL (0.2-0.3); Prot Elec - Alpha2 1.2 g/dL (0.5-0.9); Prot Elec - Beta 1 0.2 g/dL (0.4-0.6); Prot Elec - Beta 2 0.2 g/dL (0.2-0.5); Prot Elec - Gamma 0.6 g/dL (0.8-1.7); Prot Elec - Total Protein 4.5 g/dL (6.1-8.1)
[2022-10-04 11:43] LABS: Anti Nuclear Antibody Screen POSITIVE (NEGATIVE)
== END 2022-09-26 22:50 | disposition short-term general hospital (02) | DRG 329 ==
LOC: HO.ED 09-13 00:42 → HO.EDOVER 09-13 00:55 → HO.S3 09-13 12:45 → HO.IMC 09-24 18:29
PROVIDERS: Internal Medicine; Physician Assistant Surgical; Surgery; Admitting Provider Student in an Organized Health Care Education/Training Program; Emergency Provider Emergency Medicine; PCP Internal Medicine; Visit Provider Internal Medicine
PROC: 0DBB0ZZ Excision of Ileum, Open Approach (ICD-10-PCS; CPT 49000; principal; 2022-09-19 10:30)
DX: K55.9 Vascular disorder of intestine, unspecified (principal); K35.33 Acute appendicitis with perforation, localized peritonitis, and gangrene, with abscess; K65.1 Peritoneal abscess; K55.029 Acute infarction of small intestine, extent unspecified; E87.0 Hyperosmolality and hypernatremia; K56.7 Ileus, unspecified; M31.8 Other specified necrotizing vasculopathies; T81.43XA Infection following a procedure, organ and space surgical site, initial encounter; K66.0 Peritoneal adhesions (postprocedural) (postinfection); R73.9 Hyperglycemia, unspecified; E87.6 Hypokalemia; E83.51 Hypocalcemia; B96.1 Klebsiella pneumoniae [K. pneumoniae] as the cause of diseases classified elsewhere; E83.39 Other disorders of phosphorus metabolism; E78.2 Mixed hyperlipidemia; K59.00 Constipation, unspecified; J45.909 Unspecified asthma, uncomplicated; Z87.891 Personal history of nicotine dependence; Z79.51 Long term (current) use of inhaled steroids; Z79.899 Other long term (current) drug therapy
CPT/HCPCS: 36415; 71045; 74018; 74176; 74177; 74240; 74248; 80048; 80053; 80076; 81001; 82040; 83036; 83605; 83690; 83735; 84100; 84156; 84165; 84478; 85007; 85027; 85652; 86021; 86038; 86039; 86140; 86160; 86200; 86225; 86235; 86431; 86481; 86704; 86706; 86709; 86803; 86850; 86900; 86901; 87040; 87070; 87077; 87186; 87205; 87340; 87493; 87507; 88304; 88307; 93005; 99285; C1758; J0131; J0612; J0690; J0696; J1100; J1650; J2250; J2270; J2370; J2405; J2543; J2550; J2930; J3010; J3475; Q9967

== ENCOUNTER 2022-11-01 09:10 | Inpatient (IN) | payer MEDICARE, SELFPAY ==
[2022-11-01] VITALS (11 sets, daily range): BP systolic 102–153; BP diastolic 47–63; PULSE 70–120; RESP 14–20; TEMP 36.1–36.8; O2SAT 89–100; BMI 17.7; BMI 19.5
--- NOTE | ~2022-11-01 | CT_ITS ---
EXAMINATION: CT ABDOMEN AND PELVIS WITHOUT CONTRAST CLINICAL INFORMATION: Abdominal tenderness. COMPARISON: 09/24/2022 CT scan of the abdomen and pelvis. TECHNIQUE: Multidetector volumetric imaging was performed from the superior aspect of the liver through the pubic symphysis. Sagittal and coronal reformatted images were obtained on the technologist's workstation. Lack of intravenous and oral contrast limits visceral evaluation. This CT examination was performed using dose optimization techniques as appropriate, variously including the following: *Automated exposure control *Adjustment of mA and/or kV according to patient size (this includes techniques or standardized protocols for targeted exams where dose is matched to indication/reason for exam; i.e. extremities or head) *Use of iterative reconstruction technique DLP: 304 mGy-cm FINDINGS: LUNG BASES: Mild groundglass opacities are seen in the left lower lobe. No pleural or pericardial effusion. LIVER, GALLBLADDER, AND BILIARY TREE: Unremarkable. PANCREAS: Unremarkable. SPLEEN: Unremarkable. ADRENAL GLANDS: Unremarkable. KIDNEYS AND URETERS: Noncalcified fluid attenuation cysts are seen bilaterally. The largest is seen in the lower pole laterally measuring 3.6 cm (image 30, series 6). No nephrolithiasis or hydroureteronephrosis. BLADDER: Unremarkable. GASTROINTESTINAL TRACT: The stomach and proximal small bowel unremarkable. An ostomy seen in the right lower quadrant without abnormality. High attenuation material seen within the colon which is overall decompressed to the level the rectum. No surrounding abnormality. ABDOMINAL WALL: Postsurgical changes without focal abnormality. LYMPH NODES: No lymphadenopathy. VASCULAR: Unremarkable. PELVIC VISCERA: Unremarkable. OSSEOUS STRUCTURES: Unremarkable. CT/CT abdomen pelvis wo IV con IMPRESSION: 1. Right lower quadrant ostomy site without abnormality. Decompressed colon with segments containing residual high attenuation material, presumably oral contrast without other significant abnormality. If symptoms persist or worsen, short-term follow-up CT scan is recommended to assess for more acute change.
--- NOTE | ~2022-11-01 | US_ITS ---
EXAMINATION: US ABDOMEN COMPLETE CLINICAL INFORMATION: Elevated liver function tests.. COMPARISON: CT 11/01/2022 TECHNIQUE: Real-time imaging of the abdominal viscera. FINDINGS: Technically limited study, limited visualization due to ostomy. PANCREAS: Not evaluated ABDOMINAL AORTA: Not evaluated INFERIOR VENA CAVA: Not evaluated LIVER: Normal echogenicity. The liver contour appears unremarkable. No focal hepatic lesion. There is no intrahepatic biliary duct dilatation seen. GALLBLADDER: Partially distended. Mildly echogenic foci within the lumen suggestive of sludge. No shadowing gallstones. Gallbladder wall measures 3 mm, borderline prominent. This may be due to lack of distention. Clarifier Operator reports negative sonographic Ferro's sign.. COMMON BILE DUCT: Normal in caliber measuring 0.6 cm in diameter. RIGHT KIDNEY: Not evaluated. US/US abdomen complete IMPRESSION: Technically limited study, limited visualization due to tracheostomy. *Mild sludge in the gallbladder. No shadowing gallstones. Borderline gallbladder wall prominence, could be related to lack of distention. No sonographic findings otherwise to suggest definite acute cholecystitis. Short-term follow-up ultrasound for reassessment as clinically warranted. *No focal liver lesions. Normal echogenicity. *Normal caliber CBD. No intrahepatic biliary duct dilatation.
--- NOTE | ~2022-11-01 | XR_ITS ---
EXAMINATION: XR CHEST CLINICAL INFORMATION: Weakness. COMPARISON: 09/13/2022 chest radiograph. TECHNIQUE: Frontal view of the chest was obtained. FINDINGS: No significant abnormality is noted involving the heart, lungs, mediastinum, bony thorax or soft tissues. XR/XR chest 1V IMPRESSION: No acute cardiopulmonary process.
--- NOTE | 2022-11-01 09:21 | ECG_ITS ---
Test Reason : weakness Blood Pressure : / mmHG Vent. Rate : 109 BPM Atrial Rate : 109 BPM P-R Int : 122 ms QRS Dur : 078 ms QT Int : 324 ms P-R-T Axes : 083 020 083 degrees QTc Int : 436 ms Sinus tachycardia Right atrial enlargement Nonspecific ST abnormality Abnormal ECG When compared with ECG of 13-SEP-2022 19:47, ST now depressed in Inferior leads T wave amplitude has increased in Anterior leads Referred By: Generic ED Physician Electronically Signed By:Yeison Sloan
[2022-11-01 10:56] LABS: Hematocrit 45.7 % (37.0-47.0); Hemoglobin 14.1 g/dl (12.0-16.0); Mean Corpuscular HGB Conc 30.9 g/dl (31.0-35.0); Mean Corpuscular Hemoglobin 29.8 pg (27.0-33.0); Mean Corpuscular Volume 96.6 fL (80.0-98.0); Mean Platelet Volume 10.5 fL (9.4-12.3); Platelet Count 453 X10*3/uL (160-400); Red Blood Count 4.73 X10*6/uL (4.20-5.50); Red Cell Distribution Width 16.9 % (11.0-16.0)
[2022-11-01 11:11] LABS: Alanine Aminotransferase 59 U/L (0-31); Albumin Level 3.8 g/dL (3.5-5.0); Alkaline Phosphatase 501 U/L (39-117); Anion Gap 29 (12-20); Aspartate Amino Transferase 52 U/L (5-31); Bilirubin Direct 4.7 mg/dL (0.0-0.5); Bilirubin Total 6.9 mg/dL (0.0-1.0); Blood Urea Nitrogen 62 mg/dL (9-16); Calcium 10.5 mg/dL (8.4-10.2); Carbon Dioxide 33 mmol/L (22-29); Chloride 87 mmol/L (96-108); Creatinine Clr Calc Pharmacy 10.3; Estimated Glomerular Filt Rate 14; Glucose Random 169 mg/dL (60-115); Lipase 44 U/L (8-78); Magnesium 2.3 mg/dL (1.6-2.6); Potassium 3.9 mmol/L (3.3-5.1); Sodium 145 mmol/L (135-145); Total Protein 8.7 g/dL (6.5-8.0)
--- NOTE | 2022-11-01 11:12 | ED.GENADULT ---
HPI - General Adult General Chief complaint: Weakness Stated complaint: weakness Time Seen by Provider: 11/01/22 10:38 Source: patient and EMS Mode of arrival: EMS Limitations: no limitations History of Present Illness HPI narrative: 77-year-old female with history of colostomy, recent acute kidney injury, discharged from [facility] on 10/24/2022 presents with generalized weakness. A neighbor came to check in on her today and found her to be near syncopal, generally weak with poor oral intake. Patient reports having some nausea but no fevers, chills, abdominal pain. She has a colostomy the output has been stable. Symptoms are described as severe. There is no clear relieving or exacerbating features. He has been no blood in the stool. Patient does report some recent poor oral intake. Her primary complaint at this time is generalized weakness which is quite severe as well as a dry mouth Related Data Home Medications Medication Instructions Recorded Confirmed cholecalciferol (vitamin D3) 25 25 mcg PO DAILY 09/13/22 09/13/22 mcg (1,000 unit) tablet fexofenadine 180 mg tablet 180 mg PO DAILY PRN Allergy 09/13/22 09/13/22 (Arlene Allergy) Symptoms fluticasone propionate 50 1 spray intranasal DAILY PRN 09/13/22 09/13/22 mcg/actuation nasal Allergy Symptoms spray,suspension omega 3-izy-bob-fish oil 1,000 mg 1 cap PO DAILY 09/13/22 09/13/22 (120 mg-180 mg) capsule (Fish Oil) Previous Rx's Medication Instructions Recorded simvastatin 20 mg tablet 20 mg PO DAILY #90 tabs 04/03/22 albuterol sulfate 90 mcg/actuation 2 puff inhalation Q4-6H PRN 07/24/22 aerosol inhaler (ProAir HFA) shortness of breath or wheezing #8.5 grams budesonide 180 mcg/actuation 2 inh inhalation QAM #3 multiple 09/03/22 breath activated powder inhaler units (Pulmicort Flexhaler) amlodipine 2.5 mg tablet 2.5 mg PO DAILY #1 tab 09/24/22 hydromorphone 0.5 mg/0.5 mL 0.25 mg IVPUSH Q5M PRN Pain, 09/24/22 injection syringe Severe (Pain Scale 7-10) #5 mL metronidazole 500 mg/100 mL in 500 mg IV Q8H #1 mL 09/24/22 sodium chlor(iso) intravenous piggyback ondansetron HCl (PF) 4 mg/2 mL 4 mg (2 mL) IVPUSH Q8H PRN Nausea 09/24/22 injection solution And Vomiting #1 mL oxycodone 5 mg tablet 10 mg PO Q4H PRN Pain, 09/24/22 Moderate(Pain Scale 4-6) #1 tab piperacillin-tazobactam 3.375 3.375 g (56.25 mL) IV Q6H 5 days 09/26/22 gram/50 mL dextrose(iso-os) IV #1,125 mL piggyback (Zosyn) Allergies Allergy/AdvReac Type Severity Reaction Status Date / Time egg Allergy Unknown Unknown Verified 09/12/22 21:49 Review of Systems Review of Systems: CONSTITUTIONAL: Denies weight loss, fever and chills. Generalized weakness HEENT: Denies changes in vision and hearing. RESPIRATORY: Denies SOB and cough. CV: Denies palpitations no CP. GI: Denies abdominal pain, positive nausea, negative vomiting and diarrhea. : Denies dysuria and urinary frequency. MSK: Denies myalgia and joint pain. SKIN: Denies rash and pruritus. NEUROLOGICAL: Denies headache and syncope. PSYCHIATRIC: Denies recent changes in mood. Denies anxiety and depression. All other ROS are negative unless in HPI PMFSH Past Medical History Medical History Abdominal visceral abscess Asthma Brain aneurysm History of skin cancer Hypercholesterolemia Osteopenia Surgical History History of colonoscopy History of eye surgery History of removal of cyst History of removal of cyst (06/05/22) History of removal of ovarian cyst Pilar cyst Status post exploratory laparotomy Status post surgical removal of malignant neoplasm of skin Family History Family History Father Past heart attack Mother Asthma Sister Diabetes Paternal Aunt Breast cancer Colon cancer Maternal Aunt Breast cancer Social History Social History Household Members: None Housing: Other Do you presently have visiting nurse or other home services: No Alcohol intake: never Patient Tobacco Use Status: Former Tobacco user Quit Date: 49 yrs ago Tobacco use type: Cigarette Smoked in Last 30 Days: No e-Cigarette/Vaping Use: Never Used Second Hand Smoke Exposure: No Use of substances other than those prescribed or required for medical reasons: No Advance Directives: No Advance Directives Information Provided: Yes service: No Current occupational status: retired Cognitive needs: No Hearing needs: No Vision needs: Yes Physical Exam ED Vital Signs: Vital Signs - 24 hr 11/01/22 09:18 11/01/22 09:56 11/01/22 11:00 Temperature 98.1 F Pulse Rate 116 H 112 H 111 H Respiratory Rate 20 17 14 Blood Pressure 102/54 L 129/57 L 107/63 Pulse Oximetry 99 98 99 Oxygen Delivery Method Nasal Cannula Nasal Cannula Room Air Oxygen Flow Rate 1 11/01/22 12:20 11/01/22 14:04 Temperature 97.6 F Pulse Rate 98 80 Respiratory Rate 16 14 Blood Pressure 109/54 L 153/55 H Pulse Oximetry 96 98 Oxygen Delivery Method Nasal Cannula Nasal Cannula Oxygen Flow Rate 2 1 BMI result Body Mass Index 17.7 GEN: Well developed, no acute distress, alert, oriented, cachectic and chronically ill-appearing HEENT: Normocephalic, atraumatic, normal external ears, nose appears normal, no oropharyngeal edema or exudates Eyes: Normal to appearance Neck: Supple, no lymphadenopathy Respiratory: Talks in complete sentences, no respiratory distress, clear to auscultation bilaterally Cardiovascular: Regular rate and rhythm, no murmurs rubs or gallops Abdomen: Soft, generalized tenderness, nondistended, no guarding, no rebound Back: No CVA tenderness Extremities: No clubbing cyanosis or edema Neurologic: No focal neurologic deficits, cranial nerves 2-12 intact, strength is 5/5 bilaterally Skin: No rash Course Reevaluation(s) Reevaluation #1: Receive notification of an elevated troponin. Patient has acute kidney injury. She denies any chest pain. Her EKG shows no acute ST elevations or depressions. At this point, I doubt this represents a true acute coronary syndrome. Will consider anticoagulation following CT scan. Would consider Lovenox or heparin drip. Her hemoglobin is okay. Time: 11:29 Reevaluation #2: UTI identified at this time. Will start IV ABX Time: 12:17 Reevaluation #3: Sepsis alert activated, meets criteria Time: 12:22 Additional Reevaluation(s): CT scan has returned, there are no acute abnormalities. Patient will be admitted for severe sepsis and urinary tract infection as well as acute kidney injury. Medications Administered Discontinued Medications Generic Name Dose Route Start Last Admin Trade Name Freq PRN Reason Stop Dose Admin Sodium Chloride 1,000 mls @ 999 mls/hr 11/01/22 11:15 11/01/22 13:00 Ns IV 11/01/22 12:15 Infused .Q1H1M JULI Infusion Sodium Chloride 1,320 mls @ 1,320 mls/hr 11/01/22 11:39 11/01/22 14:00 Ns 30 ml/kg infuse over 1 hr (1320 ml) 11/01/22 12:38 Infused IV Infusion .Q1H STA Ceftriaxone Sodium 1 gm/ 50 mls @ 100 mls/hr 11/01/22 12:17 11/01/22 13:51 Sodium Chloride IV 11/01/22 12:46 Infused ONCE ONE Infusion Ondansetron HCl 4 mg 11/01/22 11:10 11/01/22 11:19 Ondansetron Hcl 4 Mg/2 Ml Vial IVPUSH 11/01/22 11:11 4 mg ONCE ONE Administration Medical Decision Making Medical Decision Making MDM Narrative: 77-year-old female with history of bowel obstruction, colostomy presents with generalized weakness. Patient was recently discharged from [facility]. Today, patient complains of generalized weakness, lightheadedness and neighbor reports near syncope. On exam, she is chronically ill-appearing, dehydrated with dry mucous membranes and poor skin turgor. Her abdomen is tender but no rebound or guarding. She has a colostomy in place with no bloody stool. Differential diagnosis could include dehydration, electrolyte abnormality, gastroenteritis, deconditioning, loss of appetite, protein calorie malnutrition. Patient will have routine laboratory analysis including CBC, chemistry as well as additional laboratory testing and consider various comorbidities and determine etiology of her generalized weakness. Will provide patient with Zofran and IV fluids to assist with her symptoms. I suspect patient will likely need to be admitted for hydration and further management Differential Diagnosis Differential Diagnoses: The differential diagnosis associated with the presentation includes (See above) Admission/Observation Consideration of admission/observation: Escalation of care including admission/observation considered Consult Healthcare Provider Management of the patient was discussed with: Hospitalist Lab Data MDM Lab Attestation statement: I reviewed the patient's lab results. Laboratory results so far include leukocytosis which is slightly improved from her previous lab values. She does have acute kidney injury which is quite significant. She has an elevated alkaline phosphatase of unclear etiology. 11/01/22 10:50 11/01/22 10:50 Labs: Lab Results 11/01/22 11/01/22 11/01/22 Range/Units 10:50 10:50 10:50 WBC 18.0 H (4.8-10.8) X10*3/uL RBC 4.73 D (4.20-5.50) X10*6/uL Hgb 14.1 D (12.0-16.0) g/dl Hct 45.7 D (37.0-47.0) % MCV 96.6 (80.0-98.0) fL MCH 29.8 (27.0-33.0) pg MCHC 30.9 L (31.0-35.0) g/dl RDW 16.9 H (11.0-16.0) % Plt Count 453 H (160-400) X10*3/uL MPV 10.5 (9.4-12.3) fL Absolute Nucleated RBC 0.000 (0.0-0.012) X10*3/uL Nucleated RBC % (auto) 0.0 (0.0-0.2) /100WBC Sodium 145 (135-145) mmol/L Potassium 3.9 (3.3-5.1) mmol/L Chloride 87 L (96-108) mmol/L Carbon Dioxide 33 H (22-29) mmol/L Anion Gap 29 H (12-20) BUN 62 H (9-16) mg/dL Creatinine 3.13 H (0.5-1.4) mg/dL Estim Creat Clear Calc 10.3 Estimated GFR 14 Random Glucose 169 H (60-115) mg/dL Lactic Acid (0.5-2.0) mmol/L Calcium 10.5 H D (8.4-10.2) mg/dL Magnesium 2.3 (1.6-2.6) mg/dL Total Bilirubin 6.9 H (0.0-1.0) mg/dL Direct Bilirubin 4.7 H (0.0-0.5) mg/dL AST 52 H (5-31) U/L ALT 59 H (0-31) U/L Alkaline Phosphatase 501 H (39-117) U/L Troponin I High Sens 73.1 H* (<3.5-17.0) ng/L Total Protein 8.7 H (6.5-8.0) g/dL Albumin 3.8 (3.5-5.0) g/dL Lipase 44 (8-78) U/L Urine Color Urine Appearance Urine pH (5.0-9.0) Ur Specific [place] (1.005-1.025) Urine Protein (Neg-Trace) mg/dL Urine Glucose (UA) (Negative) mg/dL Urine Ketones (Negative) mg/dL Urine Blood (Negative) Urine Nitrite (Negative) Ur Leukocyte Esterase (Negative) Urine RBC (0-2) /HPF Urine WBC (0-5) /HPF Ur Squamous Epith Cells (0-2) /HPF Urine Bacteria (None Seen) Hyaline Casts (0-2) /LPF Granular Casts Urine Yeast 11/01/22 11/01/22 Range/Units 11:32 12:29 WBC (4.8-10.8) X10*3/uL RBC (4.20-5.50) X10*6/uL Hgb (12.0-16.0) g/dl Hct (37.0-47.0) % MCV (80.0-98.0) fL MCH (27.0-33.0) pg MCHC (31.0-35.0) g/dl RDW (11.0-16.0) % Plt Count (160-400) X10*3/uL MPV (9.4-12.3) fL Absolute Nucleated RBC (0.0-0.012) X10*3/uL Nucleated RBC % (auto) (0.0-0.2) /100WBC Sodium (135-145) mmol/L Potassium (3.3-5.1) mmol/L Chloride (96-108) mmol/L Carbon Dioxide (22-29) mmol/L Anion Gap (12-20) BUN (9-16) mg/dL Creatinine (0.5-1.4) mg/dL Estim Creat Clear Calc Estimated GFR Random Glucose (60-115) mg/dL Lactic Acid 1.4 (0.5-2.0) mmol/L Calcium (8.4-10.2) mg/dL Magnesium (1.6-2.6) mg/dL Total Bilirubin (0.0-1.0) mg/dL Direct Bilirubin (0.0-0.5) mg/dL AST (5-31) U/L ALT (0-31) U/L Alkaline Phosphatase (39-117) U/L Troponin I High Sens (<3.5-17.0) ng/L Total Protein (6.5-8.0) g/dL Albumin (3.5-5.0) g/dL Lipase (8-78) U/L Urine Color Dark Yellow Urine Appearance Turbid Urine pH 5.0 (5.0-9.0) Ur Specific [place] 1.020 (1.005-1.025) Urine Protein 30 (1+) H (Neg-Trace) mg/dL Urine Glucose (UA) Negative (Negative) mg/dL Urine Ketones Negative (Negative) mg/dL Urine Blood Trace H (Negative) Urine Nitrite Positive H (Negative) Ur Leukocyte Esterase Moderate (2+) H (Negative) Urine RBC >20 H (0-2) /HPF Urine WBC >50 H (0-5) /HPF Ur Squamous Epith Cells 6-10 (0-2) /HPF Urine Bacteria 1+ (None Seen) Hyaline Casts 6-10 (0-2) /LPF Granular Casts Present Urine Yeast Present Independent Interpretation I performed an independent interpretation of an: EKG (Sinus tachycardia heart rate 109, prominent T-waves noted in V2 and V3 concerning for possible hyperkalemia, rate related ST T wave changes) and CT Scan (Abdomen pelvis: No acute, findings to suggest an etiology of patient's abdominal pain) Radiology Impression Discussion of test interpretation with radiology: I have reviewed the radiologist's reading. Radiologist Impression: CT/CT abdomen pelvis wo IV con IMPRESSION: ? 1. Right lower quadrant ostomy site without abnormality. Decompressed colon with segments containing residual high attenuation material, presumably oral contrast without other significant abnormality. If symptoms persist or worsen, short-term follow-up CT scan is recommended to assess for more acute change. Dictated By: Zhou Resendiz MD Signed By: <Electronically signed by Zhou Resendiz MD in OV> 11/01/22 [id number] External Record Review External record reviewed: Outpatient record Prescription Management I considered prescription management with: Pain Medication and Antibiotic Critical Care Time Critical Care Time Total Critical Care Time: 40 Attestation: Critical care time the amount of approximately 40 minutes was performed on this patient in terms of initial assessment, reassessment, interpretation and medical data, documentation, medical management of potentially life-threatening condition all outside of any procedures. Discharge Plan Discharge Clinical Impression: Generalized weakness, Dehydration, SAADIA (acute kidney injury), Cachexia, Sinus tachycardia, Acute lower UTI Patient Disposition: Admitted As Inpatient Prescriptions: No Action simvastatin 20 mg tablet 20 mg PO DAILY Qty: 90 2RF Hold Instructions: Resume on 10/10/22. Pulmicort Flexhaler 180 mcg/actuation aerosol powdr breath activated 2 inh inhalation QAM Qty: 3 3RF cholecalciferol (vitamin D3) 25 mcg (1,000 unit) Tablet 25 mcg PO DAILY omega 9-xkr-xqg-fish oil [Fish Oil] 1,000 mg (120 mg-180 mg) Capsule 1 cap PO DAILY fexofenadine [Arlene Allergy] 180 mg tablet 180 mg PO DAILY PRN (Reason: Allergy Symptoms) fluticasone propionate 50 mcg/actuation spray,suspension 1 spray intranasal DAILY PRN (Reason: Allergy Symptoms) metronidazole in NaCl (iso-os) 500 mg/100 mL Piggyback 500 mg IV Q8H Qty: 1 0RF amlodipine 2.5 mg Tablet 2.5 mg PO DAILY Qty: 1 0RF Protocol: Hold for SBP< HOLD for SBP < : 90 hydromorphone 0.5 mg/0.5 mL Syringe 0.25 mg IVPUSH Q5M PRN (Reason: Pain, Severe (Pain Scale 7-10)) Qty: 5 0RF Protocol: Hold for RR < HOLD and contact provider for RR < (bpm): 12 Rx Instructions: Partial Fill upon patient request. oxycodone 5 mg Tablet 10 mg PO Q4H PRN (Reason: Pain, Moderate(Pain Scale 4-6)) Qty: 1 0RF Rx Instructions: Partial Fill upon patient request. ondansetron HCl (PF) 4 mg/2 mL Solution 4 mg IVPUSH Q8H PRN (Reason: Nausea And Vomiting) Qty: 1 0RF Zosyn in dextrose (iso-osm) 3.375 gram/50 mL piggyback 3.375 g IV Q6H 5 Days Qty: 1125 0RF albuterol sulfate [ProAir HFA] 90 mcg/actuation HFA aerosol inhaler 2 puff inhalation Q4-6H PRN (Reason: shortness of breath or wheezing) Qty: 8.5 0RF
[2022-11-01] MEDS: 0.9 % Sodium Chloride 1,000 ML 999 ML IV (11:16)
[2022-11-01] MEDS: ondansetron HCL 4 MG/2 ML VIAL IVPUSH (11:19)
[2022-11-01 11:28] LABS: Troponin-I High Sensitivity 73.1 ng/L (<3.5-17.0)
--- NOTE | 2022-11-01 11:31 | PC.NURSE ---
PT RESTING IN BED, RESP UNLABORED, EQUAL CHEST RISE AND FALL. PT STOMA PRODUCING FECES, LIQUID CONSISTENCY.
[2022-11-01 11:38] LABS: Appearance Urine Turbid; Color Urine Dark Yellow; Glucose Urine UA Negative (Negative); Leukocyte Esterase Urine Moderate (2+) (Negative); Nitrite Urine Positive (Negative); UMIC TRIGGER UACC YES; Urine Blood Trace (Negative); Urine Ketones Negative (Negative); Urine Protein 30 (1+) mg/dL (Neg-Trace)
[2022-11-01 11:52] LABS: Bacteria Urine 1+ (None Seen); Granular Casts Urine Present; RBC Urine >20 /HPF (0-2); UACC Culture Trigger YES; WBC Urine >50 /HPF (0-5)
--- NOTE | 2022-11-01 12:20 | PC.NURSE ---
pt colostomy bag was found to be leaking, replaced colostomy bag. stoma red with some skin breakdown on the outer edges of the adhesive
[2022-11-01] MEDS: cefTRIAXone sodium 1 GM in 0.9 % Sodium Chloride 50 ML IV (12:34)
[2022-11-01 12:45] LABS: Lactic Acid 1.4 mmol/L (0.5-2.0)
--- NOTE | 2022-11-01 13:45 | PC.NURSE ---
PT REMAINS ALERT, SHE IS MOSTLY NAPPING, IV FLUIDS INFUSING, ANTIBIOTICS ORDERED, REMAINS AFEBRILE
--- NOTE | 2022-11-01 15:23 | PHA.MEDREC ---
Addendum entered by Susy Gregorio [facility] 11/01/22 17:00: ADDED DECADRON AND PANTOPRAZOLE PER QUOC MIMS BASED ON RECENT DISCHARGE LIST SHE HAS Original Note: Pharmacy Consult ? Medication Reconciliation Pharmacy has completed the medication reconciliation. Spoke to patient to confirm meds. Per patient, they are done with Phos packets.
--- NOTE | 2022-11-01 16:23 | P.HPHOSP_ITS ---
History of Present Illness Date of Service: 11/01/22 Attending physician on admission: [facility] Chief Complaint: weakness This is a 77 year old female with complicated past medical history who presents to the emergency department today with generalized weakness. Records from and [facility] obtained and reviewed. She was initially admitted to [facility] on 09/12, with abdominal pain. On 09/19 she had exploratory laparotomy with lysis of adhesions, small-bowel resection, drainage of intra-abdominal abscess (that grew Klebsiella oxytocin and Klebsiella pneumonia) and appendectomy. 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 On September 24 she underwent second exploratory laparotomy with small-bowel resection and double- barreled ileostomy. She was ultimately transferred to [facility] on October 27 for inpatient rheumatology evaluation. during her hospitalization she was treated with steroids and IVIG. She was discharged to rehab at [facility] on 10/15 with slow steroid taper and plans for outpatient monthly IVIG. She had ongoing poor p.o. intake and high ostomy output and subsequently presented to [facility] on October 19 with nausea, vomiting, somnolence. At that time she was noted to have acute renal failure with a creatinine of 1.6. She was started on ammonium and hydrated and her renal function improved. 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 She was discharged home on October 24. Today a neighbor came to check on her and found her to be weak and therefore call the ambulance and sent her to the hospital. She states that she has been eating although she should be eating more and does state that she has to empty her ileostomy frequently. She has been taking the immodium as prescribed from [facility]. In the emergency department she was noted to have multiple abnormalities including acute kidney injury with serum creatinine of 3.13, Chloride 87, bicarb 33. elevated LFTs with total bilirubin of 6.9, direct bilirubin 4.7, alkaline phosphatase 501. She denies any abdominal pain. Her urinalysis appeared consistent with urinary tract infection. She was treated with IV ceftriaxone. She also received 30 cc/kg bolus of normal saline. She will be admitted for further management of SAADIA, elevated LFTs and possible UTI. Review of Systems Review of Systems: Yes all other systems are reviewed and are negative Constitutional: Constitutional: Denies chills and Denies fever(s) Cardiovascular: Cardiovascular: Denies chest pain, Denies palpitations and Denies dyspnea Respiratory: Respiratory: Denies cough and Denies dyspnea Gastrointestinal: Gastrointestinal: Denies abdominal pain, Denies nausea and Denies vomiting Genitourinary: Genitourinary: Denies urinary urgency Endocrine: Endocrine: Denies palpitations [facility] Medical History Abdominal visceral abscess Asthma Brain aneurysm History of skin cancer Hypercholesterolemia Osteopenia Functional capacity: uses cane/walker Family History Father Past heart attack Mother Asthma Sister Diabetes Paternal Aunt Breast cancer Colon cancer Maternal Aunt Breast cancer Surgical History History of colonoscopy History of eye surgery History of removal of cyst History of removal of cyst (06/05/22) History of removal of ovarian cyst Pilar cyst Status post exploratory laparotomy Status post surgical removal of malignant neoplasm of skin Social History Household Members: None Housing: Other Do you presently have visiting nurse or other home services: No Alcohol intake: never Patient Tobacco Use Status: Former Tobacco user Quit Date: 49 yrs ago Tobacco use type: Cigarette Smoked in Last 30 Days: No e-Cigarette/Vaping Use: Never Used Second Hand Smoke Exposure: No Use of substances other than those prescribed or required for medical reasons: No Advance Directives: No Advance Directives Information Provided: Yes service: No Current occupational status: retired Cognitive needs: No Hearing needs: No Vision needs: Yes Meds Allergies Allergy/AdvReac Type Severity Reaction Status Date / Time egg Allergy Unknown Unknown Verified 09/12/22 21:49 Active Medications: Current Medications Heparin Sodium (Porcine) (Heparin Sodium,Porcine 5,000 Unit/Ml Vial) 5,000 unit SUBCUT Q12H JULI Sodium Chloride (Ns) 1,000 mls @ 100 mls/hr IVCONT .Q10H JULI Ondansetron HCl (Ondansetron Hcl 4 Mg/2 Ml Vial) 4 mg IVPUSH Q8H PRN PRN Reason: Nausea and Vomiting Pharmacy Consult (Consult Rx Perform Med Rec) 1 each MISCELLANE ONCE PRN PRN Reason: Consult order Sodium Chloride (0.9 % Sodium Chloride Flush 3 Ml Syringe) 3 ml IVFLUSH QSHIFT [facility] Home Medications Medication Instructions Recorded Confirmed Last Taken Type cholecalciferol (vitamin D3) 25 25 mcg PO DAILY 09/13/22 11/01/22 09/10/22 History mcg (1,000 unit) tablet omega 4-[id number]-[id number]-fish oil 1,000 mg 1 cap PO DAILY 09/13/22 11/01/22 09/10/22 History (120 mg-180 mg) capsule (Fish Oil) albuterol sulfate 90 mcg/actuation 2 puff inhalation Q6H PRN 11/01/22 11/01/22 Unknown History aerosol inhaler (ProAir HFA) shortness of breath or wheezing budesonide 180 mcg/actuation 2 inh inhalation DAILY 11/01/22 11/01/22 Unknown History breath activated powder inhaler (Pulmicort Flexhaler) dexamethasone 2 mg tablet See Taper PO DAILY 11/01/22 11/01/22 11/01/22 History loperamide 2 mg capsule 4 mg PO QID PRN Diarrhea 11/01/22 11/01/22 11/01/22 History pantoprazole 40 mg tablet,delayed 40 mg PO DAILY@0630 11/01/22 11/01/22 Unknown History release simvastatin 20 mg tablet 20 mg PO BEDTIME 11/01/22 11/01/22 Unknown History Physical Exam Vital Signs and Narrative: Vital Signs: Last Vital Signs Temp 97.6 F 11/01/22 14:04 Pulse 84 11/01/22 15:33 Resp 16 11/01/22 15:33 BP 131/50 L 11/01/22 15:33 Pulse Ox 100 11/01/22 15:33 O2 Del Method Nasal Cannula 11/01/22 15:33 O2 Flow Rate 1 11/01/22 15:33 Oxygen Flow Rate 1 11/01/22 09:18 BMI result Body Mass Index 17.7 Const: Other: thin, frail appearing General: cooperative, no acute distress, alert and awake Orientation/consciousness: patient oriented x3 Resp: Effort & Inspection: normal respiratory effort, able to speak in complete sentences, no respiratory distress and no use of accessory muscles Auscultation: clear to auscultation bilaterally Cardio: Rate: regular rate Heart sounds: S1 normal heart sound present and S2 normal heart sound present GI: Other: ileostomy present Inspection: No distended Palpation (GI): Soft to palpation and nontender Neuro: General: patient oriented x3, moves all extremities and CN's II-XI intact bilaterally Extrem: General: Yes no pedal edema Results Labs 11/01/22 10:50 11/01/22 10:50 Labs: Laboratory Results - last 24 hr 11/01/22 11/01/22 11/01/22 10:50 10:50 10:50 MCV 96.6 MCH 29.8 MCHC 30.9 L RDW 16.9 H Plt Count 453 H MPV 10.5 Absolute Nucleated RBC 0.000 Nucleated RBC % (auto) 0.0 Anion Gap 29 H Estim Creat Clear Calc 10.3 Estimated GFR 14 Random Glucose 169 H Lactic Acid Calcium 10.5 H D Magnesium 2.3 Total Bilirubin 6.9 H Direct Bilirubin 4.7 H AST 52 H ALT 59 H Alkaline Phosphatase 501 H Troponin I High Sens 73.1 H* Total Protein 8.7 H Albumin 3.8 Lipase 44 Urine Color Urine Appearance Urine pH Ur Specific [place] Urine Protein Urine Glucose (UA) Urine Ketones Urine Blood Urine Nitrite Ur Leukocyte Esterase Urine RBC Urine WBC Ur Squamous Epith Cells Urine Bacteria Hyaline Casts Granular Casts Urine Yeast 11/01/22 11/01/22 11:32 12:29 MCV MCH MCHC RDW Plt Count MPV Absolute Nucleated RBC Nucleated RBC % (auto) Anion Gap Estim Creat Clear Calc Estimated GFR Random Glucose Lactic Acid 1.4 Calcium Magnesium Total Bilirubin Direct Bilirubin AST ALT Alkaline Phosphatase Troponin I High Sens Total Protein Albumin Lipase Urine Color Dark Yellow Urine Appearance Turbid Urine pH 5.0 Ur Specific [place] 1.020 Urine Protein 30 (1+) H Urine Glucose (UA) Negative Urine Ketones Negative Urine Blood Trace H Urine Nitrite Positive H Ur Leukocyte Esterase Moderate (2+) H Urine RBC >20 H Urine WBC >50 H Ur Squamous Epith Cells 6-10 Urine Bacteria 1+ Hyaline Casts 6-10 Granular Casts Present Urine Yeast Present Imaging Radiologist's Impressions: Impressions Chest X-Ray 11/01/22 09:55 IMPRESSION: No acute cardiopulmonary process. Abdomen/Pelvis CT 11/01/22 11:44 IMPRESSION: 1. Right lower quadrant ostomy site without abnormality. Decompressed colon with segments containing residual high attenuation material, presumably oral contrast without other significant abnormality. If symptoms persist or worsen, short-term follow-up CT scan is recommended to assess for more acute change. 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 SAADIA/metabolic acidosis SCr 3.13, was 0.60 on 10/24 likely pre-renal r/t from high output ileostomy, decreased PO intake continue IVF will obtain renal consult monitor renal function closely Elevated LFTs LFTs elevated during admission at [facility] and thought to be related to cholestasis/CMV+ no abdominal pain Hepatitis panel has been negative will obtain GI consult abdominal US pending follow LFTs possible UTI UA consistent with UTI, but pt denies symptoms no sepsis - tachycardia from dehydration, leukocytosis from chronic steroids will continue IV ceftriaxone for now follow urine culture, blood cultures high output from ileostomy 09/19 ex lap with SBR, lysis of adhesions, drainage of intra-abdominal abscess and appedectomy. 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 alonso patient will require two midnight stay in the hospital for management of SAADIA, elevated LFTS requiring specialist evaluation Time Spent With Patient Time: Total time managing care of this patient today ____ minutes. Quality Stroke Does the patient have a stroke diagnosis?: No VTE Prior VTE?: No VTE Risk Level:: Medical - moderate - high VTE Device Contraindication: N/A - Device Ordered VTE Drug Contraindication: N/A - Med Ordered
[2022-11-01 16:58] LABS: Troponin-I High Sensitivity 66.9 ng/L (<3.5-17.0)
[2022-11-01] MEDS: 0.9 % Sodium Chloride 1,000 ML 100 ML IVCONT (17:06)
[2022-11-01] MEDS: Heparin Sodium,Porcine 5,000 UNIT/ML VIAL 5000 UNIT SUBCUT (17:39)
--- NOTE | 2022-11-01 17:42 | PC.NURSE ---
REPORT WAS GIVEN FOR TELE ADMISSION
--- NOTE | 2022-11-01 18:42 | PC.NURSE ---
Patient arrived to unit on stretcher slide to bed with staff assist, oriented to room, call burris system and staff. A&OX4 speech clear. CHO with generalized weakness c/o numbness/tingling to feet ongoing. +pp bilat no edema noted. Denies pain/discomfort. LS rhonchi all arrieta arrives on 1L oxygen via nasal cannula. Denies shortnss of breath or chest pain, NS with PVC's on tele. BS+X4 abdomen non-tender colostomy to RLQ CDI with liquid green stool. Denies nausea/vomiting remains NPO at this time. IV fluids infusing per order. Small shear to coccyx looks to be healing protective dressing applied. Bed alarm for safety in lowest locked position. Will continue to monitor and report changes
[2022-11-01 21:26] LABS: CDiff Gene PCR NEGATIVE (Negative)
[2022-11-02] VITALS (8 sets, daily range): BP systolic 111–151; BP diastolic 53–69; PULSE 60–68; RESP 16–20; TEMP 36.4–36.9; O2SAT 94–100; BMI 22.2
[2022-11-02] MEDS: 0.9 % Sodium Chloride 1,000 ML 100 ML IVCONT (02:57)
[2022-11-02] MEDS: Omeprazole 20 MG CAPSULE.DR PO (05:10)
[2022-11-02] MEDS: Heparin Sodium,Porcine 5,000 UNIT/ML VIAL 5000 UNIT SUBCUT ×2 (05:10→17:16)
[2022-11-02 06:51] LABS: MANUAL DIFF FLAG NO
[2022-11-02 07:03] LABS: Basophils Percent Auto 0.2 % (0-2); Eosinophils Absolute Auto 0.1 X10*3/uL (0.0-0.4); Eosinophils Percent Auto 0.5 % (0-4); Hematocrit 33.8 % (37.0-47.0); Hemoglobin 10.2 g/dl (12.0-16.0); Imm Gran Abs Auto 0.23 X10*3/uL (0.00-0.03); Imm Gran Pct Auto 1.9 % (0.0-0.4); Lymphocytes Absolute Auto 1.2 X10*3/uL (1.2-4.9); Lymphocytes Percent Auto 9.4 % (20-40); Mean Corpuscular HGB Conc 30.2 g/dl (31.0-35.0); Mean Corpuscular Hemoglobin 30.1 pg (27.0-33.0); Mean Corpuscular Volume 99.7 fL (80.0-98.0); Mean Platelet Volume 10.9 fL (9.4-12.3); Monocytes Absolute Auto 0.7 X10*3/uL (0.1-1.2); Monocytes Percent Auto 5.3 % (2-11); Neutrophils Absolute Auto 10.2 x10*3/uL (2.0-8.3); Neutrophils Percent Auto 82.7 % (45-73); Platelet Count 310 X10*3/uL (160-400); Red Blood Count 3.39 X10*6/uL (4.20-5.50)
[2022-11-02 07:05] LABS: White Blood Count 12.4 X10*3/uL (4.8-10.8)
[2022-11-02 07:15] LABS: Alanine Aminotransferase 37 U/L (0-31); Albumin Level 2.5 g/dL (3.5-5.0); Alkaline Phosphatase 330 U/L (39-117); Anion Gap 20 (12-20); Aspartate Amino Transferase 44 U/L (5-31); Bilirubin Direct 2.5 mg/dL (0.0-0.5); Bilirubin Total 4.1 mg/dL (0.0-1.0); Blood Urea Nitrogen 57 mg/dL (9-16); Carbon Dioxide 29 mmol/L (22-29); Chloride 105 mmol/L (96-108); Creatinine Clr Calc Pharmacy 16.9; Estimated Glomerular Filt Rate 23; Glucose Random 79 mg/dL (60-115); Magnesium 1.9 mg/dL (1.6-2.6); Potassium 4.5 mmol/L (3.3-5.1); Sodium 149 mmol/L (135-145); Total Protein 6.1 g/dL (6.5-8.0)
[2022-11-02] MEDS: dexAMETHasone 2 MG TABLET PO (08:11)
[2022-11-02] MEDS: Dextrose 5 % 1,000 ML 75 ML IVCONT (08:11)
--- NOTE | 2022-11-02 08:39 | MHC.CM.PN ---
CM met with Patient at bedside and addressed IMM with her, providing Patient with the original and placing a copy on the chart. Patient lives alone in a trailer and she uses a walker to assist with mobility. Patient believes that she is active with [facility] and home/resume said services is her goal. CM has initiated and will follow for dc planning. Patient is yusra daniel'marvin x4 and her PCP is Dr. Amos Aguilar. Patient has a Step-Daughter who lives 2 houses down from her, who is helpful to Patient and her Friend/Tammy is her HCP.
--- NOTE | 2022-11-02 08:46 | MHC.CM.PN ---
Per Laurie CORNELL, Patient is NOT active with them CM will follow.
--- NOTE | 2022-11-02 09:29 | MHC.CM.PN ---
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 It is Jazmin's goal for Patient to go to [facility] prior to returning home.CM will benefit from a PT eval to assist with disposition. CM will follow.
[2022-11-02] MEDS: Budesonide 180 MCG AER.POW.BA 2 PUFF INHALE (11:24)
[2022-11-02] MEDS: cefTRIAXone sodium 1 GM in 0.9 % Sodium Chloride 50 ML IV (11:25)
--- NOTE | 2022-11-02 12:15 | PM.CNGS ---
History of Present Illness Consult details Consult date: 11/02/22 Narrative: 69-year-old female patient well known to the surgical service readmitted to the hospital last evening with weakness. She was previously admitted to [facility] on 09/12 complaints of abdominal pain found to have a small-bowel obstruction. After period of non operative management she underwent exploratory laparotomy on 09/19/2022. Operative findings included omental adhesions to small-bowel will loop of small bowel adherent causing obstruction. Areas of necrotic bowel with abscess formation containing fecal material and surrounding phlegmon was identified as well. She underwent a small-bowel resection with a functional and an anastomosis. 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 A repeat CT approximately 1 week postop due to increased WBC revealed a fluid collection near the anastomosis there for re-exploration was performed. New areas of bowel necrosis were identified including areas around the anastomosis. She subsequently underwent further small-bowel resection with creation of a double barrel ileostomy. She was subsequently transferred to [facility] for management of vasculitis on 10/27/2022. She was treated with steroids in IVIG. She was subsequently discharged to rehab but later return to [facility] for nausea and vomiting on 10/19/2022. Acute renal failure and cholestasis was also identified. 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 She has subsequently discharged to home with home health aides was subsequently found by her neighbor to be looking ill. She was subsequently returned to the hospital and found to have acute kidney injury due to high output from her ileostomy. She denies any abdominal pain currently. She has been eating small amounts of solid food and denies any current vomiting. She reports her ostomy fills soon after eating. She was prescribed Imodium which he has been taking at home as well. Review of Systems Review of Systems: Yes Unobtainable due to mental condition [facility] Past Medical History Medical History Abdominal visceral abscess Asthma Brain aneurysm History of skin cancer Hypercholesterolemia Osteopenia Functional capacity: uses cane/walker Family History Family History Father Past heart attack Mother Asthma Sister Diabetes Paternal Aunt Breast cancer Colon cancer Maternal Aunt Breast cancer Surgical History Surgical History History of colonoscopy History of eye surgery History of removal of cyst History of removal of cyst (06/05/22) History of removal of ovarian cyst Pilar cyst Status post exploratory laparotomy Status post surgical removal of malignant neoplasm of skin Social History Social History Household Members: None Housing: House Do you presently have visiting nurse or other home services: Yes Alcohol intake: never Patient Tobacco Use Status: Former Tobacco user Quit Date: 49 yrs ago Tobacco use type: Cigarette Smoked in Last 30 Days: No e-Cigarette/Vaping Use: Never Used Second Hand Smoke Exposure: No Use of substances other than those prescribed or required for medical reasons: No Currently Displaying Signs/Symptoms of Drug Intoxication Withdrawal: No Have you been hit, kicked, punched, or otherwise hurt by someone within the past year? If so, by whom?: No Do you feel safe in your current relationship?: No Is there a partner from a previous relationship who is making you feel unsafe now?: No Are you made to feel afraid or neglected: No [employer] Healthcare Practices: faith Advance Directives: No Advance Directives Information Provided: Yes Do you have thoughts of harming others: None Do you have a plan to hurt others: No Plan Recently lost weight without trying: Yes How much weight loss: 24-33 pounds Eating poorly because of decreased appetite: Yes Nutrition screen score: 6 Nutrition Risks: Poor intake 0-25% >4 days Patient : No : No Poor oral hygiene: No service: No Current occupational status: retired Cognitive needs: No Hearing needs: No Vision needs: Yes Meds Allergies Allergy/AdvReac Type Severity Reaction Status Date / Time egg Allergy Unknown Unknown Verified 09/12/22 21:49 Active Medications: Current Medications Albuterol Sulfate (Albuterol Sulfate 90 Mcg 8 Gm Inhaler) 2 puff INHALE Q6H PRN PRN Reason: shortness of breath or wheezing Budesonide (Budesonide 180 Mcg Aer.Pow.Ba) 2 puff INHALE DAILY JULI Last Admin: 11/02/22 11:24 Dose: 2 puff Dexamethasone (Dexamethasone 2 Mg Tablet) 4 mg PO DAILY JULI; Taper Stop: 11/12/22 08:59 Last Admin: 11/02/22 08:11 Dose: 4 mg Heparin Sodium (Porcine) (Heparin Sodium,Porcine 5,000 Unit/Ml Vial) 5,000 unit SUBCUT Q12H [facility] Last Admin: 11/02/22 05:10 Dose: 5,000 unit Ceftriaxone Sodium 1 gm/ (Sodium Chloride) 50 mls @ 100 mls/hr IV Q24H [facility] Last Admin: 11/02/22 11:25 Dose: 100 mls/hr Dextrose (D5w) 1,000 mls @ 100 mls/hr IVCONT .Q10H [facility] Last Infusion: 11/02/22 11:30 Dose: 100 mls/hr Loperamide HCl (Loperamide Hcl 2 Mg Capsule) 4 mg PO QID PRN PRN Reason: Diarrhea Omeprazole (Omeprazole 20 Mg Capsule.) 20 mg PO DAILY@0630 [facility] Last Admin: 11/02/22 05:10 Dose: 20 mg Ondansetron HCl (Ondansetron Hcl 4 Mg/2 Ml Vial) 4 mg IVPUSH Q8H PRN PRN Reason: Nausea and Vomiting Pharmacy Consult (Consult Rx Perform Med Rec) 1 each MISCELLANE ONCE PRN PRN Reason: Consult order Sodium Chloride (0.9 % Sodium Chloride Flush 3 Ml Syringe) 3 ml IVFLUSH QSHIFT [facility] Last Admin: 11/02/22 08:12 Dose: Not Given Home Medications Medication Instructions Recorded Confirmed Last Taken Type cholecalciferol (vitamin D3) 25 25 mcg PO DAILY 09/13/22 11/01/22 09/10/22 History mcg (1,000 unit) tablet omega 5-yuf-kot-fish oil 1,000 mg 1 cap PO DAILY 09/13/22 11/01/22 09/10/22 History (120 mg-180 mg) capsule (Fish Oil) albuterol sulfate 90 mcg/actuation 2 puff inhalation Q6H PRN 11/01/22 11/01/22 Unknown History aerosol inhaler (ProAir HFA) shortness of breath or wheezing budesonide 180 mcg/actuation 2 inh inhalation DAILY 11/01/22 11/01/22 Unknown History breath activated powder inhaler (Pulmicort Flexhaler) dexamethasone 2 mg tablet See Taper PO DAILY 11/01/22 11/01/22 11/01/22 History loperamide 2 mg capsule 4 mg PO QID PRN Diarrhea 11/01/22 11/01/22 11/01/22 History pantoprazole 40 mg tablet,delayed 40 mg PO DAILY@0630 11/01/22 11/01/22 Unknown History release simvastatin 20 mg tablet 20 mg PO BEDTIME 11/01/22 11/01/22 Unknown History Physical Exam Vital Signs: Vital Signs: Last Vital Signs Temp 97.5 F 11/02/22 11:15 Pulse 60 11/02/22 11:15 Resp 20 11/02/22 11:15 BP 111/56 L 11/02/22 11:15 Pulse Ox 99 11/02/22 11:15 O2 Del Method Nasal Cannula 11/02/22 11:15 O2 Flow Rate 1 11/02/22 11:15 Oxygen Flow Rate 1 11/01/22 09:18 BMI result Body Mass Index 19.5 Const: General: alert, awake and ill appearing Nutritional Appearance: thin Orientation/consciousness: patient oriented x3 HEENT: Head: Yes normocephalic and Yes atraumatic Ears: hearing grossly normal bilaterally Resp: Effort & Inspection: normal respiratory effort, no audible wheezes, no cough and no respiratory distress GI: Other: Soft, nondistended, ostomy in the right lower quadrant pink and patent with liquid/bilious fluid. No rebound, guarding or rigidity. No tympany to percussion. Skin: Other: Pale, warm and dry Neuro: General: patient oriented x3 Results Labs 11/02/22 06:36 11/02/22 06:36 Labs: Abnormal lab results 11/01/22 11/02/22 11/02/22 Range/Units 16:28 06:36 06:36 WBC 12.4 H (4.8-10.8) X10*3/uL RBC 3.39 L D (4.20-5.50) X10*6/uL Hgb 10.2 L D (12.0-16.0) g/dl Hct 33.8 L D (37.0-47.0) % MCV 99.7 H (80.0-98.0) fL MCHC 30.2 L (31.0-35.0) g/dl RDW 17.0 H (11.0-16.0) % Immature Gran % (Auto) 1.9 H (0.0-0.4) % Neut % (Auto) 82.7 H (45-73) % Lymph % (Auto) 9.4 L (20-40) % Abs Immat Gran (auto) 0.23 H (0.00-0.03) X10*3/uL Absolute Neuts (auto) 10.2 H (2.0-8.3) x10*3/uL Sodium 149 H (135-145) mmol/L BUN 57 H (9-16) mg/dL Creatinine 2.09 H (0.5-1.4) mg/dL Calcium 8.0 L D (8.4-10.2) mg/dL Total Bilirubin 4.1 H (0.0-1.0) mg/dL Direct Bilirubin 2.5 H (0.0-0.5) mg/dL AST 44 H (5-31) U/L ALT 37 H (0-31) U/L Alkaline Phosphatase 330 H (39-117) U/L Troponin I High Sens 66.9 H* (<3.5-17.0) ng/L Total Protein 6.1 L (6.5-8.0) g/dL Albumin 2.5 L (3.5-5.0) g/dL Short CBC 11/02/22 Range/Units 06:36 WBC 12.4 H (4.8-10.8) X10*3/uL Hgb 10.2 L D (12.0-16.0) g/dl Hct 33.8 L D (37.0-47.0) % Plt Count 310 D (160-400) X10*3/uL BMP 11/02/22 06:36 Sodium 149 H Potassium 4.5 Chloride 105 D Carbon Dioxide 29 BUN 57 H Creatinine 2.09 H Calcium 8.0 L D Liver Function 11/02/22 Range/Units 06:36 Total Bilirubin 4.1 H (0.0-1.0) mg/dL Direct Bilirubin 2.5 H (0.0-0.5) mg/dL AST 44 H (5-31) U/L ALT 37 H (0-31) U/L Alkaline Phosphatase 330 H (39-117) U/L Albumin 2.5 L (3.5-5.0) g/dL Urine 11/01/22 Range/Units 11:32 Urine Color Dark Yellow Urine Appearance Turbid Urine pH 5.0 (5.0-9.0) Ur Specific [place] 1.020 (1.005-1.025) Urine Protein 30 (1+) H (Neg-Trace) mg/dL Urine Glucose (UA) Negative (Negative) mg/dL All other labs normal. 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 Patient is having liquid stool in presents now with acute kidney injury and dehydration. Patient was noted to have elevated liver function tests. Subsequent ultrasound the abdomen revealed mild sludge in the gallbladder with no shadowing gallstones. Patient receiving IV hydration. Agree with continued Imodium. Time Spent With Patient Time: Total time managing care of this patient today ____ minutes. Procedures Date of Service Date of Service: 11/02/22
--- NOTE | 2022-11-02 12:21 | MHC.CLN ---
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
[2022-11-02] MEDS: Loperamide HCl 2 MG CAPSULE 4 MG PO ×2 (12:38→17:16)
--- NOTE | 2022-11-02 13:14 | PM.GICN ---
History of Present Illness Data of Consult Service Date: 11/02/22 Requesting physician: Sheyla Blackman Primary Care Provider: Amos Aguilar MD HPI Reason for consult: abn LFT ?77 year old female with past medical history of asthma, rhinitis, asthma and small bowel resection with vasculitis who I am seeing for assessment for abn LFT Patient was found by neighbor to be c/o weakness and malaise and then an ambulance was called. She does admit to poor PO intake for several days including fluids and food. she denies abdominal pain, no diarrhea or constipation, bleeding. 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 Eventual plan was for slow steroid taper and plans for outpatient monthly IVIG. She had been havign output from stoma and went to [facility] where she was given imodium. She was noted to have elevated LFT there and was pos for CMV< but unclear if this is Igm or IgG This admission she has received fluids and ABX for suspected UTI and SAADIA imaging without acute liver pathology, some sludge seen in GB Review of Systems Review of Systems: Constitutional : + Weight loss, No Fever, No Chills ENT/Mouth : No sore throat, No Rhinorrhea Eyes: No Swelling, No Redness Cardiovascular : No Chest Pain, No SOB, No Edema Respiratory : No Cough, No Sputum, No Wheezing Gastrointestinal : see HPI Genitourinary : NO Dysuria, No Urinary Frequency, No Hematuria, No Urgency Musculoskeletal : No joint pain, No Myalgias, No Joint Swelling Skin : No Skin Lesions, No rash Neuro : + Weakness, No Numbness, No Dizziness, No Headache Psych : No Anxiety/Panic, No Depression Heme/Lymph: No Bruising, No Lymphadenopathy Endocrine : No Polyuria, No Polydipsia All other systems reviewed and are negative. [facility] Past Medical History Medical History Abdominal visceral abscess Asthma Brain aneurysm History of skin cancer Hypercholesterolemia Osteopenia Functional capacity: uses cane/walker Family History Family History Father Past heart attack Mother Asthma Sister Diabetes Paternal Aunt Breast cancer Colon cancer Maternal Aunt Breast cancer Surgical History Surgical History History of colonoscopy History of eye surgery History of removal of cyst History of removal of cyst (06/05/22) History of removal of ovarian cyst Pilar cyst Status post exploratory laparotomy Status post surgical removal of malignant neoplasm of skin Social History Social History Household Members: None Housing: House Do you presently have visiting nurse or other home services: Yes Alcohol intake: never Patient Tobacco Use Status: Former Tobacco user Quit Date: 49 yrs ago Tobacco use type: Cigarette Smoked in Last 30 Days: No e-Cigarette/Vaping Use: Never Used Second Hand Smoke Exposure: No Use of substances other than those prescribed or required for medical reasons: No Currently Displaying Signs/Symptoms of Drug Intoxication Withdrawal: No Have you been hit, kicked, punched, or otherwise hurt by someone within the past year? If so, by whom?: No Do you feel safe in your current relationship?: No Is there a partner from a previous relationship who is making you feel unsafe now?: No Are you made to feel afraid or neglected: No [employer] Healthcare Practices: scientologist Advance Directives: No Advance Directives Information Provided: Yes Do you have thoughts of harming others: None Do you have a plan to hurt others: No Plan Recently lost weight without trying: Yes How much weight loss: 24-33 pounds Eating poorly because of decreased appetite: Yes Nutrition screen score: 6 Nutrition Risks: Poor intake 0-25% >4 days Patient : No : No Poor oral hygiene: No service: No Current occupational status: retired Cognitive needs: No Hearing needs: No Vision needs: Yes Meds Allergies Allergy/AdvReac Type Severity Reaction Status Date / Time egg Allergy Unknown Unknown Verified 09/12/22 21:49 Active Medications: Current Medications Albuterol Sulfate (Albuterol Sulfate 90 Mcg 8 Gm Inhaler) 2 puff INHALE Q6H PRN PRN Reason: shortness of breath or wheezing Budesonide (Budesonide 180 Mcg Aer.Pow.Ba) 2 puff INHALE DAILY JULI Last Admin: 11/02/22 11:24 Dose: 2 puff Dexamethasone (Dexamethasone 2 Mg Tablet) 4 mg PO DAILY JULI; Taper Stop: 11/12/22 08:59 Last Admin: 11/02/22 08:11 Dose: 4 mg Heparin Sodium (Porcine) (Heparin Sodium,Porcine 5,000 Unit/Ml Vial) 5,000 unit SUBCUT Q12H [facility] Last Admin: 11/02/22 05:10 Dose: 5,000 unit Ceftriaxone Sodium 1 gm/ (Sodium Chloride) 50 mls @ 100 mls/hr IV Q24H [facility] Last Admin: 11/02/22 11:25 Dose: 100 mls/hr Dextrose (D5w) 1,000 mls @ 100 mls/hr IVCONT .Q10H [facility] Last Infusion: 11/02/22 11:30 Dose: 100 mls/hr Loperamide HCl (Loperamide Hcl 2 Mg Capsule) 4 mg PO QID PRN PRN Reason: Diarrhea Last Admin: 11/02/22 12:38 Dose: 4 mg Omeprazole (Omeprazole 20 Mg Capsule.Dr) 20 mg PO DAILY@0630 [facility] Last Admin: 11/02/22 05:10 Dose: 20 mg Ondansetron HCl (Ondansetron Hcl 4 Mg/2 Ml Vial) 4 mg IVPUSH Q8H PRN PRN Reason: Nausea and Vomiting Pharmacy Consult (Consult Rx Perform Med Rec) 1 each MISCELLANE ONCE PRN PRN Reason: Consult order Sodium Chloride (0.9 % Sodium Chloride Flush 3 Ml Syringe) 3 ml IVFLUSH QSHIFT [facility] Last Admin: 11/02/22 08:12 Dose: Not Given Home Medications Medication Instructions Recorded Confirmed Last Taken Type cholecalciferol (vitamin D3) 25 25 mcg PO DAILY 09/13/22 11/01/22 09/10/22 History mcg (1,000 unit) tablet omega 9-jdn-hwn-fish oil 1,000 mg 1 cap PO DAILY 09/13/22 11/01/22 09/10/22 History (120 mg-180 mg) capsule (Fish Oil) albuterol sulfate 90 mcg/actuation 2 puff inhalation Q6H PRN 11/01/22 11/01/22 Unknown History aerosol inhaler (ProAir HFA) shortness of breath or wheezing budesonide 180 mcg/actuation 2 inh inhalation DAILY 11/01/22 11/01/22 Unknown History breath activated powder inhaler (Pulmicort Flexhaler) dexamethasone 2 mg tablet See Taper PO DAILY 0611/01/22 11/01/22 History loperamide 2 mg capsule 4 mg PO QID PRN Diarrhea 11/01/22 11/01/22 11/01/22 History pantoprazole 40 mg tablet,delayed 40 mg PO DAILY@0630 11/01/22 11/01/22 Unknown History release simvastatin 20 mg tablet 20 mg PO BEDTIME 11/01/22 11/01/22 Unknown History Physical Exam Vital Signs: Vital Signs: Last Vital Signs Temp 97.5 F 11/02/22 11:15 Pulse 60 11/02/22 11:15 Resp 20 11/02/22 11:15 BP 111/56 L 11/02/22 11:15 Pulse Ox 99 11/02/22 11:15 O2 Del Method Nasal Cannula 11/02/22 11:15 O2 Flow Rate 1 11/02/22 11:15 Oxygen Flow Rate 1 11/01/22 09:18 BMI result Body Mass Index 22.2 EXAM: GENERAL: The patient is frail VITAL SIGNS:see workflow HEENT: Nonicteric sclerae, PERRLA, EOMI. Oropharynx clear. Moist mucous membranes. Conjunctivae appear well perfused. No thyroid mass. CHEST: Chest wall is nontender. HEART: Regular rate and rhythm without murmurs. LUNGS: Clear to auscultation bilaterally. ABDOMEN: Soft, positive bowel sounds, nontender, no organomegaly.no flank tenderness--stoma, nml SKIN: No rash, no excessive bruising, petechiae, or purpura. NEUROLOGIC: Cranial nerves II-XII intact without motor/sensory deficit. pscyh--nml Results Labs 11/02/22 06:36 11/02/22 06:36 Labs: Short CBC 11/02/22 Range/Units 06:36 WBC 12.4 H (4.8-10.8) X10*3/uL Hgb 10.2 L D (12.0-16.0) g/dl Hct 33.8 L D (37.0-47.0) % Plt Count 310 D (160-400) X10*3/uL BMP 11/02/22 06:36 Sodium 149 H Potassium 4.5 Chloride 105 D Carbon Dioxide 29 BUN 57 H Creatinine 2.09 H Calcium 8.0 L D Liver Function 11/02/22 Range/Units 06:36 Total Bilirubin 4.1 H (0.0-1.0) mg/dL Direct Bilirubin 2.5 H (0.0-0.5) mg/dL AST 44 H (5-31) U/L ALT 37 H (0-31) U/L Alkaline Phosphatase 330 H (39-117) U/L Albumin 2.5 L (3.5-5.0) g/dL Microbiology Microbiology Results: Microbiology 11/01/22 10:50 Blood - Venous Blood Culture - Preliminary No growth after 24 hours. 11/01/22 09:50 Blood - Venous Blood Culture - Preliminary No growth after 24 hours. 11/01/22 Unknown Urine Catheterized - Straight Catheter Urine Culture - Preliminary Culture in progress. Assessment and Plan (1) Elevated LFTs: Status: Acute (2) Vasculitis: Status: Acute Plan 1/ Abn LFT maybe due to dehydration, or from sepsis and UTI. 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 LFT are actually downtrending now. No evidence of acute liver failure PLAN: 1/ If LFT keep coming down, no action 2/ If LFT rising then duplex, CARMEN< SMA<ANCA, IgG level, anti LKM, AMA possibly liver bx 3/ check acetaminophen level 4/ trend INR Time Spent With Patient Time: Total time managing care of this patient today ____ minutes. Procedures Date of Service Date of Service: 11/02/22
--- NOTE | 2022-11-02 13:39 | MHC.CM.PN ---
PT is recommending STR and Patient prefers the [place] are. CM will follow.
[2022-11-02 13:48] LABS: INTERNATIONAL NORM RATIO 1.1 (0.9-1.1); Prothrombin Time 12.2 SEC (10.0-13.1)
--- NOTE | 2022-11-02 14:20 | P.CONNP_ITS ---
History of Present Illness Reason for Consult Consult date: 11/03/22 Reason for consult: SAADIA Chief Complaint Chief complaint: SAADIA History of Present Illness Narrative: ?69-year-old female past medical history of CHF with preserved ejection fraction, HLD, CAD, normocytic anemia, diabetes, who comes into the hospital with complaints of shortness of breath. Patient reports her symptoms started today, she has a difficult time catching her breath, has a cough that is nonproductive, has orthopnea and PND, has right lower extremity edema.? Denies any fever, no chills, no chest pain, palpitations, has some epigastric burning sensation, otherwise no nausea or vomiting, no diarrhea constipation, no urinary symptoms. Consult requested for management of SAADIA. With IV hydration serum creatinine is improving. She does have dark urine and she has been straight cathed for about 50 cc. Review of Systems Review of Systems No headache. No nausea vomiting. No abdominal pain. No shortness of breath. No cough. No dysuria urgency or hematuria. No edema. No rash. [facility] Past Medical History Medical History Abdominal visceral abscess Asthma Brain aneurysm History of skin cancer Hypercholesterolemia Osteopenia Functional capacity: uses cane/walker Family History Family History Father Past heart attack Mother Asthma Sister Diabetes Paternal Aunt Breast cancer Colon cancer Maternal Aunt Breast cancer Surgical History Surgical History History of colonoscopy History of eye surgery History of removal of cyst History of removal of cyst (06/05/22) History of removal of ovarian cyst Pilar cyst Status post exploratory laparotomy Status post surgical removal of malignant neoplasm of skin Social History Social History Household Members: None Housing: House Do you presently have visiting nurse or other home services: Yes Alcohol intake: never Patient Tobacco Use Status: Former Tobacco user Quit Date: 49 yrs ago Tobacco use type: Cigarette Smoked in Last 30 Days: No e-Cigarette/Vaping Use: Never Used Second Hand Smoke Exposure: No Use of substances other than those prescribed or required for medical reasons: No Currently Displaying Signs/Symptoms of Drug Intoxication Withdrawal: No Have you been hit, kicked, punched, or otherwise hurt by someone within the past year? If so, by whom?: No Do you feel safe in your current relationship?: No Is there a partner from a previous relationship who is making you feel unsafe now?: No Are you made to feel afraid or neglected: No Spiritism Healthcare Practices: episcopalian Advance Directives: No Advance Directives Information Provided: Yes Do you have thoughts of harming others: None Do you have a plan to hurt others: No Plan Recently lost weight without trying: Yes How much weight loss: 24-33 pounds Eating poorly because of decreased appetite: Yes Nutrition screen score: 6 Nutrition Risks: Poor intake 0-25% >4 days Patient : No : No Poor oral hygiene: No service: No Current occupational status: retired Cognitive needs: No Hearing needs: No Vision needs: Yes Meds Allergies Allergy/AdvReac Type Severity Reaction Status Date / Time egg Allergy Unknown Unknown Verified 09/12/22 21:49 Active Medications: Current Medications Albuterol Sulfate (Albuterol Sulfate 90 Mcg 8 Gm Inhaler) 2 puff INHALE Q6H PRN PRN Reason: shortness of breath or wheezing Budesonide (Budesonide 180 Mcg Aer.Pow.Ba) 2 puff INHALE DAILY [facility] Last Admin: 11/02/22 11:24 Dose: 2 puff Dexamethasone (Dexamethasone 2 Mg Tablet) 4 mg PO DAILY [facility]; Taper Stop: 11/12/22 08:59 Last Admin: 11/02/22 08:11 Dose: 4 mg Heparin Sodium (Porcine) (Heparin Sodium,Porcine 5,000 Unit/Ml Vial) 5,000 unit SUBCUT Q12H [facility] Last Admin: 11/02/22 05:10 Dose: 5,000 unit Ceftriaxone Sodium 1 gm/ (Sodium Chloride) 50 mls @ 100 mls/hr IV Q24H [facility] Last Infusion: 11/02/22 13:16 Dose: Infused Dextrose (D5w) 1,000 mls @ 100 mls/hr IVCONT .Q10H [facility] Last Infusion: 11/02/22 11:30 Dose: 100 mls/hr Loperamide HCl (Loperamide Hcl 2 Mg Capsule) 4 mg PO QID PRN PRN Reason: Diarrhea Last Admin: 11/02/22 12:38 Dose: 4 mg Omeprazole (Omeprazole 20 Mg Capsule.) 20 mg PO DAILY@629 [facility] Last Admin: 11/02/22 05:10 Dose: 20 mg Ondansetron HCl (Ondansetron Hcl 4 Mg/2 Ml Vial) 4 mg IVPUSH Q8H PRN PRN Reason: Nausea and Vomiting Pharmacy Consult (Consult Rx Perform Med Rec) 1 each MISCELLANE ONCE PRN PRN Reason: Consult order Sodium Chloride (0.9 % Sodium Chloride Flush 3 Ml Syringe) 3 ml IVFLUSH QSHIFT [facility] Last Admin: 11/02/22 08:12 Dose: Not Given Home Medications Medication Instructions Recorded Confirmed Last Taken Type cholecalciferol (vitamin D3) 25 25 mcg PO DAILY 09/13/22 11/01/22 09/10/22 History mcg (1,000 unit) tablet omega 3-xkx-upv-fish oil 1,000 mg 1 cap PO DAILY 09/13/22 11/01/22 09/10/22 H istory (120 mg-180 mg) capsule (Fish Oil) albuterol sulfate 90 mcg/actuation 2 puff inhalation Q6H PRN 11/01/22 11/01/22 Unknown History aerosol inhaler (ProAir HFA) shortness of breath or wheezing budesonide 180 mcg/actuation 2 inh inhalation DAILY 11/01/22 11/01/22 Unknown History breath activated powder inhaler (Pulmicort Flexhaler) dexamethasone 2 mg tablet See Taper PO DAILY 11/01/22 11/01/22 11/01/22 History loperamide 2 mg capsule 4 mg PO QID PRN Diarrhea 11/01/22 11/01/22 11/01/22 History pantoprazole 40 mg tablet,delayed 40 mg PO DAILY@62911/01/22 11/01/22 Unknown History release simvastatin 20 mg tablet 20 mg PO BEDTIME 11/01/22 11/01/22 Unknown History Physical Exam Vital Signs: Last Vital Signs Temp 97.5 F 11/02/22 11:15 Pulse 60 11/02/22 13:43 Resp 20 11/02/22 11:15 BP 111/56 L 11/02/22 13:43 Pulse Ox 99 11/02/22 13:43 O2 Del Method Nasal Cannula 11/02/22 11:15 O2 Flow Rate 1 11/02/22 11:15 Oxygen Flow Rate 1 11/01/22 09:18 BMI result Body Mass Index 22.2 Comfortable Mucosa is dry Neck is supple Lung: Air entry equal Heart: S1,S2, normal. No rub Abd: Soft. BS + NS : Alert.No asterexis Ext: No edema Results Lab Results 11/02/22 06:36 11/02/22 06:36 Lab results: Chemistry 11/01/22 11/02/22 10:50 06:36 Sodium 145 149 H Potassium 3.9 4.5 Carbon Dioxide 33 H 29 BUN 62 H 57 H Creatinine 3.13 H 2.09 H Calcium 10.5 H D 8.0 L D Hematology 11/01/22 11/02/22 10:50 06:36 WBC 18.0 H 12.4 H Hgb 14.1 D 10.2 L D Plt Count 453 H 310 D Urinalysis 11/01/22 11:32 Urine Color Dark Yellow Urine Appearance Turbid Urine pH 5.0 Ur Specific Libby 1.020 Urine Protein 30 (1+) H Urine Glucose (UA) Negative Urine Ketones Negative Urine Blood Trace H Urine Nitrite Positive H Ur Leukocyte Esterase Moderate (2+) H Urine RBC >20 H Urine WBC >50 H Ur Squamous Epith Cells 6-10 Hyaline Casts 6-10 Assessment and Plan (1) SAADIA (acute kidney injury): Status: Acute Plan SAADIA due to dehydration from GI losses. Hypernatremia due to free water deficit due to GI loss . Anemia . Recommendations IV hydration with hypotonic fluids. Agree with D5W. I would increase the rate to 150 cc/hour. Increase p.o. water intake. Continue to avoid nephrotoxic agents. Watch potassium and bicarbonate levels. No indication for dialysis. Agree with adding antimotility agents to decrease the GI losses. We will follow along with the team. Thank you Time Spent With Patient Time: Total time managing care of this patient today ____ minutes. Procedures Date of Service Date of Service: 11/03/22
--- NOTE | 2022-11-02 14:35 | HO.PM.IMPN ---
Subjective Subjective Date of Service: 11/02/22 Interval History: seen and examined this morning follow up for SAADIA feeling more energy today. having a lot of output from ostomy. no abdominal pain Review of Systems Review of Systems: Yes all other systems are reviewed and are negative Constitutional Constitutional: Denies chills and Denies fever(s) ENT Ears, Nose, Mouth, and Throat: Denies dizziness Cardiovascular Cardiovascular: Denies chest pain, Denies palpitations and Denies dyspnea Respiratory Respiratory: Denies cough and Denies dyspnea Gastrointestinal Gastrointestinal: Denies abdominal pain, Denies nausea and Denies vomiting Neurologic Neurologic: Denies dizziness Endocrine Endocrine: Denies palpitations Physical Exam Vital Signs: Vital Signs: Last Vital Signs Temp 97.5 F 11/02/22 11:15 Pulse 60 11/02/22 13:43 Resp 20 11/02/22 11:15 BP 111/56 L 11/02/22 13:43 Pulse Ox 99 11/02/22 13:43 O2 Del Method Nasal Cannula 11/02/22 11:15 O2 Flow Rate 1 11/02/22 11:15 Oxygen Flow Rate 1 11/01/22 09:18 BMI result Body Mass Index 22.2 Const: Other: thin, frail appearing General: cooperative, no acute distress, alert and awake Orientation/consciousness: patient oriented x3 Resp: Effort & Inspection: normal respiratory effort, able to speak in complete sentences, no respiratory distress and no use of accessory muscles Auscultation: clear to auscultation bilaterally Cardio: Rate: regular rate Heart sounds: S1 normal heart sound present and S2 normal heart sound present GI: Other: ileostomy present Inspection: No distended Palpation (GI): Soft to palpation and nontender Neuro: General: patient oriented x3, moves all extremities and CN's II-XI intact bilaterally Extrem: General: Yes no pedal edema Objective Data Active Medications Albuterol Sulfate (Albuterol Sulfate 90 Mcg 8 Gm Inhaler) 2 puff INHALE Q6H PRN PRN Reason: shortness of breath or wheezing Budesonide (Budesonide 180 Mcg Aer.Pow.Ba) 2 puff INHALE DAILY [facility] Last Admin: 11/02/22 11:24 Dose: 2 puff Documented By: ARMAND Dexamethasone (Dexamethasone 2 Mg Tablet) 4 mg PO DAILY [facility]; Taper Stop: 11/12/22 08:59 Last Admin: 11/02/22 08:11 Dose: 4 mg Documented By: ARMAND Heparin Sodium (Porcine) (Heparin Sodium,Porcine 5,000 Unit/Ml Vial) 5,000 unit SUBCUT Q12H [facility] Last Admin: 11/02/22 05:10 Dose: 5,000 unit Documented By: NOMAN Ceftriaxone Sodium 1 gm/ (Sodium Chloride) 50 mls @ 100 mls/hr IV Q24H [facility] Last Infusion: 11/02/22 13:16 Dose: 0 mls/hr Documented By: ARMAND Dextrose (D5w) 1,000 mls @ 100 mls/hr IVCONT .Q10H [facility] Last Infusion: 11/02/22 11:30 Dose: 100 mls/hr Documented By: ARMAND Loperamide HCl (Loperamide Hcl 2 Mg Capsule) 4 mg PO QID PRN PRN Reason: Diarrhea Last Admin: 11/02/22 12:38 Dose: 4 mg Documented By: ARMAND Omeprazole (Omeprazole 20 Mg Capsule.) 20 mg PO DAILY@0630 [facility] Last Admin: 11/02/22 05:10 Dose: 20 mg Documented By: NOMAN Ondansetron HCl (Ondansetron Hcl 4 Mg/2 Ml Vial) 4 mg IVPUSH Q8H PRN PRN Reason: Nausea and Vomiting Pharmacy Consult (Consult Rx Perform Med Rec) 1 each MISCELLANE ONCE PRN PRN Reason: Consult order Sodium Chloride (0.9 % Sodium Chloride Flush 3 Ml Syringe) 3 ml IVFLUSH QSHIFT [facility] Last Admin: 11/02/22 08:12 Dose: Not Given Documented By: ARMAND Non-Admin Reason: IV Running Labs 11/02/22 06:36 11/02/22 06:36 Labs: Laboratory Results - last 24 hr 11/01/22 11/01/22 11/02/22 16:28 20:20 06:36 MCV 99.7 H MCH 30.1 MCHC 30.2 L RDW 17.0 H Plt Count 310 D MPV 10.9 Immature Gran % (Auto) 1.9 H Neut % (Auto) 82.7 H Lymph % (Auto) 9.4 L [place] % (Auto) 5.3 Eos % (Auto) 0.5 Baso % (Auto) 0.2 Lymph # (Auto) 1.2 [place] # (Auto) 0.7 Eos # (Auto) 0.1 Baso # (Auto) 0.0 Abs Immat Gran (auto) 0.23 H Absolute Neuts (auto) 10.2 H Absolute Nucleated RBC 0.000 Nucleated RBC % (auto) 0.0 PT INR Anion Gap Estim Creat Clear Calc Estimated GFR Random Glucose Calcium Magnesium Total Bilirubin Direct Bilirubin AST ALT Alkaline Phosphatase Total Creatine Kinase Troponin I High Sens 66.9 H* Total Protein Albumin C. difficile Tox B Gene NEGATIVE 11/02/22 11/02/22 06:36 12:55 MCV MCH MCHC RDW Plt Count MPV Immature Gran % (Auto) Neut % (Auto) Lymph % (Auto) [place] % (Auto) Eos % (Auto) Baso % (Auto) Lymph # (Auto) [place] # (Auto) Eos # (Auto) Baso # (Auto) Abs Immat Gran (auto) Absolute Neuts (auto) Absolute Nucleated RBC Nucleated RBC % (auto) PT 12.2 INR 1.1 Anion Gap 20 Estim Creat Clear Calc 16.9 Estimated GFR 23 Random Glucose 79 Calcium 8.0 L D Magnesium 1.9 Total Bilirubin 4.1 H Direct Bilirubin 2.5 H AST 44 H ALT 37 H Alkaline Phosphatase 330 H Total Creatine Kinase 13 L Troponin I High Sens Total Protein 6.1 L Albumin 2.5 L C. difficile Tox B Gene Microbiology Microbiology Results: Microbiology 11/01/22 10:50 Blood Culture - Preliminary Blood - Venous No growth after 24 hours. 11/01/22 09:50 Blood Culture - Preliminary Blood - Venous No growth after 24 hours. 11/01/22 Unknown Urine Culture - Preliminary Urine Catheterized - Straight Catheter Culture in progress. 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 SAADIA/acute metabolic acidosis SCr 3.13 on admission, down to 2.09. SCr was 0.60 on 10/24 likely pre-renal r/t from high output ileostomy, decreased PO intake. around 1L output from ostomy thus far today fluid changed to D5W due to increasing sodium, will increase rate of IVF. encourge po intake nephrology following monitor kidney function closely cartwright for close monitoring of urine output Elevated LFTs LFTs elevated during admission at [facility] and thought to be related to cholestasis/CMV+ beginning to trend down no abdominal pain Hepatitis panel has been negative abdominal US showing sludge, normal caliber CBD GI consult follow LFTs possible UTI UA consistent with UTI, but pt denies symptoms no sepsis - tachycardia from dehydration, leukocytosis from chronic steroids will continue IV ceftriaxone for now follow urine culture, blood cultures high output from ileostomy 09/19 ex lap with SBR, lysis of adhesions, drainage of intra-abdominal abscess and appedectomy. 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 gimenez patient will require two midnight stay in the hospital for management of SAADIA, elevated LFTS requiring specialist evaluation Time Spent With Patient Time: Total time managing care of this patient today ____ minutes. Quality Stroke Does the patient have a stroke diagnosis?: No VTE Prior VTE?: No VTE Risk Level:: Medical - moderate - high VTE Device Contraindication: N/A - Device Ordered VTE Drug Contraindication: N/A - Med Ordered
--- NOTE | 2022-11-02 14:44 | P.CDIM_ITS ---
PROVIDER RESPONSE TEXT: To clarify, the appropriate diagnosis supported by the clinical indicators: Acute QUERY TEXT: PHYSICIAN'S DOCUMENTATION REQUEST Date of Query: 11/02/2022 08:27 AM EDT Patient Name: Deborah Ortiz Admit Date: 11/01/2022 Dear Sheyla Blackman, A review of the medical record indicates additional documentation may be needed. Please review below and update the documentation accordingly. Clinical Indicators: H and P 11/01 - Plan: SAADIA/metabolic acidosis Clarify which of the following accurately represents the acuity of the metabolic acidosis: Possible options might include: Acute Acute on chronic Other Other (explain)Clinically unable to determine (explain)Thank you, More Bailey, CCS, CDIS Use of terms such as suspected, likely, concern for, or probable (associated with a specific diagnosi s that is being evaluated, monitored, or treated as if it exists) are acceptable and can be coded in the inpatient se tting, when documented at the time of discharge. Please use your independent medical judgment in providing your response. THIS QUERY IS PART OF THE PERMANENT MEDICAL RECORD
--- NOTE | 2022-11-02 14:47 | MHC.CM.PN ---
Patient/family's first choice [facility] has accepted Patient and CM will continue to follow.
--- NOTE | 2022-11-02 15:57 | MHC.CM.PN ---
CM has assisted Patient in completing a new HCP.
[2022-11-02 16:20] LABS: Sodium 145 mmol/L (135-145)
--- NOTE | 2022-11-02 16:37 | PC.NURSE ---
Patient with large amount liquid stool in colostomy bag during shift with air. Pt with no void since 11/01 in ED. Yoshi EDMOND notified of findings. Fluids changed to D5W and increased bladder scan for 534 at 1100 straight cath performed for 350 of dark alexandra urine. Immodium given in afternoon with some effect. Pt with no sensation to void. Calderon placed in afternoon per order, IV fluids increased again to 150/hr. Seen by PT in afternoon. Will continue to monitor and report changes
[2022-11-02] MEDS: Dextrose 5 % and 0.45 % NaCl 1,000 ML 100 ML IVCONT (19:43)
[2022-11-02] MEDS: ondansetron HCL 4 MG/2 ML VIAL IVPUSH (20:34)
[2022-11-03 03:15] VITALS: BP 111/53; PULSE 62; RESP 14; TEMP 36.2; O2SAT 100
[2022-11-03] MEDS: Heparin Sodium,Porcine 5,000 UNIT/ML VIAL 5000 UNIT SUBCUT ×2 (05:27→15:35)
[2022-11-03] MEDS: Dextrose 5 % and 0.45 % NaCl 1,000 ML 100 ML IVCONT ×2 (05:27→14:05)
[2022-11-03] MEDS: Omeprazole 20 MG CAPSULE.DR PO (05:27)
[2022-11-03 07:05] VITALS: BP 135/60; PULSE 62; RESP 20; TEMP 36.2; O2SAT 100
[2022-11-03 08:01] LABS: Hematocrit 32.4 % (37.0-47.0); Hemoglobin 9.9 g/dl (12.0-16.0); Mean Corpuscular HGB Conc 30.6 g/dl (31.0-35.0); Mean Corpuscular Hemoglobin 29.6 pg (27.0-33.0); Mean Platelet Volume 11.1 fL (9.4-12.3); Platelet Count 304 X10*3/uL (160-400); Red Blood Count 3.34 X10*6/uL (4.20-5.50); Red Cell Distribution Width 16.9 % (11.0-16.0); White Blood Count 9.3 X10*3/uL (4.8-10.8)
[2022-11-03 08:26] LABS: Alanine Aminotransferase 32 U/L (0-31); Albumin Level 2.5 g/dL (3.5-5.0); Alkaline Phosphatase 377 U/L (39-117); Aspartate Amino Transferase 37 U/L (5-31); Bilirubin Direct 2.5 mg/dL (0.0-0.5); Bilirubin Total 3.8 mg/dL (0.0-1.0); Blood Urea Nitrogen 44 mg/dL (9-16); Calcium 8.2 mg/dL (8.4-10.2); Creatinine Clr Calc Pharmacy 26.7; Estimated Glomerular Filt Rate 37; Glucose Random 99 mg/dL (60-115); Total Protein 5.7 g/dL (6.5-8.0)
[2022-11-03 08:43] LABS: Anion Gap 13 (12-20); Carbon Dioxide 33 mmol/L (22-29); Chloride 99 mmol/L (96-108); Potassium 2.8 mmol/L (3.3-5.1); Sodium 142 mmol/L (135-145)
[2022-11-03] MEDS: Loperamide HCl 2 MG CAPSULE 4 MG PO ×3 (09:12→15:36)
[2022-11-03] MEDS: dexAMETHasone 2 MG TABLET PO (09:12)
[2022-11-03] MEDS: 0.9 % Sodium Chloride Flush 3 ML SYRINGE IVFLUSH ×2 (09:12→15:36)
[2022-11-03] MEDS: Budesonide 180 MCG AER.POW.BA 2 PUFF INHALE (09:52)
--- NOTE | 2022-11-03 10:42 | PM.PNGS ---
Subjective Subjective Date of Service: 11/03/22 Interval history: Patient with no new complaints. Denies abdominal Physical Exam Vital Signs: Vital Signs: Last Vital Signs Temp 97.2 F 11/03/22 07:05 Pulse 62 11/03/22 07:05 Resp 20 11/03/22 07:05 BP 135/60 11/03/22 07:05 Pulse Ox 100 11/03/22 07:05 O2 Del Method Nasal Cannula 11/03/22 07:05 O2 Flow Rate 1 11/03/22 07:05 Oxygen Flow Rate 1 11/01/22 09:18 BMI result Body Mass Index 22.2 Const: General: alert, awake and ill appearing Nutritional Appearance: thin Orientation/consciousness: patient oriented x3 HEENT: Head: Yes normocephalic and Yes atraumatic Ears: hearing grossly normal bilaterally Resp: Effort & Inspection: normal respiratory effort, no audible wheezes, no cough and no respiratory distress GI: Other: Soft, nondistended, ostomy in the right lower quadrant pink and patent with liquid/bilious fluid. No rebound, guarding or rigidity. No tympany to percussion. Skin: Other: Pale, warm and dry Neuro: General: patient oriented x3 Objective Data Active Medications Albuterol Sulfate (Albuterol Sulfate 90 Mcg 8 Gm Inhaler) 2 puff INHALE Q6H PRN PRN Reason: shortness of breath or wheezing Budesonide (Budesonide 180 Mcg Aer.Pow.Ba) 2 puff INHALE DAILY [facility] Last Admin: 11/03/22 09:52 Dose: 2 puff Documented By: YOLANDA Dexamethasone (Dexamethasone 2 Mg Tablet) 4 mg PO DAILY [facility]; Taper Stop: 11/12/22 08:59 Last Admin: 11/03/22 09:12 Dose: 4 mg Documented By: YOLANDA Heparin Sodium (Porcine) (Heparin Sodium,Porcine 5,000 Unit/Ml Vial) 5,000 unit SUBCUT Q12H [facility] Last Admin: 11/03/22 05:27 Dose: 5,000 unit Documented By: JOSE Ceftriaxone Sodium 1 gm/ (Sodium Chloride) 50 mls @ 100 mls/hr IV Q24H [facility] Last Infusion: 11/02/22 13:16 Dose: 0 mls/hr Documented By: ARMAND Dextrose/Sodium Chloride (D51/2ns) 1,000 mls @ 100 mls/hr IVCONT .Q10H [facility] Last Admin: 11/03/22 05:27 Dose: 100 mls/hr Documented By: JOSE Loperamide HCl (Loperamide Hcl 2 Mg Capsule) 4 mg PO TIDAC [facility] Last Admin: 11/03/22 09:12 Dose: 4 mg Documented By: YOLANDA Omeprazole (Omeprazole 20 Mg Capsule.Dr) 20 mg PO DAILY@0630 [facility] Last Admin: 11/03/22 05:27 Dose: 20 mg Documented By: JOSE Ondansetron HCl (Ondansetron Hcl 4 Mg/2 Ml Vial) 4 mg IVPUSH Q8H PRN PRN Reason: Nausea and Vomiting Last Admin: 11/02/22 20:34 Dose: 4 mg Documented By: JOSE Pharmacy Consult (Consult Rx Perform Med Rec) 1 each MISCELLANE ONCE PRN PRN Reason: Consult order Sodium Chloride (0.9 % Sodium Chloride Flush 3 Ml Syringe) 3 ml IVFLUSH QSHIFT [facility] Last Admin: 11/03/22 09:12 Dose: 3 ml Documented By: YOLANDA Labs 11/03/22 07:14 11/03/22 07:14 Labs: Laboratory Results - last 24 hr 11/02/22 11/02/22 11/03/22 06:36 12:55 07:14 MCV MCH MCHC RDW Plt Count MPV Absolute Nucleated RBC Nucleated RBC % (auto) PT 12.2 INR 1.1 Anion Gap 13 Estim Creat Clear Calc 26.7 Estimated GFR 37 Random Glucose 99 Calcium 8.2 L Total Bilirubin 3.8 H Direct Bilirubin 2.5 H AST 37 H ALT 32 H Alkaline Phosphatase 377 H Total Creatine Kinase 13 L Total Protein 5.7 L Albumin 2.5 L 11/03/22 07:14 MCV 97.0 MCH 29.6 MCHC 30.6 L RDW 16.9 H Plt Count 304 MPV 11.1 Absolute Nucleated RBC 0.000 Nucleated RBC % (auto) 0.0 PT INR Anion Gap Estim Creat Clear Calc Estimated GFR Random Glucose Calcium Total Bilirubin Direct Bilirubin AST ALT Alkaline Phosphatase Total Creatine Kinase Total Protein Albumin Microbiology Microbiology Results: Microbiology 11/01/22 10:50 Blood Culture - Preliminary Blood - Venous No growth after 24 hours. 06/29/23 09:50 Blood Culture - Preliminary Blood - Venous No growth after 24 hours. 11/01/22 Unknown Urine Culture - Preliminary Urine Catheterized - Straight Catheter Culture in progress. Procedures Date of Service Date of Service: 11/03/22 Progress Note: A&P Assessment and plan (1) Elevated LFTs: Status: Acute Assessment and Plan: LFTs are trending downward. Appreciate GI input. (2) SAADIA (acute kidney injury): Status: Acute Assessment and Plan: BUN improving. Continue hydration. (3) Vasculitis: Status: Acute Assessment and Plan: Status post small-bowel resection with double-barrel ileostomy. Continue Imodium. Encouraged water intake. Time Spent With Patient Time: Total time managing care of this patient today ____ minutes. Quality Stroke Does the patient have a stroke diagnosis?: No VTE Prior VTE?: No VTE Risk Level:: Medical - moderate - high VTE Device Contraindication: N/A - Device Ordered VTE Drug Contraindication: N/A - Med Ordered
[2022-11-03 11:09] VITALS: BP 114/56; PULSE 68; RESP 20; TEMP 36.2; O2SAT 97
[2022-11-03] MEDS: cefTRIAXone sodium 1 GM in 0.9 % Sodium Chloride 50 ML IV (12:09)
--- NOTE | 2022-11-03 12:31 | HO.PM.IMPN ---
Subjective Subjective Date of Service: 11/03/22 Interval History: seen and examined this morning follow up for SAADIA, high output ostomy still with increased output. otherwise denies abdominal pain, fever, chills Review of Systems Review of Systems: Yes all other systems are reviewed and are negative Constitutional Constitutional: Denies chills and Denies fever(s) ENT Ears, Nose, Mouth, and Throat: Denies dizziness Cardiovascular Cardiovascular: Denies chest pain, Denies palpitations and Denies dyspnea Respiratory Respiratory: Denies cough and Denies dyspnea Gastrointestinal Gastrointestinal: Denies abdominal pain, Denies nausea and Denies vomiting Neurologic Neurologic: Denies dizziness Endocrine Endocrine: Denies palpitations Physical Exam Vital Signs: Vital Signs: Last Vital Signs Temp 97.1 F 11/03/22 11:09 Pulse 68 11/03/22 11:09 Resp 20 11/03/22 11:09 BP 114/56 L 11/03/22 11:09 Pulse Ox 97 11/03/22 11:09 O2 Del Method Room Air 11/03/22 11:09 O2 Flow Rate 1 11/03/22 07:05 Oxygen Flow Rate 1 11/01/22 09:18 BMI result Body Mass Index 22.2 Const: Other: thin, frail appearing General: cooperative, no acute distress, alert and awake Nutritional Appearance: thin Orientation/consciousness: patient oriented x3 Resp: Effort & Inspection: normal respiratory effort, able to speak in complete sentences, no respiratory distress and no use of accessory muscles Auscultation: clear to auscultation bilaterally Cardio: Rate: regular rate Heart sounds: S1 normal heart sound present and S2 normal heart sound present GI: Other: ileostomy present with watery output Inspection: No distended Palpation (GI): Soft to palpation and nontender Neuro: General: patient oriented x3, moves all extremities and CN's II-XI intact bilaterally Extrem: General: Yes no pedal edema Objective Data Active Medications Albuterol Sulfate (Albuterol Sulfate 90 Mcg 8 Gm Inhaler) 2 puff INHALE Q6H PRN PRN Reason: shortness of breath or wheezing Budesonide (Budesonide 180 Mcg Aer.Pow.Ba) 2 puff INHALE DAILY [facility] Last Admin: 11/03/22 09:52 Dose: 2 puff Documented By: YOLANDA Dexamethasone (Dexamethasone 2 Mg Tablet) 4 mg PO DAILY [facility]; Taper Stop: 11/12/22 08:59 Last Admin: 11/03/22 09:12 Dose: 4 mg Documented By: YOLANDA Heparin Sodium (Porcine) (Heparin Sodium,Porcine 5,000 Unit/Ml Vial) 5,000 unit SUBCUT Q12H [facility] Last Admin: 11/03/22 05:27 Dose: 5,000 unit Documented By: JOSE Ceftriaxone Sodium 1 gm/ (Sodium Chloride) 50 mls @ 100 mls/hr IV Q24H [facility] Last Admin: 11/03/22 12:09 Dose: 100 mls/hr Documented By: YOLANDA Dextrose/Sodium Chloride (D51/2ns) 1,000 mls @ 100 mls/hr IVCONT .Q10H [facility] Last Admin: 11/03/22 05:27 Dose: 100 mls/hr Documented By: JOSE Potassium Chloride (Potassium Chloride/H20) 10 meq in 100 mls @ 100 mls/hr IV Q1H [facility] Stop: 11/03/22 14:29 Loperamide HCl (Loperamide Hcl 2 Mg Capsule) 4 mg PO TIDAC [facility] Last Admin: 11/03/22 12:08 Dose: 4 mg Documented By: YOLANDA Omeprazole (Omeprazole 20 Mg Capsule.) 20 mg PO DAILY@0630 [facility] Last Admin: 11/03/22 05:27 Dose: 20 mg Documented By: JOSE Ondansetron HCl (Ondansetron Hcl 4 Mg/2 Ml Vial) 4 mg IVPUSH Q8H PRN PRN Reason: Nausea and Vomiting Last Admin: 11/02/22 20:34 Dose: 4 mg Documented By: JOSE Pharmacy Consult (Consult Rx Perform Med Rec) 1 each MISCELLANE ONCE PRN PRN Reason: Consult order Potassium Chloride (Potassium Chloride Packet 20 Meq Packet) 40 meq PO ONCE ONE Stop: 11/03/22 12:26 Sodium Chloride (0.9 % Sodium Chloride Flush 3 Ml Syringe) 3 ml IVFLUSH QSHIFT [facility] Last Admin: 11/03/22 09:12 Dose: 3 ml Documented By: YOLANDA Labs 11/03/22 07:14 11/03/22 07:14 Labs: Laboratory Results - last 24 hr 11/02/22 11/02/2223 06:36 12:55 07:14 MCV MCH MCHC RDW Plt Count MPV Absolute Nucleated RBC Nucleated RBC % (auto) PT 12.2 INR 1.1 Anion Gap 13 Estim Creat Clear Calc 26.7 Estimated GFR 37 Random Glucose 99 Calcium 8.2 L Total Bilirubin 3.8 H Direct Bilirubin 2.5 H AST 37 H ALT 32 H Alkaline Phosphatase 377 H Total Creatine Kinase 13 L Total Protein 5.7 L Albumin 2.5 L 11/03/22 07:14 MCV 97.0 MCH 29.6 MCHC 30.6 L RDW 16.9 H Plt Count 304 MPV 11.1 Absolute Nucleated RBC 0.000 Nucleated RBC % (auto) 0.0 PT INR Anion Gap Estim Creat Clear Calc Estimated GFR Random Glucose Calcium Total Bilirubin Direct Bilirubin AST ALT Alkaline Phosphatase Total Creatine Kinase Total Protein Albumin Microbiology Microbiology Results: Microbiology 11/01/22 09:50 Blood Culture - Preliminary Blood - Venous No growth after 48 hours. 11/01/22 Unknown Urine Culture - Preliminary Urine Catheterized - Straight Catheter Yeast 11/01/22 10:50 Blood Culture - Preliminary Blood - Venous No growth after 24 hours. 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 SAADIA/acute metabolic acidosis creatinine trending down, 1.37 today baseline .6 likely pre-renal r/t from high output ileostomy, decreased PO intake. continues to have high output from ostomy continue current IVF. 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 rec to check tylenol level, trend INR. no further workup if LFTs continue to trend down follow LFTs high output from ileostomy 09/19 ex lap with SBR, lysis of adhesions, drainage of intra-abdominal abscess and appedectomy. 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 will d/c IV ceftraixone blood cultures negative elevated troponin no chest pain likely related to decreased clearance from SAADIA repeat troponin flat dvt ppx - heparin code status - DNR/DNI attending - dr. mario dispo: seen by PT - rec STR when medically ready requires ongoing hospitalization for management of SAADIA, elevated LFTS requiring specialist evaluation Time Spent With Patient Time: Total time managing care of this patient today ____ minutes. Quality Stroke Does the patient have a stroke diagnosis?: No VTE Prior VTE?: No VTE Risk Level:: Medical - moderate - high VTE Device Contraindication: N/A - Device Ordered VTE Drug Contraindication: N/A - Med Ordered
--- NOTE | 2022-11-03 12:49 | PM.PNNEP ---
Subjective Subjective Date of Service: 11/04/22 Interval history: seen and examined this morning follow up for SAADIA, high output ostomy still with increased output. otherwise denies abdominal pain, fever, chills Physical Exam Vital Signs: Vital Signs: Last Vital Signs Temp 97.1 F 11/03/22 11:09 Pulse 68 11/03/22 11:09 Resp 20 11/03/22 11:09 BP 114/56 L 11/03/22 11:09 Pulse Ox 97 11/03/22 11:09 O2 Del Method Room Air 11/03/22 11:09 O2 Flow Rate 1 11/03/22 07:05 Oxygen Flow Rate 1 11/01/22 09:18 BMI result Body Mass Index 22.2 Comfortable Neck is supple Lung: Air entry equal Heart: S1,S2, normal. No rub Abd: Soft. BS + NS : Alert.No asterexis Ext: No edema Objective Data Labs 11/03/22 07:14 11/03/22 07:14 Labs: Laboratory Results - last 24 hr 11/02/22 11/02/22 11/02/22 06:36 12:55 15:59 WBC RBC Hgb Hct MCV MCH MCHC RDW Plt Count MPV Absolute Nucleated RBC Nucleated RBC % (auto) PT 12.2 INR 1.1 Sodium 145 Potassium Chloride Carbon Dioxide Anion Gap BUN Creatinine Estim Creat Clear Calc Estimated GFR Random Glucose Calcium Total Bilirubin Direct Bilirubin AST ALT Alkaline Phosphatase Total Creatine Kinase 13 L Total Protein Albumin 11/03/22 11/03/22 07:14 07:14 WBC 9.3 RBC 3.34 L Hgb 9.9 L Hct 32.4 L MCV 97.0 MCH 29.6 MCHC 30.6 L RDW 16.9 H Plt Count 304 MPV 11.1 Absolute Nucleated RBC 0.000 Nucleated RBC % (auto) 0.0 PT INR Sodium 142 Potassium 2.8 L D Chloride 99 Carbon Dioxide 33 H Anion Gap 13 BUN 44 H Creatinine 1.37 Estim Creat Clear Calc 26.7 Estimated GFR 37 Random Glucose 99 Calcium 8.2 L Total Bilirubin 3.8 H Direct Bilirubin 2.5 H AST 37 H ALT 32 H Alkaline Phosphatase 377 H Total Creatine Kinase Total Protein 5.7 L Albumin 2.5 L Microbiology Microbiology Results: Microbiology 11/01/22 09:50 Blood - Venous Blood Culture - Preliminary No growth after 48 hours. 11/01/22 Unknown Urine Catheterized - Straight Catheter Urine Culture - Preliminary Yeast 11/01/22 10:50 Blood - Venous Blood Culture - Preliminary No growth after 24 hours. Procedures Date of Service Date of Service: 11/04/22 Assessment & Plan Assessment and plan (1) SAADIA (acute kidney injury): Status: Acute Plan SAADIA due to dehydration from GI losses. Hypernatremia due to free water deficit due to GI loss . Anemia . Recommendations IV hydration with hypotonic fluids. Replace potassium Increase p.o. water intake. Continue to avoid nephrotoxic agents. Watch potassium and bicarbonate levels. Agree with antimotility agents to decrease the GI losses. Time Spent With Patient Time: Total time managing care of this patient today ____ minutes. Progress Note: Quality Stroke Does the patient have a stroke diagnosis?: No
[2022-11-03 12:57] LABS: Magnesium 1.7 mg/dL (1.6-2.6)
[2022-11-03 14:27] VITALS: BP 133/64; PULSE 69; RESP 17; TEMP 36.6; O2SAT 99
[2022-11-03 19:53] VITALS: BP 115/58; PULSE 67; RESP 18; TEMP 36.3; O2SAT 97
[2022-11-03 23:58] VITALS: BP 114/54; PULSE 62; RESP 16; TEMP 36.3; O2SAT 99
[2022-11-04] MEDS: Dextrose 5 % and 0.45 % NaCl 1,000 ML 100 ML IVCONT ×2 (00:11→09:59)
[2022-11-04 04:00] VITALS: BP 105/54; PULSE 60; RESP 20; TEMP 36.2; O2SAT 99
[2022-11-04] MEDS: Omeprazole 20 MG CAPSULE.DR PO (05:49)
[2022-11-04] MEDS: Heparin Sodium,Porcine 5,000 UNIT/ML VIAL 5000 UNIT SUBCUT ×2 (05:49→17:27)
[2022-11-04 07:27] VITALS: BP 119/57; PULSE 62; RESP 20; TEMP 36.6; O2SAT 100
[2022-11-04 08:01] LABS: Blood Urea Nitrogen 25 mg/dL (9-16); Calcium 7.7 mg/dL (8.4-10.2); Creatinine Clr Calc Pharmacy 38.2; Estimated Glomerular Filt Rate 56; Glucose Random 99 mg/dL (60-115); Magnesium 1.5 mg/dL (1.6-2.6)
[2022-11-04] MEDS: Loperamide HCl 2 MG CAPSULE 4 MG PO ×3 (08:07→17:27)
[2022-11-04] MEDS: dexAMETHasone 2 MG TABLET PO (08:07)
[2022-11-04 08:13] LABS: Anion Gap 15 (12-20); Carbon Dioxide 25 mmol/L (22-29); Chloride 100 mmol/L (96-108); Potassium 3.5 mmol/L (3.3-5.1); Sodium 136 mmol/L (135-145)
--- NOTE | 2022-11-04 08:21 | MHC.CM.PN ---
[facility] has requested additional clinical information including an updated PT note; which is needed to obtain authorization to admitt pt to [facility]. A clinical update has been sent via [employer]. PT will need to see the patient on Saturday to provide the additional documentation needed for authorization. The patients daughter has been updated on the authorization status.
--- NOTE | 2022-11-04 10:06 | PM.PNGS ---
Subjective Subjective Date of Service: 11/04/22 Interval history: patient reports feeling stronger this morning. Was able to tolerate breakfast without nausea or vomiting. Physical Exam Vital Signs: Vital Signs: Last Vital Signs Temp 97.8 F 11/04/22 07:27 Pulse 62 11/04/22 07:27 Resp 20 11/04/22 07:27 BP 119/57 L 11/04/22 07:27 Pulse Ox 100 11/04/22 07:27 O2 Del Method Room Air 11/04/22 07:27 O2 Flow Rate 1 11/03/22 07:05 Oxygen Flow Rate 1 11/01/22 09:18 BMI result Body Mass Index 22.2 Resp: Effort & Inspection: normal respiratory effort GI: Other: Midline incision is clean, dry, and intact. Ostomy is patent with thin liquid output. Extrem: General: Yes no clubbing, cyanosis or edema Objective Data Active Medications Albuterol Sulfate (Albuterol Sulfate 90 Mcg 8 Gm Inhaler) 2 puff INHALE Q6H PRN PRN Reason: shortness of breath or wheezing Budesonide (Budesonide 180 Mcg Aer.Pow.Ba) 2 puff INHALE DAILY [facility] Last Admin: 11/03/22 09:52 Dose: 2 puff Documented By: YOLANDA Dexamethasone (Dexamethasone 2 Mg Tablet) 2 mg PO DAILY [facility]; Taper Stop: 11/12/22 08:59 Last Admin: 11/04/22 08:07 Dose: 2 mg Documented By: DANIELLE Heparin Sodium (Porcine) (Heparin Sodium,Porcine 5,000 Unit/Ml Vial) 5,000 unit SUBCUT Q12H [facility] Last Admin: 11/04/22 05:49 Dose: 5,000 unit Documented By: JOSE Dextrose/Sodium Chloride (D51/2ns) 1,000 mls @ 100 mls/hr IVCONT .Q10H [facility] Last Admin: 11/04/22 09:59 Dose: 100 mls/hr Documented By: DANIELLE Magnesium Sulfate (Magnesium Sulfate/H2o) 2 gm in 50 mls @ 25 mls/hr IV ONCE ONE Stop: 11/04/22 11:25 Last Admin: 11/04/22 09:58 Dose: 25 mls/hr Documented By: DANIELLE Loperamide HCl (Loperamide Hcl 2 Mg Capsule) 4 mg PO TIDAC [facility] Last Admin: 11/04/22 08:07 Dose: 4 mg Documented By: DANIELLE Loperamide HCl (Loperamide Hcl 2 Mg Capsule) 2 mg PO Q8H PRN PRN Reason: liquid output from ostomy Last Admin: 11/03/22 20:38 Dose: 2 mg Documented By: JOSE Omeprazole (Omeprazole 20 Mg Capsule.) 20 mg PO DAILY@0630 [facility] Last Admin: 11/04/22 05:49 Dose: 20 mg Documented By: JOSE Ondansetron HCl (Ondansetron Hcl 4 Mg/2 Ml Vial) 4 mg IVPUSH Q8H PRN PRN Reason: Nausea and Vomiting Last Admin: 11/02/22 20:34 Dose: 4 mg Documented By: JOSE Pharmacy Consult (Consult Rx Perform Med Rec) 1 each MISCELLANE ONCE PRN PRN Reason: Consult order Sodium Chloride (0.9 % Sodium Chloride Flush 3 Ml Syringe) 3 ml IVFLUSH QSHIFT [facility] Last Admin: 11/04/22 08:12 Dose: Not Given Documented By: DANIELLE Non-Admin Reason: IV Running Labs 11/03/22 07:14 11/04/22 06:05 Labs: Laboratory Results - last 24 hr 11/03/22 11/03/22 11/04/22 07:14 12:45 06:05 Anion Gap 15 Estim Creat Clear Calc 38.2 Estimated GFR 56 Random Glucose 99 Calcium 7.7 L D Magnesium 1.7 1.5 L Acetaminophen < 17 Microbiology Microbiology Results: Microbiology 11/01/22 10:50 Blood Culture - Preliminary Blood - Venous No growth after 48 hours. 11/01/22 09:50 Blood Culture - Preliminary Blood - Venous No growth after 48 hours. 11/01/22 Unknown Urine Culture - Preliminary Urine Catheterized - Straight Catheter Yeast Procedures Date of Service Date of Service: 11/04/22 Progress Note: A&P Assessment and plan (1) S/P ileostomy: Status: Acute (2) SAADIA (acute kidney injury): Status: Acute Plan 77-year-old female patient with 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 Patient feels improved today and is tolerating a regular diet. IV hydration continues. Patient now on around the clock Imodium. Time Spent With Patient Time: Total time managing care of this patient today ____ minutes. Quality Stroke Does the patient have a stroke diagnosis?: No VTE Prior VTE?: No VTE Risk Level:: Medical - moderate - high VTE Device Contraindication: N/A - Device Ordered VTE Drug Contraindication: N/A - Med Ordered
--- NOTE | 2022-11-04 10:11 | HO.PM.IMPN ---
Subjective Subjective Date of Service: 11/04/22 Interval History: seen and examined this morning follow up for SAADIA, elevated LFTS, high output ostomy no overnight events was able to sleep well. overall feeling better, has more energy, was up to chair most of afternoon yesterday. tolerating diet no abdominal pain Review of Systems Review of Systems: Yes all other systems are reviewed and are negative Constitutional Constitutional: Denies chills and Denies fever(s) Physical Exam Vital Signs: Vital Signs: Last Vital Signs Temp 97.8 F 11/04/22 07:27 Pulse 62 11/04/22 07:27 Resp 20 11/04/22 07:27 BP 119/57 L 11/04/22 07:27 Pulse Ox 100 11/04/22 07:27 O2 Del Method Room Air 11/04/22 07:27 O2 Flow Rate 1 11/03/22 07:05 Oxygen Flow Rate 1 11/01/22 09:18 BMI result Body Mass Index 22.2 Const: Other: thin, frail appearing General: cooperative, no acute distress, alert and awake Nutritional Appearance: thin Orientation/consciousness: patient oriented x3 Resp: Effort & Inspection: normal respiratory effort, able to speak in complete sentences, no respiratory distress and no use of accessory muscles Auscultation: clear to auscultation bilaterally Cardio: Rate: regular rate Heart sounds: S1 normal heart sound present and S2 normal heart sound present GI: Other: ileostomy present with watery output Inspection: No distended Palpation (GI): Soft to palpation and nontender Neuro: General: patient oriented x3, moves all extremities and CN's II-XI intact bilaterally Extrem: General: Yes no pedal edema Objective Data Active Medications Albuterol Sulfate (Albuterol Sulfate 90 Mcg 8 Gm Inhaler) 2 puff INHALE Q6H PRN PRN Reason: shortness of breath or wheezing Budesonide (Budesonide 180 Mcg Aer.Pow.Ba) 2 puff INHALE DAILY [facility] Last Admin: 11/03/22 09:52 Dose: 2 puff Documented By: YOLANDA Dexamethasone (Dexamethasone 2 Mg Tablet) 2 mg PO DAILY [facility]; Taper Stop: 11/12/22 08:59 Last Admin: 11/04/22 08:07 Dose: 2 mg Documented By: DANIELLE Heparin Sodium (Porcine) (Heparin Sodium,Porcine 5,000 Unit/Ml Vial) 5,000 unit SUBCUT Q12H [facility] Last Admin: 11/04/22 05:49 Dose: 5,000 unit Documented By: JOSE Dextrose/Sodium Chloride (D51/2ns) 1,000 mls @ 100 mls/hr IVCONT .Q10H [facility] Last Admin: 11/04/22 09:59 Dose: 100 mls/hr Documented By: DANIELLE Magnesium Sulfate (Magnesium Sulfate/H2o) 2 gm in 50 mls @ 25 mls/hr IV ONCE ONE Stop: 11/04/22 11:25 Last Admin: 11/04/22 09:58 Dose: 25 mls/hr Documented By: DANIELLE Loperamide HCl (Loperamide Hcl 2 Mg Capsule) 4 mg PO TIDAC [facility] Last Admin: 11/04/22 08:07 Dose: 4 mg Documented By: DANIELLE Loperamide HCl (Loperamide Hcl 2 Mg Capsule) 2 mg PO Q8H PRN PRN Reason: liquid output from ostomy Last Admin: 11/03/22 20:38 Dose: 2 mg Documented By: JOSE Omeprazole (Omeprazole 20 Mg Capsule.Dr) 20 mg PO DAILY@0630 [facility] Last Admin: 11/04/22 05:49 Dose: 20 mg Documented By: JOSE Ondansetron HCl (Ondansetron Hcl 4 Mg/2 Ml Vial) 4 mg IVPUSH Q8H PRN PRN Reason: Nausea and Vomiting Last Admin: 11/02/22 20:34 Dose: 4 mg Documented By: JOSE Pharmacy Consult (Consult Rx Perform Med Rec) 1 each MISCELLANE ONCE PRN PRN Reason: Consult order Sodium Chloride (0.9 % Sodium Chloride Flush 3 Ml Syringe) 3 ml IVFLUSH QSHIFT [facility] Last Admin: 11/04/22 08:12 Dose: Not Given Documented By: DANIELLE Non-Admin Reason: IV Running Labs 11/03/22 07:14 11/04/22 06:05 Labs: Laboratory Results - last 24 hr 11/03/22 11/03/22 11/04/22 07:14 12:45 06:05 Anion Gap 15 Estim Creat Clear Calc 38.2 Estimated GFR 56 Random Glucose 99 Calcium 7.7 L D Magnesium 1.7 1.5 L Acetaminophen < 17 Microbiology Microbiology Results: Microbiology 11/01/22 10:50 Blood Culture - Preliminary Blood - Venous No growth after 48 hours. 11/01/22 09:50 Blood Culture - Preliminary Blood - Venous No growth after 48 hours. 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 SAADIA/acute metabolic acidosis creatinine 3.13 on admission; trending down to 0.96 today. baseline .6 likely pre-renal r/t from high output ileostomy, decreased PO intake. continues to have high output from ostomy continue current IVF. 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 tylenol, INR wnl. no further workup if LFTs continue to trend down follow LFTs high output from ileostomy 09/19 ex lap with SBR, lysis of adhesions, drainage of intra-abdominal abscess and appedectomy. 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 will d/c IV ceftraixone blood cultures negative elevated troponin no chest pain likely related to decreased clearance from SAADIA repeat troponin flat dvt ppx - heparin code status - DNR/DNI attending - dr. Kahlil dispo: seen by PT - rec STR when medically ready requires ongoing hospitalization for management of SAADIA, elevated LFTS, safe disposition Time Spent With Patient Time: Total time managing care of this patient today ____ minutes. Quality Stroke Does the patient have a stroke diagnosis?: No VTE Prior VTE?: No VTE Risk Level:: Medical - moderate - high VTE Device Contraindication: N/A - Device Ordered VTE Drug Contraindication: N/A - Med Ordered
[2022-11-04 10:32] LABS: Alanine Aminotransferase 31 U/L (0-31); Albumin Level 2.1 g/dL (3.5-5.0); Alkaline Phosphatase 354 U/L (39-117); Aspartate Amino Transferase 39 U/L (5-31); Bilirubin Direct 1.9 mg/dL (0.0-0.5); Total Protein 4.9 g/dL (6.5-8.0)
[2022-11-04 11:49] VITALS: BP 129/59; PULSE 67; RESP 20; TEMP 36.6; O2SAT 100
--- NOTE | 2022-11-04 13:01 | PM.PNNEP ---
Subjective Subjective Date of Service: 11/04/22 Interval history: Feels better today. X-ray and creatinine returned to baseline. Physical Exam Vital Signs: Vital Signs: Last Vital Signs Temp 97.9 F 11/04/22 11:49 Pulse 67 11/04/22 11:49 Resp 20 11/04/22 11:49 BP 129/59 L 11/04/22 11:49 Pulse Ox 100 11/04/22 11:49 O2 Del Method Room Air 11/04/22 11:49 O2 Flow Rate 1 11/03/22 07:05 Oxygen Flow Rate 1 11/01/22 09:18 BMI result Body Mass Index 22.2 Const: Other: thin, frail appearing General: cooperative, no acute distress, alert, awake and ill appearing Nutritional Appearance: thin Orientation/consciousness: patient oriented x3 HEENT: Head: Yes normocephalic and Yes atraumatic Ears: hearing grossly normal bilaterally Resp: Effort & Inspection: normal respiratory effort, able to speak in complete sentences, no audible wheezes, no cough, no respiratory distress and no use of accessory muscles Auscultation: clear to auscultation bilaterally Cardio: Rate: regular rate Heart sounds: S1 normal heart sound present and S2 normal heart sound present GI: Other: ileostomy present with watery output Inspection: No distended Palpation (GI): Soft to palpation and nontender Skin: Other: Pale, warm and dry Neuro: General: patient oriented x3, moves all extremities and CN's II-XI intact bilaterally Extrem: General: Yes no clubbing, cyanosis or edema and Yes no pedal edema Objective Data Labs 11/03/22 07:14 11/04/22 06:05 Labs: Laboratory Results - last 24 hr 11/03/22 11/04/22 12:45 06:05 Sodium 136 Potassium 3.5 D Chloride 100 Carbon Dioxide 25 Anion Gap 15 BUN 25 H Creatinine 0.96 Estim Creat Clear Calc 38.2 Estimated GFR 56 Random Glucose 99 Calcium 7.7 L D Magnesium 1.5 L Total Bilirubin 3.0 H Direct Bilirubin 1.9 H AST 39 H ALT 31 Alkaline Phosphatase 354 H Total Protein 4.9 L Albumin 2.1 L Acetaminophen < 17 Microbiology Microbiology Results: Microbiology 11/01/22 Unknown Urine Catheterized - Straight Catheter Urine Culture - Final Nerissa albicans 11/01/22 10:50 Blood - Venous Blood Culture - Preliminary No growth after 48 hours. 11/01/22 09:50 Blood - Venous Blood Culture - Preliminary No growth after 48 hours. Procedures Date of Service Date of Service: 11/04/22 Assessment & Plan Assessment and plan (1) SAADIA (acute kidney injury): Status: Acute Plan SAADIA due to dehydration from GI losses. Hypernatremia due to free water deficit due to GI loss . Anemia . Creatinine is back to baseline with hydration. Recommendations Keep intake more than output Replace potassium as needed Increase p.o. water intake. Continue to avoid nephrotoxic agents. Watch potassium and bicarbonate levels. antimotility agents to decrease the GI losses. Time Spent With Patient Time: Total time managing care of this patient today ____ minutes. Progress Note: Quality Stroke Does the patient have a stroke diagnosis?: No
[2022-11-04 15:40] VITALS: BP 120/56; PULSE 68; RESP 16; TEMP 35.9; O2SAT 100
--- NOTE | 2022-11-04 16:39 | PC.NURSE ---
Pt. ileostomy still draining green/brown liquid stool. Bag emptied 3 times so far this shift. Will continue to monitor output
[2022-11-04 19:39] VITALS: BP 116/53; PULSE 74; RESP 18; TEMP 36.3; O2SAT 98
[2022-11-04 23:38] VITALS: BP 111/53; PULSE 66; RESP 20; TEMP 36.7; O2SAT 100
[2022-11-05] VITALS (7 sets, daily range): BP systolic 106–125; BP diastolic 52–71; PULSE 59–127; RESP 17–20; TEMP 36.4–37.2; O2SAT 97–100
[2022-11-05] MEDS: Heparin Sodium,Porcine 5,000 UNIT/ML VIAL 5000 UNIT SUBCUT ×2 (04:44→16:38)
[2022-11-05] MEDS: Loperamide HCl 2 MG CAPSULE 4 MG PO ×3 (06:51→16:38)
[2022-11-05] MEDS: Omeprazole 20 MG CAPSULE.DR PO (06:51)
[2022-11-05 07:21] LABS: Hemoglobin 9.5 g/dl (12.0-16.0); Mean Corpuscular HGB Conc 31.7 g/dl (31.0-35.0); Mean Corpuscular Hemoglobin 30.2 pg (27.0-33.0); Mean Corpuscular Volume 95.2 fL (80.0-98.0); Mean Platelet Volume 11.8 fL (9.4-12.3); Platelet Count 232 X10*3/uL (160-400); Red Blood Count 3.15 X10*6/uL (4.20-5.50); Red Cell Distribution Width 16.4 % (11.0-16.0); White Blood Count 8.8 X10*3/uL (4.8-10.8)
[2022-11-05 07:24] LABS: Anion Gap 12 (12-20); Blood Urea Nitrogen 14 mg/dL (9-16); Calcium 8.2 mg/dL (8.4-10.2); Carbon Dioxide 23 mmol/L (22-29); Chloride 105 mmol/L (96-108); Creatinine Clr Calc Pharmacy 47.6; Estimated Glomerular Filt Rate > 60; Glucose Random 77 mg/dL (60-115); Magnesium 1.8 mg/dL (1.6-2.6); Potassium 3.6 mmol/L (3.3-5.1); Sodium 136 mmol/L (135-145)
--- NOTE | 2022-11-05 08:11 | PM.PNGS ---
Subjective Subjective Date of Service: 11/05/22 Interval history: Patient feels improved, denies abdominal pain. Physical Exam Vital Signs: Vital Signs: Last Vital Signs Temp 97.5 F 11/05/22 07:09 Pulse 67 11/05/22 07:09 Resp 20 11/05/22 07:09 BP 111/56 L 11/05/22 07:09 Pulse Ox 99 11/05/22 07:09 O2 Del Method Room Air 11/05/22 07:09 O2 Flow Rate 1 11/03/22 07:05 Oxygen Flow Rate 1 11/01/22 09:18 BMI result Body Mass Index 22.2 Const: Other: Awake and alert, no acute distress GI: Other: Soft, nondistended, midline incision is clean and intact. Ostomy with thicker, less watery bilious fluid. Skin: Other: Warm, dry, no rash Objective Data Active Medications Albuterol Sulfate (Albuterol Sulfate 90 Mcg 8 Gm Inhaler) 2 puff INHALE Q6H PRN PRN Reason: shortness of breath or wheezing Budesonide (Budesonide 180 Mcg Aer.Pow.Ba) 2 puff INHALE DAILY [facility] Last Admin: 11/04/22 15:08 Dose: Not Given Documented By: DANIELLE Non-Admin Reason: not given by respiratory Dexamethasone (Dexamethasone 2 Mg Tablet) 2 mg PO DAILY [facility]; Taper Stop: 11/12/22 08:59 Last Admin: 11/04/22 08:07 Dose: 2 mg Documented By: DANIELLE Heparin Sodium (Porcine) (Heparin Sodium,Porcine 5,000 Unit/Ml Vial) 5,000 unit SUBCUT Q12H [facility] Last Admin: 11/05/22 04:44 Dose: 5,000 unit Documented By: GOLDIE Loperamide HCl (Loperamide Hcl 2 Mg Capsule) 4 mg PO TIDAC [facility] Last Admin: 11/05/22 06:51 Dose: 4 mg Documented By: GOLDIE Loperamide HCl (Loperamide Hcl 2 Mg Capsule) 2 mg PO Q8H PRN PRN Reason: liquid output from ostomy Last Admin: 11/03/22 20:38 Dose: 2 mg Documented By: JOSE Omeprazole (Omeprazole 20 Mg Capsule.) 20 mg PO DAILY@0630 [facility] Last Admin: 11/05/22 06:51 Dose: 20 mg Documented By: GOLDIE Ondansetron HCl (Ondansetron Hcl 4 Mg/2 Ml Vial) 4 mg IVPUSH Q8H PRN PRN Reason: Nausea and Vomiting Last Admin: 11/02/22 20:34 Dose: 4 mg Documented By: JOSE Pharmacy Consult (Consult Rx Perform Med Rec) 1 each MISCELLANE ONCE PRN PRN Reason: Consult order Sodium Chloride (0.9 % Sodium Chloride Flush 3 Ml Syringe) 3 ml IVFLUSH QSHIFT [facility] Last Admin: 11/05/22 04:20 Dose: Not Given Documented By: GOLDIE Non-Admin Reason: IV Running Labs 11/03/22 07:14 11/05/22 05:54 Labs: Laboratory Results - last 24 hr 11/04/22 11/05/22 06:05 05:54 Anion Gap 15 12 Estim Creat Clear Calc 47.6 Estimated GFR > 60 Random Glucose 77 Calcium 8.2 L D Magnesium 1.8 Total Bilirubin 3.0 H Direct Bilirubin 1.9 H AST 39 H ALT 31 Alkaline Phosphatase 354 H Total Protein 4.9 L Albumin 2.1 L Microbiology Microbiology Results: Microbiology 11/01/22 Unknown Urine Culture - Final Urine Catheterized - Straight Catheter Nerissa albicans Procedures Date of Service Date of Service: 11/05/22 Progress Note: A&P Assessment and plan (1) S/P ileostomy: Status: Acute (2) SAADIA (acute kidney injury): Status: Acute Plan 77-year-old female patient with 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 Patient will continue around the clock Imodium. Oral hydration encouraged. Plan for discharge to [facility] possibly later today. Time Spent With Patient Time: Total time managing care of this patient today ____ minutes. Quality Stroke Does the patient have a stroke diagnosis?: No VTE Prior VTE?: No VTE Risk Level:: Medical - moderate - high VTE Device Contraindication: N/A - Device Ordered VTE Drug Contraindication: N/A - Med Ordered
[2022-11-05 09:07] LABS: Band Neutrophils Percent 0 % (3-5); Basophils Abs Manual 0.1 X10*3/uL (0.0-0.2); Basophils Percent Manual 1 % (0-2); Eosinophils Absolute Manual 0.3 X10*3/uL (0.0-0.4); Eosinophils Percent Manual 3 % (0-4); Lymphocytes Absolute Manual 1.3 X10*3/uL (1.2-4.9); Lymphocytes Percent Manual 15 % (20-40); Metamyelocytes Absolute 0.4 X10*3/uL; Metamyelocytes Percent 4 %; Monocytes Absolute Manual 0.4 X10*3/uL (0.1-1.2); Monocytes Percent Manual 5 % (2-11); Myelocytes Absolute 0.2 X10*/uL; Myelocytes Percent 2 %; Neutrophils Absolute Manual 6.2 X10*3/uL (2.0-8.3); Neutrophils Percent Manual 70 % (45-73); Platelet Estimate NORMAL (NORMAL); Platelet Morphology Comment NOTED
[2022-11-05 09:08] LABS: Large Platelet PRESENT
[2022-11-05 09:11] LABS: Hypochromasia 1+ (5-14) /OIF; Macrocytosis 1+ (5-14) /OIF; RBC Morphology NOTED
[2022-11-05] MEDS: 0.9 % Sodium Chloride Flush 3 ML SYRINGE IVFLUSH ×3 (10:23→20:11)
[2022-11-05] MEDS: dexAMETHasone 2 MG TABLET PO (10:23)
[2022-11-05] MEDS: Budesonide 180 MCG AER.POW.BA 2 PUFF INHALE (10:29)
--- NOTE | 2022-11-05 13:34 | HO.PM.IMPN ---
Subjective Subjective Date of Service: 11/05/22 Interval History: seen and examined this morning follow up for SAADIA, elevated LFTS, high output ostomy no overnight events was able to sleep well. overall feeling better, has more energy, was up to chair most of afternoon yesterday. tolerating diet no abdominal pain Review of Systems Review of Systems: Yes all other systems are reviewed and are negative Constitutional Constitutional: Denies chills and Denies fever(s) Physical Exam Vital Signs: Vital Signs: Last Vital Signs Temp 98.5 F 11/05/22 11:06 Pulse 84 11/05/22 11:06 Resp 20 11/05/22 11:06 BP 111/52 L 11/05/22 11:06 Pulse Ox 99 11/05/22 11:06 O2 Del Method Room Air 11/05/22 11:06 O2 Flow Rate 1 11/03/22 07:05 Oxygen Flow Rate 1 11/01/22 09:18 BMI result Body Mass Index 22.2 Appearing in no acute distress lung sounds are clear to auscultation heart regular rate rhythm, clear S1, S2 positive bowel sounds, abdomen is soft, nontender neuro patient is alert x3, no focal deficits Ostomy site with stoma Objective Data Active Medications Albuterol Sulfate (Albuterol Sulfate 90 Mcg 8 Gm Inhaler) 2 puff INHALE Q6H PRN PRN Reason: shortness of breath or wheezing Budesonide (Budesonide 180 Mcg Aer.Pow.Ba) 2 puff INHALE DAILY [facility] Last Admin: 11/05/22 10:29 Dose: 2 puff Documented By: CAROLINA Dexamethasone (Dexamethasone 2 Mg Tablet) 2 mg PO DAILY [facility]; Taper Stop: 11/12/22 08:59 Last Admin: 11/05/22 10:23 Dose: 2 mg Documented By: CAROLINA Diphenoxylate HCl/Atropine (Diphenoxylate/Atrop 2.5/0.025 Tablet) 1 tab PO QID [facility] Heparin Sodium (Porcine) (Heparin Sodium,Porcine 5,000 Unit/Ml Vial) 5,000 unit SUBCUT Q12H [facility] Last Admin: 11/05/22 04:44 Dose: 5,000 unit Documented By: GOLDIE Loperamide HCl (Loperamide Hcl 2 Mg Capsule) 4 mg PO TIDAC [facility] Last Admin: 11/05/22 10:23 Dose: 4 mg Documented By: CAROLINA Loperamide HCl (Loperamide Hcl 2 Mg Capsule) 2 mg PO Q8H PRN PRN Reason: liquid output from ostomy Last Admin: 11/03/22 20:38 Dose: 2 mg Documented By: JOSE Omeprazole (Omeprazole 20 Mg Capsule.Dr) 20 mg PO DAILY@0630 [facility] Last Admin: 11/05/22 06:51 Dose: 20 mg Documented By: GOLDIE Ondansetron HCl (Ondansetron Hcl 4 Mg/2 Ml Vial) 4 mg IVPUSH Q8H PRN PRN Reason: Nausea and Vomiting Last Admin: 11/02/22 20:34 Dose: 4 mg Documented By: JOSE Pharmacy Consult (Consult Rx Perform Med Rec) 1 each MISCELLANE ONCE PRN PRN Reason: Consult order Sodium Chloride (0.9 % Sodium Chloride Flush 3 Ml Syringe) [facility] Admin: 11/05/22 10:23 Dose: 3 ml Documented By: CAROLINA Labs 11/05/22 05:54 11/05/22 05:54 Labs: Laboratory Results - last 24 hr 11/05/22 11/05/22 05:54 05:54 MCV 95.2 MCH 30.2 MCHC 31.7 RDW 16.4 H Plt Count 232 MPV 11.8 Immature Gran % (Auto) Cancelled Neut % (Auto) Cancelled Lymph % (Auto) Cancelled [place] % (Auto) Cancelled Eos % (Auto) Cancelled Baso % (Auto) Cancelled Lymph # (Auto) Cancelled [place] # (Auto) Cancelled Eos # (Auto) Cancelled Baso # (Auto) Cancelled Abs Immat Gran (auto) Cancelled Absolute Neuts (auto) Cancelled Absolute Nucleated RBC 0.000 Nucleated RBC % (auto) 0.0 Neutrophils % (Manual) 70 Band Neutrophils % 0 L Lymphocytes % (Manual) 15 L Monocytes % (Manual) 5 Eosinophils % (Manual) 3 Basophils % (Manual) 1 Metamyelocytes % 4 Myelocytes % 2 Abs Neuts (Manual) 6.2 Lymphocytes # (Manual) 1.3 Monocytes # (Manual) 0.4 Eosinophils # (Manual) 0.3 Basophils # (Manual) 0.1 Metamyelocytes # 0.4 Myelocytes # 0.2 Platelet Estimate NORMAL Large Platelets PRESENT Plt Morphology Comment NOTED RBC Morphology NOTED Hypochromasia 1+ (5-14) Macrocytosis 1+ (5-14) Anion Gap 12 Estim Creat Clear Calc 47.6 Estimated GFR > 60 Random Glucose 77 Calcium 8.2 L D Magnesium 1.8 Microbiology Microbiology Results: Microbiology 11/01/22 Unknown Urine Culture - Final Urine Catheterized - Straight Catheter Nerissa albicans Assessment and Plan (1) Elevated LFTs: Status: Acute (2) SAADIA (acute kidney injury): Status: Acute Plan This is a 77-year-old female with history of 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 SAADIA/acute metabolic acidosis. Resolved pre-renal r/t from high output ileostomy, decreased PO intake. continues to have high output from ostomy monitor kidney function closely [place] for close monitoring of urine output acute hypokalemia/hypomagnesemia. 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 tylenol, INR wnl. no further workup if LFTs continue to trend down high output ileostomy 09/19 ex lap with SBR, lysis of adhesions, drainage of intra-abdominal abscess and appedectomy. 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 Huitron dispo: seen by PT - rec STR when medically ready requires ongoing hospitalization for management of SAADIA, elevated LFTS, safe disposition Time Spent With Patient Time: Total time managing care of this patient today ____ minutes. Quality Stroke Does the patient have a stroke diagnosis?: No VTE Prior VTE?: No VTE Risk Level:: Medical - moderate - high VTE Device Contraindication: N/A - Device Ordered VTE Drug Contraindication: N/A - Med Ordered
--- NOTE | 2022-11-05 16:22 | MHC.CM.PN ---
PT recommending STR, pt agreeable to go to [facility] updated and went for auth, placement pending auth.
--- NOTE | 2022-11-05 21:12 | PC.NURSE ---
Assumed care at 7 am. Patient with large amount of liquid stool via ileostomy, [employer] notified, new order for lomotil in addition to immodium with modest effect,.
[2022-11-06 04:00] VITALS: BP 112/57; PULSE 54; RESP 16; TEMP 36.8; O2SAT 100
[2022-11-06] MEDS: Heparin Sodium,Porcine 5,000 UNIT/ML VIAL 5000 UNIT SUBCUT (05:30)
[2022-11-06] MEDS: Omeprazole 20 MG CAPSULE.DR PO (05:31)
[2022-11-06 07:15] VITALS: BP 128/58; PULSE 63; RESP 20; TEMP 36.6; O2SAT 99
[2022-11-06] MEDS: Loperamide HCl 2 MG CAPSULE 4 MG PO ×2 (08:40→13:19)
[2022-11-06] MEDS: dexAMETHasone 2 MG TABLET PO (08:41)
[2022-11-06] MEDS: 0.9 % Sodium Chloride Flush 3 ML SYRINGE IVFLUSH (08:42)
--- NOTE | 2022-11-06 08:42 | PM.PNGS ---
Subjective Subjective Date of Service: 11/06/22 Interval history: denies abd pain says she feels well today tolerating diet Physical Exam Vital Signs: Vital Signs: Last Vital Signs Temp 97.8 F 11/06/22 07:15 Pulse 63 11/06/22 07:15 Resp 20 11/06/22 07:15 BP 128/58 L 11/06/22 07:15 Pulse Ox 99 11/06/22 07:15 O2 Del Method Room Air 11/06/22 07:15 O2 Flow Rate 1 11/03/22 07:05 Oxygen Flow Rate 1 11/01/22 09:18 BMI result Body Mass Index 22.2 Const: General: comfortable and no acute distress Resp: Effort & Inspection: normal respiratory effort Cardio: Rate: regular rate GI: Other: ileostomy functioning, does not appear to be high output today Palpation (GI): Soft to palpation, not firm, nontender and no guarding Objective Data Active Medications Albuterol Sulfate (Albuterol Sulfate 90 Mcg 8 Gm Inhaler) 2 puff INHALE Q6H PRN PRN Reason: shortness of breath or wheezing Budesonide (Budesonide 180 Mcg Aer.Pow.Ba) 2 puff INHALE DAILY [facility] Last Admin: 11/05/22 10:29 Dose: 2 puff Documented By: CAROLINA Dexamethasone (Dexamethasone 2 Mg Tablet) 2 mg PO DAILY [facility]; Taper Stop: 11/12/22 08:59 Last Admin: 11/06/22 08:41 Dose: 2 mg Documented By: ARMAND Diphenoxylate HCl/Atropine (Diphenoxylate/Atrop 2.5/0.025 Tablet) 1 tab PO QID [facility] Last Admin: 11/06/22 08:41 Dose: 1 tab Documented By: ARMAND Heparin Sodium (Porcine) (Heparin Sodium,Porcine 5,000 Unit/Ml Vial) 5,000 unit SUBCUT Q12H [facility] Last Admin: 11/06/22 05:30 Dose: 5,000 unit Documented By: SANIA Loperamide HCl (Loperamide Hcl 2 Mg Capsule) 4 mg PO TIDAC [facility] Last Admin: 11/06/22 08:40 Dose: 4 mg Documented By: ARMAND Omeprazole (Omeprazole 20 Mg Capsule.) 20 mg PO DAILY@0630 [facility] Last Admin: 11/06/22 05:31 Dose: 20 mg Documented By: SANIA Ondansetron HCl (Ondansetron Hcl 4 Mg/2 Ml Vial) 4 mg IVPUSH Q8H PRN PRN Reason: Nausea and Vomiting Last Admin: 11/02/22 20:34 Dose: 4 mg Documented By: JOSE Pharmacy Consult (Consult Rx Perform Med Rec) 1 each MISCELLANE ONCE PRN PRN Reason: Consult order Sodium Chloride (0.9 % Sodium Chloride Flush 3 Ml Syringe) 3 ml IVFLUSH QSHIFT [facility] Last Admin: 11/05/22 20:11 Dose: 3 ml Documented By: SANIA Labs 11/05/22 05:54 11/06/22 06:10 Labs: Laboratory Results - last 24 hr 11/05/22 11/06/22 11/06/22 05:54 06:10 06:10 Neutrophils % (Manual) 70 Band Neutrophils % 0 L Lymphocytes % (Manual) 15 L Monocytes % (Manual) 5 Eosinophils % (Manual) 3 Basophils % (Manual) 1 Metamyelocytes % 4 Myelocytes % 2 Abs Neuts (Manual) 6.2 Lymphocytes # (Manual) 1.3 Monocytes # (Manual) 0.4 Eosinophils # (Manual) 0.3 Basophils # (Manual) 0.1 Metamyelocytes # 0.4 Myelocytes # 0.2 Platelet Estimate NORMAL Large Platelets PRESENT Plt Morphology Comment NOTED RBC Morphology NOTED Hypochromasia 1+ (5-14) Macrocytosis 1+ (5-14) Anion Gap 11 L Estim Creat Clear Calc 50.9 Estimated GFR > 60 Random Glucose 74 Calcium 8.1 L Magnesium 1.7 Cancelled Procedures Date of Service Date of Service: 11/06/22 Progress Note: A&P Assessment and plan (1) Dehydration: Status: Acute Assessment and Plan: had high output ileostomy appears adequately hydrated awaiting placement to Rehab doing well push PO fluids Time Spent With Patient Time: Total time managing care of this patient today ____ minutes. Quality Stroke Does the patient have a stroke diagnosis?: No VTE Prior VTE?: No VTE Risk Level:: Medical - moderate - high VTE Device Contraindication: N/A - Device Ordered VTE Drug Contraindication: N/A - Med Ordered
--- NOTE | 2022-11-06 11:04 | PM.DS ---
DS: Providers Provider Date of Service: 11/06/22 Date of admission: 11/01/22 16:14 Primary care physician: Amos Aguilar MD Consults: 11/01/22 16:21 Consult to Gastroenterology Routine Consulting Provider: Juliane Ghosh Reason for consultation: elevated LFts Has provider been notified: No Consult to Nephrology Routine Consulting Provider: Chalino Kelly Reason for consultation: renal failure Has provider been notified: No 11/01/22 17:10 Consult to General Surgery Routine Consulting Provider: [facility] General Surgeons Reason for consultation: high output from ileostomy; recent Small bowel resection; GB sludge Has provider been notified: No DS: Diagnosis Discharge Diagnosis (1) Dehydration: Status: Acute DS: Summary Hospital Course Hospital Course: This is a 77 year old female with complicated past medical history who presents to the emergency department today with generalized weakness. ? Records from and [facility] obtained and reviewed. She was initially admitted to [facility] on 09/12,? with abdominal pain. On 09/19? she had exploratory laparotomy with lysis of adhesions, small-bowel resection, drainage of intra-abdominal abscess (that grew Klebsiella oxytocin and Klebsiella pneumonia) and appendectomy.? 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 On September 24 she underwent second? exploratory laparotomy with small-bowel resection and double-barreled ileostomy.? She was ultimately transferred to [facility] on October 27 for inpatient rheumatology evaluation.? during her hospitalization she was treated with steroids and IVIG.? She was discharged to rehab at [facility] on 10/15 with slow steroid taper and plans for outpatient monthly IVIG. ? She had ongoing poor p.o. intake and high ostomy output and subsequently presented to [facility] on October 19 with nausea, vomiting, somnolence.? At that time she was noted to have acute renal failure with a creatinine of 1.6.? She was started on ammonium and hydrated and her renal function improved.? She was noted to have elevated LFTs thought to be secondary to cholestasis, she also tested positive for CMV.? She was discharged home? on October 24. ? Today a neighbor came to check on her and found her to be weak and therefore call the ambulance and sent her to the hospital.? She states that she has been eating although she should be eating more ? and does state that she has to empty her ileostomy frequently. She has been taking the immodium as prescribed from [facility]. In the emergency department she was noted to have multiple abnormalities including acute kidney injury with serum creatinine of 3.13, Chloride 87, bicarb 33. elevated LFTs? with total bilirubin of 6.9, direct bilirubin 4.7, alkaline phosphatase 501.? She denies any abdominal pain.? Her urinalysis appeared consistent with urinary tract infection.? She was treated with IV ceftriaxone.? She also received 30 cc/kg bolus of normal saline. She will be admitted for further management of SAADIA, elevated LFTs and possible UTI. SAADIA/acute metabolic acidosis. Resolved pre-renal r/t from high output ileostomy, decreased PO intake. acute hypokalemia/hypomagnesemia. Resolved r/t GI losses from high output ileostomy check labs in 2 days transaminitis. Trended down LFTs elevated during admission at [facility] and thought to be related to cholestasis/CMV+ no abdominal pain Hepatitis panel has been negative abdominal US showing sludge, normal caliber CBD seen by GI - LFTs could be elevated from dehydration, UTI or CMV hepatitis. tylenol, INR wnl. no further workup needed high output ileostomy 09/19 ex lap with SBR, lysis of adhesions, drainage of intra-abdominal abscess and appedectomy. 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 was treated with IVIG inpatient at and planned for outpatient monthly treatment continue decadron taper outpatient follow up with rheumatology elevated troponin no chest pain likely related to decreased clearance from SAADIA repeat troponin flat Time Spent with Patient Time attestation: Total time managing care of this patient today ____ minutes. Discharge coordination time: Greater than 30 minutes Quality: Safe Use of Opioids Does Pt have an Active Cancer Diagnosis on the Problem List?: No Quality: Stroke Does the patient have a stroke diagnosis?: No Physical Exam Vital Signs: Vital Signs: Last Vital Signs Temp 97.8 F 11/06/22 07:15 Pulse 63 11/06/22 07:15 Resp 20 11/06/22 07:15 BP 128/58 L 11/06/22 07:15 Pulse Ox 99 11/06/22 07:15 O2 Del Method Room Air 11/06/22 07:15 O2 Flow Rate 1 11/03/22 07:05 Oxygen Flow Rate 1 11/01/22 09:18 BMI result Body Mass Index 22.2 Appearing in no acute distress head is normocephalic atraumatic eyes pupils are PERRLA sclera is anicteric mouth throat mucous membranes are intact and moist neck is supple no lymphadenopathy, no JVD noted lung sounds are clear to auscultation heart regular rate rhythm, clear S1, S2 positive bowel sounds, abdomen is soft, nontender neuro patient is alert x3, no focal deficits ileostomy DS: Data Data Completed and Pending Completed studies during hospitalization [Text1]: Procedures Bypass Ileum to Cutaneous, Open Approach (09/13/22) Drainage of Peritoneal Cavity, Open Approach (09/13/22) Excision of Ileum, Open Approach (09/13/22) Release Small Intestine, Open Approach (09/13/22) Resection of Appendix, Open Approach (09/13/22) Labs on day of discharge: Laboratory Results - last 24 hr 11/06/22 11/06/22 06:10 06:10 Sodium 134 L Potassium 3.2 L Chloride 101 Carbon Dioxide 25 Anion Gap 11 L BUN 14 Creatinine 0.72 Estim Creat Clear Calc 50.9 Estimated GFR > 60 Random Glucose 74 Calcium 8.1 L Magnesium 1.7 Cancelled Preliminary micro results at discharge 11/01/22 10:50 Blood Culture - Preliminary Blood - Venous No growth after 48 hours. 11/01/22 09:50 Blood Culture - Preliminary Blood - Venous No growth after 48 hours. Discharge Plan Discharge Anticipated Discharge Date/Time: 11/06/22 10:57 Patient Disposition: Xfer Inpatient Rehab Fac Discharge Diagnosis: SAADIA Acute metabolic acidosis Hypokalemia Hypomagnesemia Transaminitis High output ileostomy and dehydration Referrals: Po,Amos White MD [Primary Care Provider] - 1 Week Discharge Medications: New diphenoxylate-atropine 2.5-0.025 mg Tablet 1 tab PO QID Qty: 8 0RF loperamide 2 mg Capsule 4 mg PO TIDAC Qty: 24 0RF potassium chloride 20 mEq tablet extended release 20 meq PO DAILY Qty: 2 0RF Continued cholecalciferol (vitamin D3) 25 mcg (1,000 unit) Tablet 25 mcg PO DAILY omega 2-szu-rmo-fish oil [Fish Oil] 1,000 mg (120 mg-180 mg) Capsule 1 cap PO DAILY simvastatin 20 mg tablet 20 mg PO BEDTIME albuterol sulfate [ProAir HFA] 90 mcg/actuation HFA aerosol inhaler 2 puff inhalation Q6H PRN (Reason: shortness of breath or wheezing) Pulmicort Flexhaler 180 mcg/actuation aerosol powdr breath activated 2 inh inhalation DAILY pantoprazole 40 mg Tablet,Delayed Release (Dr/Ec) 40 mg PO DAILY@0630 dexamethasone 2 mg Tablet See Taper PO DAILY Taper: Prednisone 4 mg daily for 2 Days and 0 Hour 2 mg daily for 8 Days and 0 Hour Rx Instructions: 4 MG DAILY FROM 10/27 THROUGH 11/03 AND 2 MG DAILY FROM 11/04 THROUGH 11/11 Discontinued loperamide 2 mg capsule 4 mg PO QID PRN (Reason: Diarrhea) Discharge Orders: Discharge Order (Routine); Ordered 11/06/22 Ordered By: Janae Rodriguez Diet: Advance to usual diet Activity on Discharge: As tolerated Stand Alone Forms: Patient Portal Discharge page Other Ambulatory Orders: Basic Metabolic Panel (Routine) Timeframe: 2 Days Facility: [facility] - Location: Laboratory Ordered By: Janae Rodriguez Magnesium (Routine) Timeframe: 2 Days Facility: [facility] - Location: Laboratory Ordered By: Janae Rodriguez Care Plan Goals: Check labs in 2 days monitor ileostomy output Health Concerns: SAADIA Acute metabolic acidosis Hypokalemia Hypomagnesemia Transaminitis High output ileostomy and dehydration Plan of Treatment: Follow-up with primary care provider as needed Follow-up with general surgeon as needed Take all medications as prescribed Continue care for new ileostomy Assessment: see discharge summary
[2022-11-06 11:13] VITALS: BP 121/53; PULSE 78; RESP 20; TEMP 36.1; O2SAT 98
[2022-11-06] MEDS: Budesonide 180 MCG AER.POW.BA 2 PUFF INHALE (13:18)
--- NOTE | 2022-11-06 14:19 | PC.NURSE ---
Per provider's order - cartwright catheter removed, patient tolerated procedure well,
== END 2022-11-06 14:33 | DRG 683 ==
LOC: HO.ED 14:17 → HO.EDOVER 16:40 → HO.IMC 17:10
PROVIDERS: Admitting Provider Physician Assistant Medical; Emergency Provider Emergency Medicine; PCP Internal Medicine; Visit Provider Nurse Practitioner Acute Care
DX: N17.9 Acute kidney failure, unspecified (principal); E87.21 Acute metabolic acidosis; N39.0 Urinary tract infection, site not specified; R64 Cachexia; E87.6 Hypokalemia; E83.42 Hypomagnesemia; Z66 Do not resuscitate; I77.6 Arteritis, unspecified; E86.0 Dehydration; Z93.2 Ileostomy status; Z68.22 Body mass index [BMI] 22.0-22.9, adult; Z79.899 Other long term (current) drug therapy
CPT/HCPCS: 36415; 71045; 74176; 76700; 80048; 80076; 80143; 81001; 82550; 83605; 83690; 83735; 84295; 84484; 85007; 85025; 85027; 85610; 87040; 87086; 87493; 93005; 97110; 97116; 97162; 99285; C1758; J0696; J1643; J2405; J3475; J8540

== ENCOUNTER 2022-11-20 15:25 | Outpatient (AMB) | payer MEDICARE, SELFPAY ==
--- NOTE | 2022-11-20 15:30 | A.OFFVIS_ITS ---
Intake Vital Signs 11/20/22 15:41 Height 5 ft 3 in Weight 100 lb BMI 17.7 BP 123/54 L Blood Pressure Location Lt brachial Position Sitting Pulse 99 Intake Visit Reasons: S/P Exp Lap, Small Bowel Resection Intake Note: Patient is seen in office for post op assessment post exploratory small bowel resection. Patient c/o: denies any concerns at the time of visit Cracker Off Required: No Accompanied by: Self / Same As Patient Allergies egg Allergy (Unknown, Verified 11/20/22 15:36) Unknown HPI HPI Comments History of Present Illness Details 77-year-old female patient presenting with evidence of bowel necrosis, perforation and abscess due to small-bowel vasculitis. She underwent exploratory laparotomy with small-bowel resection. She developed recurring bowel necrosis again due to advancing vasculitis and required a 2nd operative procedure with further small-bowel resection and will double-barrel ileostomy. Initial ostomy output was watery and she subsequently returned for rehydration. She is now in a rehab center and reports having a low appetite. Output from her ileostomy is less watery using Imodium. She denies significant abdominal pain. She is eating 3 meals daily but reports these meals are small. She is drinking fluids as well. [facility] Medical History Abdominal visceral abscess Asthma Brain aneurysm History of skin cancer Hypercholesterolemia Osteopenia Vasculitis Surgical History History of colonoscopy History of eye surgery History of removal of cyst History of removal of cyst (06/05/22) History of removal of ovarian cyst Pilar cyst S/P ileostomy Status post exploratory laparotomy (09/24/22) Status post surgical removal of malignant neoplasm of skin Family History Father Past heart attack Mother Asthma Sister Diabetes Paternal Aunt Breast cancer Colon cancer Maternal Aunt Breast cancer Social History Household Members: None Housing: House Do you presently have visiting nurse or other home services: Yes Alcohol intake: never Patient Tobacco Use Status: Former Tobacco user Quit Date: 49 yrs ago Tobacco use type: Cigarette e-Cigarette/Vaping Use: Never Used Second Hand Smoke Exposure: No service: No Current occupational status: retired Cognitive needs: No Hearing needs: No Vision needs: Yes Physical Exam Vital Signs: Last Vital Signs Pulse 99 11/20/22 15:41 BP 123/54 L 11/20/22 15:41 BMI result Body Mass Index 17.7 Const General: comfortable and no acute distress Nutritional Appearance: well nourished Orientation/consciousness: patient oriented x3 Limitations: no limitations Resp Effort & Inspection: normal respiratory effort, no audible wheezes, no cough and no respiratory distress GI Other: Midline incision is clean and intact. Ileostomy is patent and functioning properly. Thick pasty stools noted in bag. No bleeding is identified. Inspection: Yes normal to inspection Palpation (GI): Soft to palpation, nontender, no guarding and not rigid Percussion: Yes normal to percussion Auscultation: normal bowel sounds Rectal Exam - Female: deferred Neuro General: patient oriented x3 Extrem General: Yes no clubbing, cyanosis or edema Assessment & Plan Assessment & Plan (1) Abdominal visceral abscess: Code(s): K65.1 - Peritoneal abscess (2) Status post exploratory laparotomy: Onset Date: 09/24/22 Comment: Exploratory laparotomy, small bowel resection, double barrel ileostomy- Rajendra Arriaga MD Code(s): Z98.890 - Other specified postprocedural states (3) Vasculitis: Code(s): I77.6 - Arteritis, unspecified Plan 77-year-old female patient with small-bowel vasculitis with resulting in multip le skip areas of small-bowel necrosis, perforation and abscess formation. Patient required 2 surgical procedures with small-bowel resection and double- barrel ileostomy formation. Her recovery has been slow and her appetite low. There is no evidence of recurrent bowel necrosis at this time. Patient would be a candidate for closure of ileostomy however she will need to wait until she is nutritionally repleted. I recommended waiting at least 2 more months before considering closure. She expressed understanding and agrees with the plan. She will return in 1 month for follow-up examination. Medications: Discontinued simvastatin 20 mg PO DAILY 90 tabs 2RF albuterol sulfate 90 mcg/actuation 2 puffs inhalation Q4-6H PRN 8.5 grams 0RF shortness of breath or wheezing J45.909 - Unspecified asthma, uncomplicated budesonide 180 mcg/actuation 2 inhalations inhalation QAM 3 multiple units 3RF fexofenadine 180 mg PO Q24H 30 tabs 0RF Coding Level of Care Code Global (30224) Diagnoses Abdominal visceral abscess K65.1 Status post exploratory laparotomy Z98.890 Vasculitis I77.6
[2022-11-20 15:41] VITALS: BP 123/54; PULSE 99; BMI 17.7
== END 2022-11-20 15:44 | disposition home or self-care (01) ==
LOC: HO.HGS 15:25
PROVIDERS: PCP Internal Medicine; Visit Provider Surgery
DX: K65.1 Peritoneal abscess (principal); Z98.890 Other specified postprocedural states; I77.6 Arteritis, unspecified
CPT/HCPCS: 99024

== ENCOUNTER → 2022-11-20 15:25 | Outpatient (BNVA) | payer MEDICARE, SELFPAY | PROVIDERS: PCP Internal Medicine; Visit Provider Surgery ==

== ENCOUNTER 2023-01-04 12:43 | Inpatient (IN) | payer MEDICARE, SELFPAY ==
[2023-01-04] VITALS (11 sets, daily range): BP systolic 82–178; BP diastolic 43–100; PULSE 72–120; RESP 14–20; TEMP 36.3–36.7; O2SAT 96–99; BMI 16.4; BMI 17.1
--- NOTE | ~2023-01-04 | MR_ITS ---
EXAMINATION: MR BRAIN WITHOUT CONTRAST CLINICAL INFORMATION: Dizziness. Question posterior fossa stroke. COMPARISON: Head CT from 01/04/2023 and 10/12/2022. TECHNIQUE: Multiplanar, multisequence imaging of the brain was performed without contrast. FINDINGS: There is a small 6 mm acute cortically-based infarct in the left occipital lobe. This infarct is superimposed upon a site of chronic encephalomalacia with minimal hemosiderin staining from a prior infarct. There is mild elevated signal on diffusion imaging in the right occipital lobe superiorly, also cortically-based, though without visible correlated on the ADC map, indicative for T2 shine through phenomenon at the site of a chronic infarct. There are additional focal chronic infarcts in the right occipital lobe inferiorly and in the cerebellar hemispheres. No large territorial infarction is visible. Nonspecific scattered white matter signal changes may be due to chronic microangiopathy. No mass effect or midline shift is seen. No extra-axial fluid collections are seen. The brainstem is normal. The craniovertebral junction, marrow signal, and midline structures are normal. Mild to moderate generalized parenchymal volume loss noted with concordant ex vacuo prominence of the ventricles. The major intracranial flow voids at the level of the [place] of [place] are preserved. The dural venous sinus flow voids are maintained. There is trace fluid in the dependent mastoid air cells. Mild ethmoid sinus mucosal thickening noted. MR/MR head/brain wo con IMPRESSION: Small acute cortically-based infarct in the left occipital lobe superimposed upon an area of chronic infarction with minimal hemosiderin staining. Chronic infarcts in the right occipital lobe and cerebellum as well. Mild chronic white matter microangiopathy.
--- NOTE | ~2023-01-04 | CT_ITS ---
EXAMINATION: CT HEAD WITHOUT CONTRAST CLINICAL INFORMATION: Dizziness. COMPARISON: CT head 10/12/2022. TECHNIQUE: Contiguous axial imaging was performed from the skull base to vertex without intravenous administration of contrast. This CT examination was performed using dose optimization techniques as appropriate, variously including the following: *Automated exposure control *Adjustment of mA and/or kV according to patient size (this includes techniques or standardized protocols for targeted exams where dose is matched to indication/reason for exam; i.e. extremities or head) *Use of iterative reconstruction technique DLP: 564 mGy-cm FINDINGS: There are small chronic cortical infarcts within both occipital lobes and the right cerebellum that are slightly more apparent when compared to a recent CT scan of the head from 10/12/2022. Scattered foci of hypoattenuation are also visualized within the periventricular white matter. Grossly no evidence of acute territorial infarct. No acute hemorrhage or abnormal extra-axial collection. No intracranial mass effect or midline shift. Lateral and third ventricles are normal. No hydrocephalus. The calvarium and skull base are intact. Mastoid air cells and middle ear cavities are well-aerated. No active paranasal sinus disease. CT/CT head/brain wo IV con IMPRESSION: There are small chronic cortical infarcts within both occipital lobes and the right cerebellum that are slightly more apparent when compared to a recent CT scan of the head from 10/12/2022. Scattered chronic small vessel ischemic changes are also visualized within the periventricular white matter. No evidence of acute territorial infarct or hemorrhage. In the setting of possible evolving posterior circulation infarcts, a dedicated brain MRI can be obtained without contrast for better anatomic characterization of these findings.
--- NOTE | ~2023-01-04 | XR_ITS ---
EXAMINATION: XR CHEST CLINICAL INFORMATION: Shortness of breath COMPARISON: 11/01/2022 TECHNIQUE: Frontal view of the chest was obtained. FINDINGS: Patient is slightly rotated. Heart, mediastinum, pulmonary vessels and lung arrieta within normal limits. No pneumothorax or effusions. Left acromioclavicular joint space narrowing. XR/XR chest 1V IMPRESSION: No acute cardiopulmonary disease.
--- NOTE | 2023-01-04 13:10 | ED.GENADULT ---
HPI - General Adult General Chief complaint: Recheck/Abnormal Lab/Rx Stated complaint: ABNORMAL LABS Time Seen by Provider: 01/04/23 12:47 Source: patient Mode of arrival: ambulatory Limitations: no limitations History of Present Illness HPI narrative: Patient is a 77 year old female presents for abnormal labs. She reports on labs they found that her kidney function is off. She has no complaints of pain at this time. Patient is reporting some dizziness and weakness when she stands this has been going on for the past few days worsening. She has been getting fluids for this at the SNF. She reports that she is seeing multiple doctors and her meds have been changing frequently which she believes may be causing this change in her labs. Denies headache, fever, chills, chest pain, shortness of breath, nausea, vomiting, vision changes, weakness Related Data Home Medications Medication Instructions Recorded Confirmed cholecalciferol (vitamin D3) 25 25 mcg PO DAILY 09/13/22 11/01/22 mcg (1,000 unit) tablet omega 5-gwn-mes-fish oil 1,000 mg 1 cap PO DAILY 09/13/22 11/01/22 (120 mg-180 mg) capsule (Fish Oil) albuterol sulfate 90 mcg/actuation 2 puff inhalation Q6H PRN 11/01/22 11/01/22 aerosol inhaler (ProAir HFA) shortness of breath or wheezing budesonide 180 mcg/actuation 2 inh inhalation DAILY 11/01/22 11/01/22 breath activated powder inhaler (Pulmicort Flexhaler) dexamethasone 2 mg tablet See Taper PO DAILY 11/01/22 11/01/22 pantoprazole 40 mg tablet,delayed 40 mg PO DAILY@0630 11/01/22 11/01/22 release simvastatin 20 mg tablet 20 mg PO BEDTIME 11/01/22 11/01/22 acetaminophen 325 mg capsule 650 mg PO Q4H PRN 11/20/22 bisacodyl 10 mg rectal suppository 10 mg CA DAILY PRN 11/20/22 (Dulcolax (bisacodyl)) diphenoxylate-atropine 2.5 1 tab PO DAILY 11/20/22 mg-0.025 mg tablet (Lomotil) magnesium hydroxide 400 mg/5 mL 5 ml PO DAILY PRN 11/20/22 oral suspension (Milk of Magnesia) ondansetron 4 mg disintegrating 4 mg PO Q8H 11/20/22 tablet Previous Rx's Medication Instructions Recorded diphenoxylate-atropine 2.5 1 tab PO QID #8 tabs 11/06/22 mg-0.025 mg tablet loperamide 2 mg capsule 4 mg PO TIDAC #24 caps 11/06/22 potassium chloride 20 mEq 20 meq PO DAILY #2 tabs 11/06/22 tablet,extended release Allergies Allergy/AdvReac Type Severity Reaction Status Date / Time egg Allergy Unknown Unknown Verified 01/04/23 12:50 Review of Systems Review of Systems: Constitutional : No Weight loss, No Fever, No Chills, No Fatigue, No Malaise ENT/Mouth : No sore throat, No Rhinorrhea Eyes: No Eye Pain, No Swelling, No Redness Cardiovascular : No Chest Pain, No SOB, No Dyspnea on Exertion, No Orthopnea, No Edema, No Palpitations Respiratory : No Cough, No Sputum, No Wheezing Gastrointestinal : No Nausea, No Vomiting, No Diarrhea, No Constipation, No abdominal Pain, No Hematochezia, No Melena Genitourinary : No Dysuria, No Urinary Frequency, No Hematuria, Musculoskeletal : No joint pain, No Myalgias, No Joint Swelling Skin : No Skin Lesions, No rash Neuro : + Weakness, No Numbness, + Dizziness, No Headache Psych : No Anxiety/Panic, No Depression All other systems reviewed and are negative Yes all other systems are reviewed and are negative [facility] Past Medical History Attestation statement: The following information was validated with the patient. Source: old records reviewed and nursing notes reviewed Medical History Abdominal visceral abscess Asthma Brain aneurysm History of skin cancer Hypercholesterolemia Osteopenia Vasculitis Surgical History History of colonoscopy History of eye surgery History of removal of cyst History of removal of cyst (06/05/22) History of removal of ovarian cyst Pilar cyst S/P ileostomy Status post exploratory laparotomy (09/24/22) Status post surgical removal of malignant neoplasm of skin Family History Family History Father Past heart attack Mother Asthma Sister Diabetes Paternal Aunt Breast cancer Colon cancer Maternal Aunt Breast cancer Social History Social History Household Members: None Housing: House Do you presently have visiting nurse or other home services: Yes Alcohol intake: never Patient Tobacco Use Status: Former Tobacco user Quit Date: 49 yrs ago Tobacco use type: Cigarette e-Cigarette/Vaping Use: Never Used Second Hand Smoke Exposure: No Advance Directives: Yes Advance Directives Information Provided: Yes Advance Directives on File: Yes Advance Directives Date on File: 11/07/22 service: No Current occupational status: retired Cognitive needs: No Hearing needs: No Vision needs: Yes Physical Exam ED Vital Signs: Vital Signs - 24 hr 01/04/23 12:51 01/04/23 13:09 01/04/23 13:13 Temperature 97.7 F Pulse Rate 84 84 80 Respiratory Rate 19 16 Blood Pressure 98/48 L 113/59 L 104/50 L Pulse Oximetry 99 Oxygen Delivery Method Room Air Room Air 01/04/23 13:14 01/04/23 13:17 01/04/23 14:58 Temperature Pulse Rate 96 120 H 77 Respiratory Rate 15 Blood Pressure 99/48 L 82/43 L 98/46 L Pulse Oximetry 98 Oxygen Delivery Method Room Air 01/04/23 15:42 Temperature Pulse Rate 85 Respiratory Rate 16 Blood Pressure 117/57 L Pulse Oximetry 97 Oxygen Delivery Method Room Air BMI result Body Mass Index 16.4 vss Appearance: Alert.? Oriented X3.? No acute distress.? Head: Normocephalic, atraumatic, no step-offs or deformities Eyes: Pupils equal, round and reactive to light.? Neck: Normal inspection.? Neck supple.? CVS: Normal heart rate and rhythm.? Pulses normal.? Respiratory: No respiratory distress.? Breath sounds normal.? Abdomen: Soft and nontender.? Skin: Skin warm and dry.? Normal skin color.? Normal skin turgor.? Extremities: No lower extremity edema.? No calf ttp. Global weakness Neuro: Oriented X 3.? No motor deficit.? No sensory deficit. CN 2-12 intact . Normal ulihyr-fe-seha, ykhm-dl-kydt steady tandem gait normal coordination. Course Reevaluation(s) Reevaluation #1: I was able to start do ultrasound-guided IVs in the left and right AC, 20 gauge is. IV fluids ordered Time: 14:41 Reevaluation #2: Spoke to patients nurse Raquel who states at 9-10 am patient started complaining of dizziness, however for the past 3-4 days has been weak and has been having worsening BUN/CR last values BUN 39, Cr 3.33. Last known well time unclear. Patient usually ambulatory and able to walk w/ walker however not today. Patient was at [facility] 8170- 12/24 for TIA per nurse at SNF at that time she had L sided weakness, slurred speak and hypoxia. Time: 15:08 Reevaluation #3: CBC with white count of 11.1, no left shift, platelets elevated however they appear to have been this way in the past. Chemistry with critical magnesium level 1.0 IV magnesium ordered,. Also elevated BUN 40 and creatinine 3.25 likely secondary to poor p.o. intake and dehydration. Patient also recently had a ostomy bag placed year old with medical center, there is some suspicion for malabsorption. There is global weakness noticed on exam however no focal neuro deficits. 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 I suspect patient's dizziness secondary to orthostatic hypotension, dehydration rather than posterior stroke however MRI of the head will be obtained. I do suspect that patient will require hospital admission. Time: 15:17 Additional Reevaluation(s): There completely liquid brown/green stool an ileostomy bag, I did reach out to surgery Dr. Mike, this could also be causing patient symptoms General surgery to see patient Medications Administered Discontinued Medications Generic Name Dose Route Start Last Admin Trade Name Freq PRN Reason Stop Dose Admin Sodium Chloride 1,000 mls @ 999 mls/hr 01/04/23 13:45 01/04/23 15:37 Ns IV 01/04/23 14:45 0 mls/hr .Q1H1M JULI Infusion Sodium Chloride 1,000 mls @ 999 mls/hr 01/04/23 14:45 01/04/23 15:37 Ns IV 01/04/23 15:45 0 mls/hr .Q1H1M JULI Infusion Medical Decision Making Medical Decision Making [facility] Narrative: 1:47 Patient is a 77 year old female presenting with abnormal labs and weakness/dizziness with standing and walking. Vitals significant with hypotension and dizzinesss when standing. This is likely orthostatic hypotension & dehydration and possible electrolyte abnormalities . Unlikely stroke (NIHSS-0, LWKT unclear a few days ago), posterior stroke, intracerebral hemorrhage but will rule out with CT. Unlikely from underlying UTI, pyelonephritis, or nephrolithiasis. ? Acute diarrhea causing dehydration and Amirah ? dumping syndrome Plan: fluids, labs, urine, imaging Patient difficult stick comes in w/ an IV to L forearm which is infiltrated. Multiple blood draw attempts by techs unremarkable. Will attempt US IV. Differential Diagnosis Differential Diagnoses: The differential diagnosis associated with the presentation includes This is likely orthostatic hypotension & dehydration and possible electrolyte abnormlities . Unlikely stroke (NIHSS-0), posterior stroke, intracerebral hemorrhage but will rule out with CT. Unlikely from underlying UTI, pyelonephritis, or nephrolithiasis. ? Acute diarrhea causing dehydration and Amirah ? dumping syndrome Admission/Observation Consideration of admission/observation: Escalation of care including admission/observation considered Likely Lab Data [facility] Lab Attestation statement: I reviewed the patient's lab results. 01/04/23 14:31 01/04/23 14:31 Labs: Lab Results 01/04/23 01/04/23 01/04/23 Range/Units 14:31 14:31 14:31 WBC 11.1 H (4.8-10.8) X10*3/uL RBC 4.75 D (4.20-5.50) X10*6/uL Hgb 13.3 D (12.0-16.0) g/dl Hct 40.3 D (37.0-47.0) % MCV 84.8 (80.0-98.0) fL MCH 28.0 (27.0-33.0) pg MCHC 33.0 (31.0-35.0) g/dl RDW 13.8 (11.0-16.0) % Plt Count 452 H D (160-400) X10*3/uL MPV 10.2 (9.4-12.3) fL Immature Gran % (Auto) 1.0 H (0.0-0.4) % Neut % (Auto) 59.3 (45-73) % Lymph % (Auto) 29.6 (20-40) % [place] % (Auto) 7.6 (2-11) % Eos % (Auto) 1.4 (0-4) % Baso % (Auto) 1.1 (0-2) % Lymph # (Auto) 3.3 (1.2-4.9) X10*3/uL [place] # (Auto) 0.8 (0.1-1.2) X10*3/uL Eos # (Auto) 0.2 (0.0-0.4) X10*3/uL Baso # (Auto) 0.1 (0.0-0.2) X10*3/uL Abs Immat Gran (auto) 0.11 H (0.00-0.03) X10*3/uL Absolute Neuts (auto) 6.6 (2.0-8.3) x10*3/uL Absolute Nucleated RBC 0.000 (0.0-0.012) X10*3/uL Nucleated RBC % (auto) 0.0 (0.0-0.2) /100WBC Sodium 135 (135-145) mmol/L Potassium 4.6 D (3.3-5.1) mmol/L Chloride 95 L (96-108) mmol/L Carbon Dioxide 22 (22-29) mmol/L Anion Gap 23 H (12-20) BUN 40 H (9-16) mg/dL Creatinine 3.25 H (0.5-1.4) mg/dL Estim Creat Clear Calc 9.4 Estimated GFR 14 Random Glucose 89 (60-115) mg/dL Calcium 9.2 D (8.4-10.2) mg/dL Magnesium 1.0 L* (1.6-2.6) mg/dL Total Bilirubin 1.7 H (0.0-1.0) mg/dL AST 63 H (5-31) U/L ALT 60 H (0-31) U/L Alkaline Phosphatase 599 H (39-117) U/L B-Natriuretic Peptide 72 (<100) pg/mL Total Protein 7.0 (6.5-8.0) g/dL Albumin 3.7 (3.5-5.0) g/dL Independent Interpretation I performed an independent interpretation of an: Plain X-Ray and CT Scan (CT/CT head/brain wo IV con IMPRESSION: There are small chronic cortical infarcts within both occipital lobes and the right cerebellum that are slightly more apparent when compared to a recent CT scan of the head from 10/12/2022. Scattered chronic small vessel ischemic changes are also visualized withi) Radiology Impression Discussion of test interpretation with radiology: I have reviewed the radiologist's reading. Core Measures AMI core measures followed: Yes Measure exclusions: not indicated Critical Care Time Critical Care Time Critical Care Time: Yes Total Critical Care Time: 45 Attestation: I attest to this time spent taking care of the patient, obtaining history, physical, reviewing labs, imaging, speaking to my attending, speaking to specialist. Discharge Plan Discharge Clinical Impression: Weakness, Dizziness, Orthostatic hypotension, Dumping syndrome Patient Disposition: Admitted As Inpatient
[2023-01-04 14:39] LABS: MANUAL DIFF FLAG NO
[2023-01-04 14:41] LABS: Basophils Absolute Auto 0.1 X10*3/uL (0.0-0.2); Basophils Percent Auto 1.1 % (0-2); Eosinophils Absolute Auto 0.2 X10*3/uL (0.0-0.4); Eosinophils Percent Auto 1.4 % (0-4); Hematocrit 40.3 % (37.0-47.0); Hemoglobin 13.3 g/dl (12.0-16.0); Imm Gran Abs Auto 0.11 X10*3/uL (0.00-0.03); Lymphocytes Absolute Auto 3.3 X10*3/uL (1.2-4.9); Lymphocytes Percent Auto 29.6 % (20-40); Mean Corpuscular Volume 84.8 fL (80.0-98.0); Mean Platelet Volume 10.2 fL (9.4-12.3); Monocytes Absolute Auto 0.8 X10*3/uL (0.1-1.2); Monocytes Percent Auto 7.6 % (2-11); Neutrophils Absolute Auto 6.6 x10*3/uL (2.0-8.3); Neutrophils Percent Auto 59.3 % (45-73); Platelet Count 452 X10*3/uL (160-400); Red Blood Count 4.75 X10*6/uL (4.20-5.50); Red Cell Distribution Width 13.8 % (11.0-16.0); White Blood Count 11.1 X10*3/uL (4.8-10.8)
[2023-01-04] MEDS: 0.9 % Sodium Chloride 1,000 ML 999 ML IV ×2 (14:51)
[2023-01-04 15:04] LABS: B Type Natriuretic Peptide 72 pg/mL (<100)
[2023-01-04 15:14] LABS: Alanine Aminotransferase 60 U/L (0-31); Albumin Level 3.7 g/dL (3.5-5.0); Alkaline Phosphatase 599 U/L (39-117); Anion Gap 23 (12-20); Aspartate Amino Transferase 63 U/L (5-31); Bilirubin Total 1.7 mg/dL (0.0-1.0); Blood Urea Nitrogen 40 mg/dL (9-16); Calcium 9.2 mg/dL (8.4-10.2); Carbon Dioxide 22 mmol/L (22-29); Chloride 95 mmol/L (96-108); Creatinine Clr Calc Pharmacy 9.4; Estimated Glomerular Filt Rate 14; Glucose Random 89 mg/dL (60-115); Potassium 4.6 mmol/L (3.3-5.1); Sodium 135 mmol/L (135-145)
--- NOTE | 2023-01-04 15:27 | ECG_ITS ---
Test Reason : [facility] LABS Blood Pressure : / mmHG Vent. Rate : 085 BPM Atrial Rate : 085 BPM P-R Int : 152 ms QRS Dur : 074 ms QT Int : 408 ms P-R-T Axes : 083 037 092 degrees QTc Int : 485 ms Poor data quality, interpretation may be adversely affected Normal sinus rhythm Nonspecific ST and T wave abnormality Abnormal ECG When compared with ECG of 01-NOV-2022 09:29, QRS voltage has decreased ST no longer depressed in Inferior leads T wave amplitude has decreased in Anterior leads Heart rate has decreased Referred By: Kaela Elena Electronically Signed By:CASE HANNA
--- NOTE | 2023-01-04 15:37 | PC.NURSE ---
PIVs in l & r AC infiltrated, provider notified, MRI screening form completed.
--- NOTE | 2023-01-04 15:44 | PM.IMHP ---
History of Present Illness Date of Service: 01/04/23 Attending physician on admission: [facility] Chief Complaint: Abnormal labs, lightheadedness and dizziness Pt is a 77-year-old female with a PMH significant for asthma, HLD, and small bowel vasculitis s/p double-barrel ileostomy who presents to the ED from SNF for evaluation of labs showing abnormal kidney function. Patient herself complains of ?lightheadedness, dizziness, and generalized weakness that has been ongoing for the past few days. Patient also complains of back and neck discomfort when she has to sit for long periods of time; this has been ongoing for multiple weeks. Patient denies any abdominal pain, but states she has back pain radiating to her neck if she sits for any prolonged period of time. Has also experienced some nausea though no vomiting. Patient normally able to ambulate on her own with the use of a walker, however reports decreased mobility due to generalized weakness over the past few days. States she has been ?stays put most of the day. Denies fever, chills. No chest pain/pressure, palpitations. Denies shortness of breath. No hemiparesis, slurred speech, facial droop. Since September of this year patient has had a long and complicated medical history. On 09/13/2022 patient presented to [facility] with abdominal pain, nausea, and vomiting and was found to have small-bowel vasculitis with resulting multiple skip areas of small bowel necrosis, perforation, and abscess formation. Patient required 2 separate surgical interventions with small-bowel resection and double-barrel ileostomy formation. Patient was then transferred on 09/26/2022 to [facility] for inpatient rheumatology evaluation where she was treated with steroids and IVIG. Patient was discharged to SNF and had poor p.o. intake and high ostomy output. Presented to [facility] and noted to have SAADIA. Was also noted to have elevated LFTs thought to be secondary to cholestasis and positive CMV infection. A few weeks later pt then presented here with similar complaints of generalized weakness and found to have an SAADIA with hypokalemia and hypomagnesemia. Patient was discharged with temporary diphenoxylate-atropine and scheduled loperamide TIADC. Most recently, on 12/20/2022-12/24/2022, she presented to [facility] with left-sided weakness, slurred speech, and hypoxia and was admitted for TIA, SAADIA, transaminitis, and hyponatremia. At [facility] CTA negative for stenosis, MRI showed multiple small infarcts but negative for acute infarct, and echo showed normal LVEF and no regional wall motion abnormalities. Patient was discharged on 3 weeks of dual anti-platelet therapy with aspirin and Plavix. Of note, pt's decreased appetite and nutritional intake is preventing her from being a candidate for closure of ileostomy. In the ED patient was afebrile but tachycardic up to 120 with soft BP as low as 82/43. Labs were significant for WBC of 11.1, BUN of 40, creatinine 3.25, magnesium 1.0, bilirubin 1.7, AST 63, ALT 60, alk-phos 599. Orthostatics positive with a systolic drop of 22. CXR showed no acute cardiopulmonary disease. CT?of head with no evidence of acute territorial infarct or hemorrhage, but showed small chronic cortical infarcts within both occipital lobes and right cerebellum that her slightly more apparent when compared to a recent CT scan of the head on 10/12/2022.. Also visualized scattered chronic small vessel ischemic changes within the periventricular white matter. MRI of brain found small acute cortically based infarct in the left occipital lobe superimposed upon an area of chronic infarction with minimal hemosiderin staining. EKG demonstrated normal sinus rhythm with nonspecific ST and T-wave abnormalities in QTc of 485. Pt was treated with IVF and Mag sulfate. Pt will be admitted to the hospital for treatment and further evaluation of SAADIA, CVA, and hypomagnesemia. Review of Systems Review of Systems: Lightheadedness, dizziness Generalized weakness Back pain radiating to neck Denies abdominal pain No chest pain/pressure, palpitations Denies SOB No hemiparesis, slurring of words [facility] Medical History Abdominal visceral abscess Asthma Brain aneurysm History of skin cancer Hypercholesterolemia Osteopenia Vasculitis Family History Father Past heart attack Mother Asthma Sister Diabetes Paternal Aunt Breast cancer Colon cancer Maternal Aunt Breast cancer Surgical History History of colonoscopy History of eye surgery History of removal of cyst History of removal of cyst (06/05/22) History of removal of ovarian cyst Pilar cyst S/P ileostomy Status post exploratory laparotomy (09/24/22) Status post surgical removal of malignant neoplasm of skin Social History Household Members: None Housing: House Do you presently have visiting nurse or other home services: Yes Alcohol intake: never Patient Tobacco Use Status: Former Tobacco user Quit Date: 49 yrs ago Tobacco use type: Cigarette Smoked in Last 30 Days: No e-Cigarette/Vaping Use: Never Used Second Hand Smoke Exposure: No Use of substances other than those prescribed or required for medical reasons: No Currently Displaying Signs/Symptoms of Drug Intoxication Withdrawal: No Advance Directives: Yes Advance Directives Information Provided: Yes Advance Directives on File: Yes Advance Directives Date on File: 11/07/22 Nutrition Risks: Surgical patient >75years service: No Current occupational status: retired Cognitive needs: No Hearing needs: No Vision needs: Yes Meds Allergies Allergy/AdvReac Type Severity Reaction Status Date / Time egg Allergy Unknown Unknown Verified 01/04/23 12:50 Active Medications: Current Medications Sodium Chloride (Ns) 1,000 mls @ 999 mls/hr IV .Q1H1M JULI Stop: 01/04/23 15:45 Last Infusion: 01/04/23 15:37 Dose: 0 mls/hr Magnesium Sulfate (Magnesium Sulfate/H2o) 2 gm in 50 mls @ 25 mls/hr IV ONCE ONE Stop: 01/04/23 17:12 Sodium Chloride (Ns) 1,260 mls @ 1,260 mls/hr 30 ml/kg infuse over 1 hr (1260 ml) IV .Q1H STA Stop: 01/04/23 16:27 Home Medications Medication Instructions Recorded Confirmed Last Taken Type cholecalciferol (vitamin D3) 25 25 mcg PO DAILY 09/13/22 11/01/22 09/10/22 History mcg (1,000 unit) tablet omega 9-ogf-joq-fish oil 1,000 mg 1 cap PO DAILY 09/13/22 11/01/22 09/10/22 History (120 mg-180 mg) capsule (Fish Oil) albuterol sulfate 90 mcg/actuation 2 puff inhalation Q6H PRN 11/01/22 11/01/22 Unknown History aerosol inhaler (ProAir HFA) shortness of breath or wheezing budesonide 180 mcg/actuation 2 inh inhalation DAILY 11/01/22 11/01/22 Unknown History breath activated powder inhaler (Pulmicort Flexhaler) dexamethasone 2 mg tablet See Taper PO DAILY 11/01/22 11/01/22 11/01/22 History pantoprazole 40 mg tablet,delayed 40 mg PO DAILY@0630 11/01/22 11/01/22 Unknown History release simvastatin 20 mg tablet 20 mg PO BEDTIME 11/01/22 11/01/22 Unknown History acetaminophen 325 mg capsule 650 mg PO Q4H PRN 11/20/22 Unknown History bisacodyl 10 mg rectal suppository 10 mg [place] DAILY PRN 11/20/22 Unknown History (Dulcolax (bisacodyl)) diphenoxylate-atropine 2.5 1 tab PO DAILY 11/20/22 Unknown History mg-0.025 mg tablet (Lomotil) magnesium hydroxide 400 mg/5 mL 5 ml PO DAILY PRN 11/20/22 Unknown History oral suspension (Milk of Magnesia) ondansetron 4 mg disintegrating 4 mg PO Q8H 11/20/22 Unknown History tablet Physical Exam Vital Signs and Narrative: Vital Signs: Last Vital Signs Temp 97.7 F 01/04/23 12:51 Pulse 85 01/04/23 15:42 Resp 16 01/04/23 15:42 BP 117/57 L 01/04/23 15:42 Pulse Ox 97 01/04/23 15:42 O2 Del Method Room Air 01/04/23 15:42 BMI result Body Mass Index 16.4 Constitutional: Alert, thin, frail-looking, in no acute distress. Mental Status: Oriented to person, place and time. Eyes: Pupils are equal, round, and reactive to light. Ear, Nose, and Throat: Oropharynx clear, mucous membranes moist. Ears and nose without deformities. Trachea midline. Respiratory: Clear to auscultation bilaterally. No wheezing, rales, or rhonchi. Cardiovascular: S1, S2 regular. No murmurs, rubs, or gallops. Gastrointestinal: Abdomen soft, non-tender, non-distended. Normal bowel sounds. Ostomy in place with thin yellow watery discharge. Neurologic: Cranial nerves II-XII are grossly intact bilaterally. No focal neurological deficits. Moves all extremities spontaneously. Skin: No rashes or lesions noted. Musculoskeletal: No cyanosis or clubbing. Extremities: No edema. Psychiatric: Normal mood and affect. Results Labs 01/04/23 14:31 01/04/23 14:31 Labs: Laboratory Results - last 24 hr 01/04/23 01/04/23 01/04/23 14:31 14:31 14:31 MCV 84.8 MCH 28.0 MCHC 33.0 RDW 13.8 Plt Count 452 H D MPV 10.2 Immature Gran % (Auto) 1.0 H Neut % (Auto) 59.3 Lymph % (Auto) 29.6 [place] % (Auto) 7.6 Eos % (Auto) 1.4 Baso % (Auto) 1.1 Lymph # (Auto) 3.3 [place] # (Auto) 0.8 Eos # (Auto) 0.2 Baso # (Auto) 0.1 Abs Immat Gran (auto) 0.11 H Absolute Neuts (auto) 6.6 Absolute Nucleated RBC 0.000 Nucleated RBC % (auto) 0.0 Anion Gap 23 H Estim Creat Clear Calc 9.4 Estimated GFR 14 Random Glucose 89 Calcium 9.2 D Magnesium 1.0 L* Total Bilirubin 1.7 H AST 63 H ALT 60 H Alkaline Phosphatase 599 H B-Natriuretic Peptide 72 Total Protein 7.0 Albumin 3.7 Imaging Radiologist's Impressions: Impressions Head CT 01/04/23 13:50 IMPRESSION: There are small chronic cortical infarcts within both occipital lobes and the right cerebellum that are slightly more apparent when compared to a recent CT scan of the head from 10/12/2022. Scattered chronic small vessel ischemic changes are also visualized within the periventricular white matter. No evidence of acute territorial infarct or hemorrhage. In the setting of possible evolving posterior circulation infarcts, a dedicated brain MRI can be obtained without contrast for better anatomic characterization of these findings. Chest X-Ray 01/04/23 14:43 IMPRESSION: No acute cardiopulmonary disease. Assessment and Plan (1) Hypomagnesemia: Status: Acute (2) SAADIA (acute kidney injury): Status: Resolved (3) CVA (cerebral vascular accident): Status: Acute Plan Pt is a 77-year-old female with a PMH significant for asthma, HLD, and small bowel vasculitis s/p double-barrel ileostomy who presents to the ED from SNF for evaluation of labs showing abnormal kidney function. Patient herself complains of?lightheadedness, dizziness, and generalized weakness that has been ongoing for the past few days. Pt will be admitted to the hospital for treatment and further evaluation of SAADIA, CVA, and hypomagnesemia. SAADIA Creatinine 3.25 (was 0.72 on 11/06/2022 and 1.4 at [facility] on 12/24/2022) Likely secondary to decreased p.o. intake, GI losses from high output ileostomy Patient has had 3 prior hospitalizations for SAADIA since October Received IVF in ED, will be placed on maintenance fluids Follow BMP CVA Patient with lightheadedness, dizziness, generalized weakness for the past few days; last known well time unclear MRI of brain found small acute cortically based infarct in the left occipital lobe superimposed upon an area of chronic infarction Patient seemingly back to baseline with no focal deficits Patient admitted to [facility] on 12/20/2022 for TIA, discharged on DAPT with aspirin and Plavix for three weeks, then asa alone CTA at [facility] on 12/20/2022 negative for stenosis Echocardiogram at [facility] on 12/23/2022 showed normal LVEF of 65-70% with no regional wall motion abnormalities, normal diastolic and right ventricle function Contacted Neurology who said no additional imaging or treatment necessary as pt is not a candidate for tPA or surgical interventions Lipid panel, triglycerides PT/OT Hold statin d/t transaminitis Hold aspirin d/t SAADIA, continue Plavix Monitor on telemetry Hypomagnesemia Mag 1.0 at time of presentation Received Mag 2g IV in ED Will give Mag 2g IV more Will start on 400 mg p.o. b.i.d. Monitor on telemetry High output ileostomy 09/19 ex lap with SBR, lysis of adhesions, drainage of intra-abdominal abscess and appedectomy. abscess grew klebsiella pneumoniae and klebsiella oxytoca and she completed course of abx at 09/24 she underwent second ex lap with small bowel resection and a double-barreled ileostomy Check C diff, GI panel Continue loperamide 4 mg p.o. t.i.d. a.c. Consider adding Lomotil for continued high output Orthostatic hypotension Orthostatics positive with systolic drop of 22 mmHg Likely secondary to dehydration from reduced p.o. intake and GI losses from ostomy Pt given IVF in ED, placed on maintenance fluids Repeat orthostatics prior to discharge Transaminitis Likely secondary to shock liver d/t SAADIA Has been recurring since admission to [facility] at the beginning of October; LFTs WNL on discharge fro [facility] on 12/24/2022 Hepatitis panel negative Abdominal US on 11/01/2022 found mild sludge in the gallbladder without sonographic evidence of acute cholecystitis; no focal liver lesions with normal echogenicity Medium vessel vasculitis Continue budesonide GERD PPI DNR/DNI Attending:?Dr. Doe DVT Prophylaxis: Heparin Pt will require a hospitalization of at least two nights for treatment of?SAADIA, , CVA and hypomagnesemia. Time Spent With Patient Time: Total time managing care of this patient today ____ minutes. Quality Stroke Does the patient have a stroke diagnosis?: Yes Reason for No Anti-thrombotic by Day Two: Contraindicated (Unknown last well known time; outside of tPA therapeutic window) VTE Prior VTE?: No VTE Risk Level:: Medical - moderate - high VTE Device Contraindication: Treatment Not Indicated VTE Drug Contraindication: N/A - Med Ordered
--- NOTE | 2023-01-04 15:55 | P.CONGS_ITS ---
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 Patient has needed for Imodium and Lomotil due to ileostomy output and presented to the emergency room today, dizzy. The patient is in rehab and is a poor historian noting that she believes that she has been to multiple hospitals. Patient was placed on both Imodium and Lomotil; she was last seen in the office by Dr. Arriaga 11/20 I had a discussion regarding nutritional repletion prior to ileostomy closure occurred. Patient notes ongoing issues with watery, nonbloody ileostomy output and denies any abdominal pain. She further denies chest pain, difficulty breathing or shortness of breath. Review of Systems Review of Systems: Yes all other systems are reviewed and are negative Constitutional: Constitutional: Reports as per [facility] Past Medical History Medical History Abdominal visceral abscess Asthma Brain aneurysm History of skin cancer Hypercholesterolemia Osteopenia Vasculitis Family History Family History Father Past heart attack Mother Asthma Sister Diabetes Paternal Aunt Breast cancer Colon cancer Maternal Aunt Breast cancer Surgical History Surgical History History of colonoscopy History of eye surgery History of removal of cyst History of removal of cyst (06/05/22) History of removal of ovarian cyst Pilar cyst S/P ileostomy Status post exploratory laparotomy (09/24/22) Status post surgical removal of malignant neoplasm of skin Social History Social History Household Members: None Housing: House Do you presently have visiting nurse or other home services: Yes Alcohol intake: never Patient Tobacco Use Status: Former Tobacco user Quit Date: 49 yrs ago Tobacco use type: Cigarette e-Cigarette/Vaping Use: Never Used Second Hand Smoke Exposure: No Advance Directives: Yes Advance Directives Information Provided: Yes Advance Directives on File: Yes Advance Directives Date on File: 11/07/22 service: No Current occupational status: retired Cognitive needs: No Hearing needs: No Vision needs: Yes Meds Allergies Allergy/AdvReac Type Severity Reaction Status Date / Time egg Allergy Unknown Unknown Verified 01/04/23 12:50 Active Medications: Current Medications Magnesium Sulfate (Magnesium Sulfate/H2o) 2 gm in 50 mls @ 25 mls/hr IV ONCE ONE Stop: 01/04/23 17:12 Sodium Chloride (Ns) 1,260 mls @ 1,260 mls/hr 30 ml/kg infuse over 1 hr (1260 ml) IV .Q1H STA Stop: 01/04/23 16:27 Home Medications Medication Instructions Recorded Confirmed Last Taken Type cholecalciferol (vitamin D3) 25 25 mcg PO DAILY 09/13/22 11/01/22 09/10/22 History mcg (1,000 unit) tablet omega 6-shy-bxl-fish oil 1,000 mg 1 cap PO DAILY 09/13/22 11/01/22 09/10/22 History (120 mg-180 mg) capsule (Fish Oil) albuterol sulfate 90 mcg/actuation 2 puff inhalation Q6H PRN 11/01/22 11/01/22 Unknown History aerosol inhaler (ProAir HFA) shortness of breath or wheezing budesonide 180 mcg/actuation 2 inh inhalation DAILY 11/01/22 11/01/22 Unknown History breath activated powder inhaler (Pulmicort Flexhaler) dexamethasone 2 mg tablet See Taper PO DAILY 11/01/22 11/01/22 11/01/22 History pantoprazole 40 mg tablet,delayed 40 mg PO DAILY@0630 11/01/22 11/01/22 Unknown History release simvastatin 20 mg tablet 20 mg PO BEDTIME 11/01/22 11/01/22 Unknown History acetaminophen 325 mg capsule 650 mg PO Q4H PRN 11/20/22 Unknown History bisacodyl 10 mg rectal suppository 10 mg [place] DAILY PRN 11/20/22 Unknown History (Dulcolax (bisacodyl)) diphenoxylate-atropine 2.5 1 tab PO DAILY 11/20/22 Unknown History mg-0.025 mg tablet (Lomotil) magnesium hydroxide 400 mg/5 mL 5 ml PO DAILY PRN 11/20/22 Unknown History oral suspension (Milk of Magnesia) ondansetron 4 mg disintegrating 4 mg PO Q8H 11/20/22 Unknown History tablet Physical Exam Vital Signs: Vital Signs: Last Vital Signs Temp 97.7 F 01/04/23 12:51 Pulse 85 01/04/23 15:42 Resp 16 01/04/23 15:42 BP 117/57 L 01/04/23 15:42 Pulse Ox 97 01/04/23 15:42 O2 Del Method Room Air 01/04/23 15:42 BMI result Body Mass Index 16.4 The patient is a frail, elderly, chronically ill appearing woman who is in no acute distress She is cachectic She is in no acute respiratory distress Her abdomen is soft and nontender with no peritoneal sign nor discomfort. The loop ileostomy is pink and viable with watery, bilious output in addition to marshal d/undigested vegetable matter Results Labs 01/04/23 14:31 01/04/23 14:31 Labs: Abnormal lab results 01/04/23 01/04/23 Range/Units 14:31 14:31 WBC 11.1 H (4.8-10.8) X10*3/uL Plt Count 452 H D (160-400) X10*3/uL Immature Gran % (Auto) 1.0 H (0.0-0.4) % Abs Immat Gran (auto) 0.11 H (0.00-0.03) X10*3/uL Chloride 95 L (96-108) mmol/L Anion Gap 23 H (12-20) BUN 40 H (9-16) mg/dL Creatinine 3.25 H (0.5-1.4) mg/dL Magnesium 1.0 L* (1.6-2.6) mg/dL Total Bilirubin 1.7 H (0.0-1.0) mg/dL AST 63 H (5-31) U/L ALT 60 H (0-31) U/L Alkaline Phosphatase 599 H (39-117) U/L Short CBC 01/04/23 Range/Units 14:31 WBC 11.1 H (4.8-10.8) X10*3/uL Hgb 13.3 D (12.0-16.0) g/dl Hct 40.3 D (37.0-47.0) % Plt Count 452 H D (160-400) X10*3/uL BMP 01/04/23 14:31 Sodium 135 Potassium 4.6 D Chloride 95 L Carbon Dioxide 22 BUN 40 H Creatinine 3.25 H Calcium 9.2 D Liver Function 01/04/23 Range/Units 14:31 Total Bilirubin 1.7 H (0.0-1.0) mg/dL AST 63 H (5-31) U/L ALT 60 H (0-31) U/L Alkaline Phosphatase 599 H (39-117) U/L Albumin 3.7 (3.5-5.0) g/dL All other labs normal. Assessment and Plan (1) Weakness: Status: Acute (2) Dizziness: Status: Acute (3) Orthostatic hypotension: Status: Acute (4) Dumping syndrome: Status: Acute (5) Ileostomy in place: Status: Acute Plan The patient does not have an acute abdomen; there is no obvious serositis or structural issue with the loop ileostomy. Her labs demonstrate dehydration, and it is unclear how much her diet is contributing to the diarrhea. She may be experiencing dumping syndrome given the output and lack of response to Imodium and Lomotil. Since she is not experiencing any GI issues to mandate NPO, she can be kept on a diet that should be high in protein, low in residue/fiber and low in carbohydrates and fats. Replace electrolytes and trend labs & exam. The patient has a history of vasculitis which resulted in bowel ischemia and her loop ileostomy, but since she is having no focal neurological findings suggestive of vasculitis, I do not believe this is the major issue regarding the patient's dizziness given the obvious dehydration. Will follow. Please contact me with additional questions/concerns. Time Spent With Patient Time: Total time managing care of this patient today ____ minutes. Procedures Date of Service Date of Service: 01/04/23
--- NOTE | 2023-01-04 16:10 | MHC.EDTECH ---
THIS PCT ASSUMED CARE OF PT AT 1500 ,STOOL SAMPLE COLLECTED AND BOTH SETS OF BLOOD CULTURE AND LACTIC ACID DRAWN AND SENT TO LAB ,VITALS SIGN TAKEN ,PT IS HEADING TO TO MRI .
--- NOTE | 2023-01-04 16:14 | PC.NURSE ---
delay in fluids/abx/Mg due to loss off access, pt to MRI, provider aware.
[2023-01-04] MEDS: Magnesium Sulfate/H2O 2 GM/50 ML PIGGYBACK IV ×2 (17:17→21:25)
--- NOTE | 2023-01-04 17:28 | PC.NURSE ---
verbal order from Dr Doe to d/c order for lactic.
[2023-01-04 18:33] LABS: CDiff Gene PCR NEGATIVE (Negative)
--- NOTE | 2023-01-04 18:40 | PC.NURSE ---
attempted to call RN-RN report to [facility].
--- NOTE | 2023-01-04 18:48 | MHC.EDTECH ---
p[atient ate 100 % of dinner and drank 120 ml milk .
[2023-01-04] MEDS: 0.9 % Sodium Chloride 1,000 ML 100 ML IVCONT (19:17)
--- NOTE | 2023-01-04 19:20 | PC.NURSE ---
this RN assumed care of patient at 1900 - pt reporting her illeostomy bag needs to be changed as it burst open and bodily fluids leaking out. histology supervisor called and brought illeostomy kit, was replaced and pt cleaned up. report called to [facility] rn by previous ED RN. transport notified patient ready to go up to floor . pt A&Ox4 offers no current complaints
--- NOTE | 2023-01-04 19:25 | PC.NURSE ---
RN-RN report called into [facility].
--- NOTE | 2023-01-04 20:34 | PHA.MEDREC ---
Pharmacy Consult ? Medication Reconciliation Pharmacy has Attempted to obtain list from SNF . No information at ED chart . Patient was transfered to [facility]. They provided the name of the SNF. Called several buildings from [facility] and there was no information available.
[2023-01-04] MEDS: Heparin Sodium,Porcine 5,000 UNIT/ML VIAL 5000 UNIT SUBCUT (21:18)
[2023-01-05] VITALS (7 sets, daily range): BP systolic 102–150; BP diastolic 49–74; PULSE 69–102; RESP 14–18; TEMP 35.8–37.1; O2SAT 98–100
[2023-01-05 00:18] LABS: Appearance Urine Turbid; Color Urine Dark Yellow; Glucose Urine UA Negative (Negative); Leukocyte Esterase Urine Large (3+) (Negative); Nitrite Urine Negative (Negative); PH 5.5 (5.0-9.0); UMIC TRIGGER UACC YES; Urine Blood Small (1+) (Negative); Urine Ketones Trace mg/dL (Negative); Urine Protein 100 (2+) mg/dL (Neg-Trace)
[2023-01-05 00:35] LABS: Bacteria Urine 4+ (None Seen); Granular Casts Urine Present; UACC Culture Trigger YES; WBC Urine >50 /HPF (0-5)
[2023-01-05] MEDS: 0.9 % Sodium Chloride 1,000 ML 100 ML IVCONT ×2 (05:46→14:51)
[2023-01-05] MEDS: Heparin Sodium,Porcine 5,000 UNIT/ML VIAL 5000 UNIT SUBCUT (05:53)
[2023-01-05] MEDS: 0.9 % Sodium Chloride Flush 3 ML SYRINGE IVFLUSH ×2 (08:59→11:49)
[2023-01-05] MEDS: Magnesium Oxide 400 MG TABLET PO ×2 (08:59→14:50)
[2023-01-05 09:41] LABS: Hematocrit 36.2 % (37.0-47.0); Hemoglobin 11.9 g/dl (12.0-16.0); Mean Corpuscular HGB Conc 32.9 g/dl (31.0-35.0); Mean Corpuscular Hemoglobin 27.8 pg (27.0-33.0); Mean Corpuscular Volume 84.6 fL (80.0-98.0); Mean Platelet Volume 10.1 fL (9.4-12.3); Platelet Count 343 X10*3/uL (160-400); Red Blood Count 4.28 X10*6/uL (4.20-5.50); Red Cell Distribution Width 14.1 % (11.0-16.0); White Blood Count 7.9 X10*3/uL (4.8-10.8)
--- NOTE | 2023-01-05 09:46 | HO.PM.IMPN ---
Subjective Subjective Date of Service: 01/05/23 Interval History: f/u on saadia, low mag, cva sshe feels much better today, labs pending, Physical Exam Vital Signs: Vital Signs: Last Vital Signs Temp 96.6 F L 01/05/23 07:37 Pulse 69 01/05/23 07:37 Resp 18 01/05/23 07:37 BP 119/56 L 01/05/23 07:37 Pulse Ox 100 01/05/23 07:37 O2 Del Method Room Air 01/05/23 07:37 BMI result Body Mass Index 17.1 Const: Other: General: AO X 3, no acute distress Resp: CTA bilateral CVS: S1,S2,RRR GI: +BS, NT, no distention Skin: No rash Neuro: motor grossly intact Psych: appropriate affect Objective Data Active Medications Al Hydroxide/Mg Hydroxide (Magnesium Hydrox/Alum Hydrox 30 Ml Oral.Susp) 30 ml PO Q4H PRN PRN Reason: Heartburn/Nausea Heparin Sodium (Porcine) (Heparin Sodium,Porcine 5,000 Unit/Ml Vial) 5,000 unit SUBCUT Q12H [facility] Last Admin: 01/05/23 05:53 Dose: 5,000 unit Documented By: GOLDIE Sodium Chloride (Ns) 1,000 mls @ 100 mls/hr IVCONT .Q10H [facility] Last Admin: 01/05/23 05:46 Dose: 100 mls/hr Documented By: GOLDIE Magnesium Oxide (Magnesium Oxide 400 Mg Tablet) 400 mg PO BIDPC [facility] Last Admin: 01/05/23 08:59 Dose: 400 mg Documented By: THAIS Sodium Chloride (0.9 % Sodium Chloride Flush 3 Ml Syringe) 3 ml IVFLUSH QSHIFT [facility] Last Admin: 01/05/23 08:59 Dose: 3 ml Documented By: THAIS Labs 01/05/23 09:30 01/04/23 14:31 Labs: Laboratory Results - last 24 hr 01/04/23 01/04/23 01/04/23 14:31 14:31 14:31 MCV 84.8 MCH 28.0 MCHC 33.0 RDW 13.8 Plt Count 452 H D MPV 10.2 Immature Gran % (Auto) 1.0 H Neut % (Auto) 59.3 Lymph % (Auto) 29.6 [place] % (Auto) 7.6 Eos % (Auto) 1.4 Baso % (Auto) 1.1 Lymph # (Auto) 3.3 [place] # (Auto) 0.8 Eos # (Auto) 0.2 Baso # (Auto) 0.1 Abs Immat Gran (auto) 0.11 H Absolute Neuts (auto) 6.6 Absolute Nucleated RBC 0.000 Nucleated RBC % (auto) 0.0 Anion Gap 23 H Estim Creat Clear Calc 9.4 Estimated GFR 14 Random Glucose 89 Lactic Acid Calcium 9.2 D Magnesium 1.0 L* Total Bilirubin 1.7 H AST 63 H ALT 60 H Alkaline Phosphatase 599 H B-Natriuretic Peptide 72 Total Protein 7.0 Albumin 3.7 Urine Color Urine Appearance Urine pH Ur Specific [place] Urine Protein Urine Glucose (UA) Urine Ketones Urine Blood Urine Nitrite Ur Leukocyte Esterase Urine RBC Urine WBC Ur Squamous Epith Cells Urine Bacteria Hyaline Casts Granular Casts Urine Yeast C. difficile Tox B Gene 01/04/23 01/04/23 01/04/23 16:04 16:09 23:25 MCV MCH MCHC RDW Plt Count MPV Immature Gran % (Auto) Neut % (Auto) Lymph % (Auto) [place] % (Auto) Eos % (Auto) Baso % (Auto) Lymph # (Auto) [place] # (Auto) Eos # (Auto) Baso # (Auto) Abs Immat Gran (auto) Absolute Neuts (auto) Absolute Nucleated RBC Nucleated RBC % (auto) Anion Gap Estim Creat Clear Calc Estimated GFR Random Glucose Lactic Acid Cancelled Calcium Magnesium Total Bilirubin AST ALT Alkaline Phosphatase B-Natriuretic Peptide Total Protein Albumin Urine Color Dark Yellow Urine Appearance Turbid Urine pH 5.5 Ur Specific [place] 1.020 Urine Protein 100 (2+) H Urine Glucose (UA) Negative Urine Ketones Trace Urine Blood Small (1+) H Urine Nitrite Negative Ur Leukocyte Esterase Large (3+) H Urine RBC 11-20 H Urine WBC >50 Ur Squamous Epith Cells 3-5 Urine Bacteria 4+ Hyaline Casts 11-20 Granular Casts Present Urine Yeast Present C. difficile Tox B Gene NEGATIVE 01/05/23 09:30 MCV 84.6 MCH 27.8 MCHC 32.9 RDW 14.1 Plt Count 343 MPV 10.1 Immature Gran % (Auto) Neut % (Auto) Lymph % (Auto) [place] % (Auto) Eos % (Auto) Baso % (Auto) Lymph # (Auto) [place] # (Auto) Eos # (Auto) Baso # (Auto) Abs Immat Gran (auto) Absolute Neuts (auto) Absolute Nucleated RBC 0.000 Nucleated RBC % (auto) 0.0 Anion Gap Estim Creat Clear Calc Estimated GFR Random Glucose Lactic Acid Calcium Magnesium Total Bilirubin AST ALT Alkaline Phosphatase B-Natriuretic Peptide Total Protein Albumin Urine Color Urine Appearance Urine pH Ur Specific [place] Urine Protein Urine Glucose (UA) Urine Ketones Urine Blood Urine Nitrite Ur Leukocyte Esterase Urine RBC Urine WBC Ur Squamous Epith Cells Urine Bacteria Hyaline Casts Granular Casts Urine Yeast C. difficile Tox B Gene Assessment and Plan (1) CVA (cerebral vascular accident): Status: Acute (2) Hypomagnesemia: Status: Acute (3) SAADIA (acute kidney injury): Status: Resolved Plan Pt is a 77-year-old female with a PMH significant for asthma, HLD, and small bowel vasculitis s/p double-barrel ileostomy who [facility] the ED from [facility] for evaluation of labs showing abnormal kidney function. Patient herself complains of?lightheadedness, dizziness, and generalized weakness that has been ongoing for the past few days. Pt will be admitted to the hospital for treatment and further evaluation of SAADIA, CVA, and hypomagnesemia. SAADIA Creatinine 3.25 (was 0.72 on 11/06/2022 and 1.4 at [facility] on 12/24/2022) Likely secondary to decreased p.o. intake, GI losses from high output ileostomy Patient has had 3 prior hospitalizations for SAADIA since October Received IVF in ED, will be placed on maintenance fluids Follow [facility] today CVA Patient with lightheadedness, dizziness, generalized weakness for the past few days; last known well time unclear MRI of brain found small acute cortically based infarct in the left occipital lobe superimposed upon an area of chronic infarction Patient seemingly back to baseline with no focal deficits Patient admitted to [facility] on 12/20/2022 for TIA, discharged on DAPT with aspirin and Plavix for three weeks, then asa alone CTA at [facility] on 12/20/2022 negative for stenosis Echocardiogram at [facility] on 12/23/2022 showed normal LVEF of 65-70% with no regional wall motion abnormalities, normal diastolic and right ventricle function Contacted Neurology who said no additional imaging or treatment necessary as pt is not a candidate for tPA or surgical interventions Lipid panel, triglycerides PT/OT Hold statin d/t transaminitis Hold aspirin d/t SAADIA, continue Plavix Monitor on telemetry Hypomagnesemia Mag 1.0 at time of presentation received IV mag 4 gram and started on PO Monitor on telemetry High output ileostomy 09/19 ex lap with SBR, lysis of adhesions, drainage of intra-abdominal abscess and appedectomy. abscess grew klebsiella pneumoniae and klebsiella oxytoca and she completed course of abx at 09/24 she underwent second ex lap with small bowel resection and a double-barreled ileostomy Check C diff, GI panel Continue loperamide 4 mg p.o. t.i.d. a.c. Consider adding Lomotil for continued high output Orthostatic hypotension Orthostatics positive with systolic drop of 22 mmHg Likely secondary to dehydration from reduced p.o. intake and GI losses from ostomy Pt given IVF in ED, placed on maintenance fluids Transaminitis Likely secondary to shock liver d/t SAADIA Has been recurring since admission to [facility] at the beginning of October; LFTs WNL on discharge fro [facility] on 12/24/2022 Hepatitis panel negative Abdominal US on 11/01/2022 found mild sludge in the gallbladder without sonographic evidence of acute cholecystitis; no focal liver lesions with normal echogenicity Medium vessel vasculitis Continue budesonide GERD Time Spent With Patient Time: Total time managing care of this patient today ____ minutes. Quality Stroke Does the patient have a stroke diagnosis?: Yes Reason for No Anti-thrombotic by Day Two: Contraindicated (Unknown last well known time; outside of tPA therapeutic window) VTE Prior VTE?: No VTE Risk Level:: Medical - moderate - high VTE Device Contraindication: Treatment Not Indicated VTE Drug Contraindication: N/A - Med Ordered
--- NOTE | 2023-01-05 09:50 | PM.PNGS ---
Subjective Subjective Date of Service: 01/05/23 Patient reports: no new complaints and diarrhea Interval history: The patient is seen in coverage for Dr. Arriaga Patient reports that she had orange juice and then within 30 minutes had severe diarrhea from her ileostomy. She has also had carbohydrates including toast and some oatmeal and a little bit of butter and has ongoing diarrhea. She denies any abdominal pain, difficulty breathing, shortness of breath Physical Exam Vital Signs: Vital Signs: Last Vital Signs Temp 96.6 F L 01/05/23 07:37 Pulse 69 01/05/23 09:38 Resp 18 01/05/23 07:37 BP 119/56 L 01/05/23 09:38 Pulse Ox 100 01/05/23 09:38 O2 Del Method Room Air 01/05/23 07:37 BMI result Body Mass Index 17.1 On exam, she is nontoxic Sclera are anicteric Abdomen is soft and nontender Loop ileostomy is pink and viable with no evidence of redness, blood and bilious, watery succus is demonstrated Objective Data Active Medications Al Hydroxide/Mg Hydroxide (Magnesium Hydrox/Alum Hydrox 30 Ml Oral.Susp) 30 ml PO Q4H PRN PRN Reason: Heartburn/Nausea Heparin Sodium (Porcine) (Heparin Sodium,Porcine 5,000 Unit/Ml Vial) 5,000 unit SUBCUT Q12H [facility] Last Admin: 01/05/23 05:53 Dose: 5,000 unit Documented By: GOLDIE Sodium Chloride (Ns) 1,000 mls @ 100 mls/hr IVCONT .Q10H [facility] Last Admin: 01/05/23 05:46 Dose: 100 mls/hr Documented By: GOLDIE Magnesium Oxide (Magnesium Oxide 400 Mg Tablet) 400 mg PO BIDPC [facility] Last Admin: 01/05/23 08:59 Dose: 400 mg Documented By: THAIS Sodium Chloride (0.9 % Sodium Chloride Flush 3 Ml Syringe) 3 ml IVFLUSH QSHIFT [facility] Last Admin: 01/05/23 08:59 Dose: 3 ml Documented By: KAYLYNLA Labs 01/05/23 09:30 01/04/23 14:31 Labs: Laboratory Results - last 24 hr 01/04/23 01/04/23 01/04/23 14:31 14:31 14:31 MCV 84.8 MCH 28.0 MCHC 33.0 RDW 13.8 Plt Count 452 H D MPV 10.2 Immature Gran % (Auto) 1.0 H Neut % (Auto) 59.3 Lymph % (Auto) 29.6 [place] % (Auto) 7.6 Eos % (Auto) 1.4 Baso % (Auto) 1.1 Lymph # (Auto) 3.3 [place] # (Auto) 0.8 Eos # (Auto) 0.2 Baso # (Auto) 0.1 Abs Immat Gran (auto) 0.11 H Absolute Neuts (auto) 6.6 Absolute Nucleated RBC 0.000 Nucleated RBC % (auto) 0.0 Anion Gap 23 H Estim Creat Clear Calc 9.4 Estimated GFR 14 Random Glucose 89 Lactic Acid Calcium 9.2 D Magnesium 1.0 L* Total Bilirubin 1.7 H AST 63 H ALT 60 H Alkaline Phosphatase 599 H B-Natriuretic Peptide 72 Total Protein 7.0 Albumin 3.7 Urine Color Urine Appearance Urine pH Ur Specific [place] Urine Protein Urine Glucose (UA) Urine Ketones Urine Blood Urine Nitrite Ur Leukocyte Esterase Urine RBC Urine WBC Ur Squamous Epith Cells Urine Bacteria Hyaline Casts Granular Casts Urine Yeast C. difficile Tox B Gene 01/04/23 01/04/23 01/04/23 16:04 16:09 23:25 MCV MCH MCHC RDW Plt Count MPV Immature Gran % (Auto) Neut % (Auto) Lymph % (Auto) [place] % (Auto) Eos % (Auto) Baso % (Auto) Lymph # (Auto) [place] # (Auto) Eos # (Auto) Baso # (Auto) Abs Immat Gran (auto) Absolute Neuts (auto) Absolute Nucleated RBC Nucleated RBC % (auto) Anion Gap Estim Creat Clear Calc Estimated GFR Random Glucose Lactic Acid Cancelled Calcium Magnesium Total Bilirubin AST ALT Alkaline Phosphatase B-Natriuretic Peptide Total Protein Albumin Urine Color Dark Yellow Urine Appearance Turbid Urine pH 5.5 Ur Specific [place] 1.020 Urine Protein 100 (2+) H Urine Glucose (UA) Negative Urine Ketones Trace Urine Blood Small (1+) H Urine Nitrite Negative Ur Leukocyte Esterase Large (3+) H Urine RBC 11-20 H Urine WBC >50 Ur Squamous Epith Cells 3-5 Urine Bacteria 4+ Hyaline Casts 11-20 Granular Casts Present Urine Yeast Present C. difficile Tox B Gene NEGATIVE 01/05/23 09:30 MCV 84.6 MCH 27.8 MCHC 32.9 RDW 14.1 Plt Count 343 MPV 10.1 Immature Gran % (Auto) Neut % (Auto) Lymph % (Auto) [place] % (Auto) Eos % (Auto) Baso % (Auto) Lymph # (Auto) [place] # (Auto) Eos # (Auto) Baso # (Auto) Abs Immat Gran (auto) Absolute Neuts (auto) Absolute Nucleated RBC 0.000 Nucleated RBC % (auto) 0.0 Anion Gap Estim Creat Clear Calc Estimated GFR Random Glucose Lactic Acid Calcium Magnesium Total Bilirubin AST ALT Alkaline Phosphatase B-Natriuretic Peptide Total Protein Albumin Urine Color Urine Appearance Urine pH Ur Specific [place] Urine Protein Urine Glucose (UA) Urine Ketones Urine Blood Urine Nitrite Ur Leukocyte Esterase Urine RBC Urine WBC Ur Squamous Epith Cells Urine Bacteria Hyaline Casts Granular Casts Urine Yeast C. difficile Tox B Gene this morning's labs have not been drawn due to difficulty with accessing the patient's veins Procedures Date of Service Date of Service: 01/05/23 Progress Note: A&P Assessment and plan (1) Ileostomy in place: Status: Acute (2) Status post exploratory laparotomy: Status: Acute Plan Sugars in carbohydrates should be restricted. Patient should have her Lomotil resumed. Patient has had significant weight loss since surgery and may be a risk for refeeding syndrome. Follow electrolytes closely. No active surgical issues at this time Time Spent With Patient Time: Total time managing care of this patient today ____ minutes. Quality Stroke Does the patient have a stroke diagnosis?: Yes Reason for No Anti-thrombotic by Day Two: Contraindicated (Unknown last well known time; outside of tPA therapeutic window) VTE Prior VTE?: No VTE Risk Level:: Medical - moderate - high VTE Device Contraindication: Treatment Not Indicated VTE Drug Contraindication: N/A - Med Ordered
--- NOTE | 2023-01-05 09:55 | P.CNNE_ITS ---
History of Present Illness Data of Consult Service Date: 01/05/23 Primary Care Provider: Amos Aguilar MD [facility] Reason for consult: Stroke 77 years old woman with acute renal insufficiency recent small-bowel obstruction status post ileostomy was seen in emergency room for generalized weakness and had multiple test done including a CT scan of brain and MRI of brain. MRI of brain revealed ischemic strokes 9 this consultation was requested. She did not particularly complain of any specific stroke-like symptoms. When I saw her she was doing much better. Specifically there was no complaint of visual symptoms or double vision. Review of Systems Review of Systems: No recent chest pain shortness of breath palpitation PMFSH Past Medical History Medical History Abdominal visceral abscess Asthma Brain aneurysm History of skin cancer Hypercholesterolemia Osteopenia Vasculitis Family History Family History Father Past heart attack Mother Asthma Sister Diabetes Paternal Aunt Breast cancer Colon cancer Maternal Aunt Breast cancer Surgical History Surgical History History of colonoscopy History of eye surgery History of removal of cyst History of removal of cyst (06/05/22) History of removal of ovarian cyst Pilar cyst S/P ileostomy Status post exploratory laparotomy (09/24/22) Status post surgical removal of malignant neoplasm of skin Social History Social History Household Members: None Housing: House Do you presently have visiting nurse or other home services: Yes Alcohol intake: never Patient Tobacco Use Status: Former Tobacco user Quit Date: 49 yrs ago Tobacco use type: Cigarette Smoked in Last 30 Days: No e-Cigarette/Vaping Use: Never Used Second Hand Smoke Exposure: No Use of substances other than those prescribed or required for medical reasons: No Currently Displaying Signs/Symptoms of Drug Intoxication Withdrawal: No Advance Directives: Yes Advance Directives Information Provided: Yes Advance Directives on File: Yes Advance Directives Date on File: 11/07/22 Nutrition Risks: Surgical patient >75years service: No Current occupational status: retired Cognitive needs: No Hearing needs: No Vision needs: Yes Meds Allergies Allergy/AdvReac Type Severity Reaction Status Date / Time egg Allergy Unknown Unknown Verified 01/04/23 12:50 Active Medications: Current Medications Al Hydroxide/Mg Hydroxide (Magnesium Hydrox/Alum Hydrox 30 Ml Oral.Susp) 30 ml PO Q4H PRN PRN Reason: Heartburn/Nausea Heparin Sodium (Porcine) (Heparin Sodium,Porcine 5,000 Unit/Ml Vial) 5,000 unit SUBCUT Q12H [facility] Last Admin: 01/05/23 05:53 Dose: 5,000 unit Sodium Chloride (Ns) 1,000 mls @ 100 mls/hr IVCONT .Q10H [facility] Last Admin: 01/05/23 05:46 Dose: 100 mls/hr Magnesium Oxide (Magnesium Oxide 400 Mg Tablet) 400 mg PO BIDPC [facility] Last Admin: 01/05/23 08:59 Dose: 400 mg Sodium Chloride (0.9 % Sodium Chloride Flush 3 Ml Syringe) 3 ml IVFLUSH QSHIFT [facility] Last Admin: 01/05/23 08:59 Dose: 3 ml Home Medications Medication Instructions Recorded Confirmed Last Taken Type cholecalciferol (vitamin D3) 25 25 mcg PO DAILY 09/13/22 11/01/22 09/10/22 History mcg (1,000 unit) tablet omega 3-vpd-csb-fish oil 1,000 mg 1 cap PO DAILY 09/13/22 11/01/22 09/10/22 History (120 mg-180 mg) capsule (Fish Oil) albuterol sulfate 90 mcg/actuation 2 puff inhalation Q6H PRN 11/01/22 11/01/22 Unknown History aerosol inhaler (ProAir HFA) shortness of breath or wheezing budesonide 180 mcg/actuation 2 inh inhalation DAILY 11/01/22 11/01/22 Unknown History breath activated powder inhaler (Pulmicort Flexhaler) dexamethasone 2 mg tablet See Taper PO DAILY 11/01/22 11/01/22 11/01/22 History pantoprazole 40 mg tablet,delayed 40 mg PO DAILY@0630 11/01/22 11/01/22 Unknown History release simvastatin 20 mg tablet 20 mg PO BEDTIME 11/01/22 11/01/22 Unknown History acetaminophen 325 mg capsule 650 mg PO Q4H PRN 11/20/22 Unknown History bisacodyl 10 mg rectal suppository 10 mg [place] DAILY PRN 11/20/22 Unknown History (Dulcolax (bisacodyl)) diphenoxylate-atropine 2.5 1 tab PO DAILY 11/20/22 Unknown History mg-0.025 mg tablet (Lomotil) magnesium hydroxide 400 mg/5 mL 5 ml PO DAILY PRN 11/20/22 Unknown History oral suspension (Milk of Magnesia) ondansetron 4 mg disintegrating 4 mg PO Q8H 11/20/22 Unknown History tablet Physical Exam Vital Signs: Vital Signs: Last Vital Signs Temp 96.6 F L 01/05/23 07:37 Pulse 69 01/05/23 09:38 Resp 18 01/05/23 07:37 BP 119/56 L 01/05/23 09:38 Pulse Ox 100 01/05/23 09:38 O2 Del Method Room Air 01/05/23 07:37 BMI result Body Mass Index 17.1 Neuro: Other: She is alert and awake with normal spontaneity of speech fluency comprehension and affect. Pupils are 3 mm round reactive to light. Extraocular muscles are intact. Visual arrieta are full. Face is symmetrical. There is no pronator drift. Deep tendon reflexes are trace to absent with flexor plantars. Results Labs 01/05/23 09:30 01/04/23 14:31 Labs: Short CBC 01/04/23 01/05/23 Range/Units 14:31 09:30 WBC 11.1 H 7.9 (4.8-10.8) X10*3/uL Hgb 13.3 D 11.9 L (12.0-16.0) g/dl Hct 40.3 D 36.2 L (37.0-47.0) % Plt Count 452 H D 343 (160-400) X10*3/uL BMP 01/04/23 14:31 Sodium 135 Potassium 4.6 D Chloride 95 L Carbon Dioxide 22 BUN 40 H Creatinine 3.25 H Calcium 9.2 D Liver Function 01/04/23 Range/Units 14:31 Total Bilirubin 1.7 H (0.0-1.0) mg/dL AST 63 H (5-31) U/L ALT 60 H (0-31) U/L Alkaline Phosphatase 599 H (39-117) U/L Albumin 3.7 (3.5-5.0) g/dL Urine 01/04/23 Range/Units 23:25 Urine Color Dark Yellow Urine Appearance Turbid Urine pH 5.5 (5.0-9.0) Ur Specific [place] 1.020 (1.005-1.025) Urine Protein 100 (2+) H (Neg-Trace) mg/dL Urine Glucose (UA) Negative (Negative) mg/dL MRI of brain revealed bilateral posterior cerebral artery area small embolic looking acute ischemic infarction and multiple similar bilateral cerebral lesions of chronic nature. Apparently CTA done in [facility] recently did not reveal any acute abnormality or vascular stenosis and EKG reveals sinus rhythm. Assessment and Plan (1) CVA (cerebral vascular accident): Status: Acute 77 years old woman with multiple acute and chronic embolic looking cerebral infarction. Recent infarctions for in posterior cerebral artery area, which would typically not cause any weakness and patient may not notice any significant deficit. If noted, she might have mild right-sided visual field defect type of problem. Exact nature of these lesions is unclear as she has not known to have cardiomyopathy or atrial fibrillation, but cardiac source of embolism is the primary suspicion. In addition, 1 she should also suspect top of the basilar artery stenosis. In that regard I suggest obtaining report of her CTA from [facility] to see if there was any such lesion. Otherwise, for treatment, continue anti-platelet therapy like aspirin 81 mg daily or Plavix 75 mg daily, statin and blood pressure control. Time Spent With Patient Time: Total time managing care of this patient today ____ minutes. Procedures Date of Service Date of Service: 01/05/23
[2023-01-05 10:36] LABS: Adenovirus F 40/41 Not Detected (Not Detect.); Astrovirus Not Detected (Not Detect.); Campylobacter Not Detected (Not Detect.); Cryptosporidium Not Detected (Not Detect.); Cyclospora cayetanensis Not Detected (Not Detect.); E. coli EAEC Not Detected (Not Detect.); E. coli EPEC Not Detected (Not Detect.); E. coli ETEC Not Detected (Not Detect.); E. coli STEC Not Detected (Not Detect.); Entamoeba histolytica Not Detected (Not Detect.); Giardia lamblia Not Detected (Not Detect.); Norovirus GI/GII Not Detected (Not Detect.); Plesiomonas shigelloides Not Detected (Not Detect.); Rotavirus A Not Detected (Not Detect.); Salmonella Not Detected (Not Detect.); Sapovirus Not Detected (Not Detect.); Shigella sp./EIEC Not Detected (Not Detect.); Vibrio Not Detected (Not Detect.); Vibrio Cholerae Not Detected (Not Detect.); Yersinia enterocolitica Not Detected (Not Detect.)
[2023-01-05] MEDS: Loperamide HCl 2 MG CAPSULE PO (11:47)
--- NOTE | 2023-01-05 12:30 | MHC.CM.PN ---
Addendum entered by Andra Perez 01/05/23 12:35: PT EVAL ALREADY ON FILE AND RECOMMENDING STR Original Note: PT REPORTS SHE LIVES ALONE HOWEVER HAS BEEN AT [facility] FOR STR SHE REPORTS HAVING NO SERVICES SET UP FOR HOME BUT FEELS SHE NEEDS SOME SHE REPORTS SHE USES A WALKER AT HOME PT HAS A HCP ON FILE AND CONFIRMS DR PERALTA IS HER PCP IMM DELIVERED REFERRAL SENT TO [facility] TO DETERMINE IF PT WILL BE ABLE TO RETURN AT DC SHE WILL NEED A NEW PT EVAL FOR AUTH PURPOSES/TO ASSESS SAFETY TRANSPORTATION TBD BY DISPO, LIKELY BLS TO SNF
[2023-01-05 12:34] LABS: Anion Gap 11 (12-20); Blood Urea Nitrogen 26 mg/dL (9-16); Calcium 6.9 mg/dL (8.4-10.2); Carbon Dioxide 22 mmol/L (22-29); Chloride 113 mmol/L (96-108); Cholesterol 133 mg/dL (<200); Creatinine Clr Calc Pharmacy 18.3; Estimated Glomerular Filt Rate 28; Glucose Random 80 mg/dL (60-115); HDL Cholesterol 42 mg/dL (>40); LDL Cholesterol Calculated 76 mg/dL (<100); Magnesium 2.1 mg/dL (1.6-2.6); Phosphorus 2.6 mg/dL (2.7-4.5); Potassium 3.2 mmol/L (3.3-5.1); Sodium 143 mmol/L (135-145); Triglycerides 75 mg/dL (<150)
--- NOTE | 2023-01-05 13:29 | PHA.MEDREC ---
Pharmacy Consult ? Medication Reconciliation Pharmacy has completed the medication reconciliation. used list from [facility].
[2023-01-05] MEDS: Cholecalciferol (Vitamin D3) 25 MCG TABLET PO (14:50)
[2023-01-05] MEDS: Clopidogrel Bisulfate 75 MG TABLET PO (14:50)
[2023-01-05] MEDS: Thiamine HCL 100 MG TABLET PO (14:50)
[2023-01-05] MEDS: Diphenoxylate/Atrop 2.5/0.025 TABLET 1 TAB PO ×2 (14:50→21:15)
[2023-01-05] MEDS: Loperamide HCl 2 MG CAPSULE 4 MG PO ×2 (14:50→21:14)
[2023-01-05] MEDS: Multivitamin TABLET 1 TAB PO (14:50)
[2023-01-05] MEDS: Atorvastatin Calcium 10 MG TABLET PO (21:14)
[2023-01-06] VITALS (7 sets, daily range): BP systolic 107–124; BP diastolic 42–59; PULSE 67–79; RESP 14–18; TEMP 36.4–37; O2SAT 95–100
[2023-01-06] MEDS: 0.9 % Sodium Chloride 1,000 ML 100 ML IVCONT ×2 (00:21→08:54)
[2023-01-06] MEDS: Heparin Sodium,Porcine 5,000 UNIT/ML VIAL 5000 UNIT SUBCUT ×2 (05:16→17:33)
--- NOTE | 2023-01-06 08:12 | HO.PM.IMPN ---
Subjective Subjective Date of Service: 01/06/23 Interval History: f/u on saadia, low mag, cva she feels much better today, labs pending, peristent high output from ostomy bag Physical Exam Vital Signs: Vital Signs: Last Vital Signs Temp 98.1 F 01/06/23 07:32 Pulse 79 01/06/23 07:32 Resp 16 01/06/23 07:32 BP 107/50 L 01/06/23 07:32 Pulse Ox 100 01/06/23 07:32 O2 Del Method Room Air 01/06/23 07:32 BMI result Body Mass Index 17.1 Const: Other: General: AO X 3, no acute distress Resp: CTA bilateral CVS: S1,S2,RRR GI: +BS, NT, no distention Skin: No rash Neuro: motor grossly intact Psych: appropriate affect Objective Data Active Medications Acetaminophen (Acetaminophen 325 Mg Tablet) 650 mg PO RQ4H PRN PRN Reason: Fever Or Pain Al Hydroxide/Mg Hydroxide (Magnesium Hydrox/Alum Hydrox 30 Ml Oral.Susp) 30 ml PO Q4H PRN PRN Reason: Heartburn/Nausea Albuterol Sulfate (Albuterol Sulfate 90 Mcg 8 Gm Inhaler) 2 puff INHALE RQ6H PRN PRN Reason: shortness of breath or wheezing Atorvastatin Calcium (Atorvastatin Calcium 10 Mg Tablet) 10 mg PO BEDTIME [facility] Last Admin: 01/05/23 21:14 Dose: 10 mg Documented By: SAMUEL Bisacodyl (Bisacodyl 10 Mg Supp.Rect) 10 mg [place] DAILY PRN PRN Reason: Constipation Budesonide (Budesonide 180 Mcg Aer.Pow.Ba) 2 puff INHALE DAILY [facility] Last Admin: 01/05/23 19:14 Dose: Not Given Documented By: THAIS Non-Admin Reason: Patient Refused Carbamide Peroxide (Carbamide Peroxide 6.5% Otic 15 Ml Drpbtl) 5 drop EAR-BOTH BID [facility] Last Admin: 01/05/23 21:13 Dose: Not Given Documented By: SAMUEL Non-Admin Reason: Patient Refused Cholestyramine Resin (Cholestyramine (With Sugar) 4 Gm Powd.Pack) 4 gm PO DAILY [facility] Last Admin: 01/05/23 15:20 Dose: Not Given Documented By: THAIS Non-Admin Reason: Patient Refused Clopidogrel Bisulfate (Clopidogrel Bisulfate 75 Mg Tablet) 75 mg PO DAILY [facility] Last Admin: 01/05/23 14:50 Dose: 75 mg Documented By: THAIS Diphenoxylate HCl/Atropine (Diphenoxylate/Atrop 2.5/0.025 Tablet) 1 tab PO TIDAC [facility] Last Admin: 01/05/23 15:53 Dose: Not Given Documented By: THAIS Non-Admin Reason: too close in time range to give Diphenoxylate HCl/Atropine (Diphenoxylate/Atrop 2.5/0.025 Tablet) 1 tab PO BEDTIME [facility] Last Admin: 01/05/23 21:15 Dose: 1 tab Documented By: SAMUEL Heparin Sodium (Porcine) (Heparin Sodium,Porcine 5,000 Unit/Ml Vial) 5,000 unit SUBCUT Q12H [facility] Last Admin: 01/06/23 05:16 Dose: 5,000 unit Documented By: SAMUEL Sodium Chloride (Ns) 1,000 mls @ 100 mls/hr IVCONT .Q10H [facility] Last Admin: 01/06/23 00:21 Dose: 100 mls/hr Documented By: SAMUEL Loperamide HCl (Loperamide Hcl 2 Mg Capsule) 4 mg PO TID [facility] Last Admin: 01/05/23 21:14 Dose: 4 mg Documented By: SAMUEL Loperamide HCl (Loperamide Hcl 2 Mg Capsule) 2 mg PO Q6H PRN PRN Reason: Diarrhea Magnesium Hydroxide (Milk Of Magnesia 30 Ml Oral.Susp) 30 ml PO DAILY PRN PRN Reason: Constipation Magnesium Oxide (Magnesium Oxide 400 Mg Tablet) 400 mg PO BIDPC [facility] Last Admin: 01/05/23 14:50 Dose: 400 mg Documented By: THAIS Multivitamins/Vitamin C (Multivitamin Tablet) 1 tab PO DAILY [facility] Last Admin: 01/05/23 14:50 Dose: 1 tab Documented By: THAIS Omeprazole (Omeprazole 20 Mg Capsule.Dr) 20 mg PO DAILY [facility] Ondansetron HCl (Ondansetron Odt 4 Mg Tab.Rapdis) 4 mg TRANSLINGU BID [facility] Last Admin: 01/05/23 21:34 Dose: Not Given Documented By: SAMUEL Non-Admin Reason: Patient Refused Ondansetron HCl (Ondansetron Odt 4 Mg Tab.Rapdis) 4 mg TRANSLINGU Q8H PRN PRN Reason: Nausea And Vomiting Psyllium Hydrophilic Mucilloid (Psyllium Seed 3.7 Gm Packet) 3.7 gm PO TID [facility] Last Admin: 01/05/23 21:34 Dose: Not Given Documented By: SAMUEL Non-Admin Reason: Patient Refused Sodium Biphosphate/Sodium Phosphate (Sodium Phosphate,[place]-Dibasic 133 Ml Enema) 118 ml IA DAILY PRN PRN Reason: Constipation Sodium Chloride (0.9 % Sodium Chloride Flush 3 Ml Syringe) 3 ml IVFLUSH QSHIFT [facility] Last Admin: 01/06/23 01:08 Dose: Not Given Documented By: SAMUEL Non-Admin Reason: IV Running Thiamine HCl (Thiamine Hcl 100 Mg Tablet) 100 mg PO DAILY [facility] Last Admin: 01/05/23 14:50 Dose: 100 mg Documented By: THAIS Vitamin D (Cholecalciferol (Vitamin D3) 25 Mcg Tablet) 25 mcg PO DAILY [facility] Last Admin: 01/05/23 14:50 Dose: 25 mcg Documented By: THAIS Labs 01/05/23 09:30 01/05/23 09:30 Labs: Laboratory Results - last 24 hr 01/04/23 01/05/23 01/05/23 16:09 09:30 09:30 MCV 84.6 MCH 27.8 MCHC 32.9 RDW 14.1 Plt Count 343 MPV 10.1 Absolute Nucleated RBC 0.000 Nucleated RBC % (auto) 0.0 Anion Gap 11 L Estim Creat Clear Calc 18.3 Estimated GFR 28 Random Glucose 80 Calcium 6.9 L D Phosphorus 2.6 L Magnesium 2.1 Triglycerides 75 Cholesterol 133 LDL Cholesterol, Calc 76 HDL Cholesterol 42 Stl C. cayetanensis PCR Not Detected Stool Rotavirus A PCR Not Detected Stl Adenov F 40/41 PCR Not Detected Stool Astrovirus (PCR) Not Detected Stool Campylobacter PCR Not Detected Stool Cryptosporidium PCR Not Detected Stl Sh Tox Pr E STEC PCR Not Detected Stool E coli O157 PCR Not applicable Stl Enterotoxigenic E PCR Not Detected Stool EPEC (PCR) Not Detected Stool EAEC (PCR) Not Detected Stl E. histolytica PCR Not Detected Stool Giardia Lamblia PCR Not Detected Stl P. shigelloides PCR Not Detected Stool Salmonella PCR Not Detected Stool Sapovirus (PCR) Not Detected Stl Shigella/EIEC PCR Not Detected St Y.enterocolitica PCR Not Detected Stool Vibrio (PCR) Not Detected Stl Vibrio cholerae PCR Not Detected Stl Norovirus GI/GII PCR Not Detected Microbiology Microbiology Results: Microbiology 01/04/23 16:09 Blood Culture - Preliminary Blood - Venous No growth after 24 hours. 01/04/23 16:04 Blood Culture - Preliminary Blood - Venous No growth after 24 hours. Assessment and Plan (1) CVA (cerebral vascular accident): Status: Acute (2) Hypomagnesemia: Status: Acute (3) SAADIA (acute kidney injury): Status: Resolved Plan Pt is a 77-year-old female with a PMH significant for asthma, HLD, and small bowel vasculitis s/p double-barrel ileostomy who presents to the ED from SNF for evaluation of labs showing abnormal kidney function. Patient herself complains of?lightheadedness, dizziness, and generalized weakness that has been ongoing for the past few days. Pt will be admitted to the hospital for treatment and further evaluation of SAADIA, CVA, and hypomagnesemia. SAADIA--d/t pre renal azotemia from hrom high output ileostomy and dedcrease oral intatke, improving with IVF, monitro creatine CVA Patient with lightheadedness, dizziness, generalized weakness for the past few days; last known well time unclear MRI of brain found small acute cortically based infarct in the left occipital lobe superimposed upon an area of chronic infarction at baseline Patient admitted to [facility] on 12/20/2022 for TIA, discharged on DAPT with aspirin and Plavix for three weeks, then asa alone CTA at [facility] on 12/20/2022 negative for stenosis Echocardiogram at [facility] on 12/23/2022 showed normal LVEF of 65-70% with no regional wall motion abnormalities, normal diastolic and right ventricle function Contacted Neurology who said no additional imaging or treatment necessary as pt is not a candidate for tPA or surgical interventions Lipid panel, triglycerides PT/OT Hold statin d/t transaminitis Hold aspirin d/t SAADIA, continue Plavix Neuro input noted Hypomagnesemia, due to gi loss, replaced and normal High output ileostomy 09/19 ex lap with SBR, lysis of adhesions, drainage of intra-abdominal abscess and appedectomy. abscess grew klebsiella pneumoniae and klebsiella oxytoca and she completed course of abx at 09/24 she underwent second ex lap with small bowel resection and a double-barreled ileostomy negative C diff, GI panel pending Continue imodium and lomotil increase IVF to 150/hr Orthostatic hypotension d/t dehydration, can repeat after adequately hydrated Transaminitis Likely secondary to shock liver d/t SAADIA Has been recurring since admission to [facility] at the beginning of October; LFTs WNL on discharge fro [facility] on 12/24/2022 Hepatitis panel negative Abdominal US on 11/01/2022 found mild sludge in the gallbladder without sonographic evidence of acute cholecystitis; no focal liver lesions with normal echogenicity Medium vessel vasculitis Continue budesonide GERD dvt prophylaxis heparin need for inpt: SAADIA, need ivf and close monitoring of renal function Time Spent With Patient Time: Total time managing care of this patient today ____ minutes. Quality Stroke Does the patient have a stroke diagnosis?: Yes Reason for No Anti-thrombotic by Day Two: Contraindicated (Unknown last well known time; outside of tPA therapeutic window) VTE Prior VTE?: No VTE Risk Level:: Medical - moderate - high VTE Device Contraindication: Treatment Not Indicated VTE Drug Contraindication: N/A - Med Ordered
[2023-01-06] MEDS: Cholestyramine (With Sugar) 4 GM POWD.PACK PO (08:45)
[2023-01-06] MEDS: Loperamide HCl 2 MG CAPSULE 4 MG PO ×3 (08:46→23:41)
[2023-01-06] MEDS: Cholecalciferol (Vitamin D3) 25 MCG TABLET PO (08:46)
[2023-01-06] MEDS: Diphenoxylate/Atrop 2.5/0.025 TABLET 1 TAB PO ×4 (08:46→23:43)
[2023-01-06] MEDS: Clopidogrel Bisulfate 75 MG TABLET PO (08:46)
[2023-01-06] MEDS: Thiamine HCL 100 MG TABLET PO (08:46)
[2023-01-06] MEDS: Magnesium Oxide 400 MG TABLET PO ×2 (08:46→17:33)
[2023-01-06] MEDS: Multivitamin TABLET 1 TAB PO (08:46)
[2023-01-06] MEDS: Ondansetron ODT 4 MG TAB.RAPDIS TRANSLINGU ×2 (08:46→23:44)
[2023-01-06] MEDS: Omeprazole 20 MG CAPSULE.DR PO (08:46)
[2023-01-06] MEDS: 0.9 % Sodium Chloride Flush 3 ML SYRINGE IVFLUSH ×2 (08:51→12:55)
--- NOTE | 2023-01-06 09:47 | P.PNGS_ITS ---
Subjective Subjective Date of Service: 01/06/23 Patient reports: feels better and tolerating liquids well Interval history: Patient reports less diarrhea and otherwise denies new complaints Physical Exam Vital Signs: Vital Signs: Last Vital Signs Temp 98.1 F 01/06/23 07:32 Pulse 79 01/06/23 07:32 Resp 16 01/06/23 07:32 BP 107/50 L 01/06/23 07:32 Pulse Ox 100 01/06/23 07:32 O2 Del Method Room Air 01/06/23 07:32 BMI result Body Mass Index 17.1 On exam, the patient is nontoxic and in no respiratory distress Her abdominal exam is unchanged and she is nontender with a pink loop ileostomy containing watery small bowel succus with no blood Objective Data Active Medications Acetaminophen (Acetaminophen 325 Mg Tablet) 650 mg PO RQ4H PRN PRN Reason: Fever Or Pain Al Hydroxide/Mg Hydroxide (Magnesium Hydrox/Alum Hydrox 30 Ml Oral.Susp) 30 ml PO Q4H PRN PRN Reason: Heartburn/Nausea Albuterol Sulfate (Albuterol Sulfate 90 Mcg 8 Gm Inhaler) 2 puff INHALE RQ6H PRN PRN Reason: shortness of breath or wheezing Atorvastatin Calcium (Atorvastatin Calcium 10 Mg Tablet) 10 mg PO BEDTIME [facility] Last Admin: 01/05/23 21:14 Dose: 10 mg Documented By: SAMUEL Bisacodyl (Bisacodyl 10 Mg Supp.Rect) 10 mg [place] DAILY PRN PRN Reason: Constipation Budesonide (Budesonide 180 Mcg Aer.Pow.Ba) 2 puff INHALE DAILY [facility] Last Admin: 01/05/23 19:14 Dose: Not Given Documented By: THAIS Non-Admin Reason: Patient Refused Carbamide Peroxide (Carbamide Peroxide 6.5% Otic 15 Ml Drpbtl) 5 drop EAR-BOTH BID [facility] Last Admin: 01/06/23 08:52 Dose: Not Given Documented By: THAIS Non-Admin Reason: Patient Refused Cholestyramine Resin (Cholestyramine (With Sugar) 4 Gm Powd.Pack) 4 gm PO DAILY [facility] Last Admin: 01/06/23 08:45 Dose: 4 gm Documented By: THAIS Clopidogrel Bisulfate (Clopidogrel Bisulfate 75 Mg Tablet) 75 mg PO DAILY [facility] Last Admin: 01/06/23 08:46 Dose: 75 mg Documented By: THAIS Diphenoxylate HCl/Atropine (Diphenoxylate/Atrop 2.5/0.025 Tablet) 1 tab PO TIDAC [facility] Last Admin: 01/06/23 08:46 Dose: 1 tab Documented By: THAIS Diphenoxylate HCl/Atropine (Diphenoxylate/Atrop 2.5/0.025 Tablet) 1 tab PO BEDTIME [facility] Last Admin: 01/05/23 21:15 Dose: 1 tab Documented By: SAMUEL Heparin Sodium (Porcine) (Heparin Sodium,Porcine 5,000 Unit/Ml Vial) 5,000 unit SUBCUT Q12H [facility] Last Admin: 01/06/23 05:16 Dose: 5,000 unit Documented By: SAMUEL Sodium Chloride (Ns) 1,000 mls @ 100 mls/hr IVCONT .Q10H [facility] Last Admin: 01/06/23 08:54 Dose: 100 mls/hr Documented By: THAIS Loperamide HCl (Loperamide Hcl 2 Mg Capsule) 4 mg PO TID [facility] Last Admin: 01/06/23 08:46 Dose: 4 mg Documented By: THAIS Loperamide HCl (Loperamide Hcl 2 Mg Capsule) 2 mg PO Q6H PRN PRN Reason: Diarrhea Magnesium Hydroxide (Milk Of Magnesia 30 Ml Oral.Susp) 30 ml PO DAILY PRN PRN Reason: Constipation Magnesium Oxide (Magnesium Oxide 400 Mg Tablet) 400 mg PO BIDPC [facility] Last Admin: 01/06/23 08:46 Dose: 400 mg Documented By: THAIS Multivitamins/Vitamin C (Multivitamin Tablet) 1 tab PO DAILY [facility] Last Admin: 01/06/23 08:46 Dose: 1 tab Documented By: THAIS Omeprazole (Omeprazole 20 Mg Capsule.Dr) 20 mg PO DAILY [facility] Last Admin: 01/06/23 08:46 Dose: 20 mg Documented By: THAIS Ondansetron HCl (Ondansetron Odt 4 Mg Tab.Rapdis) 4 mg TRANSLINGU BID [facility] Last Admin: 01/06/23 08:46 Dose: 4 mg Documented By: THAIS Ondansetron HCl (Ondansetron Odt 4 Mg Tab.Rapdis) 4 mg TRANSLINGU Q8H PRN PRN Reason: Nausea And Vomiting Psyllium Hydrophilic Mucilloid (Psyllium Seed 3.7 Gm Packet) 3.7 gm PO TID [facility] Last Admin: 01/06/23 08:52 Dose: Not Given Documented By: THAIS Non-Admin Reason: diarrhea Sodium Biphosphate/Sodium Phosphate (Sodium Phosphate,[place]-Dibasic 133 Ml Enema) 118 ml [place] DAILY PRN PRN Reason: Constipation Sodium Chloride (0.9 % Sodium Chloride Flush 3 Ml Syringe) 3 ml IVFLUSH QSHIFT [facility] Last Admin: 01/06/23 08:51 Dose: 3 ml Documented By: THAIS Thiamine HCl (Thiamine Hcl 100 Mg Tablet) 100 mg PO DAILY [facility] Last Admin: 01/06/23 08:46 Dose: 100 mg Documented By: THAIS Vitamin D (Cholecalciferol (Vitamin D3) 25 Mcg Tablet) 25 mcg PO DAILY [facility] Last Admin: 01/06/23 08:46 Dose: 25 mcg Documented By: THAIS Labs 01/05/23 09:30 01/05/23 09:30 Labs: Laboratory Results - last 24 hr 01/04/23 01/05/23 16:09 09:30 Anion Gap 11 L Estim Creat Clear Calc 18.3 Estimated GFR 28 Random Glucose 80 Calcium 6.9 L D Phosphorus 2.6 L Magnesium 2.1 Triglycerides 75 Cholesterol 133 LDL Cholesterol, Calc 76 HDL Cholesterol 42 Stl C. cayetanensis PCR Not Detected Stool Rotavirus A PCR Not Detected Stl Adenov F 40/41 PCR Not Detected Stool Astrovirus (PCR) Not Detected Stool Campylobacter PCR Not Detected Stool Cryptosporidium PCR Not Detected Stl Sh Tox Pr E STEC PCR Not Detected Stool E coli O157 PCR Not applicable Stl Enterotoxigenic E PCR Not Detected Stool EPEC (PCR) Not Detected Stool EAEC (PCR) Not Detected Stl E. histolytica PCR Not Detected Stool Giardia Lamblia PCR Not Detected Stl P. shigelloides PCR Not Detected Stool Salmonella PCR Not Detected Stool Sapovirus (PCR) Not Detected Stl Shigella/EIEC PCR Not Detected St Y.enterocolitica PCR Not Detected Stool Vibrio (PCR) Not Detected Stl Vibrio cholerae PCR Not Detected Stl Norovirus GI/GII PCR Not Detected Microbiology Microbiology Results: Microbiology 01/04/23 16:09 Blood Culture - Preliminary Blood - Venous No growth after 24 hours. 01/04/23 16:04 Blood Culture - Preliminary Blood - Venous No growth after 24 hours. Procedures Date of Service Date of Service: 01/06/23 Progress Note: A&P Assessment and plan (1) Ileostomy in place: Status: Acute (2) Dumping syndrome: Status: Acute (3) Orthostatic hypotension: Status: Acute (4) Status post exploratory laparotomy: Status: Acute Plan No active surgical issues at this time Would recommend notifying Dr. Arriaga on Saturday, 01/07 for additional input. Please call me if there are any surgical questions Time Spent With Patient Time: Total time managing care of this patient today ____ minutes. Quality Stroke Does the patient have a stroke diagnosis?: Yes Reason for No Anti-thrombotic by Day Two: Contraindicated (Unknown last well known time; outside of tPA therapeutic window) VTE Prior VTE?: No VTE Risk Level:: Medical - moderate - high VTE Device Contraindication: Treatment Not Indicated VTE Drug Contraindication: N/A - Med Ordered
[2023-01-06 10:20] LABS: Anion Gap 12 (12-20); Blood Urea Nitrogen 22 mg/dL (9-16); Calcium 8.1 mg/dL (8.4-10.2); Carbon Dioxide 25 mmol/L (22-29); Chloride 111 mmol/L (96-108); Estimated Glomerular Filt Rate 37; Glucose Random 83 mg/dL (60-115); Potassium 3.7 mmol/L (3.3-5.1); Sodium 144 mmol/L (135-145)
[2023-01-06] MEDS: Budesonide 180 MCG AER.POW.BA 2 PUFF INHALE (11:21)
[2023-01-06 11:25] LABS: Magnesium 2.1 mg/dL (1.6-2.6)
[2023-01-06] MEDS: 0.9 % Sodium Chloride 1,000 ML 150 ML IVCONT (14:59)
[2023-01-06] MEDS: Atorvastatin Calcium 10 MG TABLET PO (23:44)
[2023-01-06] MEDS: Psyllium seed 3.7 GM PACKET PO (23:46)
[2023-01-06] MEDS: Carbamide Peroxide 6.5% Otic 15 ML DRPBTL 5 DROP EAR-BOTH (23:49)
[2023-01-07] VITALS (7 sets, daily range): BP systolic 98–122; BP diastolic 51–61; PULSE 64–82; RESP 16–22; TEMP 36.3–37.1; O2SAT 97–100; BMI 17.1
[2023-01-07] MEDS: Diphenoxylate/Atrop 2.5/0.025 TABLET 1 TAB PO ×4 (07:09→19:49)
[2023-01-07] MEDS: Heparin Sodium,Porcine 5,000 UNIT/ML VIAL 5000 UNIT SUBCUT ×2 (07:13→16:56)
[2023-01-07] MEDS: Budesonide 180 MCG AER.POW.BA 2 PUFF INHALE (07:56)
[2023-01-07] MEDS: Omeprazole 20 MG CAPSULE.DR PO (08:27)
[2023-01-07] MEDS: Multivitamin TABLET 1 TAB PO (08:27)
[2023-01-07] MEDS: Clopidogrel Bisulfate 75 MG TABLET PO (08:27)
[2023-01-07] MEDS: Ondansetron ODT 4 MG TAB.RAPDIS TRANSLINGU ×2 (08:27→19:49)
[2023-01-07] MEDS: Cholecalciferol (Vitamin D3) 25 MCG TABLET PO (08:27)
[2023-01-07] MEDS: Psyllium seed 3.7 GM PACKET PO ×2 (08:27→14:15)
[2023-01-07] MEDS: Thiamine HCL 100 MG TABLET PO (08:27)
[2023-01-07] MEDS: Loperamide HCl 2 MG CAPSULE 4 MG PO ×3 (08:27→19:49)
[2023-01-07] MEDS: Cholestyramine (With Sugar) 4 GM POWD.PACK PO (08:27)
[2023-01-07] MEDS: Carbamide Peroxide 6.5% Otic 15 ML DRPBTL 5 DROP EAR-BOTH ×2 (08:28→19:53)
[2023-01-07] MEDS: Magnesium Oxide 400 MG TABLET PO ×2 (08:38→16:56)
--- NOTE | 2023-01-07 08:39 | PC.NURSE ---
questran given as ordered. was not taken with AM meds. pt educated on med
--- NOTE | 2023-01-07 11:20 | HO.PM.IMPN ---
Subjective Subjective Date of Service: 01/08/23 Interval History: f/u on saadia, high ouput ostomy, dehydraion Persistent high output from ostomy Physical Exam Vital Signs: Vital Signs: Last Vital Signs Temp 97.3 F 01/07/23 07:45 Pulse 68 01/07/23 07:56 Resp 16 01/07/23 07:56 BP 107/61 01/07/23 07:45 Pulse Ox 99 01/07/23 07:45 O2 Del Method Room Air 01/07/23 07:45 BMI result Body Mass Index 17.1 Const: Other: General: AO X 3, no acute distress Resp: CTA bilateral CVS: S1,S2,RRR GI: +BS, NT, no distention Skin: No rash Neuro: motor grossly intact Psych: appropriate affect Objective Data Active Medications Acetaminophen (Acetaminophen 325 Mg Tablet) 650 mg PO RQ4H PRN PRN Reason: Fever Or Pain Al Hydroxide/Mg Hydroxide (Magnesium Hydrox/Alum Hydrox 30 Ml Oral.Susp) 30 ml PO Q4H PRN PRN Reason: Heartburn/Nausea Albuterol Sulfate (Albuterol Sulfate 90 Mcg 8 Gm Inhaler) 2 puff INHALE RQ6H PRN PRN Reason: shortness of breath or wheezing Atorvastatin Calcium (Atorvastatin Calcium 10 Mg Tablet) 10 mg PO BEDTIME [facility] Last Admin: 01/06/23 23:44 Dose: 10 mg Documented By: GOLDIE Bisacodyl (Bisacodyl 10 Mg Supp.Rect) 10 mg AL DAILY PRN PRN Reason: Constipation Budesonide (Budesonide 180 Mcg Aer.Pow.Ba) 2 puff INHALE DAILY [facility] Last Admin: 01/07/23 07:56 Dose: 2 puff Documented By: LUIS M Carbamide Peroxide (Carbamide Peroxide 6.5% Otic 15 Ml Drpbtl) 5 drop EAR-BOTH BID [facility] Last Admin: 01/07/23 08:28 Dose: 5 drop Documented By: CAIO Cholestyramine Resin (Cholestyramine (With Sugar) 4 Gm Powd.Pack) 4 gm PO DAILY [facility] Last Admin: 01/07/23 08:27 Dose: 4 gm Documented By: CAIO Clopidogrel Bisulfate (Clopidogrel Bisulfate 75 Mg Tablet) 75 mg PO DAILY [facility] Last Admin: 01/07/23 08:27 Dose: 75 mg Documented By: CAIO Diphenoxylate HCl/Atropine (Diphenoxylate/Atrop 2.5/0.025 Tablet) 1 tab PO TIDAC [facility] Last Admin: 01/07/23 07:09 Dose: 1 tab Documented By: GOLDIE Diphenoxylate HCl/Atropine (Diphenoxylate/Atrop 2.5/0.025 Tablet) 1 tab PO BEDTIME [facility] Last Admin: 01/06/23 23:43 Dose: 1 tab Documented By: GOLDIE Heparin Sodium (Porcine) (Heparin Sodium,Porcine 5,000 Unit/Ml Vial) 5,000 unit SUBCUT Q12H [facility] Last Admin: 01/07/23 07:13 Dose: 5,000 unit Documented By: GOLDIE Loperamide HCl (Loperamide Hcl 2 Mg Capsule) 4 mg PO TID [facility] Last Admin: 01/07/23 08:27 Dose: 4 mg Documented By: CAIO Loperamide HCl (Loperamide Hcl 2 Mg Capsule) 2 mg PO Q6H PRN PRN Reason: Diarrhea Magnesium Hydroxide (Milk Of Magnesia 30 Ml Oral.Susp) 30 ml PO DAILY PRN PRN Reason: Constipation Magnesium Oxide (Magnesium Oxide 400 Mg Tablet) 400 mg PO BIDPC [facility] Last Admin: 01/07/23 08:38 Dose: 400 mg Documented By: CAIO Multivitamins/Vitamin C (Multivitamin Tablet) 1 tab PO DAILY [facility] Last Admin: 01/07/23 08:27 Dose: 1 tab Documented By: CAIO Omeprazole (Omeprazole 20 Mg Capsule.Dr) 20 mg PO DAILY [facility] Last Admin: 01/07/23 08:27 Dose: 20 mg Documented By: CAIO Ondansetron HCl (Ondansetron Odt 4 Mg Tab.Rapdis) 4 mg TRANSLINGU BID [facility] Last Admin: 01/07/23 08:27 Dose: 4 mg Documented By: CAIO Ondansetron HCl (Ondansetron Odt 4 Mg Tab.Rapdis) 4 mg TRANSLINGU Q8H PRN PRN Reason: Nausea And Vomiting Psyllium Hydrophilic Mucilloid (Psyllium Seed 3.7 Gm Packet) 3.7 gm PO TID [facility] Last Admin: 01/07/23 08:27 Dose: 3.7 gm Documented By: CAIO Sodium Biphosphate/Sodium Phosphate (Sodium Phosphate,[place]-Dibasic 133 Ml Enema) 118 ml AL DAILY PRN PRN Reason: Constipation Sodium Chloride (0.9 % Sodium Chloride Flush 3 Ml Syringe) 3 ml IVFLUSH QSHIFT [facility] Last Admin: 01/07/23 07:19 Dose: Not Given Documented By: CAIO Non-Admin Reason: See Note Thiamine HCl (Thiamine Hcl 100 Mg Tablet) 100 mg PO DAILY [facility] Last Admin: 01/07/23 08:27 Dose: 100 mg Documented By: CAIO Vitamin D (Cholecalciferol (Vitamin D3) 25 Mcg Tablet) 25 mcg PO DAILY [facility] Last Admin: 01/07/23 08:27 Dose: 25 mcg Documented By: CAIO Labs 01/05/23 09:30 01/06/23 08:55 Labs: Laboratory Results - last 24 hr 01/06/23 08:55 Magnesium 2.1 Microbiology Microbiology Results: Microbiology 01/04/23 16:09 Blood Culture - Preliminary Blood - Venous No growth after 48 hours. 01/04/23 16:04 Blood Culture - Preliminary Blood - Venous No growth after 48 hours. 01/05/23 Unknown Urine Culture - Final Urine clean catch - Urine ibanez top Assessment and Plan (1) CVA (cerebral vascular accident): Status: Acute (2) Hypomagnesemia: Status: Acute (3) SAADIA (acute kidney injury): Status: Resolved Plan Pt is a 77-year-old female with a PMH significant for asthma, HLD, and small bowel vasculitis s/p double-barrel ileostomy who presents to the ED from SNF for evaluation of labs showing abnormal kidney function. Patient herself complains of?lightheadedness, dizziness, and generalized weakness that has been ongoing for the past few days. Pt will be admitted to the hospital for treatment and further evaluation of SAADIA, CVA, and hypomagnesemia. SAADIA--d/t pre renal azotemia from hrom high output ileostomy and dedcrease oral intatke, improving with IVF, monitro creatine CVA Patient with lightheadedness, dizziness, generalized weakness for the past few days; last known well time unclear MRI of brain found small acute cortically based infarct in the left occipital lobe superimposed upon an area of chronic infarction at baseline Patient admitted to [facility] on 12/20/2022 for TIA, discharged on DAPT with aspirin and Plavix for three weeks, then asa alone CTA at [facility] on 12/20/2022 negative for stenosis Echocardiogram at [facility] on 12/23/2022 showed normal LVEF of 65-70% with no regional wall motion abnormalities, normal diastolic and right ventricle function Contacted Neurology who said no additional imaging or treatment necessary as pt is not a candidate for tPA or surgical interventions Lipid panel, triglycerides PT/OT Hold statin d/t transaminitis Hold aspirin d/t SAADIA, continue Plavix Neuro input noted Hypomagnesemia, due to gi loss, replaced and normal High output ileostomy 09/19 ex lap with SBR, lysis of adhesions, drainage of intra-abdominal abscess and appedectomy. abscess grew klebsiella pneumoniae and klebsiella oxytoca and she completed course of abx at 09/24 she underwent second ex lap with small bowel resection and a double-barreled ileostomy negative C diff, GI panel pending Continue imodium and lomotil increased IVF to 150/hr Orthostatic hypotension d/t dehydration, still positive, continue IVF and check daily Transaminitis Likely secondary to shock liver d/t SAADIA Has been recurring since admission to [facility] at the beginning of October; LFTs WNL on discharge fro [facility] on 12/24/2022 Hepatitis panel negative Abdominal US on 11/01/2022 found mild sludge in the gallbladder without sonographic evidence of acute cholecystitis; no focal liver lesions with normal echogenicity Medium vessel vasculitis Continue budesonide GERD dvt prophylaxis heparin need for inpt: SAADIA, need ivf and close monitoring of renal function Time Spent With Patient Time: Total time managing care of this patient today ____ minutes. Quality Stroke Does the patient have a stroke diagnosis?: Yes Reason for No Anti-thrombotic by Day Two: Contraindicated (Unknown last well known time; outside of tPA therapeutic window) VTE Prior VTE?: No VTE Risk Level:: Medical - moderate - high VTE Device Contraindication: Treatment Not Indicated VTE Drug Contraindication: N/A - Med Ordered
--- NOTE | 2023-01-07 15:50 | MHC.CLN ---
NUTRITION CONSULT FOR WEIGHT LOSS. DIET=REGULAR, LOW FAT. HIGH OUTPUT ILEOSTOMY. PATIENT REPORTS THAT SHE IS MAKING AN EFFORT TO EAT MORE AND TO GAIN WEIGHT. CURRENT PO 100% MOST MEALS. WILL TRIAL ENSURE BID. PROVIDES 700 KCALS, 40 G PROTEIN. SKIN WITH REDNESS TO BUTTOCKS. NUTRITION DX NON SEVERE MALNUTRITION IN THE CONTEXT OF CHRONIC ILLNESS. RD TO FOLLOW FOR INTAKE AND DIET TOLERANCE.
[2023-01-07] MEDS: Atorvastatin Calcium 10 MG TABLET PO (19:50)
[2023-01-08] VITALS (7 sets, daily range): BP systolic 102–119; BP diastolic 52–63; PULSE 72–88; RESP 12–18; TEMP 36.1–37.1; O2SAT 94–99
[2023-01-08] MEDS: Heparin Sodium,Porcine 5,000 UNIT/ML VIAL 5000 UNIT SUBCUT ×2 (05:36→16:11)
[2023-01-08 07:34] LABS: Alanine Aminotransferase 20 U/L (0-31); Albumin Level 2.2 g/dL (3.5-5.0); Alkaline Phosphatase 233 U/L (39-117); Anion Gap 7 (12-20); Aspartate Amino Transferase 21 U/L (5-31); Bilirubin Direct 0.4 mg/dL (0.0-0.5); Bilirubin Total 0.7 mg/dL (0.0-1.0); Blood Urea Nitrogen 15 mg/dL (9-16); Calcium 7.9 mg/dL (8.4-10.2); Carbon Dioxide 22 mmol/L (22-29); Chloride 113 mmol/L (96-108); Creatinine Clr Calc Pharmacy 27.8; Estimated Glomerular Filt Rate 46; Glucose Random 75 mg/dL (60-115); Sodium 139 mmol/L (135-145); Total Protein 4.2 g/dL (6.5-8.0)
[2023-01-08] MEDS: Budesonide 180 MCG AER.POW.BA 2 PUFF INHALE (07:34)
[2023-01-08] MEDS: Cholestyramine (With Sugar) 4 GM POWD.PACK PO (08:07)
[2023-01-08] MEDS: Omeprazole 20 MG CAPSULE.DR PO (08:08)
[2023-01-08] MEDS: Clopidogrel Bisulfate 75 MG TABLET PO (08:08)
[2023-01-08] MEDS: Loperamide HCl 2 MG CAPSULE 4 MG PO ×3 (08:08→20:01)
[2023-01-08] MEDS: Cholecalciferol (Vitamin D3) 25 MCG TABLET PO (08:08)
[2023-01-08] MEDS: Multivitamin TABLET 1 TAB PO (08:09)
[2023-01-08] MEDS: Diphenoxylate/Atrop 2.5/0.025 TABLET 1 TAB PO ×4 (08:09→20:01)
[2023-01-08] MEDS: Ondansetron ODT 4 MG TAB.RAPDIS TRANSLINGU ×2 (08:09→20:01)
[2023-01-08] MEDS: Magnesium Oxide 400 MG TABLET PO (08:09)
[2023-01-08] MEDS: 0.9 % Sodium Chloride Flush 3 ML SYRINGE IVFLUSH ×3 (08:09→20:00)
[2023-01-08] MEDS: Thiamine HCL 100 MG TABLET PO (08:09)
[2023-01-08] MEDS: Psyllium seed 3.7 GM PACKET PO ×2 (08:09→16:11)
[2023-01-08] MEDS: Carbamide Peroxide 6.5% Otic 15 ML DRPBTL 5 DROP EAR-BOTH ×2 (08:21→20:02)
--- NOTE | 2023-01-08 11:01 | P.PNGS_ITS ---
Subjective Subjective Date of Service: 01/08/23 Interval history: Patient readmitted for SAADIA, electrolyte abnormality due to high output per ostomy. Patient feels improved today. Physical Exam Vital Signs: Vital Signs: Last Vital Signs Temp 97.0 F 01/08/23 07:48 Pulse 73 01/08/23 07:48 Resp 18 01/08/23 07:48 BP 113/63 01/08/23 07:48 Pulse Ox 99 01/08/23 07:48 O2 Del Method Room Air 01/08/23 07:48 BMI result Body Mass Index 17.1 Const: General: no acute distress Nutritional Appearance: thin Orientation/consciousness: patient oriented x3 Resp: Effort & Inspection: normal respiratory effort, no audible wheezes, no cough and no respiratory distress GI: Other: Ostomy with watery output with some flecks of solid. Abdomen flat, nondistended Skin: Other: Warm, dry, no rash Neuro: General: patient oriented x3 Objective Data Active Medications Acetaminophen (Acetaminophen 325 Mg Tablet) 650 mg PO RQ4H PRN PRN Reason: Fever Or Pain Al Hydroxide/Mg Hydroxide (Magnesium Hydrox/Alum Hydrox 30 Ml Oral.Susp) 30 ml PO Q4H PRN PRN Reason: Heartburn/Nausea Albuterol Sulfate (Albuterol Sulfate 90 Mcg 8 Gm Inhaler) 2 puff INHALE RQ6H PRN PRN Reason: shortness of breath or wheezing Atorvastatin Calcium (Atorvastatin Calcium 10 Mg Tablet) 10 mg PO BEDTIME [facility] Last Admin: 01/07/23 19:50 Dose: 10 mg Documented By: MOISES Bisacodyl (Bisacodyl 10 Mg Supp.Rect) 10 mg OR DAILY PRN PRN Reason: Constipation Budesonide (Budesonide 180 Mcg Aer.Pow.Ba) 2 puff INHALE RDAILY [facility] Last Admin: 01/08/23 07:34 Dose: 2 puff Documented By: BENY Carbamide Peroxide (Carbamide Peroxide 6.5% Otic 15 Ml Drpbtl) 5 drop EAR-BOTH BID [facility] Last Admin: 01/08/23 08:21 Dose: 5 drop Documented By: AMISH Cholestyramine Resin (Cholestyramine (With Sugar) 4 Gm Powd.Pack) 4 gm PO DAILY [facility] Last Admin: 01/08/23 08:07 Dose: 4 gm Documented By: AMISH Clopidogrel Bisulfate (Clopidogrel Bisulfate 75 Mg Tablet) 75 mg PO DAILY [facility] Last Admin: 01/08/23 08:08 Dose: 75 mg Documented By: AMISH Diphenoxylate HCl/Atropine (Diphenoxylate/Atrop 2.5/0.025 Tablet) 1 tab PO TIDAC [facility] Last Admin: 01/08/23 08:09 Dose: 1 tab Documented By: AMISH Diphenoxylate HCl/Atropine (Diphenoxylate/Atrop 2.5/0.025 Tablet) 1 tab PO BEDTIME [facility] Last Admin: 01/07/23 19:49 Dose: 1 tab Documented By: MOISES Heparin Sodium (Porcine) (Heparin Sodium,Porcine 5,000 Unit/Ml Vial) 5,000 unit SUBCUT Q12H [facility] Last Admin: 01/08/23 05:36 Dose: 5,000 unit Documented By: DIONICIO Loperamide HCl (Loperamide Hcl 2 Mg Capsule) 4 mg PO TID [facility] Last Admin: 01/08/23 08:08 Dose: 4 mg Documented By: AMISH Loperamide HCl (Loperamide Hcl 2 Mg Capsule) 2 mg PO Q6H PRN PRN Reason: Diarrhea Magnesium Hydroxide (Milk Of Magnesia 30 Ml Oral.Susp) 30 ml PO DAILY PRN PRN Reason: Constipation Magnesium Oxide (Magnesium Oxide 400 Mg Tablet) 400 mg PO BIDPC [facility] Last Admin: 01/08/23 08:09 Dose: 400 mg Documented By: AMISH Multivitamins/Vitamin C (Multivitamin Tablet) 1 tab PO DAILY [facility] Last Admin: 01/08/23 08:09 Dose: 1 tab Documented By: AMISH Omeprazole (Omeprazole 20 Mg Capsule.Dr) 20 mg PO DAILY [facility] Last Admin: 01/08/23 08:08 Dose: 20 mg Documented By: AMISH Ondansetron HCl (Ondansetron Odt 4 Mg Tab.Rapdis) 4 mg TRANSLINGU BID [facility] Last Admin: 01/08/23 08:09 Dose: 4 mg Documented By: AMISH Ondansetron HCl (Ondansetron Odt 4 Mg Tab.Rapdis) 4 mg TRANSLINGU Q8H PRN PRN Reason: Nausea And Vomiting Psyllium Hydrophilic Mucilloid (Psyllium Seed 3.7 Gm Packet) 3.7 gm PO TID [facility] Last Admin: 01/08/23 08:09 Dose: 3.7 gm Documented By: AMISH Sodium Biphosphate/Sodium Phosphate (Sodium Phosphate,[place]-Dibasic 133 Ml Enema) 118 ml OR DAILY PRN PRN Reason: Constipation Sodium Chloride (0.9 % Sodium Chloride Flush 3 Ml Syringe) 3 ml IVFLUSH QSHIFT [facility] Last Admin: 01/08/23 08:09 Dose: 3 ml Documented By: AMISH Thiamine HCl (Thiamine Hcl 100 Mg Tablet) 100 mg PO DAILY [facility] Last Admin: 01/08/23 08:09 Dose: 100 mg Documented By: AMISH Vitamin D (Cholecalciferol (Vitamin D3) 25 Mcg Tablet) 25 mcg PO DAILY [facility] Last Admin: 01/08/23 08:08 Dose: 25 mcg Documented By: AMISH Labs 01/05/23 09:30 01/08/23 06:32 Labs: Laboratory Results - last 24 hr 01/08/23 06:32 Anion Gap 7 L Estim Creat Clear Calc 27.8 Estimated GFR 46 Random Glucose 75 Calcium 7.9 L Total Bilirubin 0.7 Direct Bilirubin 0.4 AST 21 ALT 20 Alkaline Phosphatase 233 H Total Protein 4.2 L Albumin 2.2 L Procedures Date of Service Date of Service: 01/08/23 Progress Note: A&P Assessment and plan (1) Ileostomy in place: Status: Acute (2) Status post exploratory laparotomy: Status: Acute Plan 77-year-old female patient well known to service with history of vasculitis with necrotic bowel requiring multiple loops of small bowel resection complicated by breakdown of the anastomosis due to additional vasculitis. Patient now has double-lumen ileostomy in the right lower quadrant with high output of watery stool. Abdomen is soft and nondistended. No evidence of recurrent vasculitis at this time. Patient continues to lose weight possibly due to malabsorption. She may require a more elemental diet. Patient is not a candidate for ileostomy reversal at this time due to poor nutrition which would affect wound healing. Will continue to monitor. Time Spent With Patient Time: Total time managing care of this patient today ____ minutes. Quality Stroke Does the patient have a stroke diagnosis?: Yes Reason for No Anti-thrombotic by Day Two: Contraindicated (Unknown last well known time; outside of tPA therapeutic window) VTE Prior VTE?: No VTE Risk Level:: Medical - moderate - high VTE Device Contraindication: Treatment Not Indicated VTE Drug Contraindication: N/A - Med Ordered
[2023-01-08] MEDS: Potassium Chloride ER 20 MEQ TAB.ER.PRT 40 MEQ PO (11:56)
--- NOTE | 2023-01-08 11:56 | MHC.CLN ---
F/U PT IS MODERATELY MALNOURISHED SEE FULL CLINICAL NUTRITION ASSESSMENT DATED 01/07/23 PO INTAKE 100% X 6 MEALS DIET RX:REGULAR, LOW FAT-APPROPRIATE HIGH OUTPUT ILEOSTOMY PATIENT REPORTS THAT SHE IS DRINKING ENSURE SUPPLEMENT OBSERVED ENSURE AT PT'S BEDSIDE TABLE WITH 1/4 DRINK REMAINING PT STATED SHE WILL BE DRINKING 2 PER DAY SUPPLEMENT PROVIDES 700 KCALS, 40 G PROTEIN WITH 100% ACCEPTANCE CONTINUE TO MONITOR PO INTAKE CLOSELY
--- NOTE | 2023-01-08 12:09 | P.PNIM_ITS ---
Subjective Subjective Date of Service: 01/08/23 Interval History: Tolerating diet concern about weight loss noted to have significant ileostomy output mostly watery, tolerating diet no nausea no vomiting no abdominal pain, no fevers no chills no other acute issues overnight denies lightheadedness or dizziness. Review of Systems All other system reviewed and negative. Physical Exam Vital Signs: Vital Signs: Last Vital Signs Temp 97.8 F 01/08/23 11:32 Pulse 73 01/08/23 11:32 Resp 18 01/08/23 11:32 BP 118/54 L 01/08/23 11:32 Pulse Ox 94 01/08/23 11:32 O2 Del Method Room Air 01/08/23 11:32 BMI result Body Mass Index 17.1 Const: Other: General awake alert x3, sitting comfortably, in no acute distress. Neck is supple no JVD. CVS regular rate rhythm, Respiratory lungs clear to auscultation, no respiratory distress, no wheeze, no rhonchi. Gastrointestinal abdomen soft, nontender, bowel sounds audible, no guarding , no rigidity, ileostomy with clear watery stools. Extremities no edema. Neuro nonfocal Skin no rash Psych appropriate affect Objective Data Active Medications Acetaminophen (Acetaminophen 325 Mg Tablet) 650 mg PO RQ4H PRN PRN Reason: Fever Or Pain Al Hydroxide/Mg Hydroxide (Magnesium Hydrox/Alum Hydrox 30 Ml Oral.Susp) 30 ml PO Q4H PRN PRN Reason: Heartburn/Nausea Albuterol Sulfate (Albuterol Sulfate 90 Mcg 8 Gm Inhaler) 2 puff INHALE RQ6H MI N PRN Reason: shortness of breath or wheezing Atorvastatin Calcium (Atorvastatin Calcium 10 Mg Tablet) 10 mg PO BEDTIME [facility] Last Admin: 01/07/23 19:50 Dose: 10 mg Documented By: MOISES Bisacodyl (Bisacodyl 10 Mg Supp.Rect) 10 mg [place] DAILY PRN PRN Reason: Constipation Budesonide (Budesonide 180 Mcg Aer.Pow.Ba) 2 puff INHALE RDAILY [facility] Last Admin: 01/08/23 07:34 Dose: 2 puff Documented By: BENY Carbamide Peroxide (Carbamide Peroxide 6.5% Otic 15 Ml Drpbtl) 5 drop EAR-BOTH BID [facility] Last Admin: 01/08/23 08:21 Dose: 5 drop Documented By: AMISH Cholestyramine Resin (Cholestyramine (With Sugar) 4 Gm Powd.Pack) 4 gm PO DAILY [facility] Last Admin: 01/08/23 08:07 Dose: 4 gm Documented By: AMISH Clopidogrel Bisulfate (Clopidogrel Bisulfate 75 Mg Tablet) 75 mg PO DAILY [facility] Last Admin: 01/08/23 08:08 Dose: 75 mg Documented By: AMISH Diphenoxylate HCl/Atropine (Diphenoxylate/Atrop 2.5/0.025 Tablet) 1 tab PO TIDAC [facility] Last Admin: 01/08/23 11:56 Dose: 1 tab Documented By: AMISH Diphenoxylate HCl/Atropine (Diphenoxylate/Atrop 2.5/0.025 Tablet) 1 tab PO BEDTIME [facility] Last Admin: 01/07/23 19:49 Dose: 1 tab Documented By: MOISES Heparin Sodium (Porcine) (Heparin Sodium,Porcine 5,000 Unit/Ml Vial) 5,000 unit SUBCUT Q12H [facility] Last Admin: 01/08/23 05:36 Dose: 5,000 unit Documented By: DIONICIO Loperamide HCl (Loperamide Hcl 2 Mg Capsule) 4 mg PO TID [facility] Last Admin: 01/08/23 08:08 Dose: 4 mg Documented By: AMISH Loperamide HCl (Loperamide Hcl 2 Mg Capsule) 2 mg PO Q6H PRN PRN Reason: Diarrhea Magnesium Hydroxide (Milk Of Magnesia 30 Ml Oral.Susp) 30 ml PO DAILY PRN PRN Reason: Constipation Magnesium Oxide (Magnesium Oxide 400 Mg Tablet) 400 mg PO BIDPC [facility] Last Admin: 01/08/23 08:09 Dose: 400 mg Documented By: AMISH Multivitamins/Vitamin C (Multivitamin Tablet) 1 tab PO DAILY [facility] Last Admin: 01/08/23 08:09 Dose: 1 tab Documented By: AMISH Omeprazole (Omeprazole 20 Mg Capsule.Dr) 20 mg PO DAILY [facility] Last Admin: 01/08/23 08:08 Dose: 20 mg Documented By: AMISH Ondansetron HCl (Ondansetron Odt 4 Mg Tab.Rapdis) 4 mg TRANSLINGU BID [facility] Last Admin: 01/08/23 08:09 Dose: 4 mg Documented By: AMISH Ondansetron HCl (Ondansetron Odt 4 Mg Tab.Rapdis) 4 mg TRANSLINGU Q8H PRN PRN Reason: Nausea And Vomiting Psyllium Hydrophilic Mucilloid (Psyllium Seed 3.7 Gm Packet) 3.7 gm PO TID [facility] Last Admin: 01/08/23 08:09 Dose: 3.7 gm Documented By: AMISH Sodium Biphosphate/Sodium Phosphate (Sodium Phosphate,[place]-Dibasic 133 Ml Enema) 118 ml [place] DAILY PRN PRN Reason: Constipation Sodium Chloride (0.9 % Sodium Chloride Flush 3 Ml Syringe) 3 ml IVFLUSH QSHIFT [facility] Last Admin: 01/08/23 08:09 Dose: 3 ml Documented By: AMISH Thiamine HCl (Thiamine Hcl 100 Mg Tablet) 100 mg PO DAILY [facility] Last Admin: 01/08/23 08:09 Dose: 100 mg Documented By: AMISH Vitamin D (Cholecalciferol (Vitamin D3) 25 Mcg Tablet) 25 mcg PO DAILY [facility] Last Admin: 01/08/23 08:08 Dose: 25 mcg Documented By: AMISH Labs 01/05/23 09:30 01/08/23 06:32 Labs: Laboratory Results - last 24 hr 01/08/23 06:32 Anion Gap 7 L Estim Creat Clear Calc 27.8 Estimated GFR 46 Random Glucose 75 Calcium 7.9 L Total Bilirubin 0.7 Direct Bilirubin 0.4 AST 21 ALT 20 Alkaline Phosphatase 233 H Total Protein 4.2 L Albumin 2.2 L Assessment and Plan (1) CVA (cerebral vascular accident): Status: Acute (2) Hypomagnesemia: Status: Acute (3) SAADIA (acute kidney injury): Status: Resolved Plan Pt is a 77-year-old female with a PMH significant for asthma, HLD, and small bowel vasculitis s/p double-barrel ileostomy who presents to the ED from SNF for evaluation of labs showing abnormal kidney function. Patient herself complains of?lightheadedness, dizziness, and generalized weakness that has been ongoing for the past few days. Pt will be admitted to the hospital for treatment and further evaluation of SAADIA, CVA, and hypomagnesemia. SAADIA--d/t pre renal azotemia from hrom high output ileostomy and decrease oral intatke, renal function normalized, DC IV fluids. CVA Patient with lightheadedness, dizziness, generalized weakness for the past few days; last known well time unclear MRI of brain found small acute cortically based infarct in the left occipital lobe superimposed upon an area of chronic infarction Patient admitted to [facility] on 12/20/2022 for TIA, discharged on DAPT with aspirin and Plavix for three weeks, then asa alone CTA at [facility] on 12/20/2022 negative for stenosis Echocardiogram at [facility] on 12/23/2022 showed normal LVEF of 65-70% with no regional wall motion abnormalities, normal diastolic and right ventricle function Contacted Neurology who said no additional imaging or treatment necessary as pt. is not a candidate for tPA or surgical interventions LDL 133, LDL 76 PT/OT recommend home with PT resume statin ,lfts improved continue Plavix,will resume asa renal function improved. Neuro input noted Hypomagnesemia, due to gi loss, replaced and normalized, will DC Mag oxide question contributing to loose stools, will follow magnesium level Hypokalemia will replace likely due to GI loss follow BMP High output ileostomy 09/19 ex lap with SBR, lysis of adhesions, drainage of intra-abdominal abscess and appedectomy. abscess grew klebsiella pneumoniae and klebsiella oxytoca and she completed course of abx at 09/24 she underwent second ex lap with small bowel resection and a double- barreled ileostomy negative C diff, GI panel negative Continue imodium and lomotil, change in diet to low-fiber, lactose free, obtain nutrition consult DC magnesium oxide, stop all stool softeners Being followed by General surgery they recommended elemental diet Orthostatic hypotension d/t dehydration, still positive, continue IVF and check daily Transaminitis Likely secondary to shock liver d/t SAADIA, LFTs normalized. 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 dvt prophylaxis heparin need for inpt: Persistent high ileostomy output with electrolyte abnormality including hypokalemia. Needs close follow-up on labs Time Spent With Patient Time: Total time managing care of this patient today ____ minutes. Quality Stroke Does the patient have a stroke diagnosis?: Yes Reason for No Anti-thrombotic by Day Two: Contraindicated (Unknown last well known time; outside of tPA therapeutic window) VTE Prior VTE?: No VTE Risk Level:: Medical - moderate - high VTE Device Contraindication: Treatment Not Indicated VTE Drug Contraindication: N/A - Med Ordered
--- NOTE | 2023-01-08 14:57 | MHC.CM.PN ---
EMR reviewed and per MD rounds, pt is not medically cleared for D/C due to continued high volume ileostomy output with electrolyte imbalance requiring lab monitoring. CM will continue to follow.
[2023-01-08] MEDS: Atorvastatin Calcium 10 MG TABLET PO (20:01)
[2023-01-09 03:41] VITALS: BP 99/52; PULSE 82; RESP 16; TEMP 36.7; O2SAT 99
[2023-01-09] MEDS: Heparin Sodium,Porcine 5,000 UNIT/ML VIAL 5000 UNIT SUBCUT ×2 (06:25→18:04)
[2023-01-09 07:22] LABS: Blood Urea Nitrogen 15 mg/dL (9-16); Estimated Glomerular Filt Rate 40; Glucose Random 75 mg/dL (60-115); Magnesium 1.5 mg/dL (1.6-2.6)
[2023-01-09 07:28] VITALS: BP 104/62; PULSE 71; RESP 18; TEMP 36.8; O2SAT 98
[2023-01-09 07:38] LABS: Anion Gap 11 (12-20); Calcium 8.5 mg/dL (8.4-10.2); Carbon Dioxide 20 mmol/L (22-29); Chloride 113 mmol/L (96-108); Potassium 3.8 mmol/L (3.3-5.1); Sodium 140 mmol/L (135-145)
[2023-01-09 07:50] VITALS: PULSE 77; RESP 16; O2SAT 98
[2023-01-09] MEDS: Budesonide 180 MCG AER.POW.BA 2 PUFF INHALE (07:50)
[2023-01-09] MEDS: Magnesium Sulfate/H2O 2 GM/50 ML PIGGYBACK IV (09:10)
[2023-01-09] MEDS: 0.9 % Sodium Chloride Flush 3 ML SYRINGE IVFLUSH ×2 (09:36→15:38)
[2023-01-09] MEDS: Diphenoxylate/Atrop 2.5/0.025 TABLET 1 TAB PO ×4 (09:36→20:42)
[2023-01-09] MEDS: Omeprazole 20 MG CAPSULE.DR PO (09:36)
[2023-01-09] MEDS: Ondansetron ODT 4 MG TAB.RAPDIS TRANSLINGU ×2 (09:37→20:38)
[2023-01-09] MEDS: Thiamine HCL 100 MG TABLET PO (09:37)
[2023-01-09] MEDS: Psyllium seed 3.7 GM PACKET PO ×3 (09:37→20:38)
[2023-01-09] MEDS: Clopidogrel Bisulfate 75 MG TABLET PO (09:37)
[2023-01-09] MEDS: Cholestyramine (With Sugar) 4 GM POWD.PACK PO (09:37)
[2023-01-09] MEDS: Loperamide HCl 2 MG CAPSULE 4 MG PO ×3 (09:37→20:37)
[2023-01-09] MEDS: Multivitamin TABLET 1 TAB PO (09:37)
[2023-01-09] MEDS: Cholecalciferol (Vitamin D3) 25 MCG TABLET PO (09:37)
[2023-01-09] MEDS: Carbamide Peroxide 6.5% Otic 15 ML DRPBTL 5 DROP EAR-BOTH (09:38)
--- NOTE | 2023-01-09 10:00 | MHC.PIE ---
Right LQ illeostomy - stoma pink, moist. Copious amt output from ostomy - from 7am-11am >600ml output. Bag filled with air & stool & started to leak, replaced without incident. Patient alert and oriented, able to assist with care. Plan for PT eval per Dr Sanz. IV mag replaced. Full bath & linen change done with illeostomy appliance change. out of bed to chair, one assist.
[2023-01-09 11:18] VITALS: BP 122/60; PULSE 79; RESP 18; TEMP 36.2; O2SAT 98
--- NOTE | 2023-01-09 12:29 | MHC.CLN ---
Addendum entered by Anna Castellon, ISABELLA 01/09/23 13:40: Educated pt on foods to avoid with ileostomy. Gave handouts for diarrhea, ileostomy and nutrition therapy, and [place] diet. pt understanding good. expected compliance: good Recommend referral to out pt RD for future follow up and diet education regarding ileostomy upon D/C Original Note: F/U PO INTAKE 50% X 2 MEALS DIET CHANGED TO LOW FIBER, LACTOSE FREE-CAN TRIAL BLAND DIET HIGH OUTPUT ILEOSTOMY: NSG NOTED, Right LQ illeostomy - stoma pink, moist. Copious amt output from ostomy - from 7am-11am >600ml output.Bag filled with air & stool & started to leak, replaced without incident. PATIENT REPORTS THAT SHE IS DRINKING ENSURE SUPPLEMENT PT STATED SHE WILL BE DRINKING 2 PER DAY SUPPLEMENT PROVIDES 700 KCALS, 40 G PROTEIN WITH 100% ACCEPTANCE CONTINUE TO MONITOR PO INTAKE CLOSELY WILL ADD BLAND TO DIET IF PPN NEEDED; RECOMMEND D10AA4.25 AT 35ML/HR TO PROVIDE 428KCALS, 84G DEXTROSE, 36G PROTEIN CONSULT RD/PHARMACY IF PPN NEEDED
--- NOTE | 2023-01-09 15:01 | PM.PNGS ---
Subjective Subjective Date of Service: 01/09/23 Interval history: Patient appears comfortable this morning, denies any abdominal symptoms. She is tolerating her diet and completed her lunch including supplements. Physical Exam Vital Signs: Vital Signs: Last Vital Signs Temp 97.1 F 01/09/23 11:18 Pulse 79 01/09/23 11:18 Resp 18 01/09/23 11:18 BP 122/60 01/09/23 11:18 Pulse Ox 98 01/09/23 11:18 O2 Del Method Room Air 01/09/23 11:18 BMI result Body Mass Index 17.1 Const: General: no acute distress Nutritional Appearance: thin Orientation/consciousness: patient oriented x3 Resp: Effort & Inspection: normal respiratory effort, no audible wheezes, no cough and no respiratory distress GI: Other: Abdomen is soft with well-healed incision. Ostomy with watery output with some flecks of solid. Skin: Other: Warm, dry, no rash Neuro: General: patient oriented x3 Objective Data Active Medications Acetaminophen (Acetaminophen 325 Mg Tablet) 650 mg PO RQ4H PRN PRN Reason: Fever Or Pain Albuterol Sulfate (Albuterol Sulfate 90 Mcg 8 Gm Inhaler) 2 puff INHALE RQ6H PRN PRN Reason: shortness of breath or wheezing Atorvastatin Calcium (Atorvastatin Calcium 10 Mg Tablet) 10 mg PO BEDTIME [facility] Last Admin: 01/08/23 20:01 Dose: 10 mg Documented By: BAILEE Budesonide (Budesonide 180 Mcg Aer.Pow.Ba) 2 puff INHALE RDAILY [facility] Last Admin: 01/09/23 07:50 Dose: 2 puff Documented By: CHAES Carbamide Peroxide (Carbamide Peroxide 6.5% Otic 15 Ml Drpbtl) 5 drop EAR-BOTH BID [facility] Last Admin: 01/09/23 09:38 Dose: 5 drop Documented By: MARTINA Cholestyramine Resin (Cholestyramine (With Sugar) 4 Gm Powd.Pack) 4 gm PO DAILY [facility] Last Admin: 01/09/23 09:37 Dose: 4 gm Documented By: MARTINA Clopidogrel Bisulfate (Clopidogrel Bisulfate 75 Mg Tablet) 75 mg PO DAILY [facility] Last Admin: 01/09/23 09:37 Dose: 75 mg Documented By: MARTINA Diphenoxylate HCl/Atropine (Diphenoxylate/Atrop 2.5/0.025 Tablet) 1 tab PO TIDAC [facility] Last Admin: 01/09/23 12:56 Dose: 1 tab Documented By: FRANSICO Diphenoxylate HCl/Atropine (Diphenoxylate/Atrop 2.5/0.025 Tablet) 1 tab PO BEDTIME [facility] Last Admin: 01/08/23 20:01 Dose: 1 tab Documented By: BAILEE Heparin Sodium (Porcine) (Heparin Sodium,Porcine 5,000 Unit/Ml Vial) 5,000 unit SUBCUT Q12H [facility] Last Admin: 01/09/23 06:25 Dose: 5,000 unit Documented By: BAILEE Loperamide HCl (Loperamide Hcl 2 Mg Capsule) 4 mg PO TID [facility] Last Admin: 01/09/23 14:38 Dose: 4 mg Documented By: FRANSIOC Loperamide HCl (Loperamide Hcl 2 Mg Capsule) 2 mg PO Q6H PRN PRN Reason: Diarrhea Multivitamins/Vitamin C (Multivitamin Tablet) 1 tab PO DAILY [facility] Last Admin: 01/09/23 09:37 Dose: 1 tab Documented By: MARTINA Omeprazole (Omeprazole 20 Mg Capsule.Dr) 20 mg PO DAILY [facility] Last Admin: 01/09/23 09:36 Dose: 20 mg Documented By: MARTINA Ondansetron HCl (Ondansetron Odt 4 Mg Tab.Rapdis) 4 mg TRANSLINGU BID [facility] Last Admin: 01/09/23 09:37 Dose: 4 mg Documented By: MARTINA Ondansetron HCl (Ondansetron Odt 4 Mg Tab.Rapdis) 4 mg TRANSLINGU Q8H PRN PRN Reason: Nausea And Vomiting Psyllium Hydrophilic Mucilloid (Psyllium Seed 3.7 Gm Packet) 3.7 gm PO TID [facility] Last Admin: 01/09/23 14:39 Dose: 3.7 gm Documented By: FRANSICO Sodium Biphosphate/Sodium Phosphate (Sodium Phosphate,[place]-Dibasic 133 Ml Enema) 118 ml [place] DAILY PRN PRN Reason: Constipation Sodium Chloride (0.9 % Sodium Chloride Flush 3 Ml Syringe) 3 ml IVFLUSH QSHIFT [facility] Last Admin: 01/09/23 09:36 Dose: 3 ml Documented By: MARTINA Thiamine HCl (Thiamine Hcl 100 Mg Tablet) 100 mg PO DAILY [facility] Last Admin: 01/09/23 09:37 Dose: 100 mg Documented By: MARTINA Vitamin D (Cholecalciferol (Vitamin D3) 25 Mcg Tablet) 25 mcg PO DAILY [facility] Last Admin: 01/09/23 09:37 Dose: 25 mcg Documented By: MARTINA Labs 01/05/23 09:30 01/09/23 06:34 Labs: Laboratory Results - last 24 hr 01/09/23 06:34 Anion Gap 11 L Estim Creat Clear Calc 25.0 Estimated GFR 40 Random Glucose 75 Calcium 8.5 D Magnesium 1.5 L Procedures Date of Service Date of Service: 01/09/23 Progress Note: A&P Assessment and plan (1) Ileostomy in place: Status: Acute (2) Status post exploratory laparotomy: Status: Acute Plan 77-year-old female patient well known to service with history of vasculitis with necrotic bowel requiring multiple loops of small bowel resection complicated by breakdown of the anastomosis due to additional vasculitis. Patient now has double-barrel ileostomy in the right lower quadrant with high output of watery stool. Abdomen is soft and nondistended. No evidence of recurrent vasculitis at this time. Patient is tolerating her regular diet without nausea or vomiting. Overall she looks much improved. Dietary supplements were encouraged. Will continue to monitor. Time Spent With Patient Time: Total time managing care of this patient today ____ minutes. Quality Stroke Does the patient have a stroke diagnosis?: Yes Reason for No Anti-thrombotic by Day Two: Contraindicated (Unknown last well known time; outside of tPA therapeutic window) VTE Prior VTE?: No VTE Risk Level:: Medical - moderate - high VTE Device Contraindication: Treatment Not Indicated VTE Drug Contraindication: N/A - Med Ordered
[2023-01-09 15:21] VITALS: BP 126/78; PULSE 77; RESP 18; TEMP 36.9; O2SAT 100
--- NOTE | 2023-01-09 15:31 | P.PNIM_ITS ---
Subjective Subjective Date of Service: 01/09/23 Interval History: Eating better , had abdominal cramps and gas this morning, still needing to empty colostomy bag every 1-2 hours but stools have more substance to it, denies fever chills, no lightheadedness, no dizziness, no other acute issues overnight. Review of Systems All other systems are reviewed and negative Physical Exam Vital Signs: Vital Signs: Last Vital Signs Temp 98.4 F 01/09/23 15:21 Pulse 77 01/09/23 15:21 Resp 18 01/09/23 15:21 BP 126/78 01/09/23 15:21 Pulse Ox 100 01/09/23 15:21 O2 Del Method Room Air 01/09/23 15:21 BMI result Body Mass Index 17.1 Const: Other: General awake alert x3, sitting comfortably, in no acute distress.? Neck is supple no JVD. CVS? regular rate rhythm, Respiratory lungs clear to auscultation, no respiratory distress, no wheeze, no rhonchi. Gastrointestinal abdomen soft, nontender, bowel sounds audible, no guarding , no rigidity, ileostomy with pasty stools. Extremities no edema. Neuro non focal Skin no rash Psych appropriate affect Objective Data Active Medications Acetaminophen (Acetaminophen 325 Mg Tablet) 650 mg PO RQ4H PRN PRN Reason: Fever Or Pain Albuterol Sulfate (Albuterol Sulfate 90 Mcg 8 Gm Inhaler) 2 puff INHALE RQ6H PRN PRN Reason: shortness of breath or wheezing Atorvastatin Calcium (Atorvastatin Calcium 10 Mg Tablet) 10 mg PO BEDTIME [facility] Last Admin: 01/08/23 20:01 Dose: 10 mg Documented By: BAILEE Budesonide (Budesonide 180 Mcg Aer.Pow.Ba) 2 puff INHALE RDAILY [facility] Last Admin: 01/09/23 07:50 Dose: 2 puff Documented By: CHASE Carbamide Peroxide (Carbamide Peroxide 6.5% Otic 15 Ml Drpbtl) 5 drop EAR-BOTH BID [facility] Last Admin: 01/09/23 09:38 Dose: 5 drop Documented By: MARTINA Cholestyramine Resin (Cholestyramine (With Sugar) 4 Gm Powd.Pack) 4 gm PO DAILY [facility] Last Admin: 01/09/23 09:37 Dose: 4 gm Documented By: MARTINA Clopidogrel Bisulfate (Clopidogrel Bisulfate 75 Mg Tablet) 75 mg PO DAILY [facility] Last Admin: 01/09/23 09:37 Dose: 75 mg Documented By: MARTINA Diphenoxylate HCl/Atropine (Diphenoxylate/Atrop 2.5/0.025 Tablet) 1 tab PO TIDAC [facility] Last Admin: 01/09/23 12:56 Dose: 1 tab Documented By: FRANSICO Diphenoxylate HCl/Atropine (Diphenoxylate/Atrop 2.5/0.025 Tablet) 1 tab PO BEDTIME [facility] Last Admin: 01/08/23 20:01 Dose: 1 tab Documented By: BAILEE Heparin Sodium (Porcine) (Heparin Sodium,Porcine 5,000 Unit/Ml Vial) 5,000 unit SUBCUT Q12H [facility] Last Admin: 01/09/23 06:25 Dose: 5,000 unit Documented By: BAILEE Loperamide HCl (Loperamide Hcl 2 Mg Capsule) 4 mg PO TID [facility] Last Admin: 01/09/23 14:38 Dose: 4 mg Documented By: FRANSICO Loperamide HCl (Loperamide Hcl 2 Mg Capsule) 2 mg PO Q6H PRN PRN Reason: Diarrhea Multivitamins/Vitamin C (Multivitamin Tablet) 1 tab PO DAILY [facility] Last Admin: 01/09/23 09:37 Dose: 1 tab Documented By: MARTINA Omeprazole (Omeprazole 20 Mg Capsule.Dr) 20 mg PO DAILY [facility] Last Admin: 01/09/23 09:36 Dose: 20 mg Documented By: MARTINA Ondansetron HCl (Ondansetron Odt 4 Mg Tab.Rapdis) 4 mg TRANSLINGU BID [facility] Last Admin: 01/09/23 09:37 Dose: 4 mg Documented By: MARTINA Ondansetron HCl (Ondansetron Odt 4 Mg Tab.Rapdis) 4 mg TRANSLINGU Q8H PRN PRN Reason: Nausea And Vomiting Psyllium Hydrophilic Mucilloid (Psyllium Seed 3.7 Gm Packet) 3.7 gm PO TID [facility] Last Admin: 01/09/23 14:39 Dose: 3.7 gm Documented By: FRANSICO Sodium Biphosphate/Sodium Phosphate (Sodium Phosphate,[place]-Dibasic 133 Ml Enema) 118 ml [place] DAILY PRN PRN Reason: Constipation Sodium Chloride (0.9 % Sodium Chloride Flush 3 Ml Syringe) 3 ml IVFLUSH QSHIFT [facility] Last Admin: 01/09/23 09:36 Dose: 3 ml Documented By: MARTINA Thiamine HCl (Thiamine Hcl 100 Mg Tablet) 100 mg PO DAILY [facility] Last Admin: 01/09/23 09:37 Dose: 100 mg Documented By: MARTINA Vitamin D (Cholecalciferol (Vitamin D3) 25 Mcg Tablet) 25 mcg PO DAILY [facility] Last Admin: 01/09/23 09:37 Dose: 25 mcg Documented By: MARTINA Labs 01/05/23 09:30 01/09/23 06:34 Labs: Laboratory Results - last 24 hr 01/09/23 06:34 Anion Gap 11 L Estim Creat Clear Calc 25.0 Estimated GFR 40 Random Glucose 75 Calcium 8.5 D Magnesium 1.5 L Assessment and Plan (1) CVA (cerebral vascular accident): Status: Acute (2) Hypomagnesemia: Status: Acute (3) SAADIA (acute kidney injury): Status: Resolved Plan Pt is a 77-year-old female with a PMH significant for asthma, HLD, and small bowel vasculitis s/p double-barrel ileostomy who presents to the ED from SNF for evaluation of labs showing abnormal kidney function. Patient herself complains of?lightheadedness, dizziness, and generalized weakness that has been ongoing for the past few days. Pt will be admitted to the hospital for treatment and further evaluation of SAADIA, CVA, and hypomagnesemia. SAADIA--d/t pre renal azotemia from from high output ileostomy and decrease oral intatke, renal function normalized s/p ivf. CVA Patient with lightheadedness, dizziness, generalized weakness for the past few days; last known well time unclear MRI of brain found small acute cortically based infarct in the left occipital lobe superimposed upon an area of chronic infarction Patient [place] [facility] [place] for [place], discharged on DAPT with aspirin and Plavix for three weeks, then asa alone CTA [place] [facility] [place]22 negative for stenosis Echocardiogram at [facility] [place] 12/23/2022 showed normal LVEF of 65-70% with no regional wall motion abnormalities, normal diastolic and right ventricle function Contacted Neurology who said no additional imaging or treatment necessary as pt. is not a candidate for tPA or surgical interventions LDL 133, LDL 76 PT/OT recommend home with PT resume statin ,lfts improved continue Plavix,will resume asa renal function improved. Neuro input noted Hypomagnesemia, due to gi loss, magnesium 1.5 will replace IV magnesium sulfate . Hypokalemia resolved . No High output ileostomy 09/19 ex lap with SBR, lysis of adhesions, drainage of intra-abdominal abscess and appedectomy. abscess grew klebsiella pneumoniae and klebsiella oxytoca and s he completed course of abx at 09/24 she underwent second ex lap with small bowel resection and a double- barreled ileostomy negative C diff, GI panel negative Continue imodium and lomotil, on low-fiber, lactose free diet stop all stool softeners Seen by retrofit installer bland diet added Orthostatic hypotension d/t dehydration, follow bps Transaminitis Likely secondary to shock liver d/t SAADIA, LFTs normalized. Has been recurring since admission to [facility] at the beginning of October; LFTs WNL on discharge fro [facility] on 12/24/2022 Hepatitis panel negative Abdominal US on 11/01/2022 found mild sludge in the gallbladder without sonographic evidence of acute cholecystitis; no focal liver lesions with normal echogenicity Medium vessel vasculitis Continue budesonide GERD continue omeprazole Moderate malnutrition receiving supplements being followed by retrofit installer. dvt prophylaxis heparin need for inpt: Persistent high ileostomy output with electrolyte abnormality including hypomagnesemia Time Spent With Patient Time: Total time managing care of this patient today ____ minutes. Quality Stroke Does the patient have a stroke diagnosis?: Yes Reason for No Anti-thrombotic by Day Two: Contraindicated (Unknown last well known time; outside of tPA therapeutic window) VTE Prior VTE?: No VTE Risk Level:: Medical - moderate - high VTE Device Contraindication: Treatment Not Indicated VTE Drug Contraindication: N/A - Med Ordered
[2023-01-09 19:33] VITALS: BP 102/53; PULSE 72; RESP 20; TEMP 36.9; O2SAT 98
[2023-01-09] MEDS: Atorvastatin Calcium 10 MG TABLET PO (20:38)
[2023-01-10] VITALS (8 sets, daily range): BP systolic 91–109; BP diastolic 49–65; PULSE 65–81; RESP 14–20; TEMP 36.2–37.1; O2SAT 92–99
[2023-01-10] MEDS: 0.9 % Sodium Chloride Flush 3 ML SYRINGE IVFLUSH ×3 (00:17→15:59)
[2023-01-10] MEDS: Heparin Sodium,Porcine 5,000 UNIT/ML VIAL 5000 UNIT SUBCUT ×2 (06:37→15:56)
[2023-01-10] MEDS: Budesonide 180 MCG AER.POW.BA 2 PUFF INHALE (08:48)
[2023-01-10] MEDS: Aspirin Enteric Coated 81 MG TABLET.DR PO (09:08)
[2023-01-10] MEDS: Ondansetron ODT 4 MG TAB.RAPDIS TRANSLINGU ×2 (09:09→20:44)
[2023-01-10] MEDS: Omeprazole 20 MG CAPSULE.DR PO (09:09)
[2023-01-10] MEDS: Cholestyramine (With Sugar) 4 GM POWD.PACK PO (09:09)
[2023-01-10] MEDS: Psyllium seed 3.7 GM PACKET PO ×3 (09:09→20:44)
[2023-01-10] MEDS: Loperamide HCl 2 MG CAPSULE 4 MG PO ×3 (09:09→20:45)
[2023-01-10] MEDS: Thiamine HCL 100 MG TABLET PO (09:09)
[2023-01-10] MEDS: Diphenoxylate/Atrop 2.5/0.025 TABLET 1 TAB PO ×3 (09:09→20:44)
[2023-01-10] MEDS: Clopidogrel Bisulfate 75 MG TABLET PO (09:09)
[2023-01-10] MEDS: Cholecalciferol (Vitamin D3) 25 MCG TABLET PO (09:09)
[2023-01-10] MEDS: Multivitamin TABLET 1 TAB PO (09:09)
[2023-01-10 11:17] LABS: Anion Gap 11 (12-20); Blood Urea Nitrogen 15 mg/dL (9-16); Calcium 8.6 mg/dL (8.4-10.2); Carbon Dioxide 23 mmol/L (22-29); Chloride 106 mmol/L (96-108); Creatinine Clr Calc Pharmacy 26.4; Estimated Glomerular Filt Rate 43; Glucose Random 105 mg/dL (60-115); Magnesium 1.8 mg/dL (1.6-2.6); Potassium 3.6 mmol/L (3.3-5.1); Sodium 136 mmol/L (135-145)
--- NOTE | 2023-01-10 14:55 | P.PNIM_ITS ---
Subjective Subjective Date of Service: 01/10/23 Interval History: Concern about discharge, lives alone in [place] house were at about loose watery stools requiring frequent emptying of ileostomy back, also concerned about nutrition, no nausea no vomiting no abdominal discomfort no new neuro deficits tolerating diet, no fevers no chills no other acute issues overnight. Review of Systems All other system reviewed and negative. Physical Exam 2 Vital Signs: Vital Signs: Last Vital Signs Temp 97.1 F 01/10/23 11:08 Pulse 81 01/10/23 11:08 Resp 18 01/10/23 11:08 BP 108/65 01/10/23 11:08 Pulse Ox 92 01/10/23 11:08 O2 Del Method Room Air 01/10/23 11:08 BMI result Body Mass Index 17.1 Const: Other: General awake alert x3, sitting comfortably, in no acute distress.? Neck is supple no JVD. CVS? regular rate rhythm, Respiratory lungs clear to auscultation, no respiratory distress, no wheeze, no rhonchi. Gastrointestinal abdomen soft, nontender, bowel sounds audible, no guarding , no rigidity, ileostomy with watery stool and gas Extremities no edema. Neuro non focal Skin no rash Psych appropriate affect Objective Data Active Medications Acetaminophen (Acetaminophen 325 Mg Tablet) 650 mg PO RQ4H PRN PRN Reason: Fever Or Pain Albuterol Sulfate (Albuterol Sulfate 90 Mcg 8 Gm Inhaler) 2 puff INHALE RQ6H PRN PRN Reason: shortness of breath or wheezing Aspirin (Aspirin Enteric Coated 81 Mg Tablet.) 81 mg PO DAILY [facility] Last Admin: 01/10/23 09:08 Dose: 81 mg Documented By: TWYLA Atorvastatin Calcium (Atorvastatin Calcium 10 Mg Tablet) 10 mg PO BEDTIME [facility] Last Admin: 01/09/23 20:38 Dose: 10 mg Documented By: DANNY Budesonide (Budesonide 180 Mcg Aer.Pow.Ba) 2 puff INHALE RDAILY [facility] Last Admin: 01/10/23 08:48 Dose: 2 puff Documented By: LUIS M Carbamide Peroxide (Carbamide Peroxide 6.5% Otic 15 Ml Drpbtl) 5 drop EAR-BOTH BID [facility] Last Admin: 01/10/23 09:11 Dose: Not Given Documented By: TWYLA Non-Admin Reason: end date 01/07 Cholestyramine Resin (Cholestyramine (With Sugar) 4 Gm Powd.Pack) 4 gm PO DAILY [facility] Last Admin: 01/10/23 09:09 Dose: 4 gm Documented By: TWYLA Clopidogrel Bisulfate (Clopidogrel Bisulfate 75 Mg Tablet) 75 mg PO DAILY [facility] Last Admin: 01/10/23 09:09 Dose: 75 mg Documented By: TWYLA Diphenoxylate HCl/Atropine (Diphenoxylate/Atrop 2.5/0.025 Tablet) 1 tab PO BEDTIME [facility] Last Admin: 01/09/23 20:42 Dose: 1 tab Documented By: DANNY Heparin Sodium (Porcine) (Heparin Sodium,Porcine 5,000 Unit/Ml Vial) 5,000 unit SUBCUT Q12H [facility] Last Admin: 01/10/23 06:37 Dose: 5,000 unit Documented By: YRIS Loperamide HCl (Loperamide Hcl 2 Mg Capsule) 4 mg PO TID [facility] Last Admin: 01/10/23 09:09 Dose: 4 mg Documented By: TWYLA Loperamide HCl (Loperamide Hcl 2 Mg Capsule) 2 mg PO Q6H PRN PRN Reason: Diarrhea Multivitamins/Vitamin C (Multivitamin Tablet) 1 tab PO DAILY [facility] Last Admin: 01/10/23 09:09 Dose: 1 tab Documented By: TWYLA Omeprazole (Omeprazole 20 Mg Capsule.Dr) 20 mg PO DAILY [facility] Last Admin: 01/10/23 09:09 Dose: 20 mg Documented By: TWYLA Ondansetron HCl (Ondansetron Odt 4 Mg Tab.Rapdis) 4 mg TRANSLINGU BID [facility] Last Admin: 01/10/23 09:09 Dose: 4 mg Documented By: TWYLA Ondansetron HCl (Ondansetron Odt 4 Mg Tab.Rapdis) 4 mg TRANSLINGU Q8H PRN PRN Reason: Nausea And Vomiting Psyllium Hydrophilic Mucilloid (Psyllium Seed 3.7 Gm Packet) 3.7 gm PO TID [facility] Last Admin: 01/10/23 09:09 Dose: 3.7 gm Documented By: TWYLA Sodium Biphosphate/Sodium Phosphate (Sodium Phosphate,[place]-Dibasic 133 Ml Enema) 118 ml [place] DAILY PRN PRN Reason: Constipation Sodium Chloride (0.9 % Sodium Chloride Flush 3 Ml Syringe) 3 ml IVFLUSH QSHIFT [facility] Last Admin: 01/10/23 09:10 Dose: 3 ml Documented By: TWYLA Thiamine HCl (Thiamine Hcl 100 Mg Tablet) 100 mg PO DAILY [facility] Last Admin: 01/10/23 09:09 Dose: 100 mg Documented By: TWYLA Vitamin D (Cholecalciferol (Vitamin D3) 25 Mcg Tablet) 25 mcg PO DAILY [facility] Last Admin: 01/10/23 09:09 Dose: 25 mcg Documented By: TWYLA Labs 01/05/23 09:30 01/10/23 10:23 Labs: Laboratory Results - last 24 hr 01/10/23 10:23 Anion Gap 11 L Estim Creat Clear Calc 26.4 Estimated GFR 43 Random Glucose 105 Calcium 8.6 Magnesium 1.8 Microbiology Microbiology Results: Microbiology 01/04/23 16:09 Blood Culture - Final Blood - Venous No growth after 5 days. 01/04/23 16:04 Blood Culture - Final Blood - Venous No growth after 5 days. Assessment and Plan (1) CVA (cerebral vascular accident): Status: Acute (2) Hypomagnesemia: Status: Acute (3) SAADIA (acute kidney injury): Status: Resolved Plan Pt is a 77-year-old female with a PMH significant for asthma, HLD, and small bowel vasculitis s/p double-barrel ileostomy who presents to the ED from SNF for evaluation of labs showing abnormal kidney function. Patient herself complains of?lightheadedness, dizziness, and generalized weakness that has been ongoing for the past few days. Pt will be admitted to the hospital for treatment and further evaluation of SAADIA, CVA, and hypomagnesemia. SAADIA--d/t pre renal azotemia from from high output ileostomy and decrease oral intatke, renal function normalized s/p ivf. CVA Patient with lightheadedness, dizziness, generalized weakness for the past few days; last known well time unclear MRI of brain found small acute cortically based infarct in the left occipital lobe superimposed upon an area of chronic infarction Patient admitted [place] [facility] [place] for TIA, discharged on DAPT with aspirin and Plavix for three weeks, then asa alone CTA at [facility] on 12/20/2022 negative for stenosis Echocardiogram at [facility] on 12/23/2022 showed normal LVEF of 65-70% with no regional wall motion abnormalities, normal diastolic and right ventricle function Contacted Neurology who said no additional imaging or treatment necessary as pt. is not a candidate for tPA or surgical interventions LDL 133, LDL 76 PT/OT recommend home with PT resume statin ,lfts improved DC Plavix since finished 3 weeks of treatment, continue aspirin Neuro input noted Hypomagnesemia, due to gi loss, magnesium normalized will place on Mag oxide 400 mg daily Hypokalemia resolved . High output ileostomy 09/19 ex lap with SBR, lysis of adhesions, drainage of intra-abdominal abscess and appedectomy. abscess grew klebsiella pneumoniae and klebsiella oxytoca and she completed course of abx at 09/24 she underwent second ex lap with small bowel resection and a double- barreled ileostomy negative C diff, GI panel negative Continue imodium and lomotil, on low-fiber, lactose free, bland diet diet Information regarding dietary limitations provided, patient receiving teachings to change ileostomy bag stop all stool softeners Orthostatic hypotension d/t dehydration, follow bps Transaminitis Likely secondary to shock liver d/t SAADIA, LFTs normalized. Has been recurring since admission to [facility] at the beginning of October; LFTs WNL on discharge fro [facility] on 12/24/2022 Hepatitis panel negative Abdominal US on 11/01/2022 found mild sludge in the gallbladder without sonographic evidence of acute cholecystitis; no focal liver lesions with normal echogenicity Medium vessel vasculitis Continue budesonide GERD continue omeprazole Moderate malnutrition receiving supplements being followed by senior net architect. dvt prophylaxis heparin need for inpt: Persistent high ileostomy output with electrolyte abnormality , follow electrolytes and monitor renal function Time Spent With Patient Time: Total time managing care of this patient today ____ minutes. Quality Stroke Does the patient have a stroke diagnosis?: Yes Reason for No Anti-thrombotic by Day Two: Contraindicated (Unknown last well known time; outside of tPA therapeutic window) VTE Prior VTE?: No VTE Risk Level:: Medical - moderate - high VTE Device Contraindication: Treatment Not Indicated VTE Drug Contraindication: N/A - Med Ordered
[2023-01-10] MEDS: Magnesium Oxide 400 MG TABLET PO (15:57)
[2023-01-10] MEDS: Atorvastatin Calcium 10 MG TABLET PO (20:44)
[2023-01-11] VITALS (8 sets, daily range): BP systolic 95–130; BP diastolic 49–63; PULSE 69–92; RESP 15–22; TEMP 36.2–37.4; O2SAT 98–100
[2023-01-11] MEDS: 0.9 % Sodium Chloride Flush 3 ML SYRINGE IVFLUSH ×4 (00:09→21:47)
[2023-01-11] MEDS: Heparin Sodium,Porcine 5,000 UNIT/ML VIAL 5000 UNIT SUBCUT ×2 (06:20→17:45)
[2023-01-11] MEDS: Budesonide 180 MCG AER.POW.BA 2 PUFF INHALE (08:02)
[2023-01-11] MEDS: Loperamide HCl 2 MG CAPSULE 4 MG PO ×3 (09:53→21:44)
[2023-01-11] MEDS: Cholecalciferol (Vitamin D3) 25 MCG TABLET PO (09:54)
[2023-01-11] MEDS: Omeprazole 20 MG CAPSULE.DR PO (09:54)
[2023-01-11] MEDS: Multivitamin TABLET 1 TAB PO (09:54)
[2023-01-11] MEDS: Aspirin Enteric Coated 81 MG TABLET.DR PO (09:54)
[2023-01-11] MEDS: Magnesium Oxide 400 MG TABLET PO (09:55)
[2023-01-11] MEDS: Thiamine HCL 100 MG TABLET PO (09:55)
[2023-01-11] MEDS: Cholestyramine (With Sugar) 4 GM POWD.PACK PO (09:56)
[2023-01-11] MEDS: Psyllium seed 3.7 GM PACKET PO ×3 (09:56→21:44)
--- NOTE | 2023-01-11 10:23 | MHC.CM.PN ---
Addendum entered by Andra Perez 01/11/23 13:03: CM MET WITH PT AND SPOKE TO HER NEIGHBOR/FRIEND ON THE PHONE PT AND FRIEND AWARE SHE WILL DC HOME TODAY AND [facility] WITH PROVIDE SOC SATURDAY PT REPORTS SHE WAS SEEN BY [facility] LIAISON WHO MADE AN INTAKE APPT FOR HER ON THE OF THIS MONTH PT ALSO AWARE SUPPLIES WILL BE SENT HOME WITH HER AND THE VNA WILL ORDER THEM ONGOING SHE SAYS HER BAG CAME OFF AND SHE CHANGED IT HERSELF WITH THE SUPERVISION OF A NURSE HERE, SHE SAYS AFTER THAT SHE FEELS MUCH MORE COMFORTABLE GOING HOME HER FRIEND WILL BRING HER CLOTHES AND SHOES SOON Original Note: PT WILL DC HOME TODAY WITH [facility] FOR PT/OT/SN AND A REFERRAL TO [facility] PT WILL BE PROVIDED WITH TEACHING AND SUPPLIES FOR WOUND CARE PRIOR TO DC [facility] AWARE OF DC
--- NOTE | 2023-01-11 11:55 | PC.NURSE ---
Colostomy teaching done with patient. Patient educated on bag change, and demonstrated emptying and changing a colostomy bag independently. All questions answered by this RN. Patient to have [facility] services at home at discharge. A bag of extra colostomy supplies sent with patient for discharge.
--- NOTE | 2023-01-11 13:14 | MHC.CLN ---
F/U PO INTAKE 100% PT STATES SHE IS EATING EVERYTHING SHE CAN AND FOLLOWING DIET EDUCATION PROVIDED DIET RX: LOW FIBER, LACTOSE FREE BLAND-APPROPRIATE PT CONTINUES WITH ENSURE BID PROVIDES 700KCALS, 40G PROTEIN PT REPORTS SHE IS GOING HOME TODAY Recommend referral to out pt RD for future follow up and diet education regarding ileostomy upon D/C
--- NOTE | 2023-01-11 13:45 | W.MHC.F2F ---
Service Date Service Date: 01/11/23 Encounter Date of encounter: 01/11/23 Reasons for Services Signs and symptoms assessed: High ileostomy output, generalized weakness Reason for detention: teach disease management, GI/ assessment and other Reason for physical therapy: home safety and mobility Homebound: Leaving the home is medically contraindicated at this time without the asist of a device and/or another person due th the listed conditions above and below. Reason homebound: weakness related to hospital stay Certification: Based on the above findings, I certify that this patient is confined to the home and needs intermittent detention care, physical therapy and/or speech therapy, or continues to need occupational therapy. The patient is under my care, and I have initiated the establishment of the plan of care. The patient will be followed by a physician who will periodically review the plan of care. Time Spent With Patient Time: Total time managing care of this patient today ____ minutes.
--- NOTE | 2023-01-11 16:50 | HO.PM.IMPN ---
Subjective Subjective Date of Service: 01/11/23 Interval History: No acute issues overnight tolerating diet denies nausea, vomiting, requiring less frequent change of ileostomy bag, is very nervous about changing ileostomy bag, no fevers, no chills, no new neuro deficit no headache. Review of Systems All other systems reviewed and negative. Physical Exam Vital Signs: Vital Signs: Last Vital Signs Temp 98.8 F 01/11/23 15:33 Pulse 79 01/11/23 15:33 Resp 15 01/11/23 15:33 BP 115/57 L 01/11/23 15:33 Pulse Ox 99 01/11/23 15:33 O2 Del Method Room Air 01/11/23 15:33 BMI result Body Mass Index 17.1 Const: Other: General awake alert x3, sitting comfortably, in no acute distress.? Neck is supple no JVD. CVS? regular rate rhythm, Respiratory lungs clear to auscultation, no respiratory distress, no wheeze, no rhonchi. Gastrointestinal abdomen soft, nontender, bowel sounds audible, no guarding , no rigidity, ileostomy with watery stool and gas Extremities no edema. Neuro non focal Skin no rash Psych appropriate affect Objective Data Active Medications Acetaminophen (Acetaminophen 325 Mg Tablet) 650 mg PO RQ4H PRN PRN Reason: Fever Or Pain Albuterol Sulfate (Albuterol Sulfate 90 Mcg 8 Gm Inhaler) 2 puff INHALE RQ6H PRN PRN Reason: shortness of breath or wheezing Aspirin (Aspirin Enteric Coated 81 Mg Tablet.Dr) 81 mg PO DAILY REPLACED BY [facility] Last Admin: 01/11/23 09:54 Dose: 81 mg Documented By: ALFREDO Atorvastatin Calcium (Atorvastatin Calcium 10 Mg Tablet) 10 mg PO BEDTIME REPLACED BY [facility] Last Admin: 01/10/23 20:44 Dose: 10 mg Documented By: JOCE Budesonide (Budesonide 180 Mcg Aer.Pow.Ba) 2 puff INHALE RDAILY REPLACED BY [facility] Last Admin: 01/11/23 08:02 Dose: 2 puff Documented By: BENY Carbamide Peroxide (Carbamide Peroxide 6.5% Otic 15 Ml Drpbtl) 5 drop EAR-BOTH BID REPLACED BY [facility] Last Admin: 01/11/23 09:56 Dose: Not Given Documented By: ALFREDO Non-Admin Reason: no longer takes Cholestyramine Resin (Cholestyramine (With Sugar) 4 Gm Powd.Pack) 4 gm PO DAILY REPLACED BY [facility] Last Admin: 01/11/23 09:56 Dose: 4 gm Documented By: ALFREDO Heparin Sodium (Porcine) (Heparin Sodium,Porcine 5,000 Unit/Ml Vial) 5,000 unit SUBCUT Q12H REPLACED BY [facility] Last Admin: 01/11/23 06:20 Dose: 5,000 unit Documented By: JOCE Loperamide HCl (Loperamide Hcl 2 Mg Capsule) 4 mg PO TID REPLACED BY [facility] Last Admin: 01/11/23 15:42 Dose: 4 mg Documented By: YOLANDA Loperamide HCl (Loperamide Hcl 2 Mg Capsule) 2 mg PO Q6H PRN PRN Reason: Diarrhea Magnesium Oxide (Magnesium Oxide 400 Mg Tablet) 400 mg PO DAILY REPLACED BY [facility] Last Admin: 01/11/23 09:55 Dose: 400 mg Documented By: ALFREDO Multivitamins/Vitamin C (Multivitamin Tablet) 1 tab PO DAILY REPLACED BY [facility] Last Admin: 01/11/23 09:54 Dose: 1 tab Documented By: ALFREDO Omeprazole (Omeprazole 20 Mg Capsule.Dr) 20 mg PO DAILY REPLACED BY [facility] Last Admin: 01/11/23 09:54 Dose: 20 mg Documented By: ALFREDO Ondansetron HCl (Ondansetron Odt 4 Mg Tab.Rapdis) 4 mg TRANSLINGU Q8H PRN PRN Reason: Nausea And Vomiting Psyllium Hydrophilic Mucilloid (Psyllium Seed 3.7 Gm Packet) 3.7 gm PO TID REPLACED BY [facility] Last Admin: 01/11/23 15:42 Dose: 3.7 gm Documented By: YOLANDA Sodium Biphosphate/Sodium Phosphate (Sodium Phosphate,[place]-Dibasic 133 Ml Enema) 118 ml KS DAILY PRN PRN Reason: Constipation Sodium Chloride (0.9 % Sodium Chloride Flush 3 Ml Syringe) 3 ml IVFLUSH QSHIFT REPLACED BY [facility] Last Admin: 01/11/23 15:42 Dose: 3 ml Documented By: YOLANDA Thiamine HCl (Thiamine Hcl 100 Mg Tablet) 100 mg PO DAILY REPLACED BY [facility] Last Admin: 01/11/23 09:55 Dose: 100 mg Documented By: ALFREDO Vitamin D (Cholecalciferol (Vitamin D3) 25 Mcg Tablet) 25 mcg PO DAILY REPLACED BY [facility] Last Admin: 01/11/23 09:54 Dose: 25 mcg Documented By: ALFREDO Labs 01/05/23 09:30 01/10/23 10:23 Assessment and Plan (1) CVA (cerebral vascular accident): Status: Acute (2) Hypomagnesemia: Status: Acute (3) SAADIA (acute kidney injury): Status: Resolved Plan Pt is a 77-year-old female with a PMH significant for asthma, HLD, and small bowel vasculitis s/p double-barrel ileostomy who presents to the ED from SNF for evaluation of labs showing abnormal kidney function. Patient herself complains of?lightheadedness, dizziness, and generalized weakness that has been ongoing for the past few days. Pt will be admitted to the hospital for treatment and further evaluation of SAADIA, CVA, and hypomagnesemia. SAADIA--d/t pre renal azotemia from from high output ileostomy and decrease oral intatke, renal function normalized s/p ivf. CVA Admitted with lightheadedness, dizziness, generalized weakness of few days duration, MRI of brain found small acute cortically based infarct in the left occipital lobe superimposed upon an area of chronic infarction Patient admitted to [facility] on 12/20/2022 for TIA, discharged on DAPT with aspirin and Plavix for three weeks, then asa alone, CTA at [facility] on 12/20/2022 negative for stenosis Echocardiogram at [facility] on 12/23/2022 showed normal LVEF of 65-70% with no regional wall motion abnormalities, normal diastolic and right ventricle function, patient was considered not a candidate for tPA or surgical intervention, and was continued on Plavix and aspirin, LDL 133, LDL 76 , patient evaluated by PT OT and they recommend home physical therapy patient remains hemodynamically stable with no neuro deficits was evaluated by Dr. Figueroa recommend to continue aspirin, will DC Plavix after 3 weeks. Hypomagnesemia, due to gi loss, magnesium normalized , on Mag oxide 400 mg daily Hypokalemia resolved . High output ileostomy Less frequent ileostomy drainage 09/19 ex lap with SBR, lysis of adhesions, drainage of intra-abdominal abscess and appedectomy. abscess grew klebsiella pneumoniae and klebsiella oxytoca and she completed course of abx at 09/24 she underwent second ex lap with small bowel resection and a double-barreled ileostomy negative C diff, GI panel negative Continue imodium and lomotil, on low-fiber, lactose free, bland diet Information regarding dietary limitations provided, patient receiving teachings to change ileostomy bag stop all stool softeners Orthostatic hypotension d/t dehydration, follow bps Transaminitis Likely secondary to shock liver d/t SAADIA, LFTs normalized. Has been recurring since admission to [facility] at the beginning of October; LFTs WNL on discharge fro [facility] on 12/24/2022 Hepatitis panel negative Abdominal US on 11/01/2022 found mild sludge in the gallbladder without sonographic evidence of acute cholecystitis; no focal liver lesions with normal echogenicity Medium vessel vasculitis Continue budesonide GERD continue omeprazole Moderate malnutrition receiving supplements being followed by motor grader rough grade. dvt prophylaxis heparin need for inpt: Persistent high ileostomy output with electrolyte abnormality , follow electrolytes and monitor renal function Time Spent With Patient Time: Total time managing care of this patient today ____ minutes. Quality Stroke Does the patient have a stroke diagnosis?: Yes Reason for No Anti-thrombotic by Day Two: Contraindicated (Unknown last well known time; outside of tPA therapeutic window) VTE Prior VTE?: No VTE Risk Level:: Medical - moderate - high VTE Device Contraindication: Treatment Not Indicated VTE Drug Contraindication: N/A - Med Ordered
[2023-01-11] MEDS: Atorvastatin Calcium 10 MG TABLET PO (21:44)
[2023-01-12 03:34] VITALS: BP 103/57; PULSE 74; RESP 18; TEMP 36.5; O2SAT 99
[2023-01-12] MEDS: Heparin Sodium,Porcine 5,000 UNIT/ML VIAL 5000 UNIT SUBCUT (05:37)
[2023-01-12 07:30] VITALS: BP 109/54; PULSE 73; RESP 20; TEMP 36.5; O2SAT 99
[2023-01-12] MEDS: Budesonide 180 MCG AER.POW.BA 2 PUFF INHALE (08:12)
[2023-01-12 08:14] VITALS: PULSE 73; RESP 16; O2SAT 98
[2023-01-12] MEDS: 0.9 % Sodium Chloride Flush 3 ML SYRINGE IVFLUSH (09:12)
[2023-01-12] MEDS: Multivitamin TABLET 1 TAB PO (09:13)
[2023-01-12] MEDS: Aspirin Enteric Coated 81 MG TABLET.DR PO (09:13)
[2023-01-12] MEDS: Cholecalciferol (Vitamin D3) 25 MCG TABLET PO (09:13)
[2023-01-12] MEDS: Thiamine HCL 100 MG TABLET PO (09:13)
[2023-01-12] MEDS: Magnesium Oxide 400 MG TABLET PO (09:14)
[2023-01-12] MEDS: Omeprazole 20 MG CAPSULE.DR PO (09:15)
[2023-01-12] MEDS: Loperamide HCl 2 MG CAPSULE 4 MG PO (09:16)
[2023-01-12] MEDS: Cholestyramine (With Sugar) 4 GM POWD.PACK PO (09:16)
[2023-01-12] MEDS: Psyllium seed 3.7 GM PACKET PO (09:17)
--- NOTE | 2023-01-12 11:08 | P.DS_ITS ---
DS: Providers Provider Date of Service: 01/13/23 Date of admission: 01/04/23 17:31 Primary care physician: Amos Aguilar MD Consults: 01/04/23 15:23 Consult to General Surgery Stat Consulting Provider: Rajendra Arriaga Reason for consultation: dehydration 01/04/23 16:02 Consult to General Surgery Stat Consulting Provider: Jorge Mike Reason for consultation: diarrhea in illeostomy 01/04/23 17:57 Consult to Neurology Routine Consulting Provider: [facility] Reason for consultation: Small acute cortical infarct in left occipital lobe DS: Diagnosis Discharge Diagnosis (1) CVA (cerebral vascular accident): Status: Acute (2) Hypomagnesemia: Status: Acute (3) SAADIA (acute kidney injury): Status: Resolved DS: Summary Hospital Course Hospital Course: Date of Service: 01/04/23 Attending physician on admission: Crescencio [facility] Chief Complaint: Abnormal labs, lightheadedness and dizziness Pt is a 77-year-old female with a PMH significant for asthma, HLD, and small bowel vasculitis s/p double-barrel ileostomy who presents to the ED from SNF for evaluation of labs showing abnormal kidney function. Patient herself complains of ?lightheadedness, dizziness, and generalized weakness that has been ongoing for the past few days. Patient also complains of back and neck discomfort when she has to sit for long periods of time; this has been ongoing for multiple weeks. Patient denies any abdominal pain, but states she has back pain radiating to her neck if she sits for any prolonged period of time. Has also experienced some nausea though no vomiting. Patient normally able to ambulate on her own with the use of a walker, however reports decreased mobility due to generalized weakness over the past few days. States she has been ?stays put most of the day. Denies fever, chills. No chest pain/pressure, palpitations. Denies shortness of breath. No hemiparesis, slurred speech, facial droop. Since September of this year patient has had a long and complicated medical history. On 09/13/2022 patient presented to [facility] with abdominal pain, nausea, and vomiting and was found to have small-bowel vasculitis with resulting multiple skip areas of small bowel necrosis, perforation, and abscess formation. Patient required 2 separate surgical interventions with small-bowel resection and double-barrel ileostomy formation. Patient was then transferred on 09/26/2022 to [facility] for inpatient rheumatology evaluation where she was treated with steroids and IVIG. Patient was discharged to SNF and had poor p.o. intake and high ostomy output. Presented to [facility] and noted to have SAADIA. Was also noted to have elevated LFTs thought to be secondary to cholestasis and positive CMV infection. A few weeks later pt then presented here with similar complaints of generalized weakness and found to have an SAADIA with hypokalemia and hypomagnesemia. Patient was discharged with temporary diphenoxylate-atropine and scheduled loperamide TIADC. Most recently, on 12/20/2022-12/24/2022, she presented to [facility] with left-sided weakness, slurred spee ch, and hypoxia and was admitted for TIA, SAADIA, transaminitis, and hyponatremia. At [facility] CTA negative for stenosis, MRI showed multiple small infarcts but negative for acute infarct, and echo showed normal LVEF and no regional wall motion abnormalities. Patient was discharged on 3 weeks of dual anti-platelet therapy with aspirin and Plavix. Of note, pt's decreased appetite and nutritional intake is preventing her from being a candidate for closure of ileostomy. In the ED patient was afebrile but tachycardic up to 120 with soft BP as low as 82/43. Labs were significant for WBC of 11.1, BUN of 40, creatinine 3.25, magnesium 1.0, bilirubin 1.7, AST 63, ALT 60, alk-phos 599. Orthostatics positive with a systolic drop of 22. CXR showed no acute cardiopulmonary disease. CT?of head with no evidence of acute territorial infarct or hemorrhage, but showed small chronic cortical infarcts within both occipital lobes and right cerebellum that her slightly more apparent when compared to a recent CT scan of the head on 10/12/2022.. Also visualized scattered chronic small vessel ischemic changes within the periventricular white matter. MRI of brain found small acute cortically based infarct in the left occipital lobe superimposed upon an area of chronic infarction with minimal hemosiderin staining. EKG demonstrated normal sinus rhythm with nonspecific ST and T-wave abnormalities in QTc of 485. Pt was treated with IVF and Mag sulfate. Pt will be admitted to the hospital for treatment and further evaluation of SAADIA, CVA, and hypomagnesemia. Hospital course: 77-year-old female with a PMH significant for asthma, HLD, and small bowel vasculitis s/p double-barrel ileostomy who presents to the ED from SNF for evaluation of labs showing abnormal kidney function. Patient herself complains of?lightheadedness, dizziness, and generalized weakness that has been ongoing for the past few days. Pt admitted to the hospital for treatment and further evaluation of SAADIA, CVA, and hypomagnesemia. Acute CVA admitted with lightheadedness, dizziness, generalized weakness of few days duration, MRI of brain found small acute cortically based infarct in the left occipital lobe superimposed upon an area of chronic infarction Patient admitted to [facility] on 12/20/2022 for TIA, discharged on DAPT with aspirin and Plavix for three weeks, then asa alone, CTA at [facility] on 12/20/2022 negative for stenosis, Echocardiogram at [facility] on 12/23/2022 showed normal LVEF of 65-70% with no regional wall motion abnormalities, normal diastolic and right ventricle function, patient seen by Dr. Figueroa, was considered not a candidate for tPA or surgical intervention, and was continued on Plavix and aspirin, LDL 133, LDL 76 , patient evaluated by PT OT and they recommend home physical therapy patient remains hemodynamically stable with no neuro deficits, patient Plavix discontinued upon discharge she finished 3 weeks course. In regard to High output ileostomy, patient was requiring frequent emptying of ileostomy bag, and was noted to have multiple electrolyte abnormality including hypokalemia and hypo magnesemia that were aggressively repleted patient potassium and magnesium levels have normalized, patient was treated with Imodium, Lomotil , husk and Questran, and placed on lactose-free, low fiber and bland diet, patient responded to above treatment now stool remains liquidy but has to empty back less frequently patient has no abdominal pain, no nausea no vomiting, GI panel came back negative, C diff is negative, since patient has double-barreled ileostomy back she is at high risk of watery stools therefore recommended to follow dietary recommendations closely patient was evaluated by hanger off and has been given information about low fiber bland diet. Patient was noted to have acute kidney injury related to high output ileostomy and decreased by mouth intake as well as orthostatic hypotension likely due to dehydration she was treated with IV fluids renal function normalized and blood pressure improved , she was noted to have Transaminitis, Likely secondary to shock liver d/t SAADIA, hypotension, LFTs normalized with hydration. In regard to Medium vessel vasculitis she is recommended to continue budesonide Moderate malnutrition recommend high-protein diet. Time Spent with Patient Time attestation: Total time managing care of this patient today ____ minutes. Discharge coordination time: Greater than 30 minutes Quality: Safe Use of Opioids Does Pt have an Active Cancer Diagnosis on the Problem List?: No Quality: Stroke Does the patient have a stroke diagnosis?: No Physical Exam Vital Signs: Vital Signs: Last Vital Signs Temp 97.7 F 01/12/23 07:30 Pulse 73 01/12/23 08:14 Resp 16 01/12/23 08:14 BP 109/54 L 01/12/23 07:30 Pulse Ox 99 01/12/23 07:30 O2 Del Method Room Air 01/12/23 07:30 BMI result Body Mass Index 17.1 Const: Other: General awake alert x3, sitting comfortably, in no acute distress.? Neck is supple no JVD. CVS? regular rate rhythm, Respiratory lungs clear to auscultation, no respiratory distress, no wheeze, no rhonchi. Gastrointestinal abdomen soft, nontender, bowel sounds audible, no guarding , no rigidity, ileostomy with watery stool and gas. Extremities no edema. Neuro non focal Skin no rash Psych appropriate affect DS: Data Data Completed and Pending Completed studies during hospitalization [Text1]: Procedures Bypass Ileum to Cutaneous, Open Approach (09/13/22) Drainage of Peritoneal Cavity, Open Approach (09/13/22) Excision of Ileum, Open Approach (09/13/22) Release Small Intestine, Open Approach (09/13/22) Resection of Appendix, Open Approach (09/13/22) Discharge Plan Discharge Anticipated Discharge Date/Time: 01/11/23 13:23 Patient Disposition: Home Health Service Discharge Diagnosis: Acute CVA High output ileostomy Orthostatic hypotension Hypo magnesemia Hypokalemia Transaminitis Referrals: [facility] [Other] (referral made ) [facility] [Outside] - 3-5 Days Po,Amos White MD [Primary Care Provider] - 1 Week Discharge Medications: New magnesium oxide 400 mg (241.3 mg magnesium) Tablet 400 mg PO DAILY Qty: 90 0RF Continued albuterol sulfate [ProAir HFA] 90 mcg/actuation HFA aerosol inhaler 2 puff inhalation Q6H PRN (Reason: shortness of breath or wheezing) pantoprazole 40 mg Tablet,Delayed Release (Dr/Ec) 40 mg PO DAILY ondansetron HCl 4 mg Tablet 4 mg PO Q8H PRN (Reason: Nausea And Vomiting) Qty: 90 0RF loperamide 2 mg Tablet 4 mg PO TID Qty: 180 0RF thiamine HCl (vitamin B1) 100 mg Tablet 100 mg PO DAILY Qty: 90 0RF diphenoxylate-atropine [Lomotil] 2.5-0.025 mg tablet 1 tab PO BEDTIME Qty: 30 0RF aspirin 81 mg Tablet,Delayed Release (Dr/Ec) 81 mg PO DAILY Qty: 30 0RF simvastatin 20 mg tablet 20 mg PO BEDTIME Qty: 30 0RF multivitamin with minerals Tablet 1 tab PO DAILY Qty: 90 0RF cholestyramine (with sugar) 4 gram Powder In Packet 4 g PO DAILY Qty: 60 0RF Rx Instructions: administer w/meal; avoid other meds within 1hr before or 4-6hr after dose acetaminophen 325 mg capsule 650 mg PO Q4-6H PRN (Reason: Fever Or Pain) Qty: 90 0RF cholecalciferol (vitamin D3) 25 mcg (1,000 unit) Tablet 25 mcg PO DAILY Qty: 30 0RF Pulmicort Flexhaler 180 mcg/actuation aerosol powdr breath activated 2 inh inhalation DAILY Qty: 1 0RF psyllium husk 3.4 gram/5.4 gram Powder 2 tbsp PO TID Qty: 660 0RF Rx Instructions: mix into at least 8 oz of water or juice before administering Changed diphenoxylate-atropine 2.5-0.025 mg tablet 1 tab PO TIDAC Qty: 90 0RF Rx Instructions: before meals and at bedtime Discontinued ondansetron HCl 4 mg Tablet 4 mg PO BID clopidogrel 75 mg Tablet 75 mg PO DAILY Rx Instructions: end date: 01/15/23 Fleet Enema 19-7 gram/118 mL Enema 118 ml [place] DAILY PRN (Reason: Constipation) Debrox 6.5 % Drops 5 drp OTIC (EARS) BID Rx Instructions: end date: 01/07/23 bisacodyl [Dulcolax (bisacodyl)] 10 mg suppository 10 mg CA DAILY PRN (Reason: Constipation) magnesium hydroxide [Milk of Magnesia] 400 mg/5 mL suspension 30 ml PO DAILY PRN (Reason: Constipation) Discharge Orders: Discharge Order (Routine); Ordered 01/12/23 Ordered By: Shantanu Sanz Diet: bland,lactose free,low fi Activity on Discharge: As tolerated Stand Alone Forms: Patient Portal Discharge page Other Ambulatory Orders: Basic Metabolic Panel (Routine) Timeframe: 20230115 Facility: [facility] - Location: Laboratory Ordered By: Shantanu Sanz Basic Metabolic Panel (Routine) Timeframe: 20230115 Facility: [facility] - Location: Laboratory Ordered By: Shantanu Sanz Magnesium (Routine) Timeframe: 20230115 Facility: [facility] - Location: Laboratory Ordered By: Shantanu Sanz Magnesium (Routine) Timeframe: 20230115 Facility: [facility] - Location: Laboratory Ordered By: Shantanu Sanz Care Plan Goals: Continue ileostomy care being discharged with VNA and PT services Follow nutrition recommendation Check labs in 1 week Health Concerns: High output ileostomy Plan of Treatment: Call primary care physician for appointment in next 7-10 days, follow-up with general surgeon as needed Assessment: as above Discharge Date/Time: 01/12/23 11:33
--- NOTE | 2023-01-12 15:28 | MHC.CM.PN ---
Pt medically cleared for D/C home with [facility]. Pt transported via [employer].
== END 2023-01-12 11:33 | disposition home health service (06) | DRG 64 ==
LOC: HO.ED 15:26 → HO.EDOVER 17:46 → HO.IMC 17:55
PROVIDERS: Internal Medicine; Physician Assistant; Admitting Provider Student in an Organized Health Care Education/Training Program; Emergency Provider Emergency Medicine; PCP Internal Medicine; Visit Provider Hospitalist
DX: I63.9 Cerebral infarction, unspecified (principal); K72.00 Acute and subacute hepatic failure without coma; N17.9 Acute kidney failure, unspecified; E78.00 Pure hypercholesterolemia, unspecified; I95.1 Orthostatic hypotension; R29.700 NIHSS score 0; E83.42 Hypomagnesemia; E87.6 Hypokalemia; Z66 Do not resuscitate; E86.0 Dehydration; K91.1 Postgastric surgery syndromes; Z93.2 Ileostomy status; Z87.891 Personal history of nicotine dependence; Z79.82 Long term (current) use of aspirin; Z79.899 Other long term (current) drug therapy
CPT/HCPCS: 36415; 70450; 70551; 71045; 80048; 80053; 80061; 80076; 81001; 83605; 83735; 83880; 84100; 85025; 85027; 87040; 87086; 87493; 87507; 93005; 94640; 97110; 97116; 97162; 97166; 97530; 97535; 99285; J1643; J3475

== ENCOUNTER → 2023-01-04 13:09 | Outpatient (BNV) | payer MEDICARE, SELFPAY | PROVIDERS: Emergency Provider Emergency Medicine; PCP Internal Medicine; Visit Provider Surgery | DX: R53.1 Weakness (principal); R42 Dizziness and giddiness; I95.1 Orthostatic hypotension; K91.1 Postgastric surgery syndromes; Z93.2 Ileostomy status | CPT/HCPCS: 99222; 99231; 99232 ==

== ENCOUNTER → 2023-01-04 17:31 | Outpatient (BNV) | payer MEDICARE, SELFPAY | PROVIDERS: Admitting Provider Student in an Organized Health Care Education/Training Program; Emergency Provider Emergency Medicine; PCP Internal Medicine; Visit Provider Student in an Organized Health Care Education/Training Program | DX: I63.9 Cerebral infarction, unspecified (principal); E83.42 Hypomagnesemia; N17.9 Acute kidney failure, unspecified | CPT/HCPCS: 99223; 99232; 99233; 99239; G0180 ==